=== PATIENT | male | born 1945 | race Caucasian/White ===

== ENCOUNTER → 2017-10-21 08:06 | Outpatient (CLI) | payer MEDICARE, SELFPAY ==
[2017-10-21 08:30] LABS: Abs Immature Grans 0.04 k/cumm (0.0-0.09); Absolute Basophil Count 0.02 k/cumm (0.0-0.2); Absolute Eosinophil Count 0.04 k/cumm (0.0-0.7); Absolute Lymphocyte Count 1.33 k/cumm (1.2-3.4); Absolute Monocyte Count 0.69 k/cumm (0.11-0.7); Basophils % 0.4; Eosinophils % 0.9; HCT 37.4 % (40.0-50.0); HGB 12.6 g/dL (13.5-17.5); Immature Grans % 0.9; Lymphocytes % 28.8; Mean Corp. HGB Concentration 33.7 g/dL (32.0-36.0); Mean Corpuscular Hemoglobin 30.3 pg (27.0-33.0); Mean Corpuscular Volume 89.9 fL (80-95); Mean Platelet Volume 9.3 fL (8.0-11.0); Monocytes % 14.9; Neutrophils % 54.1; Platelet Count 283 x1000/uL (130-400); RBC 4.16 m/cumm (4.50-6.00); RBC Distribution Width 14.9 % (11.8-14.1); White Blood Cell Count 4.62 k/cumm (4.4-10.8)
[2017-10-21 08:44] LABS: ALT 22 U/L (12-78); AST 17 U/L (15-37); Albumin 2.9 g/dL (3.4-5.0); Alkaline Phosphatase 104 U/L (46-116); Anion Gap 5.7 mmol/L (3-11); BUN 14 mg/dL (7-18); Bilirubin, Total 0.3 mg/dL (0.2-1.0); CO2 29.3 mmol/L (21.0-32.0); CREATININE 0.88 mg/dL (0.70-1.30); Calcium 8.9 mg/dL (8.5-10.1); Chloride 105 mmol/L (98-107); Glucose 127 mg/dL (70-100); Potassium 3.9 mmol/L (3.5-5.1); Sodium 140 mmol/L (136-145); Total Protein 6.4 g/dL (6.4-8.2)
== END ==
PROVIDERS: Visit Provider Internal Medicine Medical Oncology
DX: C34.91 Malignant neoplasm of unspecified part of right bronchus or lung (principal)
CPT/HCPCS: 36415; 80053; 85025

== ENCOUNTER → 2017-11-11 03:09 | Outpatient (CLI) | payer MEDICARE, SELFPAY ==
[2017-11-11 09:00] LABS: Abs Immature Grans 0.03 k/cumm (0.0-0.09); Absolute Basophil Count 0.01 k/cumm (0.0-0.2); Absolute Eosinophil Count 0.05 k/cumm (0.0-0.7); Absolute Lymphocyte Count 1.14 k/cumm (1.2-3.4); Absolute Monocyte Count 0.74 k/cumm (0.11-0.7); Absolute Neutrophil Count 2.28 k/cumm (1.2-6.7); Basophils % 0.2; Eosinophils % 1.2; HCT 33.8 % (40.0-50.0); HGB 11.3 g/dL (13.5-17.5); Immature Grans % 0.7; Lymphocytes % 26.8; Mean Corp. HGB Concentration 33.4 g/dL (32.0-36.0); Mean Corpuscular Hemoglobin 30.8 pg (27.0-33.0); Mean Corpuscular Volume 92.1 fL (80-95); Mean Platelet Volume 9.8 fL (8.0-11.0); Monocytes % 17.4; Neutrophils % 53.7; Platelet Count 288 x1000/uL (130-400); RBC 3.67 m/cumm (4.50-6.00); RBC Distribution Width 16.5 % (11.8-14.1); White Blood Cell Count 4.25 k/cumm (4.4-10.8)
[2017-11-11 09:11] LABS: ALT 19 U/L (12-78); AST 23 U/L (15-37); Albumin 2.9 g/dL (3.4-5.0); Alkaline Phosphatase 106 U/L (46-116); Anion Gap 5.7 mmol/L (3-11); BUN 16 mg/dL (7-18); Bilirubin, Total 0.3 mg/dL (0.2-1.0); CO2 28.3 mmol/L (21.0-32.0); CREATININE 0.96 mg/dL (0.70-1.30); Calcium 8.5 mg/dL (8.5-10.1); Chloride 107 mmol/L (98-107); Glucose 110 mg/dL (70-100); Potassium 4.2 mmol/L (3.5-5.1); Sodium 141 mmol/L (136-145); Total Protein 6.3 g/dL (6.4-8.2)
[2017-11-11 16:07] LABS: Magnesium 1.8 mg/dL (1.8-2.4)
== END ==
PROVIDERS: Nurse Practitioner Adult Health; PCP Nurse Practitioner Primary Care; Visit Provider Internal Medicine Medical Oncology
DX: C34.91 Malignant neoplasm of unspecified part of right bronchus or lung (principal); C77.1 Secondary and unspecified malignant neoplasm of intrathoracic lymph nodes
CPT/HCPCS: 36415; 80053; 83735; 85025

== ENCOUNTER 2017-12-02 10:44 | Outpatient (CLI) | payer MEDICARE, SELFPAY ==
[2017-12-02 11:06] LABS: Abs Immature Grans 0.01 k/cumm (0.0-0.09); Absolute Basophil Count 0.02 k/cumm (0.0-0.2); Absolute Eosinophil Count 0.07 k/cumm (0.0-0.7); Absolute Lymphocyte Count 1.38 k/cumm (1.2-3.4); Absolute Monocyte Count 0.86 k/cumm (0.11-0.7); Absolute Neutrophil Count 1.84 k/cumm (1.2-6.7); Basophils % 0.5; Eosinophils % 1.7; HCT 32.4 % (40.0-50.0); HGB 10.9 g/dL (13.5-17.5); Immature Grans % 0.2; Mean Corp. HGB Concentration 33.6 g/dL (32.0-36.0); Mean Corpuscular Hemoglobin 31.8 pg (27.0-33.0); Mean Corpuscular Volume 94.5 fL (80-95); Mean Platelet Volume 9.4 fL (8.0-11.0); Monocytes % 20.6; Platelet Count 229 x1000/uL (130-400); RBC 3.43 m/cumm (4.50-6.00); RBC Distribution Width 17.9 % (11.8-14.1); White Blood Cell Count 4.18 k/cumm (4.4-10.8)
[2017-12-02 11:18] LABS: ALT 21 U/L (12-78); AST 20 U/L (15-37); Albumin 3.1 g/dL (3.4-5.0); Alkaline Phosphatase 107 U/L (46-116); BUN 17 mg/dL (7-18); Bilirubin, Total 0.3 mg/dL (0.2-1.0); CREATININE 0.89 mg/dL (0.70-1.30); Calcium 8.6 mg/dL (8.5-10.1); Chloride 105 mmol/L (98-107); Glucose 98 mg/dL (70-100); Magnesium 1.7 mg/dL (1.8-2.4); Potassium 4.3 mmol/L (3.5-5.1); Sodium 139 mmol/L (136-145); Total Protein 6.5 g/dL (6.4-8.2)
== END 2017-12-02 11:04 ==
PROVIDERS: PCP Nurse Practitioner Primary Care; Visit Provider Internal Medicine Medical Oncology
DX: C77.1 Secondary and unspecified malignant neoplasm of intrathoracic lymph nodes (principal); C34.91 Malignant neoplasm of unspecified part of right bronchus or lung
CPT/HCPCS: 36415; 80053; 83735; 85025

== ENCOUNTER 2018-03-17 01:32 | Outpatient (CLI) | payer MEDICARE, SELFPAY ==
[2018-03-17 12:32] LABS: Abs Immature Grans 0.02 k/cumm (0.0-0.09); Absolute Basophil Count 0.02 k/cumm (0.0-0.2); Absolute Eosinophil Count 0.21 k/cumm (0.0-0.7); Absolute Lymphocyte Count 1.98 k/cumm (1.2-3.4); Absolute Monocyte Count 1.03 k/cumm (0.11-0.7); Absolute Neutrophil Count 4.02 k/cumm (1.2-6.7); Basophils % 0.3; Eosinophils % 2.9; HCT 41.8 % (40.0-50.0); HGB 13.9 g/dL (13.5-17.5); Immature Grans % 0.3; Lymphocytes % 27.2; Mean Corp. HGB Concentration 33.3 g/dL (32.0-36.0); Mean Corpuscular Hemoglobin 30.2 pg (27.0-33.0); Mean Corpuscular Volume 90.9 fL (80-95); Mean Platelet Volume 10.2 fL (8.0-11.0); Monocytes % 14.1; Neutrophils % 55.2; Platelet Count 156 x1000/uL (130-400); RBC Distribution Width 12.5 % (11.8-14.1); White Blood Cell Count 7.28 k/cumm (4.4-10.8)
[2018-03-17 12:46] LABS: ALT 23 U/L (12-78); AST 19 U/L (15-37); Albumin 3.4 g/dL (3.4-5.0); Alkaline Phosphatase 97 U/L (46-116); Anion Gap 5.7 mmol/L (3-11); BUN 20 mg/dL (7-18); Bilirubin, Total 0.3 mg/dL (0.2-1.0); CO2 31.3 mmol/L (21.0-32.0); CREATININE 0.97 mg/dL (0.70-1.30); Chloride 104 mmol/L (98-107); Glucose 98 mg/dL (70-100); Potassium 4.3 mmol/L (3.5-5.1); Sodium 141 mmol/L (136-145); Total Protein 6.9 g/dL (6.4-8.2)
== END 2018-03-17 01:52 ==
PROVIDERS: PCP Nurse Practitioner Primary Care; Visit Provider Nurse Practitioner Family
DX: C77.1 Secondary and unspecified malignant neoplasm of intrathoracic lymph nodes (principal)
CPT/HCPCS: 36415; 80053; 85025

== ENCOUNTER 2019-09-14 01:52 | Outpatient (RCR) | payer OTHER, SELFPAY ==
[2019-08-17] MEDS: Normal Saline Flush 10 ML SYR IVP (08:35)
[2019-08-17 08:49] LABS: Abs Immature Grans 0.02 k/cumm (0.0-0.09); Absolute Basophil Count 0.03 k/cumm (0.0-0.2); Absolute Lymphocyte Count 1.86 k/cumm (1.2-3.4); Absolute Monocyte Count 0.95 k/cumm (0.11-0.7); Basophils % 0.4; Eosinophils % 2.5; HCT 45.3 % (40.0-50.0); HGB 15.5 g/dL (13.5-17.5); Immature Grans % 0.3 %; Lymphocytes % 23.7; Mean Corp. HGB Concentration 34.2 g/dL (32.0-36.0); Mean Corpuscular Hemoglobin 30.6 pg (27.0-33.0); Mean Corpuscular Volume 89.3 fL (80-95); Mean Platelet Volume 10.8 fL (8.0-11.0); Monocytes % 12.1; Platelet Count 209 x1000/uL (130-400); RBC 5.07 m/cumm (4.50-6.00); RBC Distribution Width 13.8 % (11.8-14.1); White Blood Cell Count 7.86 k/cumm (4.4-10.8)
[2019-08-17 09:02] LABS: ALT 22 U/L (16-63); AST 28 U/L (15-37); Albumin 3.7 g/dL (3.4-5.0); Alkaline Phosphatase 108 U/L (46-116); Anion Gap 4.2 mmol/L (3-11); BUN 21 mg/dL (7-18); Bilirubin, Total 0.5 mg/dL (0.2-1.0); CO2 28.8 mmol/L (21.0-32.0); CREATININE 0.98 mg/dL (0.70-1.30); Calcium 9.1 mg/dL (8.5-10.1); Chloride 105 mmol/L (98-107); Glucose 113 mg/dL (74-106); Potassium 4.3 mmol/L (3.5-5.1); Sodium 138 mmol/L (136-145); Total Protein 7.4 g/dL (6.4-8.2)
[2019-08-24] MEDS: Normal Saline Flush 10 ML SYR IVP (08:20)
[2019-08-24 08:48] LABS: Abs Immature Grans 0.05 k/cumm (0.0-0.09); Absolute Basophil Count 0.02 k/cumm (0.0-0.2); Absolute Eosinophil Count 0.18 k/cumm (0.0-0.7); Absolute Lymphocyte Count 1.05 k/cumm (1.2-3.4); Absolute Monocyte Count 0.33 k/cumm (0.11-0.7); Basophils % 0.4; Eosinophils % 3.9; HCT 43.6 % (40.0-50.0); HGB 14.6 g/dL (13.5-17.5); Immature Grans % 1.1 %; Lymphocytes % 22.7; Mean Corp. HGB Concentration 33.5 g/dL (32.0-36.0); Mean Corpuscular Hemoglobin 30.1 pg (27.0-33.0); Mean Corpuscular Volume 89.9 fL (80-95); Mean Platelet Volume 10.9 fL (8.0-11.0); Monocytes % 7.1; Neutrophils % 64.8; Platelet Count 175 x1000/uL (130-400); RBC 4.85 m/cumm (4.50-6.00); RBC Distribution Width 13.4 % (11.8-14.1); White Blood Cell Count 4.63 k/cumm (4.4-10.8)
[2019-08-24 09:04] LABS: ALT 26 U/L (16-63); AST 21 U/L (15-37); Albumin 3.7 g/dL (3.4-5.0); Alkaline Phosphatase 108 U/L (46-116); Anion Gap 7.5 mmol/L (3-11); BUN 22 mg/dL (7-18); Bilirubin, Total 0.6 mg/dL (0.2-1.0); CO2 28.5 mmol/L (21.0-32.0); CREATININE 0.91 mg/dL (0.70-1.30); Calcium 9.1 mg/dL (8.5-10.1); Chloride 106 mmol/L (98-107); Glucose 108 mg/dL (74-106); Potassium 3.9 mmol/L (3.5-5.1); Sodium 142 mmol/L (136-145); Total Protein 7.2 g/dL (6.4-8.2)
[2019-08-31 08:55] LABS: Abs Immature Grans 0.01 k/cumm (0.0-0.09); Absolute Basophil Count 0.02 k/cumm (0.0-0.2); Absolute Eosinophil Count 0.06 k/cumm (0.0-0.7); Absolute Lymphocyte Count 0.66 k/cumm (1.2-3.4); Absolute Monocyte Count 0.23 k/cumm (0.11-0.7); Basophils % 1.2; Eosinophils % 3.6; HCT 42.8 % (40.0-50.0); HGB 14.6 g/dL (13.5-17.5); Immature Grans % 0.6 %; Lymphocytes % 39.3; Mean Corp. HGB Concentration 34.1 g/dL (32.0-36.0); Mean Corpuscular Hemoglobin 30.6 pg (27.0-33.0); Mean Corpuscular Volume 89.7 fL (80-95); Mean Platelet Volume 10.4 fL (8.0-11.0); Monocytes % 13.7; Neutrophils % 41.6; Platelet Count 162 x1000/uL (130-400); RBC 4.77 m/cumm (4.50-6.00); RBC Distribution Width 13.4 % (11.8-14.1)
[2019-08-31 09:15] LABS: Diff Comment Agrees w/ Instrument; RBC Morphology Normal; White Blood Cell Count 1.68 k/cumm (4.4-10.8)
[2019-08-31] MEDS: Normal Saline Flush 10 ML SYR IVP (09:18)
[2019-09-07] MEDS: Normal Saline Flush 10 ML SYR IVP (08:41)
[2019-09-07 08:46] LABS: Abs Immature Grans 0.05 k/cumm (0.0-0.09); Absolute Basophil Count 0.02 k/cumm (0.0-0.2); Absolute Eosinophil Count 0.05 k/cumm (0.0-0.7); Absolute Lymphocyte Count 0.72 k/cumm (1.2-3.4); Absolute Monocyte Count 0.98 k/cumm (0.11-0.7); Basophils % 0.6; Eosinophils % 1.6; HGB 14.1 g/dL (13.5-17.5); Immature Grans % 1.6 %; Lymphocytes % 22.4; Mean Corp. HGB Concentration 33.6 g/dL (32.0-36.0); Mean Corpuscular Volume 89.4 fL (80-95); Mean Platelet Volume 10.3 fL (8.0-11.0); Monocytes % 30.4; Neutrophils % 43.4; Platelet Count 184 x1000/uL (130-400); RBC Distribution Width 14.2 % (11.8-14.1); White Blood Cell Count 3.22 k/cumm (4.4-10.8)
[2019-09-07 09:01] LABS: ALT 25 U/L (16-63); AST 20 U/L (15-37); Albumin 3.7 g/dL (3.4-5.0); Alkaline Phosphatase 111 U/L (46-116); Anion Gap 8.6 mmol/L (3-11); BUN 23 mg/dL (7-18); Bilirubin, Total 0.6 mg/dL (0.2-1.0); CO2 26.4 mmol/L (21.0-32.0); CREATININE 1.11 mg/dL (0.70-1.30); Calcium 9.3 mg/dL (8.5-10.1); Chloride 104 mmol/L (98-107); Glucose 122 mg/dL (74-106); Potassium 3.8 mmol/L (3.5-5.1); Sodium 139 mmol/L (136-145); Total Protein 7.4 g/dL (6.4-8.2)
[2019-09-14] MEDS: Normal Saline Flush 10 ML SYR IVP (08:31)
[2019-09-14 08:42] LABS: Abs Immature Grans 0.03 k/cumm (0.0-0.09); Absolute Basophil Count 0.01 k/cumm (0.0-0.2); Absolute Eosinophil Count 0.06 k/cumm (0.0-0.7); Absolute Lymphocyte Count 0.56 k/cumm (1.2-3.4); Absolute Monocyte Count 0.46 k/cumm (0.11-0.7); Absolute Neutrophil Count 3.77 k/cumm (1.2-6.7); Basophils % 0.2; Eosinophils % 1.2; HCT 39.8 % (40.0-50.0); HGB 13.6 g/dL (13.5-17.5); Immature Grans % 0.6 %; Lymphocytes % 11.5; Mean Corp. HGB Concentration 34.2 g/dL (32.0-36.0); Mean Corpuscular Hemoglobin 30.8 pg (27.0-33.0); Mean Corpuscular Volume 90.2 fL (80-95); Mean Platelet Volume 10.2 fL (8.0-11.0); Monocytes % 9.4; Neutrophils % 77.1; Platelet Count 186 x1000/uL (130-400); RBC 4.41 m/cumm (4.50-6.00); RBC Distribution Width 13.7 % (11.8-14.1); White Blood Cell Count 4.89 k/cumm (4.4-10.8)
[2019-09-14 09:03] LABS: ALT 23 U/L (16-63); AST 19 U/L (15-37); Albumin 3.5 g/dL (3.4-5.0); Alkaline Phosphatase 103 U/L (46-116); Anion Gap 2.3 mmol/L (3-11); BUN 20 mg/dL (7-18); Bilirubin, Total 0.7 mg/dL (0.2-1.0); CO2 30.7 mmol/L (21.0-32.0); Calcium 8.7 mg/dL (8.5-10.1); Chloride 105 mmol/L (98-107); Glucose 124 mg/dL (74-106); Potassium 3.6 mmol/L (3.5-5.1); Sodium 138 mmol/L (136-145)
== END 2019-09-15 23:59 | disposition home or self-care (01) ==
LOC: INF 01:52
PROVIDERS: PCP Nurse Practitioner Primary Care; Visit Provider Internal Medicine Medical Oncology
DX: C77.1 Secondary and unspecified malignant neoplasm of intrathoracic lymph nodes (principal)
CPT/HCPCS: 36415; 80053; 85025

== ENCOUNTER 2019-09-28 01:10 | Outpatient (RCR) | payer OTHER, SELFPAY ==
[2019-09-21 08:48] LABS: Abs Immature Grans 0.01 k/cumm (0.0-0.09); Absolute Basophil Count 0.01 k/cumm (0.0-0.2); Absolute Eosinophil Count 0.04 k/cumm (0.0-0.7); Absolute Lymphocyte Count 0.37 k/cumm (1.2-3.4); Absolute Monocyte Count 0.33 k/cumm (0.11-0.7); Absolute Neutrophil Count 1.39 k/cumm (1.2-6.7); Basophils % 0.5; Eosinophils % 1.9; HCT 41.4 % (40.0-50.0); HGB 14.2 g/dL (13.5-17.5); Immature Grans % 0.5 %; Lymphocytes % 17.2; Mean Corp. HGB Concentration 34.3 g/dL (32.0-36.0); Mean Corpuscular Hemoglobin 30.5 pg (27.0-33.0); Mean Corpuscular Volume 88.8 fL (80-95); Mean Platelet Volume 9.9 fL (8.0-11.0); Monocytes % 15.3; Neutrophils % 64.6; Platelet Count 187 x1000/uL (130-400); RBC 4.66 m/cumm (4.50-6.00); RBC Distribution Width 13.9 % (11.8-14.1); White Blood Cell Count 2.15 k/cumm (4.4-10.8)
[2019-09-21] MEDS: Normal Saline Flush 10 ML SYR IVP (08:48)
[2019-09-21 09:03] LABS: ALT 25 U/L (16-63); AST 18 U/L (15-37); Albumin 3.6 g/dL (3.4-5.0); Alkaline Phosphatase 110 U/L (46-116); Anion Gap 8.8 mmol/L (3-11); BUN 18 mg/dL (7-18); CO2 28.2 mmol/L (21.0-32.0); CREATININE 1.03 mg/dL (0.70-1.30); Calcium 9.3 mg/dL (8.5-10.1); Chloride 101 mmol/L (98-107); Glucose 136 mg/dL (74-106); Potassium 3.4 mmol/L (3.5-5.1); Sodium 138 mmol/L (136-145); Total Protein 7.4 g/dL (6.4-8.2)
[2019-09-28 08:45] LABS: HGB 12.6 g/dL (13.5-17.5); Mean Corp. HGB Concentration 34.1 g/dL (32.0-36.0); Mean Corpuscular Hemoglobin 30.5 pg (27.0-33.0); Mean Corpuscular Volume 89.6 fL (80-95); Mean Platelet Volume 9.7 fL (8.0-11.0); Platelet Count 267 x1000/uL (130-400); RBC 4.13 m/cumm (4.50-6.00); RBC Distribution Width 14.5 % (11.8-14.1); White Blood Cell Count 4.55 k/cumm (4.4-10.8)
[2019-09-28 08:56] LABS: Diff Comment Manual Differential; RBC Morphology Normal
[2019-09-28 08:58] LABS: ALT 19 U/L (16-63); AST 18 U/L (15-37); Albumin 3.1 g/dL (3.4-5.0); Alkaline Phosphatase 97 U/L (46-116); Anion Gap 6.2 mmol/L (3-11); BUN 15 mg/dL (7-18); Bilirubin, Total 0.7 mg/dL (0.2-1.0); CO2 29.8 mmol/L (21.0-32.0); CREATININE 0.96 mg/dL (0.70-1.30); Chloride 103 mmol/L (98-107); Glucose 121 mg/dL (74-106); Potassium 3.5 mmol/L (3.5-5.1); Sodium 139 mmol/L (136-145); Total Protein 6.8 g/dL (6.4-8.2)
[2019-09-28 09:01] LABS: Absolute Lymphocyte Count 0.18 k/cumm (1.2-3.4); Absolute Monocyte Count 0.59 k/cumm (0.11-0.7); Absolute Neutrophil Count 3.64 k/cumm (1.2-6.7)
[2019-09-28 09:02] LABS: Absolute Basophil Count 0.05 k/cumm (0.0-0.2); Absolute Eosinophil Count 0.05 k/cumm (0.0-0.7)
== END 2019-10-16 23:59 | disposition home or self-care (01) ==
LOC: INF 01:10
PROVIDERS: Internal Medicine Hematology & Oncology; PCP Nurse Practitioner Primary Care; Visit Provider Internal Medicine Medical Oncology
DX: C77.1 Secondary and unspecified malignant neoplasm of intrathoracic lymph nodes (principal)
CPT/HCPCS: 36415; 80053; 85025

== ENCOUNTER 2019-10-13 01:25 | Outpatient (CLI) | payer OTHER, SELFPAY ==
[2019-10-13 08:30] LABS: Abs Immature Grans 0.03 k/cumm (0.0-0.09); Absolute Basophil Count 0.02 k/cumm (0.0-0.2); Absolute Lymphocyte Count 0.92 k/cumm (1.2-3.4); Absolute Monocyte Count 0.91 k/cumm (0.11-0.7); Absolute Neutrophil Count 2.74 k/cumm (1.2-6.7); Basophils % 0.4; Eosinophils % 2.1; HCT 36.7 % (40.0-50.0); HGB 12.2 g/dL (13.5-17.5); Immature Grans % 0.6 %; Lymphocytes % 19.5; Mean Corp. HGB Concentration 33.2 g/dL (32.0-36.0); Mean Corpuscular Volume 90.4 fL (80-95); Mean Platelet Volume 9.6 fL (8.0-11.0); Monocytes % 19.3; Neutrophils % 58.1; Platelet Count 198 x1000/uL (130-400); RBC 4.06 m/cumm (4.50-6.00); RBC Distribution Width 15.5 % (11.8-14.1); White Blood Cell Count 4.72 k/cumm (4.4-10.8)
[2019-10-13 08:53] LABS: ALT 23 U/L (16-63); AST 24 U/L (15-37); Albumin 3.2 g/dL (3.4-5.0); Alkaline Phosphatase 84 U/L (46-116); Anion Gap 7.3 mmol/L (3-11); BUN 13 mg/dL (7-18); Bilirubin, Total 0.5 mg/dL (0.2-1.0); CO2 27.7 mmol/L (21.0-32.0); CREATININE 0.98 mg/dL (0.70-1.30); Calcium 8.7 mg/dL (8.5-10.1); Chloride 105 mmol/L (98-107); Glucose 105 mg/dL (74-106); Magnesium 1.8 mg/dL (1.8-2.4); Potassium 3.6 mmol/L (3.5-5.1); Sodium 140 mmol/L (136-145); Total Protein 6.5 g/dL (6.4-8.2)
[2019-10-13] MEDS: Omnipaque 350 MG/ML 100 ML BTL IJ (09:47)
--- NOTE | 2019-10-13 10:04 | DI.CT_ITS ---
EXAM: CT CHEST W CLINICAL HISTORY: [id number],ADENOCARCINOMA OF LUNG, C34.91 TECHNIQUE: Imaging Protocol: Axial computed tomography images with coronal and sagittal reformatted images were created and reviewed CONTRAST MATERIAL: Intravenous: Omnipaque 350 Contrast volume:structured data in ml. COMPARISON: CT CT THORAX W/CONT from 06/02/2019 FINDINGS: Tracheobronchial tree: Patent where visualized. Pulmonary parenchyma: No consolidation or dominant measurable mass. Right upper lobe lobectomy. Stab le changes of centrilobular emphysema, greatest in the left upper lobe. Bulla are seen medially in t he left upper lobe. Stable right middle and lower lobe scarring. Pleura: No effusion or pneumothorax. Heart: The heart is not dilated. Moderate coronary artery calcifications are seen. Aorta: Thoracic aorta non-dilated. Atherosclerotic changes. Lymph nodes: There has been interval decrease in prominence of right paratracheal and right hilar lym ph nodes when compared with the previous exam. No new adenopathy is seen. Bones: Degenerative changes in the spine. Anterior fusion in the lower cervical spine. Upper abdomen: Stable liver cysts and renal cysts. IMPRESSION: Mild interval decrease in size of right paratracheal and right hilar adenopathy. No pulmonary nodule s or recurrence mass. RADIATION DOSE DELIVERED: 436.97mGy.cm Total DLP DATA REPOSITORY: All CT scans at this facility are submitted to the National Radiology Data Registry (NRDR) Dose Index Registry (DIR) with the [employer] (ACR). RADIATION OPTIMIZATION: All CT scans at this facility use at least one of these dose optimization te chniques: automated exposure control; mA and/or kV adjustment per patient size (includes targeted exa ms where dose is matched to clinical indication); or iterative reconstruction.
== END 2019-10-13 01:45 ==
PROVIDERS: PCP Nurse Practitioner Primary Care; Visit Provider Internal Medicine Medical Oncology
DX: C77.1 Secondary and unspecified malignant neoplasm of intrathoracic lymph nodes (principal); C34.91 Malignant neoplasm of unspecified part of right bronchus or lung
CPT/HCPCS: 80053; 71260; 83735; 85025; J3490

== ENCOUNTER 2019-10-30 05:33 | Outpatient (RCR) | payer OTHER, SELFPAY ==
[2019-10-30 09:05] LABS: Abs Immature Grans 0.02 10^3/uL (0.0-0.06); Absolute Basophil Count 0.02 10^3/uL (0.0-0.2); Absolute Eosinophil Count 0.18 10^3/uL (0.0-0.7); Absolute Lymphocyte Count 1.02 10^3/uL (1.2-3.4); Absolute Neutrophil Count 4.17 10^3/uL (1.2-6.7); Basophils % 0.3; Eosinophils % 2.9; HCT 43.4 % (40.0-50.0); Immature Grans % 0.3; Lymphocytes % 16.4; MCH 30.4 pg (27.0-33.0); MCHC 32.3 % (32.0-36.0); MCV 94.3 fL (80-95); MPV 10.3 fL (8.0-11.0); Monocytes % 12.9; Neutrophils % 67.2; Nucleated RBC 0 %; Platelet Count 190 10^3/uL (130-400); RDW 15.4 % (11.8-14.1); RDW-SD 53.5 fL; WBC 6.21 10^3/uL (4.4-10.8)
[2019-10-30] MEDS: Normal Saline Flush 10 ML SYR IVP (09:27)
[2019-10-30 09:37] LABS: ALT 24 U/L (16-63); AST 20 U/L (15-37); Albumin 3.9 g/dL (3.4-5.0); Alkaline Phosphatase 103 U/L (46-116); Anion Gap 7.4 mmol/L (3-11); BUN 11 mg/dL (7-18); Bilirubin, Total 0.8 mg/dL (0.2-1.0); CO2 29.6 mmol/L (21.0-32.0); CREATININE 0.97 mg/dL (0.70-1.30); Calcium 9.9 mg/dL (8.5-10.1); Chloride 104 mmol/L (98-107); FREE T4 1.35 ng/dL (0.76-1.46); Glucose 102 mg/dL (74-106); Potassium 3.5 mmol/L (3.5-5.1); Sodium 141 mmol/L (136-145); TSH 1.92 uIU/mL (0.36-3.74); Total Protein 7.7 g/dL (6.4-8.2)
== END 2019-11-16 23:59 | disposition home or self-care (01) ==
LOC: INF 05:33
PROVIDERS: PCP Nurse Practitioner Primary Care; Visit Provider Internal Medicine Hematology & Oncology
DX: C34.91 Malignant neoplasm of unspecified part of right bronchus or lung (principal); C77.1 Secondary and unspecified malignant neoplasm of intrathoracic lymph nodes
CPT/HCPCS: 36415; 80053; 84439; 84443; 85025

== ENCOUNTER 2019-11-30 01:48 | Outpatient (RCR) | payer OTHER, SELFPAY ==
[2019-11-30] MEDS: Normal Saline Flush 10 ML SYR IVP (10:28)
[2019-11-30 10:47] LABS: Abs Immature Grans 0.02 10^3/uL (0.0-0.06); Absolute Basophil Count 0.04 10^3/uL (0.0-0.2); Absolute Eosinophil Count 0.11 10^3/uL (0.0-0.7); Absolute Lymphocyte Count 0.95 10^3/uL (1.2-3.4); Absolute Monocyte Count 0.94 10^3/uL (0.1-0.8); Absolute Neutrophil Count 3.79 10^3/uL (1.2-6.7); Basophils % 0.7; Eosinophils % 1.9; HCT 40.3 % (40.0-50.0); HGB 13.4 g/dL (13.5-17.5); Immature Grans % 0.3; Lymphocytes % 16.2; MCH 31.2 pg (27.0-33.0); MCHC 33.3 % (32.0-36.0); MCV 93.9 fL (80-95); MPV 10.7 fL (8.0-11.0); Monocytes % 16.1; Neutrophils % 64.8; Nucleated RBC 0 %; Platelet Count 224 10^3/uL (130-400); RBC 4.29 10^6/uL (4.36-5.78); RDW 13.2 % (11.8-14.1); RDW-SD 44.9 fL; WBC 5.85 10^3/uL (4.4-10.8)
[2019-11-30 11:00] LABS: ALT 18 U/L (16-63); AST 19 U/L (15-37); Albumin 3.4 g/dL (3.4-5.0); Alkaline Phosphatase 105 U/L (46-116); Anion Gap 7.8 mmol/L (3-11); BUN 22 mg/dL (7-18); Bilirubin, Total 0.5 mg/dL (0.2-1.0); CO2 27.2 mmol/L (21.0-32.0); Calcium 8.9 mg/dL (8.5-10.1); Chloride 105 mmol/L (98-107); FREE T4 1.36 ng/dL (0.76-1.46); Glucose 95 mg/dL (74-106); Potassium 3.6 mmol/L (3.5-5.1); Sodium 140 mmol/L (136-145); TSH 0.39 uIU/mL (0.36-3.74); Total Protein 6.9 g/dL (6.4-8.2)
== END 2019-12-16 23:59 | disposition home or self-care (01) ==
LOC: INF 01:48
PROVIDERS: Internal Medicine Medical Oncology; PCP Nurse Practitioner Primary Care; Visit Provider Internal Medicine Hematology & Oncology
DX: C77.1 Secondary and unspecified malignant neoplasm of intrathoracic lymph nodes (principal)
CPT/HCPCS: 36415; 80053; 84439; 84443; 85025

== ENCOUNTER 2019-12-28 11:56 | Outpatient (RCR) | payer OTHER, MEDICARE, SELFPAY ==
[2019-12-28] MEDS: Normal Saline Flush 10 ML SYR IVP (12:07)
[2019-12-28 12:20] LABS: Abs Immature Grans 0.02 10^3/uL (0.0-0.06); Absolute Basophil Count 0.04 10^3/uL (0.0-0.2); Absolute Eosinophil Count 0.15 10^3/uL (0.0-0.7); Absolute Lymphocyte Count 1.08 10^3/uL (1.2-3.4); Absolute Monocyte Count 0.86 10^3/uL (0.1-0.8); Absolute Neutrophil Count 4.95 10^3/uL (1.2-6.7); Basophils % 0.6; Eosinophils % 2.1; HCT 46.4 % (40.0-50.0); HGB 15.2 g/dL (13.5-17.5); Immature Grans % 0.3; Lymphocytes % 15.2; MCH 30.8 pg (27.0-33.0); MCHC 32.8 % (32.0-36.0); MCV 93.9 fL (80-95); MPV 10.7 fL (8.0-11.0); Monocytes % 12.1; Neutrophils % 69.7; Nucleated RBC 0 %; Platelet Count 195 10^3/uL (130-400); RBC 4.94 10^6/uL (4.36-5.78); RDW 12.2 % (11.8-14.1); RDW-SD 42.4 fL
[2019-12-28 12:40] LABS: ALT 19 U/L (16-63); AST 27 U/L (15-37); Albumin 3.6 g/dL (3.4-5.0); Alkaline Phosphatase 109 U/L (46-116); Anion Gap 7.1 mmol/L (3-11); BUN 23 mg/dL (7-18); Bilirubin, Total 0.4 mg/dL (0.2-1.0); CO2 28.9 mmol/L (21.0-32.0); CREATININE 0.91 mg/dL (0.70-1.30); Calcium 9.1 mg/dL (8.5-10.1); Chloride 106 mmol/L (98-107); FREE T4 1.36 ng/dL (0.76-1.46); Glucose 99 mg/dL (74-106); Magnesium 2.1 mg/dL (1.8-2.4); Potassium 4.6 mmol/L (3.5-5.1); Sodium 142 mmol/L (136-145); TSH 0.59 uIU/mL (0.36-3.74); Total Protein 7.6 g/dL (6.4-8.2)
== END 2020-01-16 23:59 | disposition home or self-care (01) ==
LOC: INF 11:56
PROVIDERS: PCP Nurse Practitioner Primary Care; Visit Provider Internal Medicine Medical Oncology
DX: C34.91 Malignant neoplasm of unspecified part of right bronchus or lung (principal); C77.1 Secondary and unspecified malignant neoplasm of intrathoracic lymph nodes
CPT/HCPCS: 36415; 80053; 83735; 84439; 84443; 85025

== ENCOUNTER 2020-01-25 01:22 | Outpatient (RCR) | payer OTHER, SELFPAY ==
[2020-01-25] MEDS: Normal Saline Flush 10 ML SYR IVP (11:15)
[2020-01-25 12:18] LABS: Abs Immature Grans 0.03 10^3/uL (0.0-0.06); Absolute Basophil Count 0.04 10^3/uL (0.0-0.2); Absolute Eosinophil Count 0.13 10^3/uL (0.0-0.7); Absolute Monocyte Count 0.98 10^3/uL (0.1-0.8); Absolute Neutrophil Count 4.95 10^3/uL (1.2-6.7); Basophils % 0.5; Eosinophils % 1.8; HCT 42.2 % (40.0-50.0); HGB 14.1 g/dL (13.5-17.5); Immature Grans % 0.4; Lymphocytes % 16.4; MCH 30.4 pg (27.0-33.0); MCHC 33.4 % (32.0-36.0); MCV 90.9 fL (80-95); MPV 10.6 fL (8.0-11.0); Monocytes % 13.4; Neutrophils % 67.5; Nucleated RBC 0 %; Platelet Count 184 10^3/uL (130-400); RBC 4.64 10^6/uL (4.36-5.78); RDW 12.4 % (11.8-14.1); RDW-SD 40.7 fL; WBC 7.33 10^3/uL (4.4-10.8)
[2020-01-25 12:26] LABS: ALT 17 U/L (16-63); AST 19 U/L (15-37); Albumin 3.3 g/dL (3.4-5.0); Alkaline Phosphatase 105 U/L (46-116); Anion Gap 5.6 mmol/L (3-11); BUN 19 mg/dL (7-18); Bilirubin, Total 0.4 mg/dL (0.2-1.0); CO2 29.4 mmol/L (21.0-32.0); CREATININE 0.86 mg/dL (0.70-1.30); Calcium 8.8 mg/dL (8.5-10.1); Chloride 105 mmol/L (98-107); FREE T4 1.41 ng/dL (0.76-1.46); Glucose 93 mg/dL (74-106); Sodium 140 mmol/L (136-145); TSH 0.25 uIU/mL (0.36-3.74); Total Protein 6.6 g/dL (6.4-8.2)
== END 2020-02-15 23:59 | disposition home or self-care (01) ==
LOC: INF 01:22
PROVIDERS: PCP Nurse Practitioner Primary Care; Visit Provider Internal Medicine Medical Oncology
DX: C77.1 Secondary and unspecified malignant neoplasm of intrathoracic lymph nodes (principal); C34.91 Malignant neoplasm of unspecified part of right bronchus or lung
CPT/HCPCS: 36415; 80053; 84439; 84443; 85025

== ENCOUNTER 2020-01-27 13:27 | Outpatient (CLI) | payer OTHER, SELFPAY ==
--- NOTE | 2020-01-27 | DI.CT_ITS ---
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 COMPARISON: CT CT CHEST W from 10/13/[address] CHEST W from 10/13/2019 FINDINGS: Tracheobronchial tree: Status post right upper lobectomy. Mediastinum and Zonia: No dominant adenopathy or fluid collection. Pulmonary parenchyma: Centrilobular and paraseptal emphysematous changes are present. Since the prio r examination, there have developed ground-glass opacities in the right paramediastinal region. Ther e is also an area of nodularity adjacent to the major fissure medially. It lies anterior to the new ground-glass opacities. It measures 0.5 cm. Pleura: No effusion or pneumothorax. Heart: The heart is not dilated. Moderate coronary artery calcification. No significant pericardial effusion. Aorta: Thoracic aorta non-dilated. Atherosclerosis. Upper abdomen: Bilateral renal cysts. Right nephrolithiasis. Lymph nodes: There has been no change in size of the right paratracheal lymph node. Right hilar lymp h nodes are unchanged. No new adenopathy. Bones: Degenerative changes in the spine. Postsurgical changes of anterior cervical disc fusion are seen. Soft tissues: Unremarkable. IMPRESSION: 1. Stable postsurgical changes of a right upper lobectomy. Stable right paratracheal lymph node. No new adenopathy. 2. Interval development of ground-glass opacities in the right paramediastinal region. This may be s econdary to radiation therapy. An interstitial pneumonia or other inflammatory process cannot be exc luded. 3. 0.5 cm opacity adjacent to the right major fissure. This may represent a small focal area of cons olidation related to radiation therapy. Pulmonary nodule or infiltrate cannot be excluded. 4. Stable incidental findings in the chest and upper abdomen as described above. RADIATION DOSE DELIVERED: 355.74mGy.cm Total DLP DATA REPOSITORY: All CT scans at this facility are submitted to the National Radiology Data Registry (NRDR) Dose Index Registry (DIR) with the [employer] (ACR). RADIATION OPTIMIZATION: All CT scans at this facility use at least one of these dose optimization te chniques: automated exposure control; mA and/or kV adjustment per patient size (includes targeted exa ms where dose is matched to clinical indication); or iterative reconstruction.
[2020-01-27] MEDS: Omnipaque 350 MG/ML 100 ML BTL IV (14:04)
== END 2020-01-27 13:47 ==
PROVIDERS: PCP Nurse Practitioner Primary Care; Visit Provider Nurse Practitioner Adult Health
DX: R91.8 Other nonspecific abnormal finding of lung field (principal); Z90.2 Acquired absence of lung [part of]; C34.91 Malignant neoplasm of unspecified part of right bronchus or lung; C79.89 Secondary malignant neoplasm of other specified sites
CPT/HCPCS: 71260; J3490

== ENCOUNTER 2020-02-22 11:50 | Outpatient (RCR) | payer OTHER, SELFPAY ==
[2020-02-22] MEDS: Normal Saline Flush 10 ML SYR IVP (11:57)
[2020-02-22 12:05] LABS: Abs Immature Grans 0.03 10^3/uL (0.0-0.06); Absolute Basophil Count 0.04 10^3/uL (0.0-0.2); Absolute Eosinophil Count 0.15 10^3/uL (0.0-0.7); Absolute Lymphocyte Count 1.17 10^3/uL (1.2-3.4); Absolute Monocyte Count 0.88 10^3/uL (0.1-0.8); Absolute Neutrophil Count 5.29 10^3/uL (1.2-6.7); Basophils % 0.5; HCT 45.9 % (40.0-50.0); HGB 15.3 g/dL (13.5-17.5); Immature Grans % 0.4; Lymphocytes % 15.5; MCH 29.7 pg (27.0-33.0); MCHC 33.3 % (32.0-36.0); MPV 10.5 fL (8.0-11.0); Monocytes % 11.6; Nucleated RBC 0 %; Platelet Count 200 10^3/uL (130-400); RBC 5.16 10^6/uL (4.36-5.78); RDW 12.7 % (11.8-14.1); RDW-SD 41.4 fL; WBC 7.56 10^3/uL (4.4-10.8)
[2020-02-22 12:26] LABS: ALT 19 U/L (16-63); AST 35 U/L (15-37); Albumin 3.5 g/dL (3.4-5.0); Alkaline Phosphatase 118 U/L (46-116); Anion Gap 7.8 mmol/L (3-11); BUN 20 mg/dL (7-18); Bilirubin, Total 0.7 mg/dL (0.2-1.0); CO2 26.2 mmol/L (21.0-32.0); CREATININE 0.87 mg/dL (0.70-1.30); Chloride 105 mmol/L (98-107); FREE T4 1.33 ng/dL (0.76-1.46); Glucose 103 mg/dL (74-106); Potassium 5.2 mmol/L (3.5-5.1); Sodium 139 mmol/L (136-145); TSH 0.45 uIU/mL (0.36-3.74); Total Protein 7.4 g/dL (6.4-8.2)
== END 2020-03-17 23:59 | disposition home or self-care (01) ==
LOC: INF 11:50
PROVIDERS: PCP Nurse Practitioner Primary Care; Visit Provider Internal Medicine Medical Oncology
DX: C34.91 Malignant neoplasm of unspecified part of right bronchus or lung (principal); C77.1 Secondary and unspecified malignant neoplasm of intrathoracic lymph nodes
CPT/HCPCS: 36415; 80053; 84439; 84443; 85025

== ENCOUNTER 2020-03-21 03:07 | Outpatient (RCR) | payer OTHER, SELFPAY ==
[2020-03-21 12:10] LABS: Abs Immature Grans 0.03 10^3/uL (0.0-0.06); Absolute Basophil Count 0.03 10^3/uL (0.0-0.2); Absolute Eosinophil Count 0.11 10^3/uL (0.0-0.7); Absolute Lymphocyte Count 1.06 10^3/uL (1.2-3.4); Absolute Monocyte Count 0.99 10^3/uL (0.1-0.8); Absolute Neutrophil Count 5.38 10^3/uL (1.2-6.7); Basophils % 0.4; Eosinophils % 1.4; HCT 43.9 % (40.0-50.0); HGB 14.4 g/dL (13.5-17.5); Immature Grans % 0.4; Lymphocytes % 13.9; MCH 29.4 pg (27.0-33.0); MCHC 32.8 % (32.0-36.0); MCV 89.6 fL (80-95); Neutrophils % 70.9; Nucleated RBC 0 %; Platelet Count 199 10^3/uL (130-400); RDW 13.6 % (11.8-14.1); RDW-SD 44.7 fL
[2020-03-21] MEDS: Normal Saline Flush 10 ML SYR IVP (12:27)
[2020-03-21 13:14] LABS: ALT 26 U/L (16-63); AST 30 U/L (15-37); Albumin 3.4 g/dL (3.4-5.0); Alkaline Phosphatase 99 U/L (46-116); Anion Gap 7.5 mmol/L (3-11); BUN 22 mg/dL (7-18); Bilirubin, Total 0.5 mg/dL (0.2-1.0); CO2 24.5 mmol/L (21.0-32.0); CREATININE 0.94 mg/dL (0.70-1.30); Calcium 8.7 mg/dL (8.5-10.1); Chloride 106 mmol/L (98-107); Glucose 128 mg/dL (74-106); Potassium 4.1 mmol/L (3.5-5.1); Sodium 138 mmol/L (136-145); Total Protein 6.9 g/dL (6.4-8.2)
== END 2020-04-17 23:59 | disposition home or self-care (01) ==
LOC: INF 03:07
PROVIDERS: Nurse Practitioner Adult Health; PCP Nurse Practitioner Primary Care; Visit Provider Internal Medicine Medical Oncology
DX: C77.1 Secondary and unspecified malignant neoplasm of intrathoracic lymph nodes (principal); C34.91 Malignant neoplasm of unspecified part of right bronchus or lung; E03.9 Hypothyroidism, unspecified
CPT/HCPCS: 36415; 80053; 84439; 84443; 85025

== ENCOUNTER 2020-04-18 03:24 | Outpatient (RCR) | payer OTHER, SELFPAY ==
[2020-04-18] MEDS: Normal Saline Flush 10 ML SYR IVP (12:39)
[2020-04-18 12:45] LABS: Abs Immature Grans 0.04 10^3/uL (0.0-0.06); Absolute Basophil Count 0.03 10^3/uL (0.0-0.2); Absolute Eosinophil Count 0.14 10^3/uL (0.0-0.7); Absolute Lymphocyte Count 0.97 10^3/uL (1.2-3.4); Absolute Monocyte Count 0.94 10^3/uL (0.1-0.8); Absolute Neutrophil Count 5.34 10^3/uL (1.2-6.7); Basophils % 0.4; Eosinophils % 1.9; HGB 14.2 g/dL (13.5-17.5); Immature Grans % 0.5; MCH 29.9 pg (27.0-33.0); MCV 90.5 fL (80-95); MPV 10.3 fL (8.0-11.0); Monocytes % 12.6; Neutrophils % 71.6; Nucleated RBC 0 %; Platelet Count 193 10^3/uL (130-400); RBC 4.75 10^6/uL (4.36-5.78); RDW 13.2 % (11.8-14.1); RDW-SD 44.5 fL; WBC 7.46 10^3/uL (4.4-10.8)
[2020-04-18 12:56] LABS: ALT 18 U/L (16-63); AST 15 U/L (15-37); Albumin 3.3 g/dL (3.4-5.0); Alkaline Phosphatase 103 U/L (46-116); Anion Gap 7.8 mmol/L (3-11); BUN 22 mg/dL (7-18); Bilirubin, Total 0.5 mg/dL (0.2-1.0); CO2 28.2 mmol/L (21.0-32.0); CREATININE 0.9 mg/dL (0.70-1.30); Chloride 105 mmol/L (98-107); FREE T4 1.35 ng/dL (0.76-1.46); Glucose 105 mg/dL (74-106); Potassium 4.2 mmol/L (3.5-5.1); Sodium 141 mmol/L (136-145); TSH 0.68 uIU/mL (0.36-3.74)
== END 2020-05-15 23:59 | disposition home or self-care (01) ==
LOC: INF 03:24
PROVIDERS: PCP Nurse Practitioner Primary Care; Visit Provider Internal Medicine Medical Oncology
DX: C77.1 Secondary and unspecified malignant neoplasm of intrathoracic lymph nodes (principal); C34.91 Malignant neoplasm of unspecified part of right bronchus or lung; E03.9 Hypothyroidism, unspecified
CPT/HCPCS: 36415; 80053; 84439; 84443; 85025

== ENCOUNTER 2020-04-29 09:22 | Day surgery (SDC) | payer OTHER, SELFPAY ==
[2020-04-29 09:54] VITALS: BP 143/79; PULSE 56; RESP 16; TEMP 36.6; O2SAT 99
[2020-04-29] MEDS: Tropicam./Phenyleph. (1/2.5%) 5 ML BTL OD ×3 (10:27→10:37)
[2020-04-29] MEDS: Tetracaine 0.5% 4 ML BTL OD (12:24)
[2020-04-29] MEDS: Lidocaine 1% Pres-Free 5 ML VIAL (12:25)
[2020-04-29] MEDS: Trypan Blue 0.06% 0.5 ML SYR (12:27)
[2020-04-29] MEDS: Balanced Salt Soln.-PLUS 500 ML BAG (12:28)
[2020-04-29] MEDS: Lidocaine 2% Jelly 6 ML SYR (12:30)
[2020-04-29] MEDS: Duovisc Viscoelastic System EACH 1 EACH (12:30)
[2020-04-29] MEDS: Povidone-Iodine Ophth 30 ML BTL (12:31)
--- NOTE | 2020-04-29 12:47 | W.PM.DSUDISC ---
Discharge Plan Disposition Patient Disposition: HOME Condition: Good Discharge Details Attending Provider: Josh Mcgee Primary Care Provider: Tennille Do Home Meds and New Rx's Prescriptions: No Action acetaminophen [Tylenol] 325 MG tablet 650 mg PO Q4H PRN PRN (Reason: Fever) RF: 0 enalapril maleate 5 MG tablet 5 mg PO DAILY Qty: 30 RF: 0 atorvastatin 40 MG tablet 20 mg PO HS Qty: 0 RF: 0 levothyroxine 100 MCG tablet 1 tab PO DAILY RF: 0 omeprazole 20 mg Tablet,Delayed Release (Dr/Ec) 20 mg PO DAILY RF: 0 Discharge Instructions Stand Alone Forms: Post-op Topical Cataract Discharge Orders Discharge Orders: Discharge Order (Routine); Ordered 04/29/20 Ordered By: Josh Mcgee DS: Diagnosis Discharge Diagnosis (1) Combined form of age-related cataract, right eye: Status: Resolved (2) Posterior subcapsular age-related cataract, right eye: Status: Resolved
--- NOTE | 2020-04-29 12:48 | ROE_ITS ---
Date of service: 04/29/20 Time of Service: 12:48 Operative Note Operative Note DATE OF PROCEDURE: 04/29/20 PRE-OP DIAGNOSIS: Nuclear/cortical/posterior subcapsular cataract, right eye Poor red reflex, right eye secondary to cataract POST-OP DIAGNOSIS: same PROCEDURE: Cataract extraction using phacoemulsification with intraocular lens implantation, right eye, using capsular staining with Vision Blue SURGEON: Josh Mcgee ANESTHESIA: MAC (with local sub-tenon's anesthetic injection) PATHOLOGY: none sent COMPLICATIONS: None Patient was transported to: same day Patient's condition: stable Implants: Glenn and Glenn / [employer] Tecnis [id number] Indications: Progressive visual loss due to cataract, right eye Procedure Description: CATARACT SURGERY OPERATIVE REPORT PREOPERATIVE DIAGNOSIS: 1. Nuclear/cortical/posterior subcapsular cataract, right eye 2. Poor red reflex secondary to #1 POSTOPERATIVE DIAGNOSIS: Same OPERATION: 1. Cataract extraction using phacoemulsification with posterior chamber intraocular lens implant, right eye. 2. Capsular staining with Vision Blue IOL: IOL [employer] Supervisor/Model: Glenn & Glenn / PRESTON Tecnis [id number] IOL Power: + 19.50 diopters IOL Serial Number: [id number] Optic Diameter: 6.0mm Haptic/Overall Diameter: 13.0mm PHACO INFO: Armando [employer] Vision System with OZil and Active Fluidics Cumulative Dispersed Energy (CDE): 6.89 seconds SURGEON: Josh Mcgee MD, THIERRY ANESTHESIA: Monitored Anesthesia Care (MAC), with local sub-tenon's anesthetic infiltration COMPLICATIONS: None SPECIMENS: None INDICATIONS FOR PROCEDURE: The patient is a 75-year-old gentleman with history of diminished visual acuity in his right eye secondary to the development of nuclear and cortical cataract. He is significantly symptomatic that he desires cataract surgery and attempt to improve and maximize his vision. PROCEDURE: The correct surgical eye was identified and marked as the right eye and the pupil was dilated in the preoperative area using mydriatics and cycloplegics. The dilated pupil size was 7.5 mm. The patient elected to proceed without sedation. The patient was brought to the operating room where cardiopulmonary monitoring was instituted and surgical time-out was performed, confirming the correct operative eye and IOL power. Topical anesthesia was administered and ophthalmic povidone-iodine 5% was instilled into the conjunctival fornices. Lidocaine gel was applied to the cornea and the yvette-ocular area was prepped with Betadine 10% solution and draped in the usual sterile fashion for intraocular surgery, including an aperture drape. A Tegaderm transparent film dressing was cut in half and used to cover the lashes and lid margins. Care was taken to sequester the lashes and lid margins under the Tegaderm dressing. A lid speculum was placed between the lids of the operative eye and the Bri-Rommel operating microscope was maneuvered into position. Keyshawn scissors were then used to make a conjunctival buttonhole approximately 6mm posterior to the limbus in the inferonasal quadrant. Blunt dissection was carried out to expose bare sclera, and a blunt-tipped sub-tenon?s anesthesia cannula was introduced and passed posteriorly along the globe where non- preserved plain lidocaine was injected into posterior sub-Tenon?s space. A sideport knife was used to make a paracentesis port inferotemporally. Intraocular phenylephrine/lidocaine was injected into the anterior chamber. Air was injected into the anterior chamber, followed by Vision Blue, which was painted over the anterior capsule and then irrigated out with BSS. The anterior chamber was filled with viscoelastic. A 2.4mm keratome knife was used to create a half-thickness groove at the limbus and then to construct a three-plane near- clear corneal tunnel extending 2.0mm into clear cornea superiortemporally. A flap was raised on the anterior capsule and capsulorhexis forceps were used to complete a continuous curvilinear capsulorhexis of 5.0 mm. Balanced salt solution was then used to perform cortical cleaving hydrodissection and nuclear hydrodelineation until the lens could be freely rotated within the capsular bag. The lens nucleus was then disassembled and removed within the capsular bag and iris plane using phacoemulsification. Residual cortical material was removed using the I/A handpiece. The posterior capsule was carefully polished to remove as much residual lens epithelial cells as safely possible. The capsular bag was then inflated and the anterior chamber deepened with viscoelastic. The lens implant described above was inserted into the capsular bag using the PRESTON [place] Injector. A Kuglen hook was used to dial the IOL into position. Residual viscoelastic was then removed first from posterior to the IOL, then from the anterior chamber using the I/A handpiece. The lens implant was noted to center nicely within the capsular bag. The incisions were stromally hydrated, and the anterior chamber was reformed using BSS. Then 0.5cc of moxifloxacin 1.0mg/ml were injected into the capsular bag and anterior chamber. The incisions were checked with a Weck spear and found to be secure. Several drops of ophthalmic povidone-iodine 5% were then applied to the eye followed by two drops of Imprimis combination prednisolone/moxifloxacin/nepafenac solution. The drapes were removed and a clear plastic protective eye shield was placed over the eye. The patient was then returned to Same Day Surgery in stable condition.
== END 2020-04-29 13:21 | disposition home or self-care (01) ==
PROVIDERS: PCP Nurse Practitioner Primary Care; Visit Provider Ophthalmology
PROC: (CPT 66982; principal; 2020-04-29 12:30)
DX: H25.011 Cortical age-related cataract, right eye (principal); H25.041 Posterior subcapsular polar age-related cataract, right eye; H25.11 Age-related nuclear cataract, right eye; H35.89 Other specified retinal disorders; J44.9 Chronic obstructive pulmonary disease, unspecified; K21.9 Gastro-esophageal reflux disease without esophagitis
CPT/HCPCS: 66982; V2632

== ENCOUNTER 2020-05-13 06:16 | Day surgery (SDC) | payer OTHER, SELFPAY ==
[2020-05-13 06:26] VITALS: BP 149/78; PULSE 94; RESP 22; TEMP 37; O2SAT 96
[2020-05-13] MEDS: Tropicam./Phenyleph. (1/2.5%) 5 ML BTL OS ×3 (06:36→06:46)
[2020-05-13] MEDS: Lidocaine 1% Pres-Free 5 ML VIAL (07:23)
[2020-05-13] MEDS: Balanced Salt Soln.-PLUS 500 ML BAG (07:26)
[2020-05-13] MEDS: Lidocaine 2% Jelly 6 ML SYR (07:27)
[2020-05-13] MEDS: Duovisc Viscoelastic System EACH 1 EACH (07:27)
[2020-05-13] MEDS: Povidone-Iodine Ophth 30 ML BTL (07:28)
--- NOTE | 2020-05-13 07:52 | W.PM.DSUDISC ---
Discharge Plan Disposition Patient Disposition: HOME Condition: Good Discharge Details Attending Provider: Josh Mcgee Primary Care Provider: Tennille Do Home Meds and New Rx's Prescriptions: No Action acetaminophen [Tylenol] 325 MG tablet 650 mg PO Q4H PRN PRN (Reason: Fever) RF: 0 enalapril maleate 5 MG tablet 5 mg PO DAILY Qty: 30 RF: 0 atorvastatin 40 MG tablet 20 mg PO HS Qty: 0 RF: 0 levothyroxine 100 MCG tablet 1 tab PO DAILY RF: 0 omeprazole 20 mg Tablet,Delayed Release (Dr/Ec) 20 mg PO DAILY RF: 0 Discharge Instructions Stand Alone Forms: Post-op Topical Cataract, Henrry Lackey (DSU) Discharge Orders Discharge Orders: Discharge Order (Routine); Ordered 05/13/20 Ordered By: Josh Mcgee DS: Diagnosis Discharge Diagnosis (1) Cortical cataract of left eye: Status: Resolved (2) Nuclear sclerotic cataract of left eye: Status: Resolved (3) Posterior subcapsular age-related cataract of left eye: Status: Resolved
[2020-05-13] MEDS: Tetracaine 0.5% 4 ML BTL OS (07:54)
--- NOTE | 2020-05-13 07:54 | W.PM.OP ---
Date of service: 05/13/20 Time of Service: 07:54 Operative Note Operative Note DATE OF PROCEDURE: 05/13/20 PRE-OP DIAGNOSIS: Nuclear/cortical/posterior subcapsular cataract, left eye POST-OP DIAGNOSIS: same PROCEDURE: Cataract extraction using phacoemulsification with intraocular lens implant, left eye SURGEON: Josh Mcgee Refer to Anesthesia Record PATHOLOGY: none sent COMPLICATIONS: None Patient was transported to: same day Patient's condition: stable Implants: Glenn and Glenn Vision / [employer] Tecnis [id number] Indications: Progressive decreased vision due to cataract, left eye Procedure Description: CATARACT SURGERY OPERATIVE REPORT PREOPERATIVE DIAGNOSIS: Nuclear/cortical/posterior subcapsular cataract, left eye POSTOPERATIVE DIAGNOSIS: Same OPERATION: Cataract extraction using phacoemulsification with posterior chamber intraocular lens implant, left eye. IOL: IOL [employer]/Model: [employer] Vision / PRESTON Tecnis [id number] IOL Power: + 19.0 diopters IOL Serial Number: [id number] Optic Diameter: 6.0mm Haptic/Overall Diameter: 13.0mm PHACO INFO: Armando [employer] Instrumenturion Vision System with OZil and Active Fluidics Cumulative Dispersed Energy (CDE): 4.83 seconds SURGEON: Josh Mcgee MD, THIERRY ANESTHESIA: Monitored Anesthesia Care (MAC), with local sub-tenon's anesthetic infiltration COMPLICATIONS: None SPECIMENS: None INDICATIONS FOR PROCEDURE: The patient is a 75-year-old gentleman with history of diminished visual acuity in both eyes secondary to the development of bilateral nuclear/cortical/posterior subcapsular cataract. He has already undergone cataract surgery in the right eye and is doing well postoperatively. He now presents for cataract surgery in the left eye. PROCEDURE: The correct surgical eye was identified and marked as the left eye and the pupil was dilated in the preoperative area using mydriatics and cycloplegics. The dilated pupil size was 8.0 mm. The patient elected to proceed without oral sedation. The patient was brought to the operating room where cardiopulmonary monitoring was instituted and surgical time-out was performed, confirming the correct operative eye and IOL power. Topical anesthesia was administered and ophthalmic povidone-iodine 5% was instilled into the conjunctival fornices. Lidocaine gel was applied to the cornea and the yvette-ocular area was prepped with Betadine 10% solution and draped in the usual sterile fashion for intraocular surgery, including an aperture drape. A Tegaderm transparent film dressing was cut in half and used to cover the lashes and lid margins. Care was taken to sequester the lashes and lid margins under the Tegaderm dressing. A lid speculum was placed between the lids of the operative eye and the Bri-Rommel operating microscope was maneuvered into position. Keyshawn scissors were then used to make a conjunctival buttonhole approximately 6mm posterior to the limbus in the inferonasal quadrant. Blunt dissection was carried out to expose bare sclera, and a blunt-tipped sub-tenon?s anesthesia cannula was introduced and passed posteriorly along the globe where non-preserved plain lidocaine was injected into posterior sub-Tenon?s space. A sideport knife was used to make a paracentesis port superior/superiortemporally. Intraocular phenylephrine/lidocaine was injected into the anterior chamber. The anterior chamber was then filled with viscoelastic. A 2.4mm keratome knife was used to create a half-thickness groove at the limbus and then to construct a three-plane near-clear corneal tunnel extending 2.0mm into clear cornea in the temporal position. . A flap was raised on the anterior capsule and capsulorhexis forceps were used to complete a continuous curvilinear capsulorhexis of 5.5 mm. Balanced salt solution was then used to perform cortical cleaving hydrodissection and nuclear hydrodelineation until the lens could be freely rotated within the capsular bag. The lens nucleus was then disassembled and removed within the capsular bag and iris plane using phacoemulsification. Residual cortical material was removed using the 45-degree angled silicone I/A tip with 0.3mm port. The posterior capsule was carefully polished to remove as much residual lens epithelial cells as safely possible. The capsular bag was then inflated and the anterior chamber deepened with viscoelastic. The lens implant described above was inserted into the capsular bag using the PRESTON [place] Injector. A Kuglen hook was used to dial the IOL into position. Residual viscoelastic was then removed first from posterior to the IOL, then from the anterior chamber using the I/A handpiece. The lens implant was noted to center nicely within the capsular bag. The incisions were stromally hydrated, and the anterior chamber was reformed using BSS. Then 0.5cc of moxifloxacin 1.0mg/ml were injected into the capsular bag and anterior chamber. The incisions were checked with a Weck spear and found to be secure. Several drops of ophthalmic povidone-iodine 5% were then applied to the eye followed by two drops of Imprimis combination prednisolone/moxifloxacin/nepafenac solution. The drapes were removed and a clear plastic protective eye shield was placed over the eye. The patient was then returned to Same Day Surgery in stable condition.
== END 2020-05-13 08:15 | disposition home or self-care (01) ==
PROVIDERS: PCP Nurse Practitioner Primary Care; Visit Provider Ophthalmology
PROC: (CPT 66984; principal; 2020-05-13 07:30)
DX: H25.012 Cortical age-related cataract, left eye (principal); H25.12 Age-related nuclear cataract, left eye; H25.042 Posterior subcapsular polar age-related cataract, left eye; Z98.41 Cataract extraction status, right eye; Z96.1 Presence of intraocular lens
CPT/HCPCS: 66984; V2632

== ENCOUNTER 2020-05-30 12:00 | Outpatient (REF) | payer MEDICARE, SELFPAY | END 2020-05-30 12:01 | disposition home or self-care (01) | LOC: NCHCN 12:00 | PROVIDERS: PCP Nurse Practitioner Primary Care; Visit Provider Acupuncturist | DX: R36.9 Urethral discharge, unspecified (principal) | CPT/HCPCS: 87077; 87086; 87186 ==

== ENCOUNTER 2020-06-07 01:58 | Outpatient (CLI) | payer OTHER, SELFPAY ==
[2020-06-07] MEDS: Breeza Beverage 473 ML BTL PO ×2 (08:35→08:36)
[2020-06-07] MEDS: Omnipaque 350 MG/ML 50 ML BTL PO (08:35)
--- NOTE | 2020-06-07 10:03 | DI.CT_ITS ---
EXAM: CT CHEST/ABD/PEL W CLINICAL HISTORY: [id number],RT LUNG CA,C34.91,ASSESS TREATMENT RESPONSE TECHNIQUE: Imaging Protocol: Axial computed tomography images with coronal and sagittal reformatted images were created and reviewed CONTRAST MATERIAL: Intravenous: Omnipaque 350 Contrast volume:100 mL Oral: Yes COMPARISON: CT CT THORAX W/CONT from 06/02/[address] CHEST W from 01/27/2020 FINDINGS: CHEST: Tracheobronchial tree: Status post right upper lobectomy. Moderate centrilobular emphysematous chilel es are present. There has been marked progression of the consolidation involving the paired right pe rihilar region. Bronchiectatic changes are noted in the right hilum. No pulmonary nodules are ident ified. The lymph nodes seen in the mediastinum is less well visualized but does appear to have decre ased in size measuring 1 cm in diameter. Pulmonary parenchyma: Please see the above section. Visualized thyroid gland: Unremarkable. Mediastinum and Zonia: Please see the above section. Pleura: No effusion or pneumothorax. Heart: The heart is not dilated. Mild coronary artery calcification. No pericardial effusion. Aorta: Thoracic aorta non-dilated. Moderate atherosclerosis. Lymph nodes: Please see the above discussion. Soft tissues: Unremarkable. Bones:No aggressive lytic or sclerotic lesions. ABDOMEN: Liver: Normal density. There is a 1 cm cyst in the left lobe of the liver. No solid enhancing masses . Portal, Superior Mesenteric, and Splenic Veins: Unremarkable. Gallbladder and Biliary Tract: No radiodense calculus or dilation. Pancreas: Normal density, no abnormal calcifications or inflammatory process. Spleen: Normal. Adrenals: No masses seen. Kidneys: Normal size, contour and axis. Nonobstructing 5 mm stone in the right kidney. Stable bilate ral simple renal cysts. No further follow-up is recommended. Abdominal Aorta: Abdominal portion non-dilated. Moderate atherosclerosis. Bowel: No obstruction or bowel wall thickening. No evidence of appendicitis. Peritoneal Cavity: No ascites, collection or mesenteric inflammatory response. No free air. Lymph Nodes: Within normal limits. Bones: No aggressive osseous lesions are identified. Soft Tissues: Unremarkable. PELVIS: Bladder: Bladder wall is diffusely thickened with multiple diverticula present. There is an enlarged prostate gland which impinges upon the base of the urinary bladder. Reproductive Organs: Please see the bladder section. Lymph Nodes: Within normal limits. Bones: No aggressive osseous lesion. IMPRESSION: 1. No evidence of abdominal or pelvic metastatic disease. 2. Hepatic and renal cysts. 3. Enlarged prostate gland with trabeculation and diverticula of the urinary bladder. 4. Slight progression of the consolidation in the right paramediastinal region. No definite discrete mass is appreciated. 5. Interval decrease in size of the right paramediastinal lymph node. RADIATION DOSE DELIVERED: 1,145.63mGy.cm Total DLP DATA REPOSITORY: All CT scans at this facility are submitted to the National Radiology Data Registry (NRDR) Dose Index Registry (DIR) with the [employer] (ACR). RADIATION OPTIMIZATION: All CT scans at this facility use at least one of these dose optimization te chniques: automated exposure control; mA and/or kV adjustment per patient size (includes targeted exa ms where dose is matched to clinical indication); or iterative reconstruction.
[2020-06-07] MEDS: Omnipaque 350 MG/ML 100 ML BTL IJ (10:27)
[2020-06-07] MEDS: Normal Saline Flush 10 ML SYR IVP (10:28)
[2020-06-07] MEDS: Normal Saline - Diluent 50 ML VIAL IV (10:28)
== END 2020-06-07 02:18 ==
PROVIDERS: PCP Nurse Practitioner Primary Care; Visit Provider Nurse Practitioner Adult Health
DX: N28.1 Cyst of kidney, acquired (principal); K76.89 Other specified diseases of liver; N40.0 Benign prostatic hyperplasia without lower urinary tract symptoms; C34.91 Malignant neoplasm of unspecified part of right bronchus or lung
CPT/HCPCS: 74177; 71260; J3490; Q9967

== ENCOUNTER 2020-06-13 02:59 | Outpatient (RCR) | payer OTHER, SELFPAY ==
[2020-05-16] MEDS: Normal Saline Flush 10 ML SYR IVP (12:38)
[2020-05-16 12:44] LABS: Abs Immature Grans 0.03 10^3/uL (0.0-0.06); Absolute Basophil Count 0.04 10^3/uL (0.0-0.2); Absolute Eosinophil Count 0.12 10^3/uL (0.0-0.7); Absolute Lymphocyte Count 1.14 10^3/uL (1.2-3.4); Absolute Monocyte Count 1.06 10^3/uL (0.1-0.8); Absolute Neutrophil Count 4.13 10^3/uL (1.2-6.7); Basophils % 0.6; Eosinophils % 1.8; HCT 43.5 % (40.0-50.0); HGB 14.6 g/dL (13.5-17.5); Immature Grans % 0.5; Lymphocytes % 17.5; MCH 29.8 pg (27.0-33.0); MCHC 33.6 % (32.0-36.0); MCV 88.8 fL (80-95); MPV 10.7 fL (8.0-11.0); Monocytes % 16.3; Neutrophils % 63.3; Nucleated RBC 0 %; Platelet Count 142 10^3/uL (130-400); RDW 13.2 % (11.8-14.1); RDW-SD 42.5 fL; WBC 6.52 10^3/uL (4.4-10.8)
[2020-05-16 13:07] LABS: ALT 30 U/L (16-63); AST 26 U/L (15-37); Albumin 3.3 g/dL (3.4-5.0); Alkaline Phosphatase 100 U/L (46-116); BUN 19 mg/dL (7-18); Bilirubin, Total 0.4 mg/dL (0.2-1.0); Calcium 9.1 mg/dL (8.5-10.1); Chloride 106 mmol/L (98-107); FREE T4 1.33 ng/dL (0.76-1.46); Glucose 109 mg/dL (74-106); Magnesium 1.9 mg/dL (1.8-2.4); Potassium 3.9 mmol/L (3.5-5.1); Sodium 141 mmol/L (136-145); TSH 1.84 uIU/mL (0.36-3.74); Total Protein 7.1 g/dL (6.4-8.2)
[2020-06-13] MEDS: Normal Saline Flush 10 ML SYR IVP (11:55)
[2020-06-13 12:02] LABS: Abs Immature Grans 0.03 10^3/uL (0.0-0.06); Absolute Basophil Count 0.05 10^3/uL (0.0-0.2); Absolute Eosinophil Count 0.14 10^3/uL (0.0-0.7); Absolute Lymphocyte Count 1.24 10^3/uL (1.2-3.4); Absolute Monocyte Count 0.85 10^3/uL (0.1-0.8); Absolute Neutrophil Count 4.64 10^3/uL (1.2-6.7); Basophils % 0.7; HCT 44.3 % (40.0-50.0); HGB 14.9 g/dL (13.5-17.5); Immature Grans % 0.4; Lymphocytes % 17.8; MCHC 33.6 % (32.0-36.0); MCV 89.1 fL (80-95); Monocytes % 12.2; Neutrophils % 66.9; Nucleated RBC 0 %; Platelet Count 188 10^3/uL (130-400); RBC 4.97 10^6/uL (4.36-5.78); RDW 13.2 % (11.8-14.1); RDW-SD 42.9 fL; WBC 6.95 10^3/uL (4.4-10.8)
[2020-06-13 12:21] LABS: ALT 24 U/L (16-63); AST 20 U/L (15-37); Albumin 3.5 g/dL (3.4-5.0); Alkaline Phosphatase 113 U/L (46-116); Anion Gap 7.1 mmol/L (3-11); BUN 19 mg/dL (7-18); Bilirubin, Total 0.5 mg/dL (0.2-1.0); CO2 28.9 mmol/L (21.0-32.0); Calcium 9.2 mg/dL (8.5-10.1); Chloride 104 mmol/L (98-107); FREE T4 1.26 ng/dL (0.76-1.46); Glucose 88 mg/dL (74-106); Magnesium 1.9 mg/dL (1.8-2.4); Potassium 4.2 mmol/L (3.5-5.1); Sodium 140 mmol/L (136-145); TSH 1.04 uIU/mL (0.36-3.74); Total Protein 7.2 g/dL (6.4-8.2)
== END 2020-06-15 23:59 | disposition home or self-care (01) ==
LOC: INF 02:59
PROVIDERS: PCP Nurse Practitioner Primary Care; Visit Provider Internal Medicine Medical Oncology
DX: C34.91 Malignant neoplasm of unspecified part of right bronchus or lung (principal); C77.1 Secondary and unspecified malignant neoplasm of intrathoracic lymph nodes
CPT/HCPCS: 36415; 80053; 83735; 84439; 84443; 85025

== ENCOUNTER 2020-07-11 02:51 | Outpatient (RCR) | payer OTHER, SELFPAY ==
[2020-07-11] MEDS: Normal Saline Flush 10 ML SYR IVP (12:59)
[2020-07-11 13:07] LABS: Abs Immature Grans 0.03 10^3/uL (0.0-0.06); Absolute Basophil Count 0.03 10^3/uL (0.0-0.2); Absolute Eosinophil Count 0.08 10^3/uL (0.0-0.7); Absolute Lymphocyte Count 1.16 10^3/uL (1.2-3.4); Absolute Monocyte Count 0.95 10^3/uL (0.1-0.8); Absolute Neutrophil Count 5.27 10^3/uL (1.2-6.7); Basophils % 0.4; Eosinophils % 1.1; HCT 44.3 % (40.0-50.0); HGB 14.9 g/dL (13.5-17.5); Immature Grans % 0.4; Lymphocytes % 15.4; MCH 30.5 pg (27.0-33.0); MCHC 33.6 % (32.0-36.0); MCV 90.6 fL (80-95); MPV 10.2 fL (8.0-11.0); Monocytes % 12.6; Neutrophils % 70.1; Nucleated RBC 0 %; Platelet Count 169 10^3/uL (130-400); RBC 4.89 10^6/uL (4.36-5.78); RDW-SD 42.6 fL; WBC 7.52 10^3/uL (4.4-10.8)
[2020-07-11 13:20] LABS: ALT 22 U/L (16-63); AST 18 U/L (15-37); Albumin 3.7 g/dL (3.4-5.0); Alkaline Phosphatase 108 U/L (46-116); Anion Gap 6.9 mmol/L (3-11); BUN 23 mg/dL (7-18); Bilirubin, Total 0.5 mg/dL (0.2-1.0); CO2 30.1 mmol/L (21.0-32.0); Calcium 9.2 mg/dL (8.5-10.1); Chloride 105 mmol/L (98-107); Glucose 89 mg/dL (74-106); Magnesium 1.8 mg/dL (1.8-2.4); Potassium 3.8 mmol/L (3.5-5.1); Sodium 142 mmol/L (136-145); Total Protein 7.1 g/dL (6.4-8.2)
[2020-07-11 14:25] LABS: FREE T4 1.32 ng/dL (0.76-1.46); TSH 0.92 uIU/mL (0.36-3.74)
== END 2020-07-15 23:59 | disposition home or self-care (01) ==
LOC: INF 02:51
PROVIDERS: PCP Nurse Practitioner Primary Care; Visit Provider Internal Medicine Medical Oncology
DX: C77.1 Secondary and unspecified malignant neoplasm of intrathoracic lymph nodes (principal); C34.91 Malignant neoplasm of unspecified part of right bronchus or lung
CPT/HCPCS: 36415; 80053; 83735; 84439; 84443; 85025

== ENCOUNTER 2020-08-08 13:36 | Outpatient (RCR) | payer OTHER, SELFPAY ==
--- OUTSIDE RECORDS SUMMARY | 2020-08-08 13:41 | XMS_ITS | Encounter Summary ---
:1945 Author Organization Department [facility] Address [address] [place] [address] Care Team Providers Name Role Phone KERMIT SANTAMARIA Primary Care Provider Unavailable Insurance Providers: All historical and current Section Date Range: From patient's date of to the date document was created.This section includes the names of all active insurance providers for the patient. Insurance Type of Plan Start of End of Group Member Insurance Policy P atient's Provider Coverage Name Policy Policy Number ID Provider's Giang's Relationship Coverage Coverage Telephone Name to Policy Number Giang MEDICARE MEDICARE PART Sep 15, PART B [id number] [phone] YADI AARON PATIENT (WNR) (M) B 2012 [id number] 1 CHARD MEDICARE MEDICARE PART Feb 15, PART A [id number] [phone] YADI AARON PATIENT (WNR) (M) A 2008 [id number] 1 CHARD Selected Encounter This section includes the information on record at [place] for the Encounter. Date/Time Encounter Type Encounter Description Reason Provider Source Aug 31, 2019 02:41 Outpatient Encounter PRIMARY CARE/MEDICINE PM IHE Encounter Template Text not used by [place] Plan of Treatment: Future Appointments (+ 6 months) and Future Tests (+/- 45 days) The Plan of Treatment section includes future care activities for the patient from all [facility] treatment facilities. This section includes future appointments and future orders which are active, pending or scheduled.Future Appointments This section includes appointments that were scheduled to occur 6 months from the date of the Encounter, up to a maximum of 20 appointments. The data comes from all [facility]. Appointment Date/Time Appointment Type Appointment Facili ty Name Oct 29, 2019 11:00 AM AMBULATORY - MEDICINE [facility] Nov 02, 2019 11:00 AM AMBULATORY - NONE [facility] Dec 03, 2019 01:30 PM AMBULATORY - MEDICINE MODE [facility] Jan 22, 2020 09:00 AM AMBULATORY - SURGERY [facility] Advance Directives: All historical and current Section Date Range: From patient's date of to the date document was created. This section includes ALL of a patient's completed or amended [place] Advance and Rescinded Directives. The entries below indicate that a directive exists for the patient, but an actual copy is not included with this document. The data comes from all [place] facilities. Date Advance Directives Provider Source Aug 30, 2015 ADVANCE DIRECTIVE SOHAN WOODARD [facility] Radiology Reports: +/- 30 days of the encounter Radiology Reports For cases when an order for radiology services may have been completed prior tothe date of the Encounter, the report list includes the Radiology Reports that were completed up to 30 days before date of the Encounter. For cases when an order for radiology services may have been completed after the date of the Encounter, the report list also includes the Radiology Reports that were completed up to 30 days after date of the Encounter. The data comes from all [place] treatment facilities. Date/Time Radiology Report Provider Source August 03, 2019 09:48 AM UNLISTED COPIES FOR OUTSIDE REFERRAL: MODE [facility] CHRIS AARON [id number] -1945 M Exm Date: AUGUST 03, 2019@09:48 Req Phys: BALAJI KUO Pat Loc: [facility] RAD MISC XRAY B1RC (Req'g Img Loc : XRAY (OOS) Service : Unknown (Case 36 COMPLETE) UNLISTE D COPIES FOR OUTSIDE REFER(RAD Detailed) CPT:96604 Reason for Study: COPIES MADE FOR OUTSIDE R EFERRAL Clinical History: COPIES MADE [place]IDE [place] [facility] THORAX W/CONT DONE 06/02/19, PET CT STANDARD SCAN SKULL BASE ADDI THIGH DONE 06/30/19. SENT WITH LUTHER ON . SM Report Status: Electronically Filed Da sravan Reported: AUGUST 03, 2019 Report: Copies (CD) made for outside facility. Impression: Copies (CD) made for outside facility Primary Diagnostic Code: VERIFIED BY: / *ELECTRONICALLY FILED* Encounter Notes: All associated encounter notes This section contains the clinical notes associated to the Encounter. Date/Time Encounter Note(s) Provider Source Aug 31, 2019 02:41 PM NONVA NOTE: EDOUARD WILD [facility] LOCAL TITLE: NonVA Note STANDARD TITLE: NONVA NOTE DATE OF NOTE: AUG 31, 2019@14:41 ENTRY DATE: AUG 31, 2019@14:42:09 AUTHOR: EDOUARD WILD EXP COSIGNER: URGENCY: STATUS: COMPLETED Place: [facility] Rad [facility] Date of Service: 08/20/2019 2:45 PM Office visit Treating Provider: Barney Fox MD Event/Procedure: Weekly On Treatment - 08/20/19 Document sent to [facility] to be scanned. To view this document open the CPRS tools menu and then open the image display viewer. /bennie/ EDOUARD WILD Allergy Specialist Signed: 08/31/2019 14:49
--- OUTSIDE RECORDS SUMMARY | 2020-08-08 13:41 | XMS_ITS | Encounter Summary ---
:1945 Author Organization Department [facility] Address [address] [place] [address] Care Team Providers Name Role Phone KERMIT [...] MEDICARE MEDICARE PART Sep 15, PART B [id number] [phone] YADI AARON PATIENT (WNR) (M) B 2012 [id number] 1 CHARD MEDICARE MEDICARE PART Feb 15, PART A [id number] [phone] YADI AARON PATIENT (WNR) (M) A 2008 [id number] 1 CHARD Selected Encounter This section includes the information on record at [place] for the Encounter. Date/Time Encounter Type Encounter Description Reason Provider Source Aug 19, 2019 03:30 Outpatient Encounter PRIMARY CARE/MEDICINE PM IHE Encounter Template Text not used by [place] Plan of Treatment: Future Appointments (+ 6 [...] comes from all [facility]. Appointment Date/Time Appointment Type Appointment Facili ty Name Oct 29, 2019 11:00 AM AMBULATORY - MEDICINE [facility] Nov 02, 2019 11:00 AM AMBULATORY - NONE [facility] Dec 03, 2019 01:30 PM AMBULATORY - MEDICINE [facility] Jan 22, 2020 09:00 AM AMBULATORY - SURGERY [facility] Active, Pending, and Scheduled Orders This section includes a listing of several types of active, pending, and scheduled orders, including clinic medications orders, diagnostic test orders, procedure orders and consult orders; where the start date of the order is 45 days before the date of the Encounter or 45 days after the date of the Encounter. The data comes from all [facility]. Test Date/Time Test Type Test Details Facility Name Jul 08, 2019 12:23 Laboratory - IMMUNOHISTOCHEMISTRY STAIN X4 [facility] Surgical Pathology U-SLIDE LYMPH NODE SP [facility] Jul 08, 2019 12:23 Laboratory - IMMUNOHISTOCHEMISTRY STAIN X2 [facility] Surgical Pathology U-SLIDE LYMPH NODE SP [facility] Jul 08, 2019 12:23 Laboratory - IMMUNOHISTOCHEMISTRY STAIN X1 [facility] PM Surgical Pathology U-SLIDE LYMPH NODE SP [facility] Advance Directives: All historical and current Section Date Range: From patient's date of to the date document was created. This section includes ALL of a patient's completed or amended [place] Advance and Rescinded Directives. The entries below indicate that a directive exists for the patient, but an actual copy is not included with this document. The data comes from all [facility]. Date Advance Directives Provider Source Aug 30, 2015 ADVANCE DIRECTIVE SOHAN WOODARD [facility] Radiology Reports: +/- 30 days of the [...] the Encounter. The data comes from all [facility]. Date/Time Radiology Report Provider Source August 03, 2019 09:48 AM UNLISTED COPIES FOR OUTSIDE REFERRAL: [facility] CHRIS AARON [id number] -1945 M Exm Date: AUGUST 03, 2019@09:48 Req Phys: BALAJI KUO Pat Loc: [facility] RAD MISC XRAY B1RC (Req'g Img Loc : XRAY (OOS) Service : Unknown (Case 36 COMPLETE) UNLISTE D COPIES FOR OUTSIDE REFER(RAD Detailed) CPT:91269 Reason for Study: COPIES MADE FOR OUTSIDE R EFERRAL Clinical History: COPIES MADE FOR OUTSIDE REFERRAL FOR [facility] FILM LIBRARY CT THORAX W/CONT DONE 06/02/19, PET CT STANDARD SCAN SKULL BASE ADDI THIGH DONE 06/30/19. SENT WITH LUTHER ON . SM Report Status: Electronically Filed Da te Reported: AUGUST 03, 2019 Report: Copies (CD) made for outside facility. Impression: Copies (CD) made for outside facility Primary Diagnostic Code: VERIFIED BY: / *ELECTRONICALLY FILED* Pathology Reports: +/- 30 days of the encounter Pathology Reports For cases when an order for pathology services may have been completed prior to the date of the Encounter, the report list includes the Pathology Reports that were completed up to 30 days before date of the Encounter. For cases when an order for pathology services may have been completed after the date of the Encounter, the report list also includes the Pathology Reports that were completed up to 30 days after date of the Encounter. The data comes from all [place] treatment facilities. Date/Time Pathology Report Provider Source July 21, 2019 03:27 PM LR CYTOPATHOLOGY REPORT: KIM SAWYER [facility] LOCAL TITLE: LR CYTOPATHOLOGY REPORT [facility] STANDARD TITLE: PATHOLOGY REPORT DATE OF NOTE: JULY 21, 2019@15:27:59 ENTRY DATE: JULY 21, 2019@15:27:59 AUTHOR: KIM SAWYER COSIGNER: URGENCY: STATUS: COMPLETED $APHDR Reporting Lab: [facility] [CLIA# [id number]] [address], [place] [phone] - - - - - - - - - - - - - - - - - - - - - - - - - - - - - - - - - - - - - - - - MEDICAL RECORD CYTOPATH OLOGY - - - - - - - - - - - - - - - - - - - - - - - - - - - - - - - - - - - - - - - - PATHOLOGY REPORT Accession No. CY [id number] - - - - - - - - - - - - - - - - - - - - - - - - - - - - - - - - - - - - - - - - $TEXT Submitted by: SOHAN CAMACHO Date obtained: Jul 08, 2019 12:23 - - - - - - - - - - - - - - - - - - - - - - - - - - - - - - - - - - - - - - - - Specimen (Received Jul 08, 2019 12:26): A. EBUS FNA; RIGHT LEVEL 4 B. EBUS FNA; SUBCARINAL LEVEL 7 C. EBUS FNA; LEFT LEVEL 4 *+*+*+*+*+*+*+*+*+*+*+*+*+*+*+ MODIFIED REPORT * +*+*+*+*+*+*+*+*+*+*+*+*+*+*+ *+* SUPPLEMENTARY REPORT HAS B EEN ADDED *+* *+* REFER TO BOTTOM OF RE PORT *+* - - - - - - - - - - - - - - - - - - - - - - - - - - - - - - - - - - - - - - - - BRIEF CLINICAL HISTORY: Smoker with history of cancer; s/p right up per lobectomy with new nodes, FDG avid - - - - - - - - - - - - - - - - - - - - - - - - - - - - - - - - - - - - - - - - PREOPERATIVE DIAGNOSIS: None given - - - - - - - - - - - - - - - - - - - - - - - - - - - - - - - - - - - - - - - - OPERATIVE FINDINGS: None given - - - - - - - - - - - - - - - - - - - - - - - - - - - - - - - - - - - - - - - - POSTOPERATIVE DIAGNOSIS: None given Surgeon/physician: LEANNE RIVERA MD =-=-=-=-=-=-=-=-=-=-=-=-=-=- =-=-=-=-=-=-=-=-=-=-=-=-=-=-=-=-=-=-=-=-=-=-=-=-=-= - - - - - - - - - - - - - - - - - - - - - - - - - - - - - - - - - - - - - - - - PATHOLOGY REPORT Accession No. CY [id number] - - - - - - - - - - - - - - - - - - - - - - - - - - - - - - - - - - - - - - - - Screened by: DORI SAWYER MD Description: RECEIVED 8 STAINED SLIDES AND TISSUE IN FOR JENNIFER FOR 3 CELL BLOCKS. A. Cell block A tissue labeled R4 consist s of multiple red tissue core fragments, in aggregate 1.3 x 0.5 b y up to 0.2 cm. Submitted entirely in a single cassette labeled A. C20-176;A;YADI AARON;.;107;[id number] B. Cell block B tissue labeled level 7 sub carinal consists of multiple red tissue core fragments, in aggregate 0. 9 x 0.2 x 0.1 cm. Submitted entirely in a single cassette labeled B. C20-176;B;YADI AARON;.;[id number] C. Cell block C tissue labeled level 4 ap pears to have no specimen. Formalin is filtered through lens paper and submitted in a single cassette labeled C. C20-176;C;AGNIESZKA,[place];.;[id number];[phone] 07/08/2019 Diagnosis: *+* MODIFIED REPORT *+* (Last modified: JULY 17, 2019@13:31:40 typed by KIM GALINDO) Diff-Quik intraprocedural adequacy: A1-Compatible with non-small cell carcinoma B1-Lymphocytes and atypical cells B2-Compatible wtih non-small cell carcinoma C1-Atypical cells suspicious for non-small cell carcinoma DIAGNOSIS: A. R4 lymph node, EBUS FNA: Adenocarcinoma (see note) B. Level 7 lymph node, EBUS FNA: Adenocarcinoma (see note) C. L4 lymph node, EBUS FNA: Adenocarcinoma (see note) Note: This patient has a history of lung ca ncer. In A., tumor shows expression of TTF!, naps in A and CK7, whereas CK20 and synaptophysin are negative , and p63 is negative in the tumor but focally positive in an area sugge stive of atypical squamous metaplasia (all immunostains were p repared at [facility]). The tumor shows a papillary growth pattern. In B., the tumor resembles that seen in A. and focally involves anthracotic lymphoid tissue. In C., no cell block material is identified . The Diff-Quick smears show tumor similar to that seen in A. and B. PDL1 was ordered and a modified report will follow. Dr. Benites concurs with rusty taylor. Reported to Dr. Camacho on 07/14/19. PDL1: % expression: <1% (negative) See report from [facility] [place]. The attending pathologist who signatur e appears on this report has reviewed all diagnostic slides and has edit ed the gross and/or microscopic portion of this report in rende ring the final pathologic diagnosis. [address] [address] CPT: [id number] SUPPLEMENTARY REPORT(S): Supplementary Report Date: JUL 14, 2019 *+* SUPPLEMENTARY REPORT HAS BEEN ADDED/MODIFIED *+* (Added/Last released: July 21, 2019 13:27 Signed by KIM SAWYER) PDL1: %expression <1% Negative See report from [facility] in [place]. /bennie/ KIM Odell MD Signed July 21, 2019@15:27 Performing Laboratory: Cytology Report Performed By: MODE FARAH Savana [facility] [CLIA# [id number]] [address] [place] [phone] $FTR - - - - - - - - - - - - - - - - - - - - - - - - - - - - - - - - - - - - - - - - (End of report) KIM SAWYER MD Date Jul 14, 2019 - - - - - - - - - - - - - - - - - - - - - - - - - - - - - - - - - - - - - - - - CHRIS AARON STANDARD FORM 515 ID:[id number] SEX:M :1945 AGE: 74 LO C:SDP PC P: Kermit Santamaria DNP /bennie/ KIM Odell MD Signed: 07/21/2019 15:27 Encounter Notes: All associated encounter notes This section contains the clinical notes associated to the Encounter. Date/Time Encounter Note(s) Provider Source Aug 19, 2019 03:30 PM HEMATOLOGY AND ONCOLOGY NONVA NOTE: JONN MCPHERSON [facility] LOCAL TITLE: NonVA Oncology STANDARD TITLE: HEMATOLOGY AND ONCOLOGY NONVA NO TE DATE OF NOTE: AUG 19, 2019@15:30 ENTRY DATE: AUG 19, 2019@15:30:24 AUTHOR: JONN MCPHERSON EXP COSIGNER: URGENCY: STATUS: COMPLETED Event/Procedure:Oncology TH Visit for non-small cell lung cancer, right from [facility]. Date of Service:08/03/2019 Treating Provider:Barney Fox MD Documents sent to [facility] to be scanned. To view this document, open the cprs tools menu and then open the image display viewer. /yohana MCPHERSON [facility] Signed: 08/19/2019 15:31
--- OUTSIDE RECORDS SUMMARY | 2020-08-08 13:42 | XMS_ITS | Encounter Summary ---
:1945 Author Organization Department [facility] Address [address] [place] [address] Care Team Providers Name Role Phone KERMIT [...] MEDICARE MEDICARE PART Sep 15, PART B [id number] [phone] YADI AARON PATIENT (WNR) (M) B 2012 [id number] 1 CHARD MEDICARE MEDICARE PART Feb 15, PART A [id number] [phone] YADI AARON PATIENT (WNR) (M) A 2008 [id number] 1 CHARD Selected Encounter This section includes the information on record at [place] for the Encounter. Date/Time Encounter Type Encounter Description Reason Provider Source Aug 31, 2019 02:57 Outpatient Encounter PRIMARY CARE/MEDICINE PM IHE Encounter Template Text not used by [place] Plan of Treatment: Future Appointments (+ 6 [...] 20 appointments. The data comes from all [facility]. Appointment Date/Time Appointment Type Appointment Facili ty Name Oct 29, 2019 11:00 AM AMBULATORY - MEDICINE [facility] Nov 02, 2019 11:00 AM AMBULATORY - NONE [facility] Dec 03, 2019 01:30 PM AMBULATORY - MEDICINE MODE [facility] Jan 22, 2020 09:00 AM AMBULATORY - SURGERY [facility] Advance Directives: All historical and current Section Date Range: From patient's date of to the date document was created. This section includes ALL of a patient's completed or amended [place] Advance and Rescinded Directives. The entries below indicate that a directive exists for the patient, but an actual copy is not included with this document. The data comes from all [place] facilities. Date Advance Directives Provider Source Aug 30, 2015 ADVANCE DIRECTIVE SOHAN WOODARD [facility] Radiology Reports: +/- 30 days [...] the Encounter. The data comes from all [place] treatment facilities. Date/Time Radiology Report Provider Source August 03, 2019 09:48 AM UNLISTED COPIES FOR OUTSIDE REFERRAL: MODE [facility] CHRIS AARON [id number] -1945 M Exm Date: AUGUST 03, 2019@09:48 Req Phys: BALAJI KUO Pat Loc: [facility] RAD MISC XRAY B1RC (Req'g Img Loc : XRAY (OOS) Service : Unknown (Case 36 COMPLETE) UNLISTE D COPIES FOR OUTSIDE REFER(RAD Detailed) CPT:26819 Reason for Study: COPIES MADE FOR OUTSIDE R EFERRAL Clinical History: COPIES MADE FOR OUTSIDE [place]ERR[place] [facility] [place] THORAX W/CONT DONE 06/02/19, [...] Encounter Note(s) Provider Source Aug 31, 2019 02:57 PM NONVA NOTE: EDOUARD WILD [facility] LOCAL TITLE: NonVA Note STANDARD TITLE: NONVA NOTE DATE OF NOTE: AUG 31, 2019@14:57 ENTRY DATE: AUG 31, 2019@14:57:58 AUTHOR: EDOUARD WILD EXP COSIGNER: URGENCY: STATUS: COMPLETED Place: [facility] Rad Onc Date of Service: 08/27/2019 2:00 PM Treating Provider: Barney Fox MD Event/Procedure: Weekly on [facility] - 08/27/19 20 [facility]. To view this document open the CPRS tools menu and then open the image display viewer. /bennie/ EDOUARD WILD Front Maker Lockstitch Signed: 08/31/2019 15:01
--- OUTSIDE RECORDS SUMMARY | 2020-08-08 13:43 | XMS_ITS | Encounter Summary ---
:1945 Author Organization Department [facility] Address [address] [place] [address] Care Team Providers Name Role Phone KERMIT [...] MEDICARE MEDICARE PART Sep 15, PART B [id number] [phone] YADI AARON PATIENT (WNR) (M) B 2012 [id number] 1 CHARD MEDICARE MEDICARE PART Feb 15, PART A [id number] [phone] YADI AARON PATIENT (WNR) (M) A 2008 [id number] 1 CHARD Selected Encounter This section includes the information on record at [place] for the Encounter. Date/Time Encounter Type Encounter Description Reason Provider Source Sep 11, 2019 09:52 Outpatient Encounter PRIMARY CARE/MEDICINE AM IHE Encounter Template Text not used by [place] Plan of Treatment: Future Appointments (+ 6 [...] 20 appointments. The data comes from all [place] [facility] Appointment Date/Time Appointment Type Appointment Facili ty Name Oct 29, 2019 11:00 AM [facility] Nov 02, 2019 11:00 AM AMBULATORY - NONE [facility] Dec 03, 2019 01:30 PM AM[facility]UL[facility] Jan 22, 2020 09:00 AM [facility] Advance Directives: All historical and current Section Date Range: From patient's date of to the date document was created. This section includes ALL of a patient's completed or amended [place] Advance and Rescinded Directives. The entries below indicate that a directive exists for the patient, but an actual copy is not included with this document. The data comes from all [place] facilities. Date Advance Directives Provider Source Aug 30, 2015 ADVANCE DIRECTIVE SOHAN WOODARD [facility] Encounter Notes: All associated encounter notes This section contains the clinical notes associated to the Encounter. Date/Time Encounter Note(s) Provider Source Sep 11, 2019 09:52 AM HEMATOLOGY AND ONCOLOGY NONVA NOTE: JONN MCPHERSON [facility] LOCAL TITLE: NonVA Oncology STANDARD TITLE: HEMATOLOGY AND ONCOLOGY NONVA NO TE DATE OF NOTE: SEP 11, 2019@09:52 ENTRY DATE: SEP 11, 2019@09:52:32 AUTHOR: JONN MCPHERSON EXP COSIGNER: URGENCY: STATUS: COMPLETED Event/Procedure:Oncology Office Visit [place] [facility] Date of Service:08/24/2019 Treating Provider:Ailin Mayers APRN Documents sent to [facility] to be scanned. To view this document, open the cprs tools menu and then open the image display viewer. /bennie/ JONN MCPHERSON Health Die Repair Machinist Signed: 09/11/2019 09:53
--- OUTSIDE RECORDS SUMMARY | 2020-08-08 13:43 | XMS_ITS | Encounter Summary ---
:1945 Author Organization Department [facility] Address [address] [place] [address] Care Team Providers Name Role Phone KERMIT [...] MEDICARE MEDICARE PART Sep 15, PART B [id number] YADI AARON PATIENT (WNR) (M) B 2012 [id number] 1 CHARD MEDICARE MEDICARE PART Feb 15, PART A [id number] [phone] YADI AARON PATIENT (WNR) (M) A 2008 [id number] 1 CHARD Selected Encounter This section includes the information on record at [place] for the Encounter. Date/Time Encounter Type Encounter Description Reason Provider Source Sep 03, 2019 09:43 Outpatient Encounter PRIMARY CARE/MEDICINE AM IHE Encounter Template Text not used by [place] Plan of Treatment: Future Appointments (+ 6 [...] 20 appointments. The data comes from all [facility] Appointment Date/Time Appointment Type Appointment Facili ty Name Oct 29, 2019 11:00 AM AMBULATORY - MEDICINE [facility] Nov 02, 2019 11:00 AM AMBULATORY - NONE [facility] Dec 03, 2019 01:30 PM [facility] Jan 22, 2020 09:00 AM [facility] Advance Directives: All historical and current Section Date Range: From patient's date of to the date document was created. This section includes ALL of a patient's completed or amended [place] Advance and Rescinded Directives. The entries below indicate that a directive exists for the patient, but an actual copy is not included with this document. The data comes from all [place] facilities. Date Advance Directives Provider Source Aug 30, 2015 ADVANCE DIRECTIVE SOHAN WOODARD [facility] Encounter Notes: All associated encounter notes This section contains the clinical notes associated to the Encounter. Date/Time Encounter Note(s) Provider Source Sep 03, 2019 09:44 AM HEMATOLOGY AND ONCOLOGY NONVA NOTE: JONN MCPHERSON [facility] LOCAL TITLE: NonVA Oncology STANDARD TITLE: HEMATOLOGY AND ONCOLOGY NONVA NO TE DATE OF NOTE: SEP 03, 2019@09:44 ENTRY DATE: SEP 03, 2019@09:44:14 AUTHOR: JONN MCPHERSON EXP COSIGNER: URGENCY: STATUS: COMPLETED [facility] Rad Onc Office Visit Note Date:08/05/2019 Provider:Barney Fox MD Radiation Oncology Establish ed Patient Followup Note-[facility] INTERVAL HISTORY I am seeing him today to rev iew his interval medical history, the treatment plan, logistics of therapy, possible acute toxicities and/or late complications. Since last seen, Mr. Aaron reports no change in his overall medical condition. Constitutional:He appears well-developed and wel l-nourished. No distress. ASSESSMENT/PLAN Informed consent for radioth erapy to the chest was obtained today. Common short and assisted side effects were reviewed as part of this, including fatigue, esophagitis and pneumonitis in the short term. L onger term toxicities such as esophageal stricture/perofra tion/ ulceration were discussed, as was the risk of radiation lung fibrosis. We will proceed with simulation per instructions in Shira. /bennie/ JONN [facility] Victim Witness Administrator Signed: 09/03/2019 09:55
--- OUTSIDE RECORDS SUMMARY | 2020-08-08 13:43 | XMS_ITS | Encounter Summary ---
:1945 Author Organization [facility] Address [address] [place] [address] Care Team Providers Name Role Phone KERMIT [...] MEDICARE MEDICARE PART Sep 15, PART B [id number] YADI AARON PATIENT (WNR) (M) B 2012 [id number] 1 CHARD MEDICARE MEDICARE PART Feb 15, PART A [id number] [id number] YADI AARON PATIENT (WNR) (M) A 2008 AY68 1 CHARD Selected Encounter This section includes the information on record at [place] for the Encounter. Date/Time Encounter Type Encounter Description Reason Provider Source Sep 02, 2019 01:41 Outpatient Encounter TELEPHONE TRIAGE PM IHE Encounter Template Text not used by [place] Plan of Treatment: Future Appointments (+ 6 [...] 20 appointments. The data comes from all [place] treatmentfacilities. Appointment Date/Time Appointment Type Appointment Facili ty Name Oct 29, 2019 11:00 AM AMBULATORY - MEDICINE [facility] Nov 02, 2019 11:00 AM AMBULATORY - NONE [facility] Dec 03, 2019 01:30 PM AMBULATORY - MEDICINE [facility] Jan 22, 2020 09:00 AM AMBULATORY - SURGERY [facility] Advance Directives: All historical and current Section Date Range: From patient's date of to the date document was created. This section includes ALL of a patient's completed or amended [place] Advance and Rescinded Directives. The entries below indicate that a directive exists for the patient, but an actual copy is not included with this document. The data comes from all [place] facilities. Date Advance Directives Provider Source Aug 30, 2015 ADVANCE DIRECTIVE SOHAN WOODARD [facility] Radiology Reports: +/- 30 days [...] the Encounter. The data comes from all [place] treatment facilities. Date/Time Radiology Report Provider Source August 03, 2019 09:48 AM UNLISTED COPIES FOR OUTSIDE REFERRAL: [facility] CHRIS AARON [id number] -1945 M Exm Date: AUGUST 03, 2019@09:48 Req Phys: BALAJI KUO Pat Loc: [facility] RAD MISC XRAY B1RC (Req'g Img Loc : XRAY (OOS) Service : Unknown (Case [id number] COMPLETE) UNLISTE D COPIES FOR OUTSIDE REFER(RAD Detailed) CPT:22343 Reason for Study: COPIES MADE FOR OUTSIDE R EFERRAL Clinical History: COPIES MADE FOR OUTSIDE REFERRAL FOR [facility] FILM LIBRARY CT THORAX W/CONT DONE 06/02/19, [...] Encounter. Date/Time Encounter Note(s) Provider Source Sep 02, 2019 01:41 PM ADMINISTRATIVE NOTE: LINDA MONCADA [facility] LOCAL TITLE: Has Admin Note STANDARD TITLE: ADMINISTRATIVE NOTE DATE OF NOTE: SEP 02, 2019@13:41 ENTRY DATE: SEP 02, 2019@13:41:58 AUTHOR: LINDA MONCADA EXP COSIGNER: URGENCY: STATUS: COMPLETED Reason for call Clinic Name: [facility] PA[facility] C RTC 1st call LMOM for to contact office and schedule October appointment. /bennie/ LINDA MONCADA AMSA Signed: 09/02/2019 13:42
--- OUTSIDE RECORDS SUMMARY | 2020-08-08 13:44 | XMS_ITS | Encounter Summary ---
:1945 Author Organization Department [facility] Address [address] [place] [id number] Care Team Providers Name Role Phone KERMIT [...] MEDICARE MEDICARE PART Sep 15, PART B [id number] [id number] YADI AARON PATIENT (WNR) (M) B 2012 [id number] 1 CHARD MEDICARE MEDICARE PART Feb 15, PART A [id number] [id number] YADI AARON PATIENT (WNR) (M) A 2008 [id number] 1 CHARD Selected Encounter This section includes the information on record at [place] for the Encounter. Date/Time Encounter Type Encounter Description Reason Provider Source Oct 06, 2019 12:51 Outpatient Encounter ADMIN PAT ACTIVTIES PM (MASNONCT) IHE Encounter Template Text not used by [...] 20 appointments. The data comes from all [place] [facility] Appointment Date/Time Appointment Type Appointment Facili ty Name Oct 29, 2019 11:00 AM AMBULATORY - MEDICINE [facility] Nov 02, 2019 11:00 AM AMBULATORY - NONE [facility] Dec 03, 2019 01:30 PM AMBULATORY - MEDICINE [facility] Jan 22, 2020 09:00 AM AMBULATORY - SURGERY [place] [facility] Lab Results: +/- 30 days of the encounter This section includes the Chemistry and Hematology Lab Results on record with [place] for the patient. Radiology Reports and Pathology Reports are provided separately, in subsequent sections.Lab Results This section contains the Chemistry/Hematology Results that were resulted 30 days before or 30 days after the date of the Encounter. Date/Time Source Result Type Result - Unit Interpretation Reference Range Comment Nov 02, 2019 10:39 [place] LIPOPROTEIN CHOLESTEROL Specimen Type: PLASMA [facility] FRACT. PANEL No comment enter ed. Ordering Provider: KERMIT SANTAMARIA Report Released Date/Time: Oct 29, 2019 12:38 PM Reporting Lab: [place] [facility] [address] [facility] [place] [address] Performing Lab: [place] [facility] [address] [facility] [place] [address] CHOLESTEROL 139 mg/dL 0-199 TRIGLYCERIDE 78 mg/dL 0-149 HDL CHOLESTEROL 44 mg/dL >40 LDL CHOLESTEROL (CALC) 79 mg/dl 0-129 Nov 02, 2019 10:39 [place] PSA (MEDICINE TECH) Specimen Type: SERUM [facility] Comment: TSH within normal limits. Reflex testing not required. Ordering Provider: KERMIT SANTAMARIA Report Released Date/Time: Oct 29, 2019 12:38 PM Reporting Lab: [place] [facility] [address] [facility] [place] [address] Performing Lab: [place] [facility] [address] [facility] [place] [address] PSA (MEDICINE TECH) 3.41 ng/mL 0-4.0 Nov 02, 2019 10:39 [place] THYROID TESTING Specimen Type: SERUM [facility] CASCADE Comment: TSH within normal limits. Reflex testing not required. Ordering Provider: KERMIT SANTAMARIA Report Released Date/Time: Oct 29, 2019 12:38 PM Reporting Lab: [facility] [facility] [address] [facility] [address] Performing Lab: [facility] [address] [facility] [address] TSH 1.17 uIU/mL 0.35-5.00 REFLEX TESTING comment Nov 01 GLYCOHEMOGLOBIN Specimen Type: BLOOD [address] [place] [address] (A1C ONLY) Comment: Reference Ranges: 4.0 - 5.6 normal 5.7 - 6.4 pre-diabetes >=6.5% diabetic range. If patient has Not Been diagnosed see [facility] Diabetes Guidelines for more guidance. http: 10:39 [place] //www.healthqual ity.sc.gov/guidelines/CD/diabetes/ Target A1C values should be individualized. Better understanding of A1C test result accuracy is essential if clinicians are to interpret results for [facility], and disc uss treatment options through the process of Shared Decision Making. Testing performed by NGSP certified [employer]. The [employer] HgA1c assay should not be used to diagnose or monito r diabetes in pa tients with altered red cell lifespan such as homozygous hemoglobin variant Hb SC, HbF >5% and hemolytic anemia Heterozygous hemoglobin variants do not affect this assay, HbAS, HbAC, HbAD, HbAE, HbA2. Ordering Provider: KERMIT SANTAMARIA Report Released Date/Time: Oct 29, 2019 12:38 PM Reporting Lab: [facility] [address] [facility] [address] Performing Lab: [address] [address] HEMOGLOBIN A1C 5.6 % 4.0-5.6 Nov 02, 2019 10:39 AM [facility] CBC PROFILE Specimen Type: BLOOD No comment enter ed. Ordering Provider: KERMIT SANTAMARIA Report Released Date/Time: Oct 29, 2019 12:38 PM Reporting Lab: [facility] [address] [facility] [address] Performing Lab: [facility] [address] [facility] [address] WBC 5.7 10*3/uL 4.5-11.0 RBC 4.34 10*6/uL 4.23-5.66 HGB 13.2 g/dl 12.8-17 HEMATOCRIT 42.3 % 39.2-50.4 MCV 97.5 fl 82-99 MCH 30.4 pg 26.2-32.6 MCHC 31.2 g/dl 30.8-35.1 PLT 187 10*3/uL 140-360 MPV 10.6 fl 9.2-12.4 RDW 15.3 % 12.0-16.0 LYMPH % 15.5 % 14.0-42.3 MONO % 17.1 % H 5.1-13.7 NEUT % 64.5 % 43.7-75.8 EOS % 1.9 % 0.4-6.8 BASO % 0.7 % 0.1-2.0 IG % 0.3 % 0.0-0.7 NUCLEATED RED CELLS 0.0 /100 WBC 0.0-0.0 ABSOLUTE IG 0.0 10*3/uL 0-0.06 ABSOLUTE BASOPHILS 0.0 10*3/uL L 0.01-0.13 ABSOLUTE EOS. 0.1 10*3/uL 0.03-0.44 ABSOLUTE LYMPHOCYTES 0.9 10*3/uL L 1.0-3.2 ABSOLUTE MONOCYTES 1.0 10*3/uL 0.3-1.1 ABSOLUTE GRANULOCYTES 3.7 10*3/uL 2.2-7. 6 ABSOLUTE NRBC 0.00 10*3/uL 0-0 Nov 02, 2019 [facility] P4 GLU,BUN,CREAT,LYTES,CA Specimen Type: PLASMA 10:39 AM [facility] No comment enter ed. Ordering Provider: KERMIT SANTAMARIA Report Released Date/Time: Oct 29, 2019 12:38 PM Reporting Lab: [facility] [address] [facility] [address] Performing Lab: [facility] [address] [facility] [address] UREA NITROGEN 18 mg/dL 7-25 SODIUM 139 mmol/L 135-145 POTASSIUM 4.2 mmol/L 3.5-5.0 CHLORIDE 106 mmol/L 100-110 CARBON DIOXIDE 28 mmol/L 20-30 ANION GAP 5 mmol/L 4-16 GLUCOSE 95 mg/dL 65-100 CREATININE 0.90 mg/dl 0.5-1.5 CALCIUM 9.1 mg/dL 8.5-10.5 eGFR 82 mL/min >60 Nov 02, 2019 10:39 AM [facility] LIVER PROFILE Specimen Type: PLASMA No comment enter ed. Ordering Provider: KERMIT SANTAMARIA Report Released Date/Time: Oct 29, 2019 12:38 PM Reporting Lab: [facility] [address] [facility] [address] Performing Lab: [facility] [address] [facility] [address] PROTEIN, TOTAL 6.7 g/dL 6.0-8.5 ALBUMIN 3.6 g/dL 3.2-5.0 BILIRUBIN, TOTAL 0.5 mg/dL 0.2-1.2 ALKALINE PHOSPHATASE 88 U/L 40-150 ALT(SGPT) 15 U/L 7-52 AST(SGOT) 17 U/L 5-34 FIB-4 SCORE 1.76 INDEX <2.67 Advance Directives: All historical and current Section Date Range: From patient's date of to the date document was created. This section includes ALL of a patient's completed or amended [place] Advance and Rescinded Directives. The entries below indicate that a directive exists for the patient, but an actual copy is not included with this document. The data comes from all [place] facilities. Date Advance Directives Provider Source Aug 30, 2015 ADVANCE DIRECTIVE SOHAN WOODARD [facility] Radiology Reports: +/- 30 days of [...] the Encounter. The data comes from all [place] treatment facilities. Date/Time Radiology Report Provider Source Oct 13, 2019 09:[address] THORAX W/CONT: [facility]DE [facility] CHRIS AARON [id number] -1945 M Exm Date: OCT 13, 2019@09:30 Req Phys: BALAJI KUO Loc: OUTSIDE [facility] CT SCAN (Req'g Loc Img Loc : OUTSIDE [facility] CT SCAN Service : Unknown (Case [id number] COMPLETE) CT THOR AX W/CONT (CT Detailed) CPT:68362 Reason for Study: Exam imported from outstn e Clinical History: Original Data for Imported Study Patient Name: CHRIS AARON Date: 1945 Sex: M Study Date: 10/13/19 [facility] Time: 09:30:18 Study Description: CT CHEST W Referring Physician: SO MCGEE Series 1: 1 CT file, description: Topogr am Series 2: 76 CT files, description: CHES T 5X5 W/ Series 3: 760 CT files, description: THI NS W/ Series 4: 574 CT files, description: ADINA G W/ Series 5: 42 CT files, description: EMMANUELLE NAL W/ Series 6: 65 CT files, description: SAGI TTAL W/ Series 7: 1 CT file, description: Patiraheel t Protocol Acquisition site: [facility] Address: [facility] Report Status: Electronically Filed Olivier hinson Reported: DEC 09, 2019 Report: RADIOLOGY PROCEDURE: N O T I C E: SCANNED IN R EPORT THIS EXAMINATION WAS PERFORMED AND INTERP RETED AT A NON-VA FACILITY. To view the report, select the I AM ATS Tools Menu and choose the Image Display (Viewer) option. Impression: RADIOLOGY PROCEDURE: N O T I C E: SCANNED IN R EPORT THIS EXAMINATION WAS PERFORMED AND INTERP RETED AT A NON-VA FACILITY. To view the report or images, select the I AM ATS Tools Menu and choose the Image Display (Viewer) optio n. VERIFIED BY: / *ELECTRONICALLY FILED*
--- OUTSIDE RECORDS SUMMARY | 2020-08-08 13:44 | XMS_ITS | Encounter Summary ---
:1945 Author Organization Department [facility] Address [address] [place] [address] Care Team Providers Name Role Phone KERMIT [...] MEDICARE MEDICARE PART Sep 15, PART B [id number] [id number] YADI AARON PATIENT (WNR) (M) B 2012 AY68 1 CHARD MEDICARE MEDICARE PART Feb 15, PART A [id number] [id number] YADI AARON PATIENT (WNR) (M) A 2008 AY68 1 CHARD Selected Encounter This section includes the information on record at [place] for the Encounter. Date/Time Encounter Type Encounter Description Reason Provider Source Sep 15, 2019 09:00 Outpatient Encounter ADMIN BASSEM ANGULO AM (MASNONCT) IHE Encounter Template Text not used [...] 20 appointments. The data comes from all [facility]. Appointment Date/Time Appointment Type Appointment Facili ty Name Oct 29, 2019 11:00 AM AMBULATORY - MEDICINE [facility] Nov 02, 2019 11:00 AM AMBULATORY - NONE [facility] Dec 03, 2019 01:30 PM AMBULATORY - MEDICINE [facility] Jan 22, 2020 09:00 AM AMBULATORY - SURGERY [facility] Advance Directives: All historical and current Section Date Range: From patient's date of to the date document was created. This section includes ALL of a patient's completed or amended [place] Advance and Rescinded Directives. The entries below indicate that a directive exists for the patient, but an actual copy is not included with this document. The data comes from all [place] facilities. Date Advance Directives Provider Source Aug 30, 2015 ADVANCE DIRECTIVE SOHAN WOODARD [facility] T [facility] Radiology Reports: +/- 30 days of the [...] the Encounter. The data comes from all [place] treatment facilities. Date/Time Radiology Report Provider Source Oct 13, 2019 09:[address] THORAX W/CONT: [facility] CHRIS AARON [id number] -1945 M Exm Date: OCT 13, 2019@09:30 Req Phys: BALAJI KUO Pat Loc: OUTSIDE [facility] CT SCAN (Req'g Loc Img Loc : OUTSIDE [facility] CT SCAN Service : Unknown (Case [id number] COMPLETE) CT THOR AX W/CONT (CT Detailed) CPT:69683 Reason for Study: Exam imported from outsid e Clinical History: Original Data for Imported Study Patient Name: CHRIS AARON Date: 1945 Sex: M Study Date: 10/13/19 [facility] Time: 09:30:18 Study Description: CT CHEST W [...] W/ Series 7: 1 CT file, description: Patien t Protocol Acquisition site: [facility] Address: [facility] Report Status: Electronically Filed Da te Reported: DEC 09, 2019 Report: RADIOLOGY PROCEDURE: N O T I C E: SCANNED IN R EPORT THIS EXAMINATION WAS PERFORMED AND INTERP RETED AT A NON-VA FACILITY. To view the report, select the CPRS Tools Menu and choose the Image Display (Viewer) option. Impression: RADIOLOGY PROCEDURE: N O T I C E: SCANNED IN R EPORT THIS EXAMINATION WAS PERFORMED AND INTERP RETED AT A NON-VA FACILITY. To view the report or images, select the CPRS Tools Menu and choose the Image Display (Viewer) optio n. VERIFIED BY: / *ELECTRONICALLY FILED* Encounter Notes: All associated encounter notes This section contains the clinical notes associated to the Encounter. Date/Time Encounter Note(s) Provider Source Sep 15, 2019 09:00 AM NONVA NOTE: LISBET LEWIS LOCAL TITLE: NonVA Medical Records IVONNE SALAZAR [facility] STANDARD TITLE: NONVA NOTE DATE OF NOTE: SEP 15, 2019@09:00 ENTRY DATE: SEP 15, 2019@09:00:59 AUTHOR: LISBET LEWIS COSIGNER: URGENCY: STATUS: COMPLETED NONVA 09/07/2019 PROGRESS NOTES/HEMATOLOGY ONCOLOGY [facility] /bennie/ Lisbet Lewis MRT Signed: 09/15/2019 09:02 Receipt Acknowledged By: 09/15/2019 09:21 /bennie/ RONAK CELESTE P, [employer] SALES EXECUTIVE-BC NURSE PRACTITIONER
--- OUTSIDE RECORDS SUMMARY | 2020-08-08 13:44 | XMS_ITS | Encounter Summary ---
:1945 Author Organization Department [facility] Address [address] [place] [address] Care Team Providers Name Role Phone KERMIT [...] MEDICARE MEDICARE PART Sep 15, PART B [id number] [id number] YADI AARON PATIENT (WNR) (M) B 2012 AY68 1 CHARD MEDICARE MEDICARE PART Feb 15, PART A [id number] [id number] YADI AARON PATIENT (WNR) (M) A 2008 AY68 1 CHARD Selected Encounter This section includes the information on record at MD for the Encounter. Date/Time Encounter Type Encounter Description Reason Provider Source Sep 11, 2019 11:07 Outpatient Encounter PRIMARY CARE/MEDICINE AM IHE Encounter Template Text not used by MD Plan of Treatment: Future Appointments (+ 6 [...] 20 appointments. The data comes from all [facility] Appointment Date/Time Appointment Type Appointment Facili ty Name Oct 29, 2019 11:00 AM [facility] Nov 02, 2019 11:00 AM AMBULATORY - NONE [facility] Dec 03, 2019 01:30 PM [facility] Jan 22, 2020 09:00 AM [facility] Advance Directives: All historical and current Section Date Range: From patient's date of to the date document was created. This section includes ALL of a patient's completed or amended MD Advance and Rescinded Directives. The entries below indicate that a directive exists for the patient, but an actual copy is not included with this document. The data comes from all MD facilities. Date Advance Directives Provider Source Aug 30, 2015 ADVANCE DIRECTIVE SOHAN WOODARD [facility] T [facility] Encounter Notes: All associated encounter notes This section contains the clinical notes associated to the Encounter. 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 . Date of Service:08/05/2019 Treating Provider:Barney Fox MD Documents sent to [facility] to be scanned. To view this document, open the cprs tools menu and then open the image display viewer. /bennie/ JONN MCPHERSON [employer] Scooter Mechanic Signed: 09/11/2019 11:09
--- OUTSIDE RECORDS SUMMARY | 2020-08-08 13:45 | XMS_ITS | Encounter Summary ---
:1945 Author Organization [facility] Address [address] [place] [id number] Care Team Providers Name Role Phone KERMIT [...] MEDICARE MEDICARE PART Sep 15, PART B [id number] [phone] YADI AARON PATIENT (WNR) (M) B 2012 AY68 1 [facility] PART Feb 15, PART A [id number] [phone] YADI AARON PATIENT (WNR) (M) A 2008 AY68 1 [facility] Selected Encounter This section includes the information on record at [facility] for the [facility]counter. 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 Date/Time Primary/Secondary Diagnosis Name Provider Source Diagnosis Oct 29, 2019 PRIMARY Carcinoma in situ RANDELL GALAVIZ 11:00 AM of left bronchus [facility] and lung Oct 29, 2019 SECONDARY Chronic RANDELL GALAVIZ [facility] 11:00 AM obstructive [facility] pulmonary disease, unspecified Oct 29, 2019 SECONDARY Hypothyroidism, RANDELL GALAVIZ U[facility] 11:00 AM unspecified [facility] Plan of Treatment: Future Appointments (+ 6 months) and Future Tests (+/- 45 days) The Plan of Treatment section includes future care activities for the patient from all [place] treatment facilities. This section includes future appointments and future orders which are active, pending or scheduled.Future Appointments This section includes appointments that were scheduled to occur 6 months from the date of the Encounter, up to a maximum of 20 appointments. The [facility] [place] [facility] Appointment Date/Time Appointment Type Appointment Facili ty Name Nov 02, 2019 11:00 AM AMBULATORY - NONE [facility] Dec 03, 2019 01:30 PM AMBULATORY - MEDICINE [facility] Jan 22, 2020 09:00 AM AMBULATORY - SURGERY [facility] Apr 14, 2020 08:00 AM [facility] Apr 21, 2020 01:45 PM AMBULATORY - MEDICINE [facility] Lab Results: +/- 30 days of the [...] Reference Range Comment Nov 02, 2019 10:39 [facility] LIPOPROTEIN CHOLESTEROL Specimen Type: PLASMA AM [facility] FRACT. PANEL No comment enter ed. Ordering Provider: KERMIT SANTAMARIA Report Released Date/Time: Oct 29, 2019 12:38 PM Reporting Lab: [facility] [address] [facility] [address] Performing Lab: [facility] [address] [facility] [address] CHOLESTEROL 139 mg/dL 0-199 TRIGLYCERIDE 78 mg/dL 0-149 HDL CHOLESTEROL 44 mg/dL >40 LDL CHOLESTEROL (CALC) 79 mg/dl 0-129 Nov 02, 2019 10:39 [facility] PSA (SPORTS MEDICINE COORDINATOR) Specimen Type: SERUM AM [facility] Comment: TSH within normal limits. Reflex testing not required. Ordering Provider: KERMIT SANTAMARIA Report Released Date/Time: Oct 29, 2019 12:38 PM Reporting Lab: [facility] [address] [facility] [address] Performing Lab: [facility] [address] [facility] [address] PSA (SPORTS MEDICINE COORDINATOR) 3.41 ng/mL 0-4.0 Nov 02, 2019 10:39 [facility] Specimen Type: SERUM AM [facility] [place] Comment: TSH within normal limits. Reflex testing not required. Ordering Provider: KERMIT SANTAMARIA Report Released Date/Time: Oct 29, 2019 12:38 PM Reporting Lab: [facility] [address] [facility] [address] Performing Lab: [address] [address] TSH 1.17 uIU/mL 0.35-5.00 REFLEX TESTING comment Nov 01 GLYCOHEMOGLOBIN Specimen Type: BLOOD [address] [place] [address] (A1C ONLY) Comment: Reference Ranges: 4.0 - 5.6 normal 5.7 - 6.4 pre-diabetes >=6.5% diabetic range. If patient has Not Been diagnosed see [facility] Diabetes Guidelines for more guidance. http: 10:39 AM J[place] //www.healthqual ity.in.gov/guidelines/CD/diabetes/ Target A1C values should be individualized. Better understanding of A1C test result accuracy is essential if clinicians are to interpret results for [facility], and disc uss treatment options through the [...] Oct 29, 2019 12:38 PM Reporting Lab: [facility] [address] [facility] [address] Performing Lab: [facility] [address] [facility] [address] HEMOGLOBIN A1C 5.6 % 4.0-5.6 Nov 02, 2019 10:39 AM [facility] CBC PROFILE Specimen Type: BLOOD No comment enter ed. Ordering Provider: KERMIT SANTAMARIA Report Released Date/Time: Oct 29, 2019 12:38 PM Reporting Lab: [facility] [address] [facility] [address] Performing Lab: [facility] [address] [facility] [address] WBC 5.7 10*3/uL 4.5-11.0 RBC 4.34 10*6/uL [...] NRBC 0.00 10*3/uL 0-0 Nov 02, 2019 [facility] P4 GLU,BUN,CREAT,LYTES,CA Specimen Type: PLASMA 10:39 AM [facility] No comment enter ed. Ordering Provider: KERMIT SANTAMARIA Report Released Date/Time: Oct 29, 2019 12:38 PM Reporting Lab: [facility] [address] [facility] [address] Performing Lab: [facility] [address] [facility] [address] UREA NITROGEN 18 mg/dL 7-25 SODIUM 139 mmol/L 135-145 POTASSIUM 4.2 mmol/L 3.5-5.0 CHLORIDE 106 mmol/L 100-110 CARBON DIOXIDE 28 mmol/L 20-30 ANION GAP 5 mmol/L 4-16 GLUCOSE 95 mg/dL 65-100 CREATININE 0.90 mg/dl 0.5-1.5 CALCIUM 9.1 mg/dL 8.5-10.5 eGFR 82 mL/min >60 Nov 02, 2019 10:39 AM [facility] LIVER PROFILE Specimen Type: PLASMA No comment enter ed. Ordering Provider: KERMIT SANTAMARIA Report Released Date/Time: Oct 29, 2019 12:38 PM Reporting Lab: [facility] [address] [facility] [address] Performing Lab: [facility] [address] [facility] [address] PROTEIN, TOTAL 6.7 g/dL 6.0-8.5 ALBUMIN 3.6 g/dL 3.2-5.0 BILIRUBIN, TOTAL 0.5 mg/dL 0.2-1.2 ALKALINE PHOSPHATASE 88 U/L 40-150 ALT(SGPT) 15 U/L 7-52 AST(SGOT) 17 U/L 5-34 FIB-4 SCORE 1.76 INDEX <2.67 Social History: Smoking Status (Most current) and Tobacco Use (All prior to encounter date) This section includes the most current, and the historical, smoking and tobacco-related health factors from the [place] facility where the Encounter took place.Current Smoking Status This section includes the most current smoking, or tobacco-related health factor, from the [place] facility where the Encounter took place. Date/Time Current Smoking Status Comment Facility Oct 22, 2019 10:55 AM VA-TOBACCO FORMER USER [facility] Tobacco Use History This section includes a history of the smoking, or tobacco-related health factors, that were collected on or before the date of the Encounter. The data comes from the [place] facility where the Encounter took place. Date/Time Smoking Status/Tobacco Use Comment Facil ity Oct 22, 2019 10:55 AM VA-TOBACCO QUIT [address] [facility] MORE May 07, 2018 01:52 PM [facility]BACCO [facility] May 07, 2018 01:52 PM VA-TOBACCO QUIT [address] [facility] MORE Oct 23, 2017 02:02 PM QUIT TOBACCO USE > [address] [facility] quit about 25 years ago August 10, 2015 11:31 AM QUIT TOBACCO USE > [address] [facility] quit 20 years ago Mar 27, 2005 10:52 AM [address]MOKING [facility] quit 8 years ago Apr 18, 2004 09:56 AM [address] [facility] quit 6 years ago Mar 24, 2003 11:33 [address] [facility] 5 yrs ago Mar 24, 2003 11:33 AM QUIT TOBACCO USE > [address] [facility] Advance Directives: All historical and current Section Date Range: From patient's date of to the date document was created. This section includes ALL of a patient's completed or amended [facility] Advance and Rescinded Directives. The entries below indicate that a directive exists for the patient, but an actual copy is not included with this document. The data comes from all [place] facilities. Date Advance Directives Provider Source Aug 30, 2015 ADVANCE DIRECTIVE SOHAN WOOD[facility] Radiology Reports: +/- 30 days of the [...] 2019 09:[address] THORAX W/CONT: MODE LOOMIST [facility] CHRIS AARON [id number] -1945 M Exm Date: OCT 13, 2019@09:30 Req Phys: BALAJI KUO Pat Loc: OUTSIDE [facility] SCAN (Req'g Loc Img Loc : OUTSIDE [facility] CT SCAN Service : Unknown (Case [id number] COMPLETE) CT THOR AX W/CONT (CT Detailed) CPT:83106 Reason for Study: Exam imported from outsid e Clinical History: Original Data for Imported Study Patient Name: CHRIS AARON Date: 1945 Sex: M Study Date: 10/13/19 [facility] Time: 09:30:18 Study Description: CT CHEST W [...] file, description: Patien t Protocol Acquisition site: [facility] Address: [facility] Report Status: Electronically Filed Olivier hinson Reported: DEC 09, 2019 Report: RADIOLOGY PROCEDURE: N O T I C E: SCANNED IN R EPORT THIS EXAMINATION WAS PERFORMED AND INTERP RETED AT A NON-VA FACILITY. To view the report, select the Droid system masterS Tools Menu and choose the Image Display [...] the Encounter. Date/Time Encounter Note(s) Provider Source Nov 03, 2019 04:10 PM LETTERS: KERMIT SANTAMARIA [facility] LOCAL TITLE: Letter to Patient - [facility] TITLE: LETTERS DATE OF NOTE: NOV 03, 2019@16:10 ENTRY DATE: NOV 03, 2019@16:10:21 AUTHOR: KERMIT SANTAMARIA EXP COSIGNER: URGENCY: STATUS: COMPLETED [facility] [address] [place] [address] NOV 03, 2019 MR. CHRIS AARON [address] [address] Dear Mr. Aaron, Your lab results are copied below for your revie w and records. Your PSA has dropped back down into normal range. Please don't hesitate to call if you have any qu estions or concerns, . Sincerely, KERMIT SANTAMARIA, DNP, SOCIAL WORKER-BC NURSE PRACTITIONER [facility] Reporting Lab: [facility] [CLIA# [id number]] [address] [place] [address] Report Released Date/Time: Nov 02, 2019@17:35 Provider: KERMIT SANTAMARIA Specimen: [place]. [place] [id number] Specimen Collection Date: Nov 02, 2019@10:39 Test name Result units Ref. range Site Code PSA (SPORTS MEDICINE COORDINATOR) 3.41 ng/mL 0 - 4.0 [405] TSH 1.17 uIU/mL 0.35 - 5.00 [405] Reporting Lab: [facility] [CLIA# [id number]] [address] [place] [address] Report Released Date/Time: Nov 02, 2019@17:46 Provider: KERMIT SANTAMARIA Specimen: [place]. [place] [id number] Specimen Collection Date: Nov 02, 2019@10:39 Test name Result units Ref. range Site Code GLUCOSE 95 mg/dL 65 - 100 [405] UREA NITROGEN 18 mg/dL 7 - 25 [405] CREATININE 0.90 mg/dl 0.5 - 1.5 [405] eGFR >60 mL/min Ref: >=60 [405] SODIUM 139 mmol/L 135 - 145 [405] POTASSIUM 4.2 mmol/L 3.5 - 5.0 [405] CHLORIDE 106 mmol/L 100 - 110 [405] CARBON DIOXIDE 28 mmol/L 20 - 30 [405] ANION GAP 5 mmol/L 4 - 16 [405] CALCIUM 9.1 mg/dL 8.5 - 10.5 [405] PROTEIN, TOTAL 6.7 g/dL 6.0 - 8.5 [405] ALBUMIN 3.6 g/dL 3.2 - 5.0 [405] ALKALINE PHOSPHATASE 88 U/L 40 - 150 [405] ALT(SGPT) 15 U/L 7 - 52 [405] AST(SGOT) 17 U/L 5 - 34 [405] FIB-4 SCORE 1.76 INDEX Ref: <=2.67 [405] BILIRUBIN, TOTAL 0.5 mg/dL 0.2 - 1.2 [405] CHOLESTEROL 139 mg/dL 0 - 199 [405] TRIGLYCERIDE 78 mg/dL 0 - 149 [405] HDL CHOLESTEROL 44 mg/dL Ref: >=40 [405] LDL CHOLESTEROL (CALC) 79 mg/dl 0 - 129 [405] Reporting Lab: [facility] [CLIA# [id number]] [address] [place] [address] Report Released Date/Time: Nov 02, 2019@17:22 Provider: KERMIT SANTAMARIA Specimen: BLOOD. [place] [id number] Specimen Collection Date: Nov 02, 2019@10:39 Test name Result units Ref. range Site Code HEMOGLOBIN A1C 5.6 % 4.0 - 5.6 [405] Comment: Reference Ranges: 4.0 - 5.6 normal Reporting Lab: [facility] [CLIA# [id number]] [address] [place] [address] Report Released Date/Time: Nov 02, 2019@16:45 Provider: KERMIT SANTAMARIA Specimen: BLOOD. [id number] Specimen Collection Date: Nov 02, 2019@10:39 Test name Result units Ref. range Site Code WBC 5.7 10*3/uL 4.5 - 11.0 [405] RBC 4.34 10*6/uL 4.23 - 5.66 [405] HGB 13.2 g/dl 12.8 - 17 [405] HEMATOCRIT 42.3 % 39.2 - 50.4 [405] MCV 97.5 fl 82 - 99 [405] MCH 30.4 pg 26.2 - 32.6 [405] MCHC 31.2 g/dl 30.8 - 35.1 [405] RDW 15.3 % 12.0 - 16.0 [405] PLT 187 10*3/uL 140 - 360 [405] MPV 10.6 fl 9.2 - 12.4 [405] NEUT % 64.5 % 43.7 - 75.8 [405] LYMPH % 15.5 % 14.0 - 42.3 [405] MONO % 17.1 H % 5.1 - 13.7 [405] EOS % 1.9 % 0.4 - 6.8 [405] BASO % 0.7 % 0.1 - 2.0 [405] IG % 0.3 % 0.0 - 0.7 [405] NUCLEATED RED CELLS 0.0 /100 WBC 0.0 - 0.0 [405] ABSOLUTE GRANULOCYTES 3.7 10*3/uL 2.2 - 7.6 [405] ABSOLUTE LYMPHOCYTES 0.9 L 10*3/uL 1.0 - 3.2 [405] ABSOLUTE MONOCYTES 1.0 10*3/uL 0.3 - 1.1 [405] ABSOLUTE EOS. 0.1 10*3/uL 0.03 - 0.44 [405] ABSOLUTE BASOPHILS 0.0 L 10*3/uL 0.01 - 0.13 [405] ABSOLUTE IG 0.0 10*3/uL 0 - 0.06 [405] ABSOLUTE NRBC 0.00 10*3/uL 0 - 0 [405] Oct 29, 2019 11:40 AM PRIMARY CARE NOTE: KERMIT SANTAMARIA [facility] LOCAL TITLE: Primary Care Clinic Note STANDARD TITLE: PRIMARY CARE NOTE DATE OF NOTE: OCT 29, 2019@11:40 ENTRY DATE: OCT 29, 2019@11:40:11 AUTHOR: KERMIT SANTAMARIA EXP COSIGNER: URGENCY: STATUS: COMPLETED CHRIS AARON TELEX ID verification-last 4/ COVID Screen: *Signs and Symptoms: a. Fever: () Yes (x) No Comment: b. New or worsening cough or shortness of br eath: () Yes (x) No Comment: c. Any cold or flu-like symptoms: () Yes (x) No Comment: d. New onset diarrhea: () Yes (x) No Comment: Screen Result: (x) Negative Screen: Negative for symptom(x) ASSESSMENT/PLAN: 1. Lung CA-has cont treatment at [facility] completed radiation/chemo; is starting a new the rapy tomorrow with injections 1x/month has been able to work out in the yard appetite is comin gback-is re-gaining weight-[place] pped about 10# B. COPD:no meds/no wheezing/ says has had some sob when doing strenuous activity- states he is not having any breathing issues most likely will cancel pulm appt at [facility] in Nov 2. BPH/LUTS-CIC-pt is cathing up to 8x daily, is not able to void on his own. PSA elevated in march re-check PSA tomorrow 3. hypothyroidism-will recheck labs tomorrow has lost about 10# with chemo/rad 4. OA-neck (hx CS fusion)/shoulder-right shoulde r hurts to lift arm too high; staea no increased diffuclties, ok for now 5. HTN-elevated in clinic-pt reports home BP 110 's-120's sys 6. left elbow-had a fall about a year la nded on left elbow and shoulder-states it is pretty well healed,has a littlet chip on h is elbow- RTC 6m for F2F CC- -presents with Paula for TELEX visit I have 30 something statemen ts-not a bill-not sure what to do with it; one looks like a bill (pt to bring in with his lab appt., will make a copy and give to SW) NON-VA PCP - no NON-VA Specialists - Immunizations:Up to date []does not get flu vacc ine Smoking [] yes [x] NO quit about 20y ago 1 PPD x 30Y Alcohol [x] yes [] no [1-2] drinks/week Depression screen: [x]neg []pos Dental Exam-last visit 11/2018 Eye Exam-last year-[facility] EGD surveillance: Barry lerma recurrent Lung cancer, will no longer consider BE surveillance. It appears also that the exgtent of intestinal m etaplasia in the esophagus was <1cm, which would not define BE. HPI-74 y/o presents w Jordan logan, w recurrence of Ca lung, Hypothyroidism s/p Graves disease, Galaviz's esophagus, HLD, COPD, CVA, PBH w LUTS Active problems - Computerized Problem List is t he source for the followin. Carcinoma in situ of lung 2. Impingement syndrome of right shoulder regio n 3. Frozen shoulder 4. CTS - Carpal tunnel syndrome 5. Cervical radiculopathy 6. Hypothyroidism 7. Chronic retention of urine (SNOMED CT 268259 000) 8. Full thickness rotator cuff tear 9. Cerebral infarction (SNOMED CT 825726097) 10. Hemorrhagic cerebral infarction (SNOMED CT 2 44421582) 11. Impaired fasting glycaemia (SNOMED CT 172093 007) 12. Hypothyroidism (SNOMED CT 04376086) 13. Galaviz's esophagus (SNOMED CT 622843521) 14. Numbness * 15. Diplopia * 16. Left Inguinal Hernia 17. Allergic urticaria 18. HLD - Hyperlipidemia (SNOMED CT 37597611) 19. SENSORINEURAL HEARING LOSS, BILATERAL 20. Graves' Disease * 21. Discitis 22. Nephrolithiasis 23. Bruit * 24. Asthma 25. COPD * 26. Asthma, miners' OTHER PMH/PSH: SURG: T&A Bilat hernias one in 20s and one in 30s Lac to right thumb - surg for ligament r eplacement 05/14/01 Neck surg 3 vert fused HABITS: TOBACCO: quit 1998, 16y/o to 1998 1ppd SOCIAL HX:, Paula; likes to work i n the yard; retired machinist/machine builder; snowblows/shovels in the winter UAWMXGRL-WJOH-inuqjjyzfwg operator, communicatio ns FAM HX: 1981 CHILDREN: 0 EMPLOYED [employer]ER, [employer] [place], [employer]ICE: [employer] FATHER: D50s ca head MOTHER: D63 Ca breast SIBS: 5 bro, x1 D ? Ca, X 1bro throat ca, x 2b colon ca 1 sis (+)DM, bro (+HEART DISEASE bro with 3 bypass (+) CANCER: MEDS: Active and Recently Outpatient Medicatio ns (including Supplies): Active Outpatient Medications Status 1) ATORVASTATIN CALCIUM 40MG TAB TAKE ONE-HALF TABLET BY ACTIVE MOUTH EVERY DAY TO LOWER CHOLESTEROL; MAY CAUSE MYALGIA REPORT SIDE EFFECTS TO YOUR PROVI ADRI 2) CATHETER,SELF-CATH 14FR COLOPLAST #[id number] US E CATHETER ACTIVE DIRECTED 8 TIMES DAILY 3) LEVOTHYROXINE NA (SYNTHROID) 100MCG TAB MORRO E ONE ACTIVE TABLET BY MOUTH EVERY DAY FOR THYROID (NO TE DOSE) 4) LUBRICATING TOP JELLY BACTERIOSTATIC APPLY SMALL ACTIVE AMOUNT TOPICALLY NEEDED 5) OMEPRAZOLE 20MG EC CAP TAKE ONE CAPSULE BY MOUTH ACTIVE EVERY MORNING BEFORE BREAKFAST FOR STOMAC H ACID (TAKE HALF-HOUR BEFORE A MEAL(S) 6) PROCHLORPERAZINE MALEATE 10MG TAB TAKE ONE TABLET BY ACTIVE MOUTH EVERY SIX HOURS NEEDED FOR NAUSE A/VOMITING 7) SUCRALFATE 500MG/5ML SUSP TAKE 2 TEASPOONS (10ML) BY ACTIVE MOUTH FOUR TIMES A DAY Inactive Outpatient Medications Status 1) BENZONATATE 100MG CAP TAKE TWO CAPSULES BY MOUTH THREE TIMES DAILY NEEDED FOR COUGH. SW ALLOW CAPSULE WHOLE. DO NOT BREAK, CHEW, DISSOL VE, CUT, OR CRUSH. MAX 6 CAPSULES PER DAY. 8 Total Medications ALLERGIES: BEE STINGS, BACTRIM ROS: Constitutional: No fever, fatigue, unexpected we ight change-states has been gaining Resp: No cough, wheezing Cardiac: No chest pain, edema, dyspnea on exerti on-will have sob GI: No heartburn, denies nausea, nochange in bow els, denies abdominal pain : self cath about 6x/day, unable to void Musculoskeletal: No new joint pain or weakness. Neurologic: No headache, dizziness sleep-staetsa sleeping ok OBJ: home weight 128-last clinic visit 136 GENERAL: normal conversational pattern; approp riate ans to questions Neurological: Alert. Memory appears intact. CN 2-12 grossly intact. ASSESSMENT/PLAN -see top of note RTC - months or PRN Counseling/coordination of care dominates over 5 0% of 30__ min encounter Advance Directive Screen: Patient has an Advance Directive on file a t [facility]. The patient received education about advance directive s as well as written notification of his/her rights. Patient has an up to date Advance Directiv e document on file at [facility]. No updates are needed at this time. The patient received education about advan ce directives as well as written notification of his/her rights. Tobacco Use Screening: The patient is a former tobacco user. The patient quit fifteen or more years ago . Alcohol Use Screen (AUDIT-C) & F/U: Alcohol Screen: SCREEN FOR ALCOHOL (AUDIT-C) An alcohol screening test (AUDIT-C ) was negative (score=1). 1. How often did you have a drink containing alcohol in the past year? Monthly or less 2. How many drinks containing alco hol did you have on a typical day when you were drinking in the past year? 1 or 2 3. How often did you have six or m ore drinks on one occasion in the past year? Never Date Instrument Raw Trans Scale 11/05/2018 15:00 AUDC 1 Total EGD F/U: EGD F/U surveillance is no longer applicable for this patient. Reason: currently being treated for cancer Influenza Immunization: Other precaution: Comment: not available Outpt. Medication Reconciliation: No Discrepancies Found - Med Rec Completed. NO DISCREPANCIES FOUND - The patient's medication list/medication history to include Local Activ e VA Prescriptions, Remote Active VA Prescriptions, Non-VA medications, Recently VA Pr escriptions (90-180 days), Recently Discontinued VA Prescriptions (90 -180 days), and Pending Medication Orders where relevant (e.g., jairon reid is seen by multiple providers in the same day) was compared [facility] CPRS and reviewed with the patient/caregiver and reconciled. A copy o f the updated medication list was provided to the patient/caregiver. The patient/caregiver was instructed to update this list, di scard old lists, and take this list to their next appointment , whether with a VA or non-VA provider. Any changes in medications and any medications discont inued are documented in this note. Depression Screening: PHQ-2+I9 Depression Screening Score: 0 The score on this administration i s 0, which indicates a negative screen on the Dep ression Scale over the past two weeks. Suicide Screening Score: 0 The results of this administration indicates a NEGATIVE primary screen for Risk of Suicide over the last 2 weeks. Over the past two weeks, how often h ave you been bothered by the following problems? 1. Little interest or pleasure in do ing things Not at all 2. Feeling down, depressed, or hopel ess Not at all 3. Thoughts that you would be better off or of hurting yourself in some way Not at all /bennie/ KERMIT SANTAAMRIA DNP, SOCIAL WORKER-BC NURSE PRACTITIONER Signed: 10/29/2019 13:06
--- OUTSIDE RECORDS SUMMARY | 2020-08-08 13:45 | XMS_ITS | Encounter Summary ---
:1945 Author Organization Department [facility] Address [address] [place] [address] Care Team Providers Name Role Phone KERMIT [...] MEDICARE MEDICARE PART Sep 15, PART B [id number] YADI AARON PATIENT (WNR) (M) B 2012 AY68 1 CHARD MEDICARE MEDICARE PART Feb 15, PART A [id number] [id number] YADI AARON PATIENT (WNR) (M) A 2008 AY68 1 CHARD Selected Encounter This section includes the information on record at [place] for the Encounter. Date/Time Encounter Type Encounter Description Reason Provider Source Sep 28, 2019 03:36 Outpatient Encounter PRIMARY CARE/MEDICINE PM IHE Encounter Template Text not used by [place] Plan of Treatment: Future Appointments (+ 6 [...] 20 appointments. The data comes from all [facility]. Appointment Date/Time Appointment Type Appointment Facili ty Name Oct 29, 2019 11:00 AM AMBULATORY - MEDICINE MODE [facility] Nov 02, 2019 11:00 AM AMBULATORY - NONE [facility] Dec 03, 2019 01:30 PM AMBULATORY - MEDICINE MODE [facility] Jan 22, 2020 09:00 AM AMBULATORY - SURGERY MODE [facility] Advance Directives: All historical and current Section Date Range: From patient's date of to the date document was created. This section includes ALL of a patient's completed or amended [place] Advance and Rescinded Directives. The entries below indicate that a directive exists for the patient, but an actual copy is not included with this document. The data comes from all [place] facilities. Date Advance Directives Provider Source Aug 30, 2015 ADVANCE DIRECTIVE SOHAN WOODARD MODE [facility] Radiology Reports: +/- 30 days of [...] the Encounter. The data comes from all [place] treatment facilities. Date/Time Radiology Report Provider Source Oct 13, 2019 09:[address] THORAX W/CONT: MODE [facility] CHRIS AARON [id number] -1945 M Exm Date: OCT 13, 2019@09:30 Req Phys: BALAJI KUO Pat Loc: OUTSIDE [facility] CT SCAN (Req'g Loc Img Loc : OUTSIDE [facility] CT SCAN Service : Unknown (Case [id number] COMPLETE) CT THOR AX W/CONT (CT Detailed) CPT:59412 Reason for Study: Exam imported from outsid e Clinical History: Original Data for Imported Study Patient Name: CHRIS AARON Date: 1945 Sex: M Study Date: 10/13/19 [facility] Time: 09:30:18 Study Description: CT CHEST W Referring Physician: SO MCGEE Series 1: 1 CT file, description: Topogr am Series 2: 76 CT files, description: CHES T 5X5 W/ Series 3: 760 CT files, description: THI NS W/ Series 4: 574 CT files, description: ADINA G W/ Series 5: 42 CT files, description: EMMANUELLE NAL W/ Series 6: 65 CT files, description: SILVIO TTAL W/ Series 7: 1 CT file, description: Patien t Protocol Acquisition site: [facility] Address: [facility] Report Status: Electronically Filed Da te Reported: DEC 09, 2019 Report: RADIOLOGY PROCEDURE: N O T I C E: SCANNED IN R EPORT THIS EXAMINATION WAS PERFORMED AND INTERP RETED AT A NON-VA FACILITY. To view the report, select the ivWatchS Tools Menu and choose the Image Display (Viewer) option. Impression: RADIOLOGY PROCEDURE: N O T I C E: SCANNED IN R EPORT THIS EXAMINATION WAS PERFORMED AND INTERP RETED AT A NON-VA FACILITY. To view the report or images, select the ivWatchS Tools Menu and choose the Image Display (Viewer) optio n. VERIFIED BY: / *ELECTRONICALLY FILED* Encounter Notes: All associated encounter notes This section contains the clinical notes associated to the Encounter. Date/Time Encounter Note(s) Provider Source Sep 28, 2019 03:36 PM NONVA NOTE: EDOUARD WILD [facility] LOCAL TITLE: NonVA Note STANDARD TITLE: NONVA NOTE DATE OF NOTE: SEP 28, 2019@15:36 ENTRY DATE: SEP 28, 2019@15:36:13 AUTHOR: EDOUARD WILD EXP COSIGNER: URGENCY: STATUS: COMPLETED Place: [facility] Date of Service: 09/10/2019 2:00 PM Office Visit Treating Provider: Barney Fox MD Event/Procedure: Weekly On Treatment Visit Note Document sent to [facility] to be scanned. To view this document open the CPRS tools menu and then open the image display viewer. /bennie/ EDOUARD WILD Senior Asic Engineer Signed: 09/28/2019 15:45
--- OUTSIDE RECORDS SUMMARY | 2020-08-08 13:46 | XMS_ITS | Encounter Summary ---
:[address] [facility] Address [address] [place] [id number] Care Team Providers Name Role Phone KERMIT [...] MEDICARE MEDICARE PART Sep 15, PART B [id number] [id number] YADI AARON PATIENT (WNR) (M) B 2012 AY68 1 CHARD MEDICARE MEDICARE PART Feb 15, PART A [id number] YADI AARON PATIENT (WNR) (M) A 2008 AY68 1 CHARD Selected Encounter This section includes the information on record at [place] for the Encounter. Date/Time Encounter Type Encounter Description Reason Provider Source Nov 12, 2019 08:57 Outpatient Encounter ADMIN BASSEM ANGULO AM (MASNONCT) [...] 20 appointments. The [facility] [place] [facility] Appointment Date/Time Appointment Type Appointment Facili ty Name Dec 03, 2019 01:30 PM AMBULATORY - MEDICINE [facility] Jan 22, 2020 09:00 AM [facility] - SURGERY [facility] [facility] Apr 14, 2020 08:00 AM [facility] [place] [facility] Apr 21, 2020 01:45 PM AMBUL[facility] - MEDICINE [facility] May 04, 2020 10:45 AM AMBULATORY - NONE [facility] Lab Results: +/- 30 days of the encounter This section includes the Chemistry and Hematology Lab Results [facility] record with [facility] for [facility]. Radiology Reports and Pathology [...] Reporting Lab: [facility] [address] [facility] [address] Performing Lab: [facility] [facility] [address] [facility] [address] CHOLESTEROL 139 mg/dL 0-199 TRIGLYCERIDE 78 mg/dL 0-149 HDL CHOLESTEROL 44 mg/dL >40 LDL CHOLESTEROL (CALC) 79 mg/dl 0-129 Nov 02, 2019 10:39 [place] PSA (ECD) Specimen Type: [facility] Comment: TSH within normal limits. Reflex testing not required. Ordering Provider: KERMIT SANTAMARIA Report Released Date/Time: Oct 29, 2019 12:38 PM Reporting Lab: [facility] [address] [facility] [place] [address] Performing Lab: [facility] [address] [facility] [address] PSA (ECD) 3.41 ng/mL 0-4.0 Nov 02, 2019 10:39 [place] THYROID TESTING Specimen Type: SERUM [facility] Comment: TSH within normal limits. Reflex testing not required. Ordering Provider: KERMIT SANTAMARIA Report Released Date/Time: Oct 29, 2019 12:38 PM Reporting Lab: [facility] [address] [facility] [address] Performing Lab: [facility] [address] [facility] [address] TSH 1.17 uIU/mL 0.35-5.00 REFLEX TESTING comment Nov 01 GLYCOHEMOGLOBIN Specimen Type: BLOOD [address] [place] [address] (A1C ONLY) Comment: Reference Ranges: 4.0 - 5.6 normal 5.7 - 6.4 pre-diabetes >=6.5% diabetic range. If patient has Not Been diagnosed see [place] Diabetes Guidelines for more guidance. http: 10:39 AM [place] //www.healthqual ity.ct.gov/guidelines/CD/diabetes/ Target A1C values should be individualized. Better understanding of A1C test result accuracy is essential if clinicians are to interpret results for Ve [facility] terans, and disc uss treatment options through the [...] Oct 29, 2019 12:38 PM Reporting Lab: [facility] [address] [facility] [address] Performing Lab: [facility] [address] [facility] [address] HEMOGLOBIN A1C 5.6 % 4.0-5.6 Nov 02, 2019 10:39 AM [facility] CBC PROFILE Specimen Type: BLOOD No comment enter ed. Ordering Provider: KERMIT SANTAMARIA Report Released Date/Time: Oct 29, 2019 12:38 PM Reporting Lab: [facility] [address] [facility] [address] Performing Lab: [facility] [address] [facility] [address] WBC 5.7 10*3/uL 4.5-11.0 RBC 4.34 10*6/uL [...] NRBC 0.00 10*3/uL 0-0 Nov 02, 2019 [facility] P4 GLU,BUN,CREAT,LYTES,CA Specimen Type: PLASMA 10:[address] [facility] No comment enter ed. Ordering Provider: KERMIT SANTAMARIA Report Released Date/Time: Oct 29, 2019 12:38 PM Reporting Lab: [facility] [address] [facility] [address] Performing Lab: [facility] [address] [facility] [address] UREA NITROGEN 18 mg/dL 7-25 SODIUM 139 mmol/L 135-145 POTASSIUM 4.2 mmol/L 3.5-5.0 CHLORIDE 106 mmol/L 100-110 CARBON DIOXIDE 28 mmol/L 20-30 ANION GAP 5 mmol/L 4-16 GLUCOSE 95 mg/dL 65-100 CREATININE 0.90 mg/dl 0.5-1.5 CALCIUM 9.1 mg/dL 8.5-10.5 eGFR 82 mL/min >60 Nov 02, 2019 10:39 AM [facility] LIVER PROFILE Specimen Type: PLASMA No comment enter ed. Ordering Provider: KERMIT SANTAMARIA Report Released Date/Time: Oct 29, 2019 12:38 PM Reporting Lab: [facility] [address] [facility] [address] Performing Lab: [facility] [address] [facility] [address] PROTEIN, TOTAL 6.7 g/dL 6.0-8.5 ALBUMIN 3.6 g/dL 3.2-5.0 BILIRUBIN, TOTAL 0.5 mg/dL 0.2-1.2 ALKALINE PHOSPHATASE 88 U/L 40-150 ALT(SGPT) 15 U/L 7-52 AST(SGOT) 17 U/L 5-34 FIB-4 SCORE 1.76 INDEX <2.67 Advance Directives: All historical and current Section Date Range: From patient's date of to the date document was created. This section includes ALL of a patient's completed or amended [place] Advance and Rescinded Directives. The entries below indicate that a directive exists for the patient, but an actual copy is not included with this document. The data comes from all [place] facilities. Date Advance Directives Provider Source Aug 30, 2015 ADVANCE DIRECTIVE SOHAN WOODARD [facility] Radiology Reports: +/- 30 days [...] the Encounter. The data comes from all [place] treatment facilities. Date/Time Radiology Report Provider Source Oct 13, 2019 09:[address] THORAX W/CONT: MODE [facility] CHRIS AARON [id number] -1945 M Exm Date: OCT 13, 2019@09:30 Req Phys: BALAJI KUO Loc: OUTSIDE [facility] CT SCAN (Req'g Loc Img Loc : OUTSIDE [facility] CT SCAN Service : Unknown (Case [id number] COMPLETE) CT THOR AX W/CONT (CT Detailed) CPT:73625 Reason for Study: Exam imported from outswv e Clinical History: Original Data for Imported Study Patient Name: CHRIS AARON Date: 1945 Sex: M Study Date: 10/13/19 [facility] Time: 09:30:18 Study Description: CT CHEST W [...] file, description: Patiraheel t Protocol Acquisition site: [facility] Address: [facility] Report Status: Electronically Filed Olivier hinson Reported: DEC 09, 2019 Report: RADIOLOGY PROCEDURE: N O T I C E: SCANNED IN R EPORT THIS EXAMINATION WAS PERFORMED AND INTERP RETED AT A NON-VA FACILITY. To view the report, select the Appear HereS Tools Menu and choose the Image Display [...] Encounter. Date/Time Encounter Note(s) Provider Source Nov 12, 2019 08:57 AM NONVA NOTE: [facility]ASH [place]VA [place] LOCAL TITLE: NonVA Medical Records [facility] STANDARD TITLE: NONVA NOTE DATE OF NOTE: NOV 12, 2019@08:57 ENTRY DATE: NOV 12, 2019@08:57:24 AUTHOR: PRAKASH LEYVA EXP COSIGNER: URGENCY: STATUS: COMPLETED NONVA 09/21/2019 - PROGRESS NOTE - HEMATOLOGY ONCOLOGY 09/24/2019 - OFFICE VISIT - RADIATION ONCOLOGY [facility] /bennie/ prakash leyva Signed: 11/12/2019 08:57 Receipt Acknowledged By: 11/12/2019 16:09 /bennie/ Faye Womack, SCOTTIE, SALES AGENT INSURANCE Nurse Practitioner Faculty for KERMIT SANTAMARIA
--- OUTSIDE RECORDS SUMMARY | 2020-08-08 13:46 | XMS_ITS | Encounter Summary ---
:1945 Author Organization Department [facility] Address [address] [place] [address] Care Team Providers Name Role Phone KERMIT [...] MEDICARE MEDICARE PART Sep 15, PART B [id number] YADI AARON PATIENT (WNR) (M) B 2012 AY68 1 CHARD MEDICARE MEDICARE PART Feb 15, PART A [id number] [id number] YADI AARON PATIENT (WNR) (M) A 2008 AY68 1 CHARD Selected Encounter This section includes the information on record at [place] for the Encounter. Date/Time Encounter Type Encounter Description Reason Provider Source Nov 09, 2019 09:15 Outpatient Encounter PRIMARY CARE/MEDICINE AM IHE Encounter Template Text not used by [place] Plan of Treatment: Future Appointments (+ 6 [...] 20 appointments. The data comes from all [facility]. Appointment Date/Time Appointment Type Appointment Facili ty Name Dec 03, 2019 01:30 PM AMBULATORY - MEDICINE [facility] Jan 22, 2020 09:00 AM AMBULATORY - SURGERY [place] [facility] Apr 14, 2020 08:00 AM AM[facility]ORY - NONE [place] [facility] Apr 21, 2020 01:45 PM AMBULATORY - MEDICINE [facility] [place] [facility] May 04, 2020 10:45 AM AMBULATORY - NONE [facility] Lab Results: +/- 30 days of the encounter This section includes the Chemistry and Hematology Lab Results on record with [place] for the patient. Radiology Reports and Pathology [...] Reporting Lab: [facility] [address] [facility] [place] [address] Performing Lab: [facility] [address] [facility] [place] [address] CHOLESTEROL 139 mg/dL 0-199 TRIGLYCERIDE 78 mg/dL 0-149 HDL CHOLESTEROL 44 mg/dL >40 LDL CHOLESTEROL (CALC) 79 mg/dl 0-129 Nov 02, 2019 10:39 [place] PSA (ACCREDITATION MANAGER) Specimen Type: [facility] Comment: TSH within normal limits. Reflex testing not required. Ordering Provider: KERMIT SANTAMARIA Report Released Date/Time: Oct 29, 2019 12:38 PM Reporting Lab: [facility] [place] [address] [facility] [place] [address] Performing Lab: [facility] [address] [facility] [place] [address] PSA (ACCREDITATION MANAGER) 3.41 ng/mL 0-4.0 Nov 02, 2019 10:39 [place] [facility]ID [facility] Specimen Type: [facility] Comment: TSH within normal limits. Reflex testing not required. Ordering Provider: KERMIT SANTAMARIA Report Released Date/Time: Oct 29, 2019 12:38 PM Reporting Lab: [facility] [address] [facility] [address] Performing Lab: [facility] [address] [facility] [address] TSH 1.17 uIU/mL 0.35-5.00 REFLEX TESTING comment Nov 01 GLYCOHEMOGLOBIN Specimen Type: BLOOD [address] [place] [address] (A1C ONLY) Comment: Reference Ranges: 4.0 - 5.6 normal 5.7 - 6.4 pre-diabetes >=6.5% diabetic range. If patient has Not Been diagnosed see [place] Diabetes Guidelines for more guidance. http: 10:39 AM [place] //www.healthqual ity.dc.gov/guidelines/CD/diabetes/ Target A1C values should be individualized. Better understanding of A1C test result accuracy is essential if clinicians are to interpret results for Ve [facility], and disc uss treatment options through the process of Shared Decision Making. Testing performed by [facility] certified [employer]. The [employer] HgA1c assay [...] Oct 29, 2019 12:38 PM Reporting Lab: [facility] [address] [facility] [address] Performing Lab: [facility] [address] [facility] [address] HEMOGLOBIN A1C 5.6 % 4.0-5.6 Nov 02, 2019 10:39 AM [facility] CBC PROFILE Specimen Type: BLOOD No comment enter ed. Ordering Provider: KERMIT SANTAMARIA Report Released Date/Time: Oct 29, 2019 12:38 PM Reporting Lab: [facility] [address] [facility] [address] Performing Lab: [facility] [address] [facility] [address] WBC 5.7 10*3/uL 4.5-11.0 RBC 4.34 10*6/uL [...] NRBC 0.00 10*3/uL 0-0 Nov 02, 2019 [facility] P4 GLU,BUN,CREAT,LYTES,CA Specimen Type: PLASMA 10:39 AM [facility] No comment enter ed. Ordering Provider: KERMIT SANTAMARIA Report Released Date/Time: Oct 29, 2019 12:38 PM Reporting Lab: [facility] [address] [facility] [address] Performing Lab: [facility] [address] [facility] [address] UREA NITROGEN 18 mg/dL 7-25 SODIUM 139 mmol/L 135-145 POTASSIUM 4.2 mmol/L 3.5-5.0 CHLORIDE 106 mmol/L 100-110 CARBON DIOXIDE 28 mmol/L 20-30 ANION GAP 5 mmol/L 4-16 GLUCOSE 95 mg/dL 65-100 CREATININE 0.90 mg/dl 0.5-1.5 CALCIUM 9.1 mg/dL 8.5-10.5 eGFR 82 mL/min >60 Nov 02, 2019 10:39 AM MODE [facility] LIVER PROFILE Specimen Type: PLASMA No comment enter ed. Ordering Provider: KERMIT SANTAMARIA Report Released Date/Time: Oct 29, 2019 12:38 PM Reporting Lab: [facility] [address] [facility] [address] Performing Lab: [facility] [address] [facility] [address] PROTEIN, TOTAL 6.7 g/dL 6.0-8.5 ALBUMIN 3.6 g/dL 3.2-5.0 BILIRUBIN, TOTAL 0.5 mg/dL 0.2-1.2 ALKALINE PHOSPHATASE 88 U/L 40-150 ALT(SGPT) 15 U/L 7-52 AST(SGOT) 17 U/L 5-34 FIB-4 SCORE 1.76 INDEX <2.67 Advance Directives: All historical and current Section Date Range: From patient's date of to the date document was created. This section includes ALL of a patient's completed or amended [place] Advance and Rescinded Directives. The entries below indicate that a directive exists for the patient, but an actual copy is not included with this document. The data comes from all [place] facilities. Date Advance Directives Provider Source Aug 30, 2015 ADVANCE DIRECT[address] SOHAN WOODARD [facility] Radiology Reports: +/- 30 days of [...] the Encounter. The data comes from all [place] treatment facilities. Date/Time Radiology Report Provider Source Oct 13, 2019 09:[address] THORAX W/CONT: MODE YADI [facility] CHRIS AARON [id number] -1945 M Exm Date: OCT 13, 2019@09:30 Req Phys: BALAJI KUO Pat Loc: OUTSIDE [facility] CT SCAN (Req'g Loc Img Loc : OUTSIDE [facility] CT SCAN Service : Unknown (Case [id number] COMPLETE) CT THOR AX W/CONT (CT Detailed) CPT:69867 Reason for Study: Exam imported from outsid e Clinical History: Original Data for Imported Study Patient Name: CHRIS AARON Date: 1945 Sex: M Study Date: 10/13/19 [facility] Time: 09:30:18 Study Description: CT CHEST W Referring Physician: AILIN MAYERS Series 1: 1 CT file, description: Topogr [...] file, description: Patiraheel t Protocol Acquisition site: [facility] Address: [facility] Report Status: Electronically Filed Olivier hinson Reported: DEC 09, 2019 Report: RADIOLOGY PROCEDURE: N O T I C E: SCANNED IN R EPORT THIS EXAMINATION WAS PERFORMED AND INTERP RETED AT A NON-[place] FACILITY. To view the report, select the [employer] Tools Menu and choose the Image Display (Viewer) option. Impression: RADIOLOGY PROCEDURE: N O T I C E: SCANNED IN R EPORT THIS EXAMINATION WAS PERFORMED AND INTERP RETED AT A NON-VA FACILITY. To view the report or images, select the [employer] Tools Menu and choose the Image Display (Viewer) optio n. VERIFIED BY: / *ELECTRONICALLY FILED* Encounter Notes: All associated encounter notes This section contains the clinical notes associated to the Encounter. Date/Time Encounter Note(s) Provider Source Nov 09, 2019 09:15 AM HEMATOLOGY AND ONCOLOGY NONVA NOTE: JONN MCPHERSON [facility] LOCAL TITLE: NonVA Oncology STANDARD TITLE: HEMATOLOGY AND ONCOLOGY NONVA NO TE DATE OF NOTE: NOV 09, 2019@09:15 ENTRY DATE: NOV 09, 2019@09:16:05 AUTHOR: JONN MCPHERSON EXP COSIGNER: URGENCY: STATUS: COMPLETED Event/Procedure:Oncology Office Visit [place] [facility] Date of Service:09/17/2019 and 10/26/2019 Treating Provider:Ailin Mayers APRN and Barney Schroeder MD Documents sent to [facility] to be scanned. To view this document, open the cprs tools menu and then open the image display viewer. /bennie/ JONN MCPHERSON Health Hardware Designer Signed: 11/09/2019 09:18
--- OUTSIDE RECORDS SUMMARY | 2020-08-08 13:46 | XMS_ITS | Encounter Summary ---
:1945 Author Organization Department [facility] Address [address] [place] [address] Care Team Providers Name Role Phone KERMIT [...] MEDICARE MEDICARE PART Sep 15, PART B [id number] YADI AARON PATIENT (WNR) (M) B 2012 [id number] 1 CHARD MEDICARE MEDICARE PART Feb 15, PART A [id number] [id number] YADI AARON PATIENT (WNR) (M) A 2008 [id number] 1 CHARD Selected Encounter This section includes the [facility]. Date/Time Encounter Type Encounter Description Reason Provider Source Oct 26, 2019 09:06 Outpatient Encounter COMMUNITY CARE AM CONSULT IHE Encounter Template Text not used by [...] 20 appointments. The data comes from all [place] treatmentfacilities. Appointment Date/Time Appointment Type Appointment Facili ty Name Oct 29, 2019 11:00 AM AMBULATORY - MEDICINE [place] [facility] Nov 02, 2019 11:00 AM AMBUL[facility]ORY - NONE [facility] Dec 03, 2019 01:30 PM AMBULATORY - MEDICINE [place] [facility] Jan 22, 2020 09:00 AM AMB[facility] - SURGERY [place] [facility] Apr 14, 2020 08:00 AM [facility] - NONE [place] [facility] Apr 21, 2020 01:45 PM AMBULATORY - MEDICINE [place] [facility] Lab Results: +/- 30 days of the [...] Reference Range Comment Nov 02, 2019 10:39 [facility]IP[facility] CHOLESTEROL Specimen Type: PLASMA [facility] FRACT. PANEL No comment enter ed. Ordering Provider: KERMIT SANTAMARIA Report Released Date/Time: Oct 29, 2019 12:38 PM Reporting Lab: [facility] [address] [facility] [place] [address] Performing Lab: [place] [facility] [address] [facility] [place] [address] CHOLESTEROL 139 mg/dL 0-199 TRIGLYCERIDE 78 mg/dL 0-149 HDL CHOLESTEROL 44 mg/dL >40 LDL CHOLESTEROL (CALC) 79 mg/dl 0-129 Nov 02, 2019 10:39 [facility] PSA (ASSEMBLY INSPECTOR HELPER) Specimen Type: SERUM [facility] Comment: TSH within normal limits. Reflex testing not required. Ordering Provider: KERMIT SANTAMARIA Report Released Date/Time: Oct 29, 2019 12:38 PM Reporting Lab: [place] [facility] [address] [facility] [place] [address] Performing Lab: [place] [facility] [address] [facility] [place] [address] PSA (ASSEMBLY INSPECTOR HELPER) 3.41 ng/mL 0-4.0 Nov 02, 2019 10:39 [place] [facility] TESTING Specimen Type: SERUM [facility] [place] Comment: TSH within normal limits. Reflex testing not required. Ordering Provider: KERMIT SANTAMARIA Report Released Date/Time: Oct 29, 2019 12:38 PM Reporting Lab: [facility] [address] [facility] [address] Performing Lab: [facility] [address] [facility] [address] TSH 1.17 uIU/mL 0.35-5.00 REFLEX TESTING comment Nov 01 GLYCOHEMOGLOBIN Specimen Type: BLOOD [address] [place] [address] (A1C ONLY) Comment: Reference Ranges: 4.0 - 5.6 normal 5.7 - 6.4 pre-diabetes >=6.5% diabetic range. If patient has Not Been diagnosed see [facility] Diabetes Guidelines for more guidance. http: 10:39 AM [place] //www.healthqual ity.md.gov/guidelines/CD/diabetes/ Target A1C values should be individualized. Better understanding of A1C test result accuracy is essential if clinicians are to interpret results for Ve [facility] terans, and disc uss treatment options through [...] Oct 29, 2019 12:38 PM Reporting Lab: [facility] [address] [facility] [address] Performing Lab: [facility] [address] [facility] [address] HEMOGLOBIN A1C 5.6 % 4.0-5.6 Nov 02, 2019 10:39 AM [facility] CBC PROFILE Specimen Type: BLOOD No comment enter ed. Ordering Provider: KERMIT SANTAMARIA Report Released Date/Time: Oct 29, 2019 12:38 PM Reporting Lab: [facility] [address] [facility] [address] Performing Lab: [facility] [address] [facility] [address] WBC 5.7 10*3/uL 4.5-11.0 RBC 4.34 10*6/uL [...] NRBC 0.00 10*3/uL 0-0 Nov 02, 2019 [facility] P4 GLU,BUN,CREAT,LYTES,CA Specimen Type: PLASMA 10:39 [facility] No comment enter ed. Ordering Provider: KERMIT SANTAMARIA Report Released Date/Time: Oct 29, 2019 12:38 PM Reporting Lab: [facility] [address] [facility] [address] Performing Lab: [facility] [address] [facility] [address] UREA NITROGEN 18 mg/dL 7-25 SODIUM 139 mmol/L 135-145 POTASSIUM 4.2 mmol/L 3.5-5.0 CHLORIDE 106 mmol/L 100-110 CARBON DIOXIDE 28 mmol/L 20-30 ANION GAP 5 mmol/L 4-16 GLUCOSE 95 mg/dL 65-100 CREATININE 0.90 mg/dl 0.5-1.5 CALCIUM 9.1 mg/dL 8.5-10.5 eGFR 82 mL/min >60 Nov 02, 2019 10:39 AM [facility] LIVER PROFILE Specimen Type: PLASMA No comment enter ed. Ordering Provider: KERMIT SANTAMARIA Report Released Date/Time: Oct 29, 2019 12:38 PM Reporting Lab: [facility] [address] [facility] [address] Performing Lab: [facility] [address] [facility] [address] PROTEIN, TOTAL 6.7 g/dL 6.0-8.5 ALBUMIN 3.6 g/dL 3.2-5.0 BILIRUBIN, TOTAL 0.5 mg/dL 0.2-1.2 ALKALINE PHOSPHATASE 88 U/L 40-150 ALT(SGPT) 15 U/L 7-52 AST(SGOT) 17 U/L 5-34 FIB-4 SCORE 1.76 INDEX <2.67 Advance Directives: All historical and current Section Date Range: From patient's date of to the date document was created. This section includes ALL of a patient's completed or amended [place] Advance and Rescinded Directives. The entries below indicate that a directive exists for the patient, but an actual copy is not included with this document. The data comes from all [place] facilities. Date Advance Directives Provider Source Aug [...] the Encounter. The data comes from all [place] treatment facilities. Date/Time Radiology Report Provider Source Oct 13, 2019 09:[address] THORAX W/CONT: MODE [facility] CHRIS AARON [id number] -1945 M Exm Date: OCT 13, 2019@09:30 Req Phys: BALAJI KUO Pat Loc: OUTSIDE [facility] CT SCAN (Req'g Loc Img Loc : OUTSIDE [facility] CT SCAN Service : Unknown (Case [id number] COMPLETE) CT THOR AX W/CONT (CT Detailed) CPT:72079 Reason for Study: Exam imported from outsid e Clinical History: Original Data for Imported Study Patient Name: CHRIS AARON Date: 1945 Sex: M Study Date: 10/13/19 [facility] Time: 09:30:18 Study Description: CT CHEST [...] file, description: Patien t Protocol Acquisition site: [facility] Address: [facility] Report Status: Electronically Filed Olivier hinson Reported: DEC 09, 2019 Report: RADIOLOGY PROCEDURE: N O T I C E: SCANNED IN R EPORT THIS EXAMINATION WAS PERFORMED AND INTERP RETED AT A NON-VA FACILITY. To view the report, select the [employer] Tools Menu and choose the Image Display (Viewer) option. Impression: RADIOLOGY PROCEDURE: N O T I C E: SCANNED IN R EPORT THIS EXAMINATION WAS PERFORMED AND INTERP RETED AT A NON-VA FACILITY. To view the report or images, select the [employer] Tools Menu and choose the Image Display (Viewer) optio n. VERIFIED BY: / *ELECTRONICALLY FILED* Encounter Notes: All associated encounter notes This section contains the clinical notes associated to the Encounter. Date/Time Encounter Note(s) Provider Source Oct 26, 2019 09:06 AM NONVA CONSULT: [place]NIE LEYVA [facility] [facility] LOCAL TITLE: COMMUNITY CARE CONSULT RESULT NOTE STANDARD TITLE: NONVA CONSULT DATE OF NOTE: OCT 26, 2019@09:06 ENTRY DATE: NOV 12, 2019@09:07:19 AUTHOR: CONNIE LEYVA EXP COSIGNER: URGENCY: STATUS: COMPLETED VistA Imaging - Scanned Document COMMUNITY CARE-HEMATOLOGY/ONCOLOGY DATE OF SERVICE: 10/26/2019 OFFICE VISIT/PROGRESS NOTE [facility] // connie leyva Signed: 11/12/2019 09:08
--- OUTSIDE RECORDS SUMMARY | 2020-08-08 13:47 | XMS_ITS | Encounter Summary ---
:1945 [address] [facility] Address [address] [place] [id number] Care Team Providers Name Role Phone KERMIT [...] MEDICARE MEDICARE PART Sep 15, PART B [id number] YADI AARON PATIENT (WNR) (M) B 2012 [id number] 1 CHARD MEDICARE MEDICARE PART Feb 15, PART A [id number] AYDI AARON PATIENT (WNR) (M) A 2008 [id number] 1 CHARD Selected Encounter This section includes the information on record at [facility] for the Encounter. Date/Time Encounter Type Encounter Description Reason Provider Source Sep 14, 2019 09:13 Outpatient Encounter COMMUNITY CARE AM CONSULT IHE [...] 20 appointments. The data comes from all [place] treatmentfacilities. Appointment Date/Time Appointment Type Appointment Facili ty Name Oct 29, 2019 11:00 AM AMBULATORY - MEDICINE [facility] Nov 02, 2019 11:00 AM AMBULATORY - NONE [facility] Dec 03, 2019 01:30 PM AMBULATORY - MEDICINE [facility] Jan 22, 2020 09:00 AM AMBULATORY - SURGERY [facility] Advance Directives: All historical and current Section Date Range: From patient's date of to the date document was created. This section includes ALL of a patient's completed or amended [place] Advance and Rescinded Directives. The entries below indicate that a directive exists for the patient, but an actual copy is not included with this document. The data comes from all [place] facilities. Date Advance Directives Provider Source Aug 30, 2015 ADVANCE DIRECTIVE SOHAN WOODARD MODE [facility] Radiology Reports: +/- 30 days of [...] the Encounter. The data comes from all [place] treatment facilities. Date/Time Radiology Report Provider Source Oct 13, 2019 09:[address] THORAX W/CONT: MODE [facility] CHRIS AARON [id number] -1945 M Exm Date: OCT 13, 2019@09:30 Req Phys: BALAJI KUO Pat Loc: OUTSIDE [facility] CT SCAN (Req'g Loc Img Loc : OUTSIDE [facility] CT SCAN Service : Unknown (Case [id number] COMPLETE) CT THOR AX W/CONT (CT Detailed) CPT:14709 Reason for Study: Exam imported from outsid e Clinical History: Original Data for Imported Study Patient Name: CHRIS AARON Date: 1945 Sex: M Study Date: 10/13/19 [facility] Time: 09:30:18 Study Description: CT [...] file, description: Patien t Protocol Acquisition site: [facility] Address: [facility] [place] Report Status: Electronically Filed Olivier hinson Reported: [...] view the report or images, select the [employer] Tools Menu and choose the Image Display (Viewer) optio n. VERIFIED BY: / *ELECTRONICALLY FILED* Encounter Notes: All associated encounter notes This section contains the clinical notes associated to the Encounter. Date/Time Encounter Note(s) Provider Source Sep 14, 2019 09:13 AM NONVA CONSULT: PRAKASH LEYVA T [facility] LOCAL TITLE: COMMUNITY CARE CONSULT RESULT NOTE STANDARD TITLE: NONVA CONSULT DATE OF NOTE: SEP 14, 2019@09:13 ENTRY DATE: NOV 12, 2019@09:13:43 AUTHOR: PRAKASH LEYVA EXP COSIGNER: URGENCY: STATUS: COMPLETED VistA Imaging - Scanned Document COMMUNITY CARE-RADIATION THERAPY DATE OF SERVICE: 09/14/2019 OFFICE VISIT/PROGRESS NOTE [facility] /bennie/ prakash leyva Signed: 11/12/2019 09:14
--- OUTSIDE RECORDS SUMMARY | 2020-08-08 13:48 | XMS_ITS | Encounter Summary ---
:1945 [address] [facility] Address [address] [place] [address] Care Team Providers Name Role Phone KERMIT [...] MEDICARE MEDICARE PART Sep 15, PART B [id number] YADI AARON PATIENT (WNR) (M) B 2012 [id number] 1 CHARD MEDICARE MEDICARE PART Feb 15, PART A [id number] [id number] YADI AARON PATIENT (WNR) (M) A 2008 [id number] 1 CHARD Selected Encounter This section includes the information on record at [place] for the Encounter. Date/Time Encounter Type Encounter Description Reason Provider Source Dec 10, 2019 10:30 Outpatient Encounter PRIMARY CARE/MEDICINE AM IHE Encounter Template Text not used by [place] Plan of Treatment: Future Appointments (+ 6 [...] 20 appointments. The data comes from all [place] [facility] Appointment Date/Time Appointment Type Appointment Facili ty Name Jan 22, 2020 09:00 AM AMBUL[place]ORY - [place] [facility] Apr 14, 2020 08:00 [facility] Apr 21, 2020 01:45 PM [place] [place]IC[place] [facility] May 04, 2020 10:45 AM AMBULATORY - NONE [facility] Advance Directives: All historical and current Section Date Range: From patient's date of to the date document was created. This section includes ALL of a patient's completed or amended [place] Advance and Rescinded Directives. The entries below indicate that a directive exists for the patient, but an actual copy is not included with this document. The data comes from all [place] facilities. Date Advance Directives Provider Source Aug 30, 2015 ADVANCE DIRECTIVE SOHAN WOODARD MODE [facility] VL[facility]LAV T [facility] Encounter Notes: All associated encounter notes This section contains the clinical notes associated to the Encounter. Date/Time Encounter Note(s) Provider Source Dec 10, 2019 10:30 AM PRIMARY CARE ANNUAL EVALUATION NOTE: EDOUARD [facility] LOCAL TITLE: Preventive Health Annual Review STANDARD TITLE: PRIMARY CARE ANNUAL EVALUATION N OTE DATE OF NOTE: DEC 10, 2019@10:30 ENTRY DATE: DEC 10, 2019@10:30:52 AUTHOR: EDOUARD WILD EXP COSIGNER: URGENCY: STATUS: COMPLETED Date of Service: 11/30/2019 11:[address]: [facility] Oncology Treating Provider: Darius Marcos MD Event/Procedure: Office visit for Management of lung cancer. Document sent to [facility] to be scanned. To view this document open the [employer] tools menu and then open the image display viewer. /bennie/ EDOUARD WILD Sales And Marketing Agent Signed: 12/10/2019 10:35
--- OUTSIDE RECORDS SUMMARY | 2020-08-08 13:49 | XMS_ITS | Encounter Summary ---
:1945 Author Organization [facility] Address [address] [place] [address] Care Team Providers Name Role Phone KERMIT [...] MEDICARE MEDICARE PART Sep 15, PART B [id number] YADI AARON PATIENT (WNR) (M) B 2012 [id number] 1 CHARD MEDICARE MEDICARE PART Feb 15, PART A [id number] [phone] YADI AARON PATIENT (WNR) (M) A 2008 AY68 1 CHARD Selected Encounter This section includes the information on record at [facility] for the Encounter. Date/Time Encounter Type Encounter Reason Provider Source Description Dec 03, 2019 Outpatient TELEPHONE/MEDICIN ICD-10-CM J44.9 BROOKS GONGORA 01:30 PM Encounter E Chronic NE obstructive pulmonary disease, unspecified with Provider Comments: Chronic Obstructive Pulmonary Disease, unspecified IHE Encounter Template Text not used by [facility] Assessments - Encounter Diagnoses This section includes the primary and secondary diagnoses documented forthe Encounter. 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 This section includes future appointments and future orders which are active, pending or scheduled.Future Appointments This section includes appointments that were scheduled to occur 6 months from the date of the Encounter, up to a maximum of 20 appointments. The data [facility] [place] [facility] Appointment Date/Time Appointment Type Appointment Facili ty Name Jan 22, 2020 09:00 AM AMBULATORY - SURGERY [facility] Apr 14, 2020 08:00 AM AMBULATORY - NONE [facility] Apr 21, 2020 01:45 PM AMBULATORY - MEDICINE [facility] May 04, 2020 10:45 AM AMBULATORY - NONE [facility] Advance Directives: All historical and current Section [...] Aug 30, 2015 ADVANCE DIRECTIVE SOHAN WOODARD [facility] T [facility] Encounter Notes: All associated encounter notes This section contains the clinical notes associated to the Encounter. Date/Time Encounter Note(s) Provider Source Dec 03, 2019 04:01 PM PULMONARY TELEPHONE ENCOUNTER NOTE: AURORA GONGORA [place] LOCAL TITLE: Telephone Note/Pulmonary [facility] STANDARD TITLE: PULMONARY TELEPHONE ENCOUNTER NO TE DATE OF NOTE: DEC 03, 2019@16:01 ENTRY DATE: DEC 03, 2019@16:01:09 AUTHOR: AURORA GONGORA EXP COSIGNER: URGENCY: STATUS: COMPLETED Due to recent developments and directive s with the COVID-19 Virus the [facility] is taking measures to provide for the safety and security of patients. We have been sheng ed approval to offer patients who are stable and do not require an acute visit the options of VCC or Telephone Visits to avoid exposure, possible contamination, and vi ral spread. The was contacted, is medically stable and has opted to complete to day's scheduled pulmonary clinic appointment over the phone. HPI: I spoke with CHRIS AARON regarding COPD and S/P lung cancer S/P RUlobectomy and Chemo/XRT for re currence on June,. 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 He underwent treatm ent in [facility]. Last follow up with me occurred on 06/02/2019. A t that visit,the pt reported that he was doing well. Breathing was at baseli ne without increasing shortness of steve th, change in sputum, hemoptysis, decreased activity level, fever, chills, night sweats, rece nt exacerbation or hospitalization. He continues to be very active outside, shoveling, snow blowing, and working in his workshop. Current medications include omeprazole. Using as directed. Today, the patient denies worsening cough, chilel e in sputum, hemoptysis, worsening SOB, decreased activity level,chest pain, heartburn, post-nasal gtt, fatigue, night sweats, unintentional weight loss, anorexia,myalgias, re cent exacerbation, or hospitalization. He completed cho/XRT at the end of October and recently started durvalumab. He is tolerating the durvalumab well without C/O. He reports that he is back to his pre-treatment level of activity and works outside daily without difficulty. Pt reports a recent chest CT at [facility]. Will obta in read and images. BEE STINGS, BACTRIM Active Outpatient Medications (excluding Supplie s): Active Outpatient Medications Status 1) ATORVASTATIN CALCIUM 40MG TAB TAKE ONE-HALF TABLET BY ACTIVE MOUTH EVERY DAY TO LOWER CHOLESTEROL; MAY CAUSE MYALGIA REPORT SIDE EFFECTS TO YOUR PROVI ADRI 2) LEVOTHYROXINE NA (SYNTHROID) 100MCG TAB MORRO E ONE ACTIVE TABLET BY MOUTH EVERY DAY FOR THYROID (NO TE DOSE) 3) OMEPRAZOLE 20MG EC CAP TAKE ONE CAPSULE BY MOUTH ACTIVE EVERY MORNING BEFORE BREAKFAST FOR STOMAC H ACID (TAKE HALF-HOUR BEFORE A MEAL(S) Active problems - Computerized Problem List is t he source for the followin. Carcinoma in situ of lung 2. Impingement syndrome of right shoulder regio n 3. Frozen shoulder 4. CTS - Carpal tunnel syndrome 5. Hypothyroidism 6. Chronic retention of urine (SNOMED CT 873453 000) 7. Full thickness rotator cuff tear 8. Cerebral infarction (SNOMED CT 171508036) 9. Hemorrhagic cerebral infarction (SNOMED CT 2 70637571) 10. Impaired fasting glycaemia (SNOMED CT 414987 007) 11. Galaviz's esophagus (SNOMED CT 778552646) 12. Left Inguinal Hernia 13. HLD - Hyperlipidemia (SNOMED CT 96226085) 14. SENSORINEURAL HEARING LOSS, BILATERAL 15. Graves' Disease * 16. Discitis 17. Nephrolithiasis 18. Bruit * 19. Mild chronic obstructive pulmonary disease ( SNOMED CT 064190124) 20. Asthma, miners' ROS: Neurologic-No concerns HEENT-as above Chest-as above GI-No concerns -No concerns Skin-Intact.. Musculoskeletal-No new concerns Speaks easily without audible wheeze or SOB. A/P: CHRIS AARON is a 74 YO MALEcontacted to day to discuss COPD and S/P lung cancer S/P RUlobectomy and Chemo/XRT for re currence on June,. ROS as above. Continue current medication regimen. Stable from a pulmonary neha dpoint. Doing well s/p chemo/xrt, now on Durvalumab. Will obtain CT images and read from OSH and revi ew. RTC 6 mos-tele. Pt would like to get a CT next time at [facility]. Pt has my contact information and is encouraged to call with any questions or concerns. I spent 45 minutes of this 30 minute visit in f elis-to-face counseling, and/or coordination of care for Discussion pertained to the following: (x) Pt interview and assessment [x] Diagnostic test results, impressions and/or recommended management [x] Risk and benefits of treatment options [x] Instructions for treatment and/or f/u [x] Disease risk factor reduction [x] Pt and family education /es/ AURORA GONGORA Nurse Practitioner Signed: 12/03/2019 16:22
--- OUTSIDE RECORDS SUMMARY | 2020-08-08 13:49 | XMS_ITS | Encounter Summary ---
:1945 Author Organization [facility] Address [address] [place] [address] Care Team Providers Name Role Phone KERMIT [...] MEDICARE MEDICARE PART Sep 15, PART B [id number] YADI AARON PATIENT (WNR) (M) B 2012 [id number] 1 CHARD MEDICARE MEDICARE PART Feb 15, PART A [id number] YADI AARON PATIENT (WNR) (M) A 2008 AY68 1 CHARD Selected Encounter This section includes the information on record at [place] for the Encounter. Date/Time Encounter Type Encounter Description Reason Provider Source Jan 18, 2020 09:11 Outpatient Encounter TELEPHONE TRIAGE AM IHE Encounter Template Text not used [...] 20 appointments. The data comes from all [place] treatmentfacilities. Appointment Date/Time Appointment Type Appointment Facili ty Name Jan 22, 2020 09:00 AM [facility] Apr 14, 2020 08:00 AM [facility] NONE [facility] Apr 21, 2020 01:45 PM AMBULATORY - MEDICINE [facility] May 04, 2020 10:45 AM AMBULATORY - NONE [facility] Jun 30, 2020 03:00 PM AMBULATORY - MEDICINE [facility] Jul 11, 2020 08:00 AM AMBULATORY - NONE [facility] Advance Directives: All historical and current Section Date Range: From patient's date of to the date document was created. This section includes ALL of a patient's completed or amended VA Advance and Rescinded Directives. The entries below indicate that a directive exists for the patient, but an actual copy is not included with this document. The data comes from all [place] facilities. Date Advance Directives Provider Source Aug 30, 2015 ADVANCE DIRECTIVE SOHAN WOODARD [facility] Encounter Notes: All associated encounter notes This section contains the clinical notes associated to the Encounter. Date/Time Encounter Note(s) Provider Source Jan 18, 2020 09:11 AM TRIAGE NOTE: HIEN BOURGEOIS [facility] LOCAL TITLE: Telephone Triage Note STANDARD TITLE: TRIAGE NOTE DATE OF NOTE: JAN 18, 2020@09:11 ENTRY DATE: JAN 18, 2020@09:12:01 AUTHOR: HIEN BOURGEOIS EXP COSIGNER: URGENCY: STATUS: COMPLETED Telephone Triage Note Has ADDENDA Call taken by: HIEN BOURGEOIS PCP: KERMIT SANTAMARIA PACT C *WH* Patient Phone #: [phone] Address: [address] [place] [address] Caller name if different: Phone #: Caller is: [x]Wallace [ ]Spouse [ ]VNA [ ]Other: Pt. is 74 year old MALE who calls today w/ CHIEF COMPLAINT OF: Said he can barely see out of his R eye. not sw ollen and no injury to it. Beleives it may be his cateracts but not sure. Allergies: BEE STINGS, BACTRIM ASSESSMENT: Protocol Used? [ ]Yes (per Wallace's [facility]) [ ]No [ ]N/A Disposition: [ ] Primary Care Provider Information only. [ ] Request advice. [ ] Primary Care Provider action requested. [ ] Other Provider: [ ] Patient problem resolved during phone call. [ ] Appointment made: Patient agrees with plan? [ ]Yes [ ]No [ ]N/A /bennie/ HIEN REDDY Signed: 01/18/2020 09:14 Receipt Acknowledged By: 01/18/2020 14:41 /bennie/ SARAH BOLAÑOS 01/18/2020 14:47 /bennie/ KAREN PUTNAM RN 01/19/2020 12:51 /bennie/ PATRIZIA WEST Registered Nurse 01/18/2020 20:35 /bennie/ RONAK CELESTE, KEVINCA NURSE PRACTITIONER 01/18/2020 ADDENDUM STATUS: COMPLETED Pt. is contacted. States that he has a cloudines s in R/eye andcurtain over eye. He has had for apx. one month,thinking jorge t it would go away. Reviewed with pt. what condition may be and that it needs to be addressed today. Number for Emergency notification to pt. He will seek t reatment at [facility]. /yohana WEST Registered Nurse Signed: 01/18/2020 14:07 Receipt Acknowledged By: 01/18/2020 18:56 /bennie/ RONAK CELESTE, KEVINST. [facility] NURSE PRACTITIONER 01/19/2020 ADDENDUM STATUS: COMPLETED Patient states he is being referred for further eye care. Notes are being requested from [facility]. /bennie/ LOGAN WALL MSA Signed: 01/19/2020 10:52 01/19/2020 ADDENDUM STATUS: COMPLETED Notes arrived from [facility]. /yohana WALL MSA Signed: 01/19/2020 11:09 Receipt Acknowledged By: 01/19/2020 11:11 /bennie/ SARAH BOLAÑOS 01/19/2020 15:41 /bennie/ KAREN PUTNAM RN 01/19/2020 11:18 /yohana WEST Registered Nurse 01/21/2020 ADDENDUM STATUS: COMPLETED Pt. needs FU on decreased vi joseph. He is agreeable to J. Please place consult. Notes in clinic. /yohana WEST Registered Nurse Signed: 01/21/2020 12:52 Receipt Acknowledged By: 01/21/2020 18:15 /bennie/ RONAK CELESTE, SHUBHAM NURSE PRACTITIONER 01/21/2020 ADDENDUM STATUS: COMPLETED 4:20PM [facility] eye clinic paged-discussed ER visit with covering provider. He will discuss with team tomorrow re follow up. consult placed. /bennie/ KERMIT SANTAMARIA DNP, KEVIN-CA NURSE PRACTITIONER Signed: 01/21/2020 18:16
--- OUTSIDE RECORDS SUMMARY | 2020-08-08 13:50 | XMS_ITS | Encounter Summary ---
:1945 Author Organization Department [facility] Address [address] [place] [address] Care Team Providers Name Role Phone KERMIT [...] MEDICARE MEDICARE PART Sep 15, PART B [id number] YADI AARON PATIENT (WNR) (M) B 2012 AY68 1 CHARD MEDICARE MEDICARE PART Feb 15, PART A [id number] [id number] YADI AARON PATIENT (WNR) (M) A 2008 [id number] 1 CHARD Selected Encounter This section includes the information on record at [place] for the Encounter. Date/Time Encounter Type Encounter Description Reason Provider Source Jan 13, 2020 12:54 Outpatient Encounter PRIMARY CARE/MEDICINE PM IHE Encounter [...] 20 appointments. The data [facility] [place] [facility] Appointment Date/Time Appointment Type Appointment Facili ty Name Jan 22, 2020 09:00 AM AMBULATORY - SURGERY [place] [facility] Apr 14, 2020 08:00 AM [facility] Apr 21, 2020 01:45 PM AMBUL[facility] - [place]ICINE [facility] [place] [facility] May 04, 2020 10:45 AM AMBULATORY - NONE [facility] Jun 30, 2020 03:00 PM [facility] Jul 11, 2020 08:00 AM [facility] Advance Directives: All historical and current Section Date Range: From patient's date of to the date document was created. This section includes ALL of a patient's completed or amended VA Advance and Rescinded Directives. The entries below indicate that a directive exists for the patient, but an actual copy is not included with this document. The data comes from all [place] facilities. Date Advance Directives Provider Source Aug 30, 2015 ADVANCE DIRECTIVE SOHAN WOODARD [facility] Encounter Notes: All associated encounter notes This section contains the clinical notes associated to the Encounter. Date/Time Encounter Note(s) Provider Source Jan 13, 2020 12:54 PM NONVA NOTE: EDOUARD WILD [facility] LOCAL TITLE: NonVA Note STANDARD TITLE: NONVA NOTE DATE OF NOTE: JAN 13, 2020@12:54 ENTRY DATE: JAN 13, 2020@12:55:33 AUTHOR: EDOUARD WILD EXP COSIGNER: URGENCY: STATUS: COMPLETED Date of Service: 12/28/2019 1:[address]: [facility] Oncology office Treating Provider: Ailin Mayers APRN Event/Procedure: Returns to clinic for follow up of NSCLC. Document sent to [facility] to be scanned. To view this document open the CPRS tools menu and then open the image display viewer. /bennie/ EDOUARD WILD Acid Leveler Signed: 01/13/2020 14:39
--- OUTSIDE RECORDS SUMMARY | 2020-08-08 13:50 | XMS_ITS | Encounter Summary ---
:1945 Author Organization Department [facility] Address [address] [place] [id number] Care Team Providers Name Role Phone KERMIT [...] MEDICARE MEDICARE PART Sep 15, PART B [id number] [id number] YADI AARON PATIENT (WNR) (M) B 2012 AY68 1 CHARD MEDICARE MEDICARE PART Feb 15, PART A [id number] [id number] YADI AARON PATIENT (WNR) (M) A 2008 AY68 1 CHARD Selected Encounter This section includes the information on record at [facility] for the Encounter. Date/Time Encounter Type Encounter Description Reason Provider Source Dec 28, 2019 01:21 Outpatient Encounter COMMUNITY CARE PM CONSULT IHE Encounter Template Text not used [...] appointments. The data comes from [facility] [place] [facility] Appointment Date/Time Appointment Type Appointment Facili ty Name Jan 22, 2020 09:00 AM AMBULATORY - SURGERY [facility] Apr 14, 2020 08:00 AM [facility] Apr 21, 2020 01:45 PM AMBULATORY - MEDICINE [facility] May 04, 2020 10:45 AM AMBULATORY - NONE [facility] Advance Directives: All historical and [...] 30, 2015 ADVANCE DIRECTIVE SOHAN WOODARD [facility] Encounter Notes: All associated encounter notes This section contains the clinical notes associated to the Encounter. Date/Time Encounter Note(s) Provider Source Dec 28, 2019 01:21 PM NONVA CONSULT: [facility] LOCAL TITLE: COMMUNITY CARE CONSULT RESULT NOTE IVONNE SALAZAR [facility] STANDARD TITLE: NONVA CONSULT DATE OF NOTE: DEC 28, 2019@13:21 ENTRY DATE: JAN 20, 2020@13:22:26 AUTHOR: LISBET PENN COSIGNER: URGENCY: STATUS: COMPLETED Vist[facility] Imaging - Scanned Document OCC 12/28/2019 OFFICE VISIT/HEM [place] [facility] [place] [place] /bennie/ Lisbet BOWSER Signed: 01/20/2020 13:24
--- OUTSIDE RECORDS SUMMARY | 2020-08-08 13:51 | XMS_ITS | Encounter Summary ---
:1945 Author Organization [facility] Address [address] [place] [address] Care Team Providers Name Role Phone KERMIT [...] MEDICARE MEDICARE PART Sep 15, PART B [id number] YADI AARON PATIENT (WNR) (M) B 2012 AY68 1 CHARD MEDICARE MEDICARE PART Feb 15, PART A [id number] [id number] YADI AARON PATIENT (WNR) (M) A 2008 AY68 1 CHARD Selected Encounter This section includes the information on record at [facility] for the Encounter. Date/Time Encounter Type Encounter Reason Provider Source Description Jan 21, 2020 Outpatient TELEPHONE/OPTOMET ICD-10-CM Z71.89 TOYA PINA 04:27 PM Encounter RY Other specified E counseling with Provider Comments: Counseling,Oth Specified IHE Encounter Template Text not used by [facility] Assessments - Encounter Diagnoses This section includes the primary and secondary diagnoses documented forthe Encounter. Date/Time Primary/Secondary Diagnosis Name Provider Source Diagnosis Jan 21, 2020 PRIMARY Other specified LUX THAO MODE FARAH 04:27 PM counseling [facility] Plan of Treatment: Future Appointments (+ 6 months) and Future Tests (+/- 45 days) The Plan of Treatment section includes future care activities for the patient from all [place] treatment facilities. This section includes future appointments and future orders which are active, pending or scheduled.Future Appointments This section includes appointments that were scheduled to occur 6 months from the date of the Encounter, up to a maximum of 20 appointments. The data comes from all [place] [facility] Appointment Date/Time Appointment Type Appointment Facili ty Name Jan 22, 2020 09:00 AM [facility] Apr 14, 2020 08:00 AM [facility] Apr 21, 2020 01:45 PM [facility] May 04, 2020 10:45 AM AMBULATORY - NONE [facility] Jun 30, 2020 03:00 PM AMBULATORY - MEDICINE [facility] Jul 11, 2020 08:00 AM AMBULATORY - NONE [facility] Advance Directives: All historical and current [...] ADVANCE DIRECTIVE SOHAN WOODARD [facility] Encounter Notes: All associated encounter notes This section contains the clinical notes associated to the Encounter. Date/Time Encounter Note(s) Provider Source Jan 21, 2020 04:27 PM EYE TELEPHONE ENCOUNTER NOTE: MAYRA PINA [facility] LOCAL TITLE: Eye Clinic Telephone Note [facility] STANDARD TITLE: EYE TELEPHONE ENCOUNTER NOTE DATE OF NOTE: JAN 21, 2020@16:27 ENTRY DATE: JAN 21, 2020@16:27:26 AUTHOR: LUX THAO EXP COSIGNER: CHRIS PINA URGENCY: STATUS: COMPLETED EYE TELEPHONE NOTE PURPOSE FOR THE CALL OTHERResponding to Triage Page - Kermit Santamaria DNP at [place] CONTACT [facility]FF[facility] 01/21/2020 @ 8783: Spoke to Kermit Santamaria DNP -Rec'd note that patient had presented to ER at [facility] with decreased vision OD ongoing x 1 month, and is concerned that it is u rgent. Pt described curtain over vision, thinking it may be his cataract. -Per notes with Dr. Santamaria, pt had incoming [facility] 2 0/200 OD, 20/40 OS at ER See note from 01/18/2020 @ Telephone Triage. 01/21/2020 @ 1628: Spoke directly to [place]. -Pt reports sudden decrease in vision x 1 month, blur at distance and near, constant. Denies pain, flashes, floaters OD. Rep orts stable floaters OS. -[place] reports that earliest he can come in is 9AM tomorrow. REVIEW OF RECORD Record reviewed , Patient Appointment: EYE APPT FUTURE TODAY'S & FUTURE EYE CLINIC APPOINTMENTS DATE/TIME CLINIC ( LOCATION ) NO DATA OCULAR HISTORY: 1. 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 Cataracts OU 3. Posterior vitreous detachment OD 4. Asteroid Hyalosis OS 5. 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 No other ocular sequelae of Gra ve's. Exophthalmometry normal OD, OS at past visits. 6. H/O left sided Stroke in 09/2013 7. 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 Refractive Error with Presbyopia APPOINTMENT CHANGE WE WILL SCHEDULE WITH DR. ROMA MCCLAIN FOR 01/22/2020 @ 0900 -Discussed with pt, he agrees to above time and date. DDx: -Vitreous Hemorrhage OD -PSC OD -CRVO/NAION/CRAO -Retinal Detachment OD COMMENTS: Total time spent on telephone call was 10 minute s. /bennie/ CHRIS PINA Staff Die Repair Machinist Signed: 01/22/2020 10:20 for LUX THAO Optometry Resident /bennie/ CHRIS PINA Staff Die Repair Machinist Cosigned: 01/22/2020 10:20
--- OUTSIDE RECORDS SUMMARY | 2020-08-08 13:51 | XMS_ITS | Encounter Summary ---
:1945 [address] [facility] Address [address] [place] [address] Care Team Providers Name Role Phone KERMIT [...] MEDICARE MEDICARE PART Sep 15, PART B [id number] [id number] YADI AARON PATIENT (WNR) (M) B 2012 AY68 1 CHARD MEDICARE MEDICARE PART Feb 15, PART A [id number] [id number] YADI AARON PATIENT (WNR) (M) A 2008 AY68 1 CHARD Selected Encounter This section includes the information on record at [place] for the Encounter. Date/Time Encounter Type Encounter Description Reason Provider Source Jan 22, 2020 08:35 Outpatient Encounter PRIMARY CARE/MEDICINE AM IHE Encounter Template Text not used by [place] Plan of Treatment: Future Appointments (+ 6 [...] 20 appointments. The data comes from all [place] treatmentfacilities. Appointment Date/Time Appointment Type Appointment Facili ty Name Apr 14, 2020 08:00 AM [facility] Apr 21, 2020 01:45 PM AMBULATORY - MEDICINE [facility] May 04, 2020 10:45 AM AMBULATORY - NONE [facility] Jun 30, 2020 03:00 PM [facility] Jul 11, 2020 08:00 [facility] Advance Directives: All historical and current Section Date Range: From patient's date of to the date document was created. This section includes ALL of a patient's completed or amended [place] Advance and Rescinded Directives. The entries below indicate that a directive exists for the patient, but an actual copy is not included with this document. The data comes from all [place] facilities. Date Advance Directives Provider Source Aug 30, 2015 ADVANCE DIRECTIVE SOHAN WOODARD [facility] Encounter Notes: All associated encounter notes This section contains the clinical notes associated to the Encounter. Date/Time Encounter Note(s) Provider Source Jan 22, 2020 08:35 AM NONVA NOTE: JONN MCPHERSON [facility] LOCAL TITLE: NonVA Note STANDARD TITLE: NONVA NOTE DATE OF NOTE: JAN 22, 2020@08:35 ENTRY DATE: JAN 22, 2020@08:35:16 AUTHOR: JONN MCPHERSON EXP COSIGNER: URGENCY: STATUS: COMPLETED Event/Procedure:ED Report for subacute right eye blurred vision from [facility]. Date of Service:01/18/2020 Treating Provider:German Olivarez Documents sent to [facility] to be scanned. To view this document, open the cprs tools menu and then open the image display viewer. /bennie/ JONN MCPHERSON Health Geography Professor Signed: 01/22/2020 08:36
--- OUTSIDE RECORDS SUMMARY | 2020-08-08 13:52 | XMS_ITS | Encounter Summary ---
:1945 Author Organization Department [facility] Address [address] [place] [address] Care Team Providers Name Role Phone KERMIT [...] MEDICARE MEDICARE PART Sep 15, PART B [id number] YADI AARON PATIENT (WNR) (M) B 2012 AY68 1 CHARD MEDICARE MEDICARE PART Feb 15, PART A [id number] [id number] YADI AARON PATIENT (WNR) (M) A 2008 AY68 1 CHARD Selected Encounter This section includes the information on record at [place] for the Encounter. Date/Time Encounter Type Encounter Description Reason Provider Source Jan 26, 2020 11:22 Outpatient Encounter PRIMARY CARE/MEDICINE AM IHE Encounter [...] appointments. The data comes from all [place] [facility] Appointment Date/Time Appointment Type Appointment Facili ty Name Apr 14, 2020 08:00 [facility] Apr [facility], 2020 01:45 PM [facility] - MEDICINE [facility] May 04, 2020 10:45 AM AMBULATORY - NONE [facility] Jun 30, 2020 03:00 PM [facility] Jul 11, 2020 08:00 AM AMBULATORY - NONE [facility] Advance Directives: All historical and current [...] Encounter. Date/Time Encounter Note(s) Provider Source Jan 26, 2020 11:22 AM NONVA NOTE: EDOUARD WILD [facility] LOCAL TITLE: NonVA Note STANDARD TITLE: NONVA NOTE DATE OF NOTE: JAN 26, 2020@11:22 ENTRY DATE: JAN 26, 2020@11:22:28 AUTHOR: EDOUARD WILD EXP COSIGNER: URGENCY: STATUS: COMPLETED Date of Service: 01/25/2020 [facility] Treating Provider: Darius Rosales MD Event/Procedure: Lab Report Document sent to [facility] to be scanned. To view this document open the CPRS tools menu and then open the image display viewer. /bennie/ EDOUARD WILD Human Resources Office Assistant Signed: 01/26/2020 11:27
--- OUTSIDE RECORDS SUMMARY | 2020-08-08 13:52 | XMS_ITS | Encounter Summary ---
:1945 Author Organization Department [facility] Address [address] [place] [address] Care Team Providers Name Role Phone KERMIT [...] MEDICARE MEDICARE PART Sep 15, PART B [id number] [id number] YADI AARON PATIENT (WNR) (M) B 2012 [id number] 1 CHARD MEDICARE MEDICARE PART Feb 15, PART A [id number] [phone] YADI AARON PATIENT (WNR) (M) A 2008 [id number] 1 CHARD Selected Encounter This section includes the information on record at [facility] for the Encounter. Date/Time Encounter Type Encounter Reason Provider Source Description Jan 22, 2020 OFFICE/OUTPATIE OPTOMETRY ICD-10-CM H25.[address] 09:00 AM NT VISIT EST Posterior E subcapsular polar age-related cataract, bilateral with Provider Comments: Posterior Subcapular Polar Age-Related Cataract,Bilatera l IHE Encounter Template Text not used by [facility] Assessments - Encounter Diagnoses This section includes the primary and secondary diagnoses documented forthe Encounter. Date/Time Primary/Secondary Diagnosis Name Provider Source Diagnosis Jan 25, 2020 PRIMARY Posterior TENJACOB 03:55 PM subcapsular polar [facility] age-related cataract, bilateral Jan 25, 2020 SECONDARY Combined forms of JACOB MORA ER 03:55 PM age-related [facility] cataract, bilateral Jan 25, 2020 SECONDARY Other chorioretinal TENJACOB BABCOCK IVER 03:55 PM scars, left eye JCT [facility] Plan of Treatment: Future Appointments (+ 6 months) and Future Tests (+/- 45 days) The Plan of Treatment section includes future care activities for the patient from all [place] treatment facilities. This section includes future appointments and future orders which are active, pending or scheduled.Future Appointments This section includes appointments that were scheduled to occur 6 months from the date of the Encounter, up to a maximum of 20 appointments. The data comes from all [facility]. Appointment Date/Time Appointment Type Appointment Facili ty Name Apr 14, 2020 08:00 AM AMBULATORY - NONE [facility] Apr 21, 2020 01:45 PM AMBULATORY - MEDICINE [facility] May 04, 2020 10:45 AM AMBULATORY - NONE [facility] Jun 30, 2020 03:00 PM AMBULATORY - MEDICINE [facility] Jul 11, 2020 08:00 AM AMBULATORY - NONE [facility] Advance Directives: All historical and current Section Date Range: From patient's date of to the date document was created. This section includes ALL of a patient's completed or amended [place] Advance and Rescinded Directives. The entries below indicate that a directive exists for the patient, but an actual copy is not included with this document. The data comes from all [place] facilities. Date Advance Directives Provider Source Aug 30, 2015 ADVANCE DIRECTIVE SOHAN WOODARD [facility] Encounter Notes: All associated encounter notes This section contains the clinical notes associated to the Encounter. Date/Time Encounter Note(s) Provider Source Jan 22, 2020 12:21 PM EYE CONSULT: ESTRELLA CRAFT [place] LOCAL TITLE: Eye Clinic Imaging Note [facility] STANDARD TITLE: EYE CONSULT DATE OF NOTE: JAN 22, 2020@12:21 ENTRY DATE: JAN 22, 2020@12:21:31 AUTHOR: ESTRELLA CRAFT EXP COSIGNER: URGENCY: STATUS: COMPLETED This consult note title is used for capturing an ophthalmic diagnostic medical image. Please see other Eye notes in CP RS for additional clinical information and interpretation. /bennie/ ESTRELLA Sánchez [employer] Signed: 01/22/2020 12:21 Jan 22, 2020 08:28 AM EYE E & M NOTE: ROC ASHLEY J[place] LOCAL TITLE: Eye Exam Template [facility] STANDARD TITLE: EYE E & M NOTE DATE OF NOTE: JAN 22, 2020@08:28 ENTRY DATE: JAN 22, 2020@08:29:10 AUTHOR: ROC ASHLEY EXP COSIGNER: URGENCY: STATUS: COMPLETED NEW OR ESTABLISHED PATIENT OPHTHALMIC EX AMINATION CONSULTATION, SPECIALTY CODE OR E/M SERVICE Active Outpatient Medications (excluding Supplie s): Active [...] H ACID (TAKE HALF-HOUR BEFORE A MEAL(S) Allergies/Adverse Reactions: BEE STINGS, BACTRIM HGB A1C: 5.6 (08/17/20 10:39) GLU: 95 (11/02/19 10:39) BUN: 18 (11/02/19 10:39) B/P: 126/64 (06/02/2019 11:11) BODY MASS INDEX - JUN 02, 2019@11:11:09 21.3 Active problems - Computerized Problem List is t he source for the followin. Carcinoma in situ of lung 2. Impingement syndrome of right shoulder regio n 3. Frozen shoulder 4. CTS - Carpal tunnel syndrome 5. Hypothyroidism 6. Chronic retention of urine (SNOMED CT 839028 000) 7. Full thickness rotator cuff tear 8. Cerebral infarction (SNOMED CT 622699579) 9. Hemorrhagic cerebral infarction (SNOMED CT 2 38784452) 10. Impaired fasting glycaemia (SNOMED CT 114591 007) 11. Galaviz's esophagus (SNOMED CT 984880970) 12. Left Inguinal Hernia 13. HLD - Hyperlipidemia (SNOMED CT 17331716) 14. SENSORINEURAL HEARING LOSS, BILATERAL 15. Graves' Disease * 16. Discitis 17. Nephrolithiasis 18. Bruit * 19. Mild chronic obstructive pulmonary disease ( SNOMED CT 258494580) 20. Asthma, miners' 74 year old WHITE MALE, established patient CHIEF COMPLAINT AND HISTORY OF PRESENT ILLNESS ( HPI): Reports 'sudden' vision loss OD started in the afternoon and has stayed stable since onset x 1 month, was seen in ER in [facility] on yesterday. Like a curtain/veil but not sure if it came from the harjit ttom or the top. No other symptoms at time of onset including weak ness/numbness on one side of the body, speech slur, tingling in arms/legs, headache, sc alp pain, or pain on chewing. Denies flashes, new floaters, eye pain (with and without movement) or double vision. Neurological and Psychiatric Status: Orientation : Oriented to person, time, place Mood and Affect: normal, no agitation, no anxiety, no depressive behaviors in clinic OCULAR HISTORY: 1. 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 Cataracts OU 3. Posterior vitreous detachment OD 4. Asteroid Hyalosis OS 5. 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 No other ocular sequelae of Gra ve's. Exophthalmometry normal OD, OS at past visits. 6. H/O left sided Stroke in 09/2013, no neurolog ical defects OU on HVF 120 screening 11/2014 7. 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 Refractive Error with Presbyopia 10. Physiological anisocoria 01/22/2020 exam VISUAL ACUITY (with correction) OD: 20/60 PH:NI OS: 20/30 PH: 20/30+2 Current Rx OD: +1.25 -1.00 x 120 OS: +1.00 -1.00 x 180 Add: +2.50 bifocal Autorefraction: OD: -6.75 -2.75 062 (fluctuating) OS: +0.75 -1.75 008 Refraction: no improvement in [facility] with refraction OCULAR MOTILITY (EOM): Full without diplopia or pain OU, pursuits and saccades intact OU CONFRONTATION VIS SOMMERS: full to finger counti ng OD & OS PUPILS: PERRLA, NO APD PRESENT OU Dim Bright OD: 2.5mm 1.5mm OS: 3 mm 2 mm ORBITS/ADNEXA: Normal OU H/o congenital ptosis OS, appears grossly symme trical today ANTERIOR SEGMENT AND SLIT LAMP EXAM: Lids/Lashes: OD: 2+ collarettes mid and base of lash OS: 2+ collarettes mid and base of lash Scleral and Conjunctiva: OD: white and quiet OS: white and quiet Cornea: OD: arcus, crocadile shagreen, 1.4mm rou nd stromal scar inf to visual axis OS: arcus, crocadile shagreen Anterior Chamber: clear and free of cells or fl are OU Von Adelaida Angle estimation: OD: >1:1 t&n OS: >1:1 t&n Iris: normal/intact OU/ no neovascularization present ou Tonometry: iCare OD 12 OS 14 Time: 9:08am DILATION OU: PATIENT EDUCATED ON SIDE EFFECTS O F DILATION PRIOR TO DROP INSTILLATION. SIDE EFFECT DISCUSSED INCLUDE LIGH T SENSITIVITY AND BLURRED VISION AT NEAR. 1 gtt 1% Tropicamide 1 gtt 2.5% Phenylephrine Time: 9:08am INTERNAL EYE EXAMINATION BY SLIT LAMP, FUNDUSCOP Y AND BINOCULAR INDIRECT OPHTHALMOSCOPE: Lens: OD: 1+NS, 3+PSC N>T in visual axis; 1+ A CC w/ large spoke 4oc OS: 1+NS, 2+PSC inf not in visual axis; 1+ ACC inferiorly, large thin spoke into visual axis Vitreous: OD: syneresis present OS: syneresis present, asteroid hyalosis Nerve: RIM INTACT AND WITHOUT FOCAL DEFECTS OR PALLOR OU OD C/D: 0.30r OS C/D: 0.25H/0.30V Macula: Even pigment, NO macular edema OU Vessels: Normal course and caliber OU Mid-peripheral and Peripheral Retina: Flat and intact 360 degrees OU OS: small pigmented chorioretinal scar t emporal SPECIAL TESTS: Ocular Coherence Tomography/Posterior Segment (O CT) Interpretation and Report Reason for Test: Decreased vision OD>OS Technical Acquisition Quality: OD: Central: 263, WNL OS: Central: 264, WNL Progression or Change from Baseline: Baseline ASSESSMENT/PLAN 1. Cataracts OS>OD -symptomatic for blur OS>>OD, glare -mac OCT clean OU; taken to r/o macular cause of decreased vision -OD 20/60, OS 20/30+2 //Referral for CE (community care). 2. Grave's disease without ophthalmic manifestat ion // Continue f/u with PCP as recommended. RTC if any diplopia/ocular discomfort. 3. Dry eye syndrome OU 2' anterior blepharitis -asymptomatic // Monitor. 4. Chorioretinal Scar OS, pigmented - Stable, long standing. // Educated patient condition and RTC sooner if experience change in vision, flashes, or floaters. RTC ORDER: -Community care consult for Cataract extraction -rtc at [facility] 1-2 years CEE or sooner prn PATIENT EDUCATION: STUDENT SUPERVISION: Optometry student Jacob Mora participated in the care of this patient. The student performed an initial history, review of systems, medication review, and ophthalmic examination. The above note represent s care provided by me and is NOT a student note. Supervising Internet Assessor: Roc Ashley O.D. Note complete () /bennie/ ROC ASHLEY Staff Internet Assessor Signed: 01/25/2020 15:55
--- OUTSIDE RECORDS SUMMARY | 2020-08-08 13:52 | XMS_ITS | Encounter Summary ---
:[address] [facility] Address [address] [place] [address] Care Team Providers Name Role Phone KERMIT [...] MEDICARE MEDICARE PART Sep 15, PART B [id number] [id number] YADI AARON PATIENT (WNR) (M) B 2012 [id number] 1 CHARD MEDICARE MEDICARE PART Feb 15, PART A [id number] [id number] YADI AARON PATIENT (WNR) (M) A 2008 AY68 1 CHARD Selected Encounter This section includes the information on record at [place] for the Encounter. Date/Time Encounter Type Encounter Description Reason Provider Source Jan 26, 2020 03:01 Outpatient Encounter PRIMARY CARE/MEDICINE PM IHE Encounter Template Text not used by [place] Plan of Treatment: Future Appointments (+ 6 [...] 20 appointments. The data comes [facility] [place] [facility] Appointment Date/Time Appointment Type Appointment Facili ty Name Apr 14, 2020 08:00 AM [facility] Apr 21, 2020 01:45 PM AMBULATORY - MEDICINE [facility] May 04, 2020 10:45 AM AMBULATORY - NONE [facility] Jun 30, 2020 03:00 PM AMBULATORY - MEDICINE [facility] Jul 11, 2020 08:00 AM AMBULATORY - NONE [facility] Advance Directives: All historical and current Section Date Range: From patient's date of to the date document was created. This section includes ALL of a patient's completed or amended [place] Advance and Rescinded Directives. The entries below indicate that a directive exists for the patient, but an actual copy is not included with this document. The data comes from all [place] facilities. Date Advance Directives Provider Source Aug 30, 2015 ADVANCE DIRECTIVE SOHAN WOODARD [facility] Encounter Notes: All associated encounter notes This section contains the clinical notes associated to the Encounter. Date/Time Encounter Note(s) Provider Source Jan 26, 2020 03:02 PM NONVA NOTE: EDOUARD WILD [facility] LOCAL TITLE: NonVA Note STANDARD TITLE: NONVA NOTE DATE OF NOTE: JAN 26, 2020@15:02 ENTRY DATE: JAN 26, 2020@15:02:51 AUTHOR: EDOUARD WILD EXP COSIGNER: URGENCY: STATUS: COMPLETED Date of Service: 01/25/2020 1:[address]: [facility] Hematol ogy + Oncology Treating Provider: Darius Rosales MD Event/Procedure: Thoracic Oncology for Non-small cell lung cancer, right Document sent to [facility] to be scanned. To view this document open the CPRS tools menu and then open the image display viewer. /bennie/ EDOUARD WILD [employer] Signed: 01/26/2020 15:11
--- OUTSIDE RECORDS SUMMARY | 2020-08-08 13:53 | XMS_ITS | Encounter Summary ---
:[address] [facility] Address [address] [place] [address] Care Team Providers Name Role Phone KERMIT [...] MEDICARE MEDICARE PART Sep 15, PART B [id number] [id number] YADI AARON PATIENT (WNR) (M) B 2012 [id number] 1 CHARD MEDICARE MEDICARE PART Feb 15, PART A [id number] [id number] YADI AARON PATIENT (WNR) (M) A 2008 AY68 1 CHARD Selected Encounter This section includes the information on record at [facility] for the Encounter. Date/Time Encounter Type Encounter Description Reason Provider Source Jan 25, 2020 09:42 Outpatient Encounter COMMUNITY CARE AM CONSULT IHE [...] 20 appointments. The data comes from all [place] [facility] Appointment Date/Time Appointment Type Appointment Facili ty Name Apr 14, 2020 08:00 AM [facility] Apr 21, 2020 01:45 PM [facility] May 04, 2020 10:45 AM AMBULATORY - NONE [facility] Jun 30, 2020 03:00 PM [facility] Jul 11, 2020 08:00 AM [facility] Advance Directives: All historical and current Section Date Range: From patient's date of to the date document was created. This section includes ALL of a patient's completed or amended [place] Advance and Rescinded Directives. The entries below indicate that a directive exists for the patient, but an actual copy is not included with this document. The data comes from all [place] facilities. Date Advance Directives Provider Source Aug 30, 2015 ADVANCE DIRECTIVE SOHAN WOODARD [facility] Encounter Notes: All associated encounter notes This section contains the clinical notes associated to the Encounter. Date/Time Encounter Note(s) Provider Source Jan 25, 2020 09:42 AM NONVA CONSULT: LISBET PENN LOCAL TITLE: COMMUNITY CARE CONSULT RESULT NOTE IVONNE SALAZAR [facility] STANDARD TITLE: NONVA CONSULT DATE OF NOTE: JAN 25, 2020@09:42 ENTRY DATE: FEB 08, 2020@09:43:59 AUTHOR: LISBET PENN COSIGNER: URGENCY: STATUS: COMPLETED VistA Imaging - Scanned Document OCC 01/25/2020 OFFICE VISIT/HEM ONC [facility]/ Marjorie /bennie/ Lisbet BRICEÑOT Signed: 02/08/2020 09:45
--- OUTSIDE RECORDS SUMMARY | 2020-08-08 13:53 | XMS_ITS | Encounter Summary ---
:1945 Author Organization Department [facility] Address [address] [place] [address] Care Team Providers Name Role Phone KERMIT [...] MEDICARE MEDICARE PART Sep 15, PART B [id number] [id number] YADI AARON PATIENT (WNR) (M) B 2012 [id number] 1 CHARD MEDICARE MEDICARE PART Feb 15, PART A [id number] [id number] YADI AARON PATIENT (WNR) (M) A 2008 AY68 1 CHARD Selected Encounter This section includes the information on record at [place] for the Encounter. Date/Time Encounter Type Encounter Description Reason Provider Source Mar 02, 2020 11:23 Outpatient Encounter PRIMARY CARE/MEDICINE AM IHE Encounter [...] 20 appointments. The data comes from all [place] [facility] Appointment Date/Time Appointment Type Appointment Facili ty Name Apr 14, 2020 08:00 AM AMBULATORY - NONE [facility] Apr 21, 2020 01:45 PM AMBULATORY - MEDICINE [facility] May 04, 2020 10:45 AM AMBULATORY - NONE [facility] Jun 30, 2020 03:00 PM AMBULATORY - MEDICINE [facility] Jul 11, 2020 08:00 AM AMBULATORY [...] WOODARD [facility] Encounter Notes: All associated encounter notes This section contains the clinical notes associated to the Encounter. Date/Time Encounter Note(s) Provider Source Mar 02, 2020 11:23 AM HEMATOLOGY AND ONCOLOGY NONVA NOTE: JONN MCPHERSON [facility] LOCAL TITLE: NonVA Oncology STANDARD TITLE: HEMATOLOGY AND ONCOLOGY NONVA NO TE DATE OF NOTE: MAR 02, 2020@11:23 ENTRY DATE: MAR 02, 2020@11:23:28 AUTHOR: JONN MCPHERSON EXP COSIGNER: URGENCY: STATUS: COMPLETED Event/Procedure:Oncology Off ice Visit Note for adenocarcinoma of lung, stage 2, right from [facility]. Date of Service:09/28/2019 Treating Provider:Ailin Mayers APRN Documents sent to [facility] to be scanned. To view this document, open the cprs tools menu and then open the image display viewer. /bennie/ JONN MCPHERSON Health Field Training Agent Signed: 03/02/2020 11:26
--- OUTSIDE RECORDS SUMMARY | 2020-08-08 13:54 | XMS_ITS ---
:[address] [facility] Address [address] [place] [address] Care Team Providers Name Role Phone KERMIT [...] MEDICARE MEDICARE PART Sep 15, PART B [id number] [id number] YADI AARON PATIENT (WNR) (M) B 2012 [id number] 1 CHARD MEDICARE MEDICARE PART Feb 15, PART A [id number] [id number] YADI AARON PATIENT (WNR) (M) A 2008 AY68 1 CHARD Selected Encounter This section includes the information on record at [place] for the Encounter. Date/Time Encounter Type Encounter Description Reason Provider Source Feb 23, 2020 01:10 Outpatient Encounter PRIMARY CARE/MEDICINE PM IHE Encounter Template Text not used by [place] Plan of Treatment: Future Appointments (+ 6 [...] appointments. The data comes from all [place] [facility] Appointment Date/Time Appointment Type Appointment Facili ty Name Apr 14, 2020 08:00 AM AMBULATORY - NONE [facility] Apr 21, 2020 01:45 PM AMBULATORY - MEDICINE [facility] May 04, 2020 10:45 AM AMBULATORY - NONE [facility] Jun 30, 2020 03:00 PM [facility] Jul 11, 2020 08:00 AM AMBULATORY - NONE [facility] Advance Directives: All historical and current [...] Aug 30, 2015 ADVANCE DIRECTIVE SOHAN WOODARD [facility] Encounter Notes: All associated encounter notes This section contains the clinical notes associated to the Encounter. Date/Time Encounter Note(s) Provider Source Feb 23, 2020 01:10 PM NONVA NOTE: JONN MCPHERSON [facility] LOCAL TITLE: NonVA Laboratory STANDARD TITLE: NONVA NOTE DATE OF NOTE: FEB 23, 2020@13:10 ENTRY DATE: FEB 23, 2020@13:10:17 AUTHOR: JONN MCPHERSON EXP COSIGNER: URGENCY: STATUS: COMPLETED Event/Procedure:Laboratory Report from [facility]. Date of Service:10/30/2019 Treating Provider:Miko Jesus MD Documents sent to [facility] to be scanned. To view this document, open the cprs tools menu and then open the image display viewer. /bennie/ JONN MCPHERSON Health Coil Maker Signed: 02/23/2020 13:11
--- OUTSIDE RECORDS SUMMARY | 2020-08-08 13:54 | XMS_ITS | Encounter Summary ---
:1945 Author Organization Department [facility] Address [address] [place] [address] Care Team Providers Name Role Phone KERMIT [...] MEDICARE MEDICARE PART Sep 15, PART B [id number] YADI AARON PATIENT (WNR) (M) B 2012 AY68 1 CHARD MEDICARE MEDICARE PART Feb 15, PART A [id number] [id number] YADI AARON PATIENT (WNR) (M) A 2008 AY68 1 CHARD Selected Encounter This section includes the information on record at [place] for the Encounter. Date/Time Encounter Type Encounter Description Reason Provider Source Feb 29, 2020 12:29 Outpatient Encounter PRIMARY CARE/MEDICINE PM IHE Encounter Template Text not used by [place] Plan of Treatment: Future Appointments (+ 6 [...] 20 appointments. The data comes from all [place] [facility] Appointment Date/Time Appointment Type Appointment Facili ty Name Apr 14, 2020 08:00 AM [facility] Apr 21, 2020 01:45 PM AMBULATORY - MEDICINE [facility] May 04, 2020 10:45 AM AMBULATORY - NONE [facility] Jun 30, 2020 03:00 PM [facility] Jul 11, 2020 08:00 AM AMBULATORY - NONE [facility] Advance Directives: All historical and current Section Date Range: From patient's date of to the date document was created. This section includes ALL of a patient's completed or amended [place] Advance and Rescinded Directives. The entries below indicate that a directive exists for the patient, but an actual copy is not included with this document. The data comes from all [place] facilities. Date Advance Directives Provider Source Aug 30, 2015 ADVANCE DIRECTIVE SOHAN WOODARD [facility] Encounter Notes: All associated encounter notes This section contains the clinical notes associated to the Encounter. Date/Time Encounter Note(s) Provider Source Feb 29, 2020 12:29 PM HEMATOLOGY AND ONCOLOGY NONVA NOTE: JONN MCPHERSON [facility] LOCAL TITLE: NonVA Oncology STANDARD TITLE: HEMATOLOGY AND ONCOLOGY NONVA NO TE DATE OF NOTE: FEB 29, 2020@12:29 ENTRY DATE: FEB 29, 2020@12:29:43 AUTHOR: JONN MCPHERSON EXP COSIGNER: URGENCY: STATUS: COMPLETED Event/Procedure:Oncology Off ice Vistit Note for follow up of NSCLC(non-smll cell lung cancer) from [facility]. Date of Service:02/22/2020 Treating Provider:Ailin ospina APRN Documents sent to [facility] to be scanned. To view this document, open the cprs tools menu and then open the image display viewer. /bennie/ JONN MCPHERSON Health Thread Machine Operator Signed: 02/29/2020 12:31
--- OUTSIDE RECORDS SUMMARY | 2020-08-08 13:55 | XMS_ITS | Encounter Summary ---
:1945 Author Organization Department [facility] Address [address] [place] [address] Care Team Providers Name Role Phone KERMIT [...] MEDICARE MEDICARE PART Sep 15, PART B [id number] YADI AARON PATIENT (WNR) (M) B 2012 [id number] 1 CHARD MEDICARE MEDICARE PART Feb 15, PART A [id number] [phone] YADI AARON PATIENT (WNR) (M) A 2008 AY68 1 CHARD Selected Encounter This section includes the information on record at [facility] for the Encounter. Date/Time Encounter Type Encounter Description Reason Provider Source Sep 28, 2019 01:23 Outpatient Encounter COMMUNITY CARE PM CONSULT IHE [...] 20 appointments. The data comes from all [place] treatmentfacilities. Appointment Date/Time Appointment Type Appointment Facili ty Name Oct 29, 2019 11:00 AM AMBULATORY - MEDICINE MODE [facility] Nov 02, 2019 11:00 AM AMBULATORY - NONE [facility] Dec 03, 2019 01:30 PM AMBULATORY - MEDICINE MODE [facility] Jan 22, 2020 09:00 AM AMBULATORY - SURGERY MODE [facility] Advance Directives: All historical and current Section Date Range: From patient's date of to the date document was created. This section includes ALL of a patient's completed or amended [place] Advance and Rescinded Directives. The entries below indicate that a directive exists for the patient, but an actual copy is not included with this document. The data comes from all [place] facilities. Date Advance Directives Provider Source Aug 30, 2015 ADVANCE DIRECTIVE SOHAN WOODARD [facility] Radiology Reports: +/- 30 days of [...] the Encounter. The data comes from all [place] treatment facilities. Date/Time Radiology Report Provider Source Oct 13, 2019 09:[address] THORAX W/CONT: MODE [facility] CHRIS AARON [id number] -1945 M Exm Date: OCT 13, 2019@09:30 Req Phys: BALAJI KUO Pat Loc: OUTSIDE [facility] CT SCAN (Req'g Loc Img Loc : OUTSIDE [facility] CT SCAN Service : Unknown (Case [id number] COMPLETE) CT THOR AX W/CONT (CT Detailed) CPT:88540 Reason for Study: Exam imported from outsid e Clinical History: Original Data for Imported Study Patient Name: CHRIS AARON Date: 1945 Sex: M Study Date: 10/13/19 [facility] Time: 09:30:18 Study Description: CT CHEST [...] file, description: Patien t Protocol Acquisition site: [facility] Address: [facility] US Report Status: Electronically Filed Olivier hinson [...] Encounter Note(s) Provider Source Sep 28, 2019 01:23 PM NONVA CONSULT: LISBET LEWIS LOCAL TITLE: COMMUNITY CARE CONSULT RESULT NOTE IVONNE SALAZAR [facility] STANDARD TITLE: NONVA CONSULT DATE OF NOTE: SEP 28, 2019@13:23 ENTRY DATE: MAR 17, 2020@13:25:07 AUTHOR: LISBET LEWIS COSIGNER: URGENCY: STATUS: COMPLETED VistA Imaging - Scanned Document OCC 09/28/2019 OFFICE VISIT/[place] [facility] /es/ Lisbet Lewis MRT Signed: 03/17/2020 13:26
--- OUTSIDE RECORDS SUMMARY | 2020-08-08 13:55 | XMS_ITS | Encounter Summary ---
:1945 Author Organization Department [facility] Address [address] [place] [address] Care Team Providers Name Role Phone KERMIT [...] MEDICARE MEDICARE PART Sep 15, PART B [id number] [id number] YADI AARON PATIENT (WNR) (M) B 2012 [id number] 1 CHARD MEDICARE MEDICARE PART Feb 15, PART A [id number] [id number] YADI AARON PATIENT (WNR) (M) A 2008 AY68 1 CHARD Selected Encounter This section includes the information on record at [facility] for the Encounter. Date/Time Encounter Type Encounter Description Reason Provider Source Feb 22, 2020 02:44 Outpatient Encounter COMMUNITY CARE PM CONSULT IHE [...] 20 appointments. The data comes from all [place] [facility] Appointment Date/Time Appointment Type Appointment Facili ty Name Apr 14, 2020 08:00 AM [facility] Apr 21, 2020 01:45 PM [facility] May 04, 2020 10:45 AM [facility] - NONE [facility] Jun 30, 2020 03:00 PM [facility] Jul 11, 2020 08:00 AM [facility] Advance Directives: All historical and current Section Date Range: From patient's date of to the date document was created. This section includes ALL of a patient's completed or amended [place] Advance and Rescinded Directives. The entries below indicate that a directive exists for the patient, but an actual copy is not included with this document. The data comes from all [place] facilities. Date Advance Directives Provider Source Aug 30, 2015 ADVANCE DIRECTIVE SOHAN WOODARD [facility] Encounter Notes: All associated encounter notes This section contains the clinical notes associated to the Encounter. Date/Time Encounter Note(s) Provider Source Feb 22, 2020 02:44 PM NONVA CONSULT: LISBET LEWIS LOCAL TITLE: COMMUNITY CARE CONSULT RESULT NOTE IVONNE SALAZAR [facility] STANDARD TITLE: NONVA CONSULT DATE OF NOTE: FEB 22, 2020@14:44 ENTRY DATE: MAR 16, 2020@14:45:11 AUTHOR: LISBET LEWIS COSIGNER: URGENCY: STATUS: COMPLETED VistA Imaging - Scanned Document OCC 02/22/2020 OFFICE VISIT/[facility]OLOGY [place] [facility] [place] Marjorie /bennie/ Lisbet Lewis MRT Signed: 03/16/2020 14:46
--- OUTSIDE RECORDS SUMMARY | 2020-08-08 13:56 | XMS_ITS | Encounter Summary ---
:1945 Author Organization Department [facility] Address [address] [place] [id number] Care Team Providers Name Role Phone KERMIT [...] MEDICARE MEDICARE PART Sep 15, PART B [id number] YADI AARON PATIENT (WNR) (M) B 2012 [id number] 1 CHARD MEDICARE MEDICARE PART Feb 15, PART A [id number] [id number] YADI AARON PATIENT (WNR) (M) A 2008 [id number] 1 CHARD Selected Encounter This section includes the information on record at [facility] for the Encounter. Date/Time Encounter Type Encounter Description Reason Provider Source Mar 21, 2020 02:25 Outpatient Encounter COMMUNITY CARE PM CONSULT IHE [...] appointments. The data comes from all [place] [facility] Appointment Date/Time Appointment Type Appointment Facili ty Name Apr 14, 2020 08:00 AM [facility] Apr 21, 2020 01:45 PM [facility] May 04, 2020 10:45 AM AMBULATORY - NONE [facility] Jun 30, 2020 03:00 PM [facility] Jul 11, 2020 08:00 AM AMBULATORY - NONE [facility] Advance Directives: All historical and [...] Aug 30, 2015 ADVANCE DIRECTIVE SOHAN WOODARD [facility] Encounter Notes: All associated encounter notes This section contains the clinical notes associated to the Encounter. Date/Time Encounter Note(s) Provider Source Mar 21, 2020 02:25 PM NONVA CONSULT: LISBET LEWIS LOCAL TITLE: COMMUNITY CARE CONSULT RESULT NOTE IVONNE SALAZAR [facility] STANDARD TITLE: NONVA CONSULT DATE OF NOTE: MAR 21, 2020@14:25 ENTRY DATE: APR 13, 2020@14:26:38 AUTHOR: LISBET LEWIS COSIGNER: URGENCY: STATUS: COMPLETED VistA Imaging - Scanned Document OCC 03/21/2020 [place]ICE [place] [facility] [place] Marjorie /bennie/ Lisbet Lewis MRT Signed: 04/13/2020 14:27
--- OUTSIDE RECORDS SUMMARY | 2020-08-08 13:56 | XMS_ITS | Encounter Summary ---
:[address] [facility] Address [address] [place] [address] Care Team Providers Name Role Phone KERMIT [...] MEDICARE MEDICARE PART Sep 15, PART B [id number] [id number] YADI AARON PATIENT (WNR) (M) B 2012 [id number] 1 CHARD MEDICARE MEDICARE PART Feb 15, PART A [id number] [id number] YADI AARON PATIENT (WNR) (M) A 2008 [id number] 1 CHARD Selected Encounter This section includes the information on record at OR for the Encounter. Date/Time Encounter Type Encounter Description Reason Provider Source Mar 29, 2020 03:12 Outpatient Encounter PRIMARY CARE/MEDICINE PM IHE Encounter Template Text not used by [place] Plan of Treatment: Future Appointments (+ 6 [...] appointments. The data comes from all [place] [facility]. Appointment Date/Time Appointment Type Appointment Facili ty Name Apr 14, 2020 08:00 AM [facility] Apr 21, 2020 01:45 PM [facility]ICINE [facility] May 04, 2020 10:45 AM AMBULATORY - NONE [facility] Jun 30, 2020 03:00 PM [facility] Jul 11, 2020 08:00 AM AMBULATORY - NONE [facility] Advance Directives: All historical and current Section Date Range: From patient's date of to the date document was created. This section includes ALL of a patient's completed or amended [place] Advance and Rescinded Directives. The entries below [...] Encounter. Date/Time Encounter Note(s) Provider Source Mar 29, 2020 03:15 PM NONVA NOTE: EDOUARD WILD [facility] LOCAL TITLE: NonVA Note STANDARD TITLE: NONVA NOTE DATE OF NOTE: MAR 29, 2020@15:15 ENTRY DATE: MAR 29, 2020@15:15:08 AUTHOR: EDOUARD WILD EXP COSIGNER: URGENCY: STATUS: COMPLETED Date of Service: 03/21/19 1:[address]: [facility] ology / Oncology Office Visit Treating Provider: Bernabe Mayers APRN Event/Procedure: Progress Note Document sent to [facility] to be scanned. To view this document open the CPRS tools menu and then open the image display viewer. /bennie/ EDOUARD WILD Paste Up Worker Signed: 03/29/2020 15:23
--- OUTSIDE RECORDS SUMMARY | 2020-08-08 13:57 | XMS_ITS | Encounter Summary ---
:[address] [facility] Address [address] [place] [address] Care Team Providers Name Role Phone KERMIT [...] MEDICARE MEDICARE PART Sep 15, PART B [id number] YADI AARON PATIENT (WNR) (M) B 2012 AY68 1 CHARD MEDICARE MEDICARE PART Feb 15, PART A [id number] [id number] YADI AARON PATIENT (WNR) (M) A 2008 [id number] 1 CHARD Selected Encounter This section includes the information on record at [place] for the Encounter. Date/Time Encounter Type Encounter Description Reason Provider Source Apr 19, 2020 01:15 Outpatient Encounter PRIMARY CARE/MEDICINE PM IHE Encounter Template Text not used by [place] Plan of Treatment: Future Appointments (+ 6 months) and Future Tests (+/- 45 days) The Plan of Treatment section includes future care activities for the patient from all [place] treatment facilities. This section includes future appointments and future orders which are active, pending or scheduled.Future Appointments This section includes appointments that were scheduled to occur 6 months from the date of the Encounter, up to a maximum of 20 appointments. The data comes from all [place] treatmentfacilities. Appointment Date/Time Appointment Type Appointment Facili ty Name Apr 21, 2020 01:45 PM [facility] May 04, 2020 10:45 AM AMBULATORY - NONE [facility] Jun 30, 2020 03:00 PM [facility] Jul 11, 2020 08:00 AM AM[facility]ULATORY - NONE [facility] Advance Directives: All historical and current Section Date Range: From patient's date of to the date document was created. This section includes ALL of a patient's completed or amended [place] Advance and Rescinded Directives. The entries below indicate that a directive exists for the patient, but an actual copy is not included with this document. The data comes from all [place] facilities. Date Advance Directives Provider Source Aug 30, 2015 ADVANCE DIRECTIVE SOHAN WOODARD [facility] T [facility] Encounter Notes: All associated encounter notes This section contains the clinical notes associated to the Encounter. Date/Time Encounter Note(s) Provider Source Apr 19, 2020 01:15 PM NONVA NOTE: SHAMA RODRIGUES [facility] LOCAL TITLE: NonVA Note STANDARD TITLE: NONVA NOTE DATE OF NOTE: APR 19, 2020@13:15 ENTRY DATE: APR 19, 2020@13:15:07 AUTHOR: SHAMA RODRIGUES EXP COSIGNER: URGENCY: STATUS: COMPLETED Date of Service: 04/18/2020 Place: [facility] Treating Provider: Ailin Mayers Event/Procedure: Non-small cell lung cancer, rig ht- He recieved concurrent chemoradiation-start date-08/17/2019- completed - received 5 cycles of carbo/Taxol. Recieved 60Gy in 30 fractions-media stinum RT. Overall curative intent. PLAN: 1. Continiue consolidative durvalumab 1500 mg every 4 weeks x 1 year 2. TSH down though FT4 WNL so will continue to follow for now but may need to adjust thyroid replacement-follow up visit in 4 weeks with labs, appt and next infusion Document sent to [facility] to be scanned. To view this document open the [employer] tools menu and then open the image display viewer. /bennie/ SHAMA RODRIGUES geriatric nursing assistant Signed: 04/19/2020 13:22
--- OUTSIDE RECORDS SUMMARY | 2020-08-08 13:57 | XMS_ITS | Encounter Summary ---
:[address] [facility] Address [address] [place] [address] Care Team Providers Name Role Phone KERMIT [...] MEDICARE MEDICARE PART Sep 15, PART B [id number] [id number] YADI AARON PATIENT (WNR) (M) B 2012 [id number] 1 CHARD MEDICARE MEDICARE PART Feb 15, PART A [id number] [id number] YADI AARON PATIENT (WNR) (M) A 2008 AY68 1 CHARD Selected Encounter This section includes the information on record at [place] for the Encounter. Date/Time Encounter Type Encounter Description Reason Provider Source May 03, 2020 02:40 Outpatient Encounter ADMIN PAT ACTIVTIES PM (MASCHAZCT) IHE Encounter Template Text not used by [...] 20 appointments. The data comes from all [place] treatmentfacount includes [facility]. Appointment Date/Time Appointment Type Appointment Facili ty Name May 04, 2020 10:45 AM AMBULATORY - NONE [facility] Jun 30, 2020 03:00 PM AMBULATORY - MEDICINE [facility] Jul 11, 2020 08:00 AM [facility] Oct 19, 2020 10:30 AM AMBULATORY - MEDICINE [facility] Advance Directives: All [...] Aug 30, 2015 ADVANCE DIRECTIVE SOHAN WOODARD [facility] Encounter Notes: All associated encounter notes This section contains the clinical notes associated to the Encounter. Date/Time Encounter Note(s) Provider Source May 03, 2020 02:40 PM NONVA NOTE: SHAMA GALVEZ [facility] LOCAL TITLE: NonVA Medical Records STANDARD TITLE: NONVA NOTE DATE OF NOTE: MAY 03, 2020@14:40 ENTRY DATE: MAY 03, 2020@14:40:41 AUTHOR: SHAMA GALVEZ EXP COSIGNER: URGENCY: STATUS: COMPLETED Event/Procedure: Cataract surgery operative repo rt right eye Date of Service: 04/29/2020 Treating Facility: [facility] Josh Mcgee MD To view this document, open the cprs tools menu and then open the image display viewer. /bennie/ SHAMA GALVEZ TCT/[employer] Signed: 05/03/2020 14:44
--- OUTSIDE RECORDS SUMMARY | 2020-08-08 13:57 | XMS_ITS | Encounter Summary ---
:1945 Author Organization Department [facility] Address [address] [place] [address] Care Team Providers Name Role Phone KERMIT [...] MEDICARE MEDICARE PART Sep 15, PART B [id number] [id number] YADI AARON PATIENT (WNR) (M) B 2012 [id number] 1 CHARD MEDICARE MEDICARE PART Feb 15, PART A [id number] [phone] YADI AARON PATIENT (WNR) (M) A 2008 AY68 1 CHARD Selected Encounter This section includes the information on record at [place] for the Encounter. Date/Time Encounter Type Encounter Description Reason Provider Source Apr 19, 2020 09:28 Outpatient Encounter PRIMARY CARE/MEDICINE AM IHE Encounter Template Text not used by [place] Plan of Treatment: Future Appointments (+ 6 months) and Future Tests (+/- 45 days) The Plan of Treatment section includes future care activities for the patient from all [place] treatment facilities. This section includes future appointments and future orders which are active, pending or scheduled.Future Appointments This section includes appointments that were scheduled to occur 6 months from the date of the Encounter, up to a maximum of 20 appointments. The data comes from all [place] treatmentfacilities. Appointment Date/Time Appointment Type Appointment Facili ty Name Apr 21, 2020 01:45 PM [facility] May 04, 2020 10:45 AM AMBULATORY - NONE [facility] Jun 30, 2020 03:00 PM [facility] Jul 11, 2020 08:00 AM AMBULATORY - NONE [facility] Advance Directives: All historical and current Section Date Range: From patient's date of to the date document was created. This section includes ALL of a patient's completed or amended [place] Advance and Rescinded Directives. The entries below indicate that a directive exists for the patient, but an actual copy is not included with this document. The data comes from all [place] facilities. Date Advance Directives Provider Source Aug 30, 2015 ADVANCE DIRECTIVE SOHAN WOODARD [facility] Encounter Notes: All associated encounter notes This section contains the clinical notes associated to the Encounter. Date/Time Encounter Note(s) Provider Source Apr 19, 2020 09:28 AM NONVA NOTE: SHAMA RODRIGUES [facility] LOCAL TITLE: NonVA Note STANDARD TITLE: NONVA NOTE DATE OF NOTE: APR 19, 2020@09:28 ENTRY DATE: APR 19, 2020@09:28:30 AUTHOR: SHAMA RODRIGUES EXP COSIGNER: URGENCY: STATUS: COMPLETED Date of Service: 04/18/2020 [address]: [facility] Treating Provider: HECTOR BEST MD Event/Procedure:CMP, TSH, FREE T4- CALCIUM GLUCOSE BUN 22 H CREATININE 0.9 ESTIMATED GFR >=60.00 TOTAL PROTEIN 7.0 ALBUMIN 3.3 L BILIRUBIN, TOTAL 0.5 ALK PHOS 103 SODIM 141 POTASSIUM 4.2 CHLORIDE 105 CO2 28.2 ANION GAP 7.8 AST 15 ALT 18 TSH 0.68 CBC/DIFF WBC 7.46 RBC 4.75 HGB 14.2 HCT 43.0 MCV 90.5 MCH 29.9 MCHC 33.0 RDW 13.2 PLATELET COUNT 193 Document sent to [facility] to be scanned. To view this document open the CPRS tools menu and then open the image display viewer. /bennie/ SHAMA RODRIGUES nursing care attendant Signed: 04/19/2020 09:40
--- OUTSIDE RECORDS SUMMARY | 2020-08-08 13:57 | XMS_ITS | Encounter Summary ---
:[address] [facility] Address [address] [place] [address] Care Team Providers Name Role Phone KERMIT [...] MEDICARE MEDICARE PART Sep 15, PART B [id number] [id number] YADI AARON PATIENT (WNR) (M) B 2012 AY68 1 CHARD MEDICARE MEDICARE PART Feb 15, PART A [id number] [id number] YADI AARON PATIENT (WNR) (M) A 2008 AY68 1 CHARD Selected Encounter This section includes the information on record at [place] for the Encounter. Date/Time Encounter Type Encounter Description Reason Provider Source Apr 18, 2020 02:51 Outpatient Encounter COMMUNITY CARE PM CONSULT IHE [...] appointments. The data comes from all [place] treatmentfacilities. Appointment Date/Time Appointment Type Appointment Facili ty Name Apr 21, 2020 01:45 PM [facility] May 04, 2020 10:45 AM AMBULATORY - NONE [facility] Jun 30, 2020 03:00 PM AMBULATORY - MEDICINE [facility] Jul 11, 2020 08:00 AM AMBULATORY [...] Aug 30, 2015 ADVANCE DIRECTIVE SOHAN WOODARD [place] [facility] Encounter Notes: All associated encounter notes This section contains the clinical notes associated to the Encounter. Date/Time Encounter Note(s) Provider Source Apr 18, 2020 02:51 PM NONVA CONSULT: LISBET LEWIS LOCAL TITLE: COMMUNITY CARE CONSULT RESULT NOTE IVONNE SALAZAR [facility] STANDARD TITLE: NONVA CONSULT DATE OF NOTE: APR 18, 2020@14:51 ENTRY DATE: MAY 06, 2020@14:53:07 AUTHOR: LISBET LEWIS COSIGNER: URGENCY: STATUS: COMPLETED VistA Imaging - Scanned Document OCC 04/18/2020 OFFICE VISIT/HEM ONC [facility]/ Marjorie /bennie/ Lisbet Lewis MRT Signed: 05/06/2020 14:54
--- OUTSIDE RECORDS SUMMARY | 2020-08-08 13:59 | XMS_ITS | Encounter Summary ---
:1945 Author Organization Department [facility] Address [address] [place] [address] Care Team Providers Name Role Phone KERMIT [...] MEDICARE MEDICARE PART Sep 15, PART B [id number] YADI AARON PATIENT (WNR) (M) B 2012 AY68 1 CHARD MEDICARE MEDICARE PART Feb 15, PART A [id number] [id number] YADI AARON PATIENT (WNR) (M) A 2008 AY68 1 CHARD Selected Encounter This section includes the information on record at [place] for the Encounter. Date/Time Encounter Type Encounter Description Reason Provider Source May 13, 2020 10:10 Outpatient Encounter ADMIN BASSEM ANGULO AM (MAUREENCT) IHCorey Encounter Template Text not used by VA [...] 20 appointments. The data comes from all [place] [facility] Appointment Date/Time Appointment Type Appointment Facili ty Name Jun 30, 2020 03:00 PM AMBULATORY - MEDICINE [facility] Jul 11, 2020 08:00 AM AMBULATORY - NONE [facility] Oct 19, 2020 10:30 AM AMBULATORY - MEDICINE [facility] Advance Directives: All historical and current Section Date Range: From patient's date of to the date document was created. This section includes ALL of a patient's completed or amended [place] Advance and Rescinded Directives. The entries below indicate that a directive exists for the patient, but an actual copy is not included with this document. The data comes from all [place] facilities. Date Advance Directives Provider Source Aug 30, 2015 [address] WO[address]ARD [facility] Encounter Notes: All associated encounter notes This section contains the clinical notes associated to the Encounter. Date/Time Encounter Note(s) Provider Source May 13, 2020 10:10 AM NONVA NOTE: SHAMA GALVEZ [facility] LOCAL TITLE: NonVA Medical Records STANDARD TITLE: NONVA NOTE DATE OF NOTE: MAY 13, 2020@10:10 ENTRY DATE: MAY 30, 2020@10:10:22 AUTHOR: SHAMA GALVEZ EXP COSIGNER: URGENCY: STATUS: COMPLETED Event/Procedure: Cataract surgery operative repo rt Date of Service: 05/13/20 Treating Facility: [facility] Josh Mcgee MD Dictated in part: Procedure Cataract extraction using phacoem ulsification w ith intraocular lens implant left eye Implants [employer]/ [employer] [id number] To view this document, open the cprs tools menu and then open the image display viewer. The above text was dictated with isela cabral Speaking and may contain subtle irregularities. /bennie/ SHAMA GALVEZ TCT/Health Tech Signed: 05/30/2020 10:15
--- OUTSIDE RECORDS SUMMARY | 2020-08-08 13:59 | XMS_ITS | Encounter Summary ---
:[address] [facility] Address [address] [place] [id number] Care Team Providers Name Role Phone KERMIT [...] MEDICARE MEDICARE PART Sep 15, PART B [id number] YADI AARON PATIENT (WNR) (M) B 2012 [id number] 1 CHARD MEDICARE MEDICARE PART Feb 15, PART A [id number] [id number] YADI AARON PATIENT (WNR) (M) A 2008 AY68 1 CHARD Selected Encounter This section includes the information on record at [place] for the Encounter. Date/Time Encounter Type Encounter Description Reason Provider Source May 18, 2020 01:15 Outpatient Encounter PRIMARY CARE/MEDICINE PM [...] appointments. The data comes from all [place] [facility] Appointment Date/Time Appointment Type Appointment Facili ty Name Jun 30, 2020 03:00 PM AMBULATORY - MEDICINE [facility] Jul 11, 2020 08:00 AM AMBULATORY - NONE [facility] Oct 19, 2020 10:30 AM AMBULATORY - MEDICINE [facility] Advance Directives: All historical and current [...] Encounter Note(s) Provider Source May 13, 2020 07:55 AM NONVA NOTE: JONN MCPHERSON [facility] LOCAL TITLE: NonVA Medical Records STANDARD TITLE: NONVA NOTE DATE OF NOTE: MAY 13, 2020@07:55 ENTRY DATE: MAY 18, 2020@13:15:48 AUTHOR: JONN MCPHERSON EXP COSIGNER: URGENCY: STATUS: COMPLETED [facility] Department Date:05/13/2020 Admitting Provider: Josh Mcgee MD REPORT OF OPERATION OPERATIVE NOTE PROCEDURE: Cataract extraction using pha coemulsification with intraocular lens implant, left eye. PATHOLOGY: none sent /bennie/ JONN MCPHERSON [employer] Signed: 05/18/2020 13:17
--- OUTSIDE RECORDS SUMMARY | 2020-08-08 14:00 | XMS_ITS | Encounter Summary ---
:[address] [facility] Address [address] [place] [address] Care Team Providers Name Role Phone KERMIT [...] MEDICARE MEDICARE PART Sep 15, PART B [id number] YADI AARON PATIENT (WNR) (M) B 2012 [id number] 1 CHARD MEDICARE MEDICARE PART Feb 15, PART A [id number] [id number] YADI AARON PATIENT (WNR) (M) A 2008 AY68 1 CHARD Selected Encounter This section includes the information on record at [place] for the Encounter. Date/Time Encounter Type Encounter Description Reason Provider Source Jun 13, 2020 01:28 Outpatient Encounter ADMIN PAT ACTIVTIES PM (MASNONCT) [...] 20 appointments. The data comes from all [place] [facility] Appointment Date/Time Appointment Type Appointment Facili ty Name Jun 30, 2020 03:00 PM AMBULATORY - MEDICINE [facility] Jul 11, 2020 08:00 AM AMBULATORY - NONE [facility] Oct 19, 2020 10:30 AM AMBULATORY - MEDICINE [facility] Advance Directives: All historical and current Section Date Range: From patient's date of to the date document was created. This section includes ALL of a patient's completed or amended [place] Advance and Rescinded Directives. The entries below indicate that a directive exists for the patient, but an actual copy is not included with this document. The data comes from all [place] facilities. Date Advance Directives Provider Source Aug 30, 2015 ADVANCE DIRECTIVE SOHAN WOODARD [facility] Encounter Notes: All associated encounter notes This section contains the clinical notes associated to the Encounter. Date/Time Encounter Note(s) Provider Source Jun 13, 2020 01:28 PM NONVA NOTE: SHAMA GALVEZ [facility] LOCAL TITLE: NonVA Medical Records STANDARD TITLE: NONVA NOTE DATE OF NOTE: JUN 13, 2020@13:28 ENTRY DATE: JUN 16, 2020@13:29:04 AUTHOR: SHAMA GALVEZ EXP COSIGNER: URGENCY: STATUS: COMPLETED Information below was cut and copied from DANIELLA montelongo ease of viewing: Hematology/Oncology at [facility] Darius Rosales MD Non-small cell lung cancer, right; Candidiasis of esophagus Interval History (06/13/20): Mr. Aaron returns to the [facility] t abby for follow up of NSCLC. He is on consolidation durvalumab. Overa ll doing well. His cough has resolved. Denies any pain. Mild dyspnea with exertion whic h is not new. His appetite is good. No abdominal pain or diarrhea. Bowel movem ents are regular. No headaches. No fevers or chills. No rash or skin issues. He is complaining of a sore tongue today and a thick coating on his ton elva. He has no other focal complaints today. Assessment & Plan: Mr Aaron is a 74 y.o. . 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 PD-L1 was 0%. Staging evaluation did not identify evidence of distant metastases. He received concurrent chemoradiation- start tee e-- completed 09/28/19- Received 5 cycles of Carbo/Taxol. Received 60Gy in 30 fractions-mediastinum RT. Overall curative intent. Currently receiving consolidative immunotherapy with durvalumab 1500mg q4 weeks x 1 year. Mr. Aaron returns today to continue treatment. He is here today for C9 durvalumab. Overall doing very well. No evidence of clinical toxicities. His cough has improved. His lungs sound clear and he has no edema or chest pain. No evidence of clinical toxicities. Labs reviewe d and are adequate for treatment. Dr. Rosales reviewed his CT scan today w [facility] shows no change and good response to treatment. He reviewed images with t he patient. # Candidiasis of mouth- He was recently on a alivia g term course of Bactrim for his urinary issues. He is complaining of a sore tongue. He is requesting the same liquid I gave him last time. I prescribed N ystatin swish and swallow for him. It was confirmed with the cancer care coordinato r at the [place] that he has a consult in place to allow for cancer care in the community through June 2020 at which time it will need to be renewed if he w ishes to continue care in the community. (He indicates that this is preference given the travel distance to [facility]). Plan: 1. Continiue consolidative durvalumab 1500 mg ev alma rosa 4 weeks x 1 year 2. Begin Nystatin 100,000 unit/ml suspension 4 t imes a day. Let provider that prescribed the antibiotic know you are having th is problem. 3. Follow up visit in 4 weeks with labs and next infusion /bennie/ SHAMA NICHOLS/[employer] Signed: 06/16/2020 13:33
--- OUTSIDE RECORDS SUMMARY | 2020-08-08 14:00 | XMS_ITS | Encounter Summary ---
:1945 Author Organization Department [facility] Address [address] [place] [address] Care Team Providers Name Role Phone KERMIT [...] MEDICARE MEDICARE PART Sep 15, PART B [id number] [id number] YADI AARON PATIENT (WNR) (M) B 2012 AY68 1 CHARD MEDICARE MEDICARE PART Feb 15, PART A [id number] [phone] YADI AARON PATIENT (WNR) (M) A 2008 AY68 1 CHARD Selected Encounter This section includes the information on record at [place] for the Encounter. 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 Date/Time Primary/Secondary Diagnosis Name Provider Source Diagnosis Jun 30, 2020 PRIMARY Carcinoma in situ AURORA GONGORA 03:00 PM of left bronchus [facility] and lung Jun 30, 2020 SECONDARY Candidiasis, AURORA GONGORA 03:00 PM unspecified [facility] Jun 30, 2020 SECONDARY Chronic AURORA GONGORA [place] 03:00 PM obstructive [facility] pulmonary disease, unspecified Plan of Treatment: Future Appointments (+ 6 months) and Future Tests (+/- 45 days) The Plan of Treatment section includes future care activities for the patient from all [place] treatment facilities. This section includes future appointments and future orders which are active, pending or scheduled.Future Appointments This section includes appointments that were scheduled to occur 6 months from the date of the Encounter, up to a maximum of 20 appointments. The data comes from all [facility]. Appointment Date/Time Appointment Type Appointment Facili ty Name Jul 11, 2020 08:00 AM AMBULATORY - [...] Aug 30, 2015 ADVANCE DIRECTIVE SOHAN WOODARD [facility] Encounter Notes: All associated encounter notes This section contains the clinical notes associated to the Encounter. Date/Time Encounter Note(s) Provider Source Jun 30, 2020 04:13 PULMONARY TELEPHONE ENCOUNTER NOTE: RELL GONGORA [facility] LOCAL TITLE: Telephone Note/Pulmonary [facility] STANDARD TITLE: PULMONARY TELEPHONE ENCOUNTER NO TE DATE OF NOTE: JUN 30, 2020@16:13 ENTRY DATE: JUN 30, 2020@16:13:19 AUTHOR: AURORA GONGORA EXP COSIGNER: URGENCY: STATUS: [...] HPI: I spoke with CHRIS AARON regarding his COPD and S/P lung cancer S/P RUlobectomy and Chemo/XRT for re violet on June,. 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 He underwent treatm ent in [facility]. Last follow up with me occurred on 12/03/2019. A t that visit,the pt reported that he was doing well. Breathing was at baseli ne without increasing shortness of steve th, change in sputum, hemoptysis, decreased activity level, fever, chills, night sweats, rece nt exacerbation or hospitalization. 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 Current medications include omeprazole. Using as directed. Today, the patient denies worsening cough, chilel e in sputum, hemoptysis, worsening SOB, decreased activity level,chest pain, myalgias,GERD,fever, chills, unintentional weight loss, night sweats, recent exacerbation, or hosp italization. He does report that he wheezes with activity. No t currently on a GIOVANNI. Would like to try albuterol. Recent oral candidiasis Rx'd with nystatin S&S b y Connie Gambino. Got better with treatment but then ran out of med and it has reo ccurred on tongue and oral muocosa. Recent CT at [facility] Will request a disk. Had recent cataract surgery and got a big bill f rom [facility] Will alert PCP/SW. BEE STINGS, BACTRIM Active Outpatient Medications (excluding Supplie s): Active Outpatient Medications Status 1) ATORVASTATIN CALCIUM 40MG TAB TAKE ONE-HALF TABLET BY ACTIVE MOUTH EVERY DAY TO LOWER CHOLESTEROL; MAY CAUSE MYALGIA REPORT SIDE EFFECTS TO YOUR PROVI ADRI 2) CARBOXYMETHYLCELLULOSE NA 0.5% SOLN (BT) IN STILL ONE ACTIVE DROP IN BOTH EYES TWICE A DAY FOR DRYNESS 3) LEVOTHYROXINE NA (SYNTHROID) 100MCG TAB MORRO E ONE ACTIVE TABLET BY MOUTH EVERY DAY FOR THYROID (NO TE DOSE) 4) LUBRICATING TOP JELLY BACTERIOSTATIC APPLY SMALL ACTIVE AMOUNT TOPICALLY NEEDED 5) OMEPRAZOLE 20MG EC CAP TAKE ONE CAPSULE BY MOUTH ACTIVE EVERY MORNING BEFORE BREAKFAST FOR STOMAC H ACID (TAKE HALF-HOUR BEFORE A MEAL(S) Pending Outpatient Medications Status 1) ALBUTEROL 90MCG (CFC-F) 200D ORAL INHL INHA LE 2 PUFFS PENDING BY MOUTH EVERY FOUR TO SIX HOURS NEEDE D FOR BREATHING 2) NYSTATIN 131555 UNT/ML SUSP TAKE 1 TEASPOON FUL BY PENDING MOUTH FOUR TIMES A DAY FOR FUNGAL INFECTI ONS 7 Total Medications Active problems - Computerized Problem List is t he source for the followin. Carcinoma in situ of lung 2. Impingement syndrome of right shoulder regio n 3. Frozen shoulder 4. CTS - Carpal tunnel syndrome 5. Hypothyroidism 6. Chronic retention of urine (SNOMED CT 486896 000) 7. Full thickness rotator cuff tear 8. Cerebral infarction (SNOMED CT 370193226) 9. Hemorrhagic cerebral infarction (SNOMED CT 2 41246736) 10. Impaired fasting glycaemia (SNOMED CT 786153 007) 11. Galaviz's esophagus (SNOMED CT 630283532) 12. Left Inguinal Hernia 13. HLD - Hyperlipidemia (SNOMED CT 19884272) 14. SENSORINEURAL HEARING LOSS, BILATERAL 15. Graves' Disease * 16. Discitis 17. Nephrolithiasis 18. Bruit * 19. Mild chronic obstructive pulmonary disease ( SNOMED CT 398230852) 20. Asthma, miners' ROS: Neurologic-No concerns HEENT-as above Chest-as above GI-No concerns -No concerns Skin-Intact.. Musculoskeletal-No new concerns Speaks easily without audible wheeze or SOB. A/P: AGNIESZKACHRIS is a 75 YO MALEcontacted to day to discuss COPD and S/P lung cancer S/P RUlobectomy and Chemo/XRT for re currence on June,. ROS as above. Continue current medication regimen.Will addd albuterol MDI for wheezing. If he thinks it helps we can think about LABA or LAMA. Given recurrent cadidiasis, will retreat with Ny statin S&S. Stable from a pulmonary standpoint. Will obtain CT scans. SW consult to help with OSH billing issue. RTC 3 mos. Pt has my contact information and is encouraged to call with any questions or concerns. I spent > 45 minutes of this 30 minute visit i n telephone counseling, and/or coordination of care for this . Discussion pertained to the following: (x) Pt interview and assessment [x] Diagnostic test results, impressions and/or recommended management [x] Risk and benefits of treatment options [x] Instructions for treatment and/or f/u [x] Disease risk factor reduction [x] Pt and family education /bennie/ AURORA GONGORA Nurse Practitioner Signed: 06/30/2020 16:24 Receipt Acknowledged By: * AWAITING SIGNATURE * PATRIZIA WEST * AWAITING SIGNATURE * KERMIT SANTAMARIA
--- OUTSIDE RECORDS SUMMARY | 2020-08-08 14:01 | XMS_ITS | Encounter Summary ---
:1945 Author Organization Department [facility] Address [address] [place] [address] Care Team Providers Name Role Phone KERMIT [...] MEDICARE MEDICARE PART Sep 15, PART B [id number] [id number] YADI AARON PATIENT (WNR) (M) B 2012 AY68 1 CHARD MEDICARE MEDICARE PART Feb 15, PART A [id number] [id number] YADI AARON PATIENT (WNR) (M) A 2008 AY68 1 CHARD Selected Encounter This section includes the information on record [place] [facility] for the Encounter. Date/Time Encounter Type Encounter Description Reason Provider Source Jan 18, 2020 03:08 Outpatient Encounter COMMUNITY CARE PM CONSULT IHE [...] appointments. The data comes [facility] all [place] [facility] Appointment Date/Time Appointment Type Appointment Facili ty Name Jan 22, 2020 09:00 AM [facility] Apr 14, 2020 08:00 AM [facility]ONE [facility] Apr 21, 2020 01:45 PM [facility] May 04, 2020 10:45 AM AMBULATORY - NONE [facility] Jun 30, 2020 03:00 PM [facility] Jul 11, 2020 08:00 AM [facility] Advance Directives: All historical and current Section [...] ADVANCE DIRECTIVE SOHAN WOODARD [facility] Encounter Notes: All associated encounter notes This section contains the clinical notes associated to the Encounter. Date/Time Encounter Note(s) Provider Source Jan 18, 2020 03:08 PM NONVA NOTE: KEVIN LOPEZ [facility] LOCAL TITLE: COMMUNITY CARE COORDINATION PLAN STANDARD TITLE: NONVA NOTE DATE OF NOTE: JAN 18, 2020@15:08 ENTRY DATE: JUN 30, 2020@07:47:13 AUTHOR: KEVIN LOPEZ COSIGNER: URGENCY: STATUS: COMPLETED [place] self-presented to community emergency fa cility Emergency Notification Intake Date Presenting to the Facility: Jan [facility] Name: Hospital: [facility] Address: [address] [place] [address] City: [place] State: [place] Zip Code: [address] Chief complaint: Right Eye Blurred Vision Primary Diagnosis: Patient Admitted? No Community Facility Point of Contact: Name: Ana nCrypted Cloud Phone: Notes under 01-22-20 Non [facility] Medical [facility] Notification was completed on: 06-29-20 @ 11:03 Patient Discharged: 01-18-20 Notification ID # [id number] Per notification, there was no 72 hour notificat ion. The bills need to be submitted to the [facility] for consideration under [facility] 1728- Unauthorized EOC or [facility] 1725- Mill Bill Regulation. /es/ KEVIN LOPEZ Signed: 06/30/2020 07:50 Receipt Acknowledged By: * AWAITING SIGNATURE * NAIN GODINEZ * AWAITING SIGNATURE * ALEJANDRO GARZA
--- OUTSIDE RECORDS SUMMARY | 2020-08-08 14:02 | XMS_ITS | Encounter Summary ---
:1945 Author Organization Department [facility] Address [address] [place] [address] Care Team Providers Name Role Phone KERMIT [...] MEDICARE MEDICARE PART Sep 15, PART B [id number] [id number] YADI AARON PATIENT (WNR) (M) B 2012 AY68 1 CHARD MEDICARE MEDICARE PART Feb 15, PART A [id number] [id number] YADI AARON PATIENT (WNR) (M) A 2008 AY68 1 CHARD Selected Encounter This section includes the information on record at [facility] for the Encounter. Date/Time Encounter Type Encounter Description Reason Provider Source Apr 29, 2020 12:00 Outpatient Encounter COMMUNITY CARE AM CONSULT IHE [...] 20 appointments. The data comes from all [place] treatmentfacilities. Appointment Date/Time Appointment Type Appointment Facili ty Name May 04, 2020 10:45 AM AMBULATORY - NONE [facility] Jun 30, 2020 03:00 PM AMBULATORY - MEDICINE [facility] Jul 11, 2020 08:00 AM AMBULATORY - NONE [facility] Oct 19, 2020 10:30 AM AMBULATORY - MEDICINE [facility] Advance Directives: All historical and current Section Date Range: From patient's date of to the date document was created. This section includes ALL of a patient's completed or amended [place] Advance and Rescinded Directives. The entries below indicate that a directive exists for the patient, but an actual copy is not included with this document. The data comes from all [place] facilities. Date Advance Directives Provider Source Aug 30, 2015 ADVANCE DIRECTIVE SOHAN WOODARD [facility] Encounter Notes: All associated encounter notes This section contains the clinical notes associated to the Encounter. Date/Time Encounter Note(s) Provider Source Apr 29, 2020 12:00 AM NONVA CONSULT: REGGIE HARO [facility] LOCAL TITLE: COMMUNITY CARE CONSULT RESULT NOTE STANDARD TITLE: NONVA CONSULT DATE OF NOTE: APR 29, 2020 ENTRY DATE: JUL 15, 2020@11:34:14 AUTHOR: REGGIE HARO EXP COSIGNER: URGENCY: STATUS: COMPLETED Vist[facility] Imaging - Scanned Document COMMUNITY CARE - OPHTH SURGICAL DATE OF SERVICE: 04/29/20 CATARACT RIGHT LOCATION OF SERVICE: [facility] /bennie/ REGGIE HARO Signed: 07/15/2020 11:34
[2020-08-08] MEDS: Normal Saline Flush 10 ML SYR IVP (14:18)
[2020-08-08 14:35] LABS: Abs Immature Grans 0.02 10^3/uL (0.0-0.06); Absolute Basophil Count 0.04 10^3/uL (0.0-0.2); Absolute Eosinophil Count 0.25 10^3/uL (0.0-0.7); Absolute Lymphocyte Count 1.17 10^3/uL (1.2-3.4); Absolute Monocyte Count 0.74 10^3/uL (0.1-0.8); Absolute Neutrophil Count 3.89 10^3/uL (1.2-6.7); Basophils % 0.7; Eosinophils % 4.1; HGB 14.9 g/dL (13.5-17.5); Immature Grans % 0.3; Lymphocytes % 19.1; MCH 30.4 pg (27.0-33.0); MCHC 33.9 % (32.0-36.0); MCV 89.8 fL (80-95); MPV 10.8 fL (8.0-11.0); Monocytes % 12.1; Neutrophils % 63.7; Nucleated RBC 0 %; Platelet Count 175 10^3/uL (130-400); RDW 13.2 % (11.8-14.1); RDW-SD 43.3 fL; WBC 6.11 10^3/uL (4.4-10.8)
[2020-08-08 15:00] LABS: ALT 23 U/L (16-63); AST 20 U/L (15-37); Albumin 3.8 g/dL (3.4-5.0); Alkaline Phosphatase 112 U/L (46-116); Anion Gap 8.8 mmol/L (3-11); BUN 22 mg/dL (7-18); Bilirubin, Total 0.4 mg/dL (0.2-1.0); CO2 28.2 mmol/L (21.0-32.0); Chloride 108 mmol/L (98-107); FREE T4 1.26 ng/dL (0.76-1.46); Glucose 119 mg/dL (74-106); Magnesium 1.9 mg/dL (1.8-2.4); Potassium 4.1 mmol/L (3.5-5.1); Sodium 145 mmol/L (136-145); TSH 0.35 uIU/mL (0.36-3.74); Total Protein 7.5 g/dL (6.4-8.2)
== END 2020-08-15 23:59 | disposition home or self-care (01) ==
LOC: INF 13:36
PROVIDERS: PCP Nurse Practitioner Primary Care; Visit Provider Internal Medicine Medical Oncology
DX: C77.1 Secondary and unspecified malignant neoplasm of intrathoracic lymph nodes (principal); Z45.2 Encounter for adjustment and management of vascular access device; C34.91 Malignant neoplasm of unspecified part of right bronchus or lung
CPT/HCPCS: 36415; 80053; 83735; 84439; 84443; 85025

== ENCOUNTER 2020-09-05 02:21 | Outpatient (RCR) | payer OTHER, SELFPAY ==
[2020-09-05] MEDS: Normal Saline Flush 10 ML SYR IVP (12:43)
[2020-09-05 12:49] LABS: Abs Immature Grans 0.02 10^3/uL (0.0-0.06); Absolute Basophil Count 0.03 10^3/uL (0.0-0.2); Absolute Eosinophil Count 0.14 10^3/uL (0.0-0.7); Absolute Lymphocyte Count 1.12 10^3/uL (1.2-3.4); Absolute Monocyte Count 0.98 10^3/uL (0.1-0.8); Absolute Neutrophil Count 5.58 10^3/uL (1.2-6.7); Basophils % 0.4; Eosinophils % 1.8; HGB 14.1 g/dL (13.5-17.5); Immature Grans % 0.3; Lymphocytes % 14.2; MCH 30.1 pg (27.0-33.0); MCHC 33.6 % (32.0-36.0); MCV 89.7 fL (80-95); MPV 10.4 fL (8.0-11.0); Monocytes % 12.5; Neutrophils % 70.8; Nucleated RBC 0 %; Platelet Count 178 10^3/uL (130-400); RBC 4.68 10^6/uL (4.36-5.78); RDW 13.5 % (11.8-14.1); RDW-SD 44.1 fL; WBC 7.87 10^3/uL (4.4-10.8)
== END 2020-09-14 23:59 | disposition home or self-care (01) ==
LOC: INF 02:21
PROVIDERS: PCP Nurse Practitioner Primary Care; Visit Provider Internal Medicine Medical Oncology
DX: C77.1 Secondary and unspecified malignant neoplasm of intrathoracic lymph nodes (principal); Z45.2 Encounter for adjustment and management of vascular access device; C34.91 Malignant neoplasm of unspecified part of right bronchus or lung
CPT/HCPCS: 36415; 80053; 84439; 84443; 85025

== ENCOUNTER 2020-09-05 03:19 | Outpatient (CLI) | payer OTHER, SELFPAY ==
[2020-09-05 14:35] LABS: ALT 23 U/L (16-63); AST 20 U/L (15-37); Albumin 3.4 g/dL (3.4-5.0); Alkaline Phosphatase 97 U/L (46-116); Anion Gap 9.3 mmol/L (3-11); BUN 22 mg/dL (7-18); Bilirubin, Total 0.6 mg/dL (0.2-1.0); CO2 25.7 mmol/L (21.0-32.0); Calcium 8.9 mg/dL (8.5-10.1); Chloride 109 mmol/L (98-107); FREE T4 1.22 ng/dL (0.76-1.46); Glucose 130 mg/dL (74-106); Magnesium 1.9 mg/dL (1.8-2.4); Potassium 4.7 mmol/L (3.5-5.1); Sodium 144 mmol/L (136-145); TSH 0.47 uIU/mL (0.36-3.74); Total Protein 6.4 g/dL (6.4-8.2)
== END 2020-09-05 03:20 | disposition home or self-care (01) ==
LOC: LBO 03:19
PROVIDERS: PCP Nurse Practitioner Primary Care; Visit Provider Internal Medicine Medical Oncology
DX: C77.1 Secondary and unspecified malignant neoplasm of intrathoracic lymph nodes (principal); C34.91 Malignant neoplasm of unspecified part of right bronchus or lung; E03.9 Hypothyroidism, unspecified
CPT/HCPCS: 36415; 80053; 83735; 84439; 84443

== ENCOUNTER 2020-10-03 01:41 | Outpatient (CLI) | payer OTHER, SELFPAY ==
--- NOTE | 2020-10-03 | DI.CT_ITS ---
Exam(s) CT CHEST W EXAM: CT CHEST W CLINICAL HISTORY: F/U 3,C77.1,RT LUNG CA,C34.91,S/P THERAPY,METASTATIC CA,C77.1. TECHNIQUE: Multi planar reconstructions were performed. CONTRAST MATERIAL: Omnipaque 350; 70 cc COMPARISON: CT CT CHEST W from 01/27/2020 FINDINGS: CHEST: LUNGS: There has been right upper lobectomy. The size of the right para median infiltrate is decreas ed and therefore was probably related to radiation change. Still small area of infiltrate noted. Mu cus is noted on dependent wall of the right mainstem bronchus. There is now an 8 by 7 millimeter nodule contiguous with the anterior aspect of the major fissure on the right, not previously present. Some scarring in the anterior right lung base is unchanged. In the opposite left lung there are no new significant focal findings. No pleural effusion. MEDIASTINUM: There is no new hilar nor mediastinal adenopathy evident. Visualized thyroid unremarkab le. CARDIAC: Heart size is normal. There is no pericardial effusion.Caliber of the thoracic aorta is wit hin normal limits. Coronary artery calcification noted. VISUALIZED UPPER ABDOMEN:There are no significant adrenal masses. There is 3 centimetres cyst in the right kidney noted and higher up there is a smaller cyst in the right kidney measuring 11 millimeter s. Also a nonobstructive 5 millimeter calculus in the right kidney. Cyst is again noted in the post erior cortex of the left kidney measuring 1 cm OSSEOUS: No significant osseous lesions.Anterior fusion plate lower cervical spine noted.. IMPRESSION: 1. Compared to the chest CT scan of January 2020 there is again noted evidence of right upper lobect luis and the size of the right paramedian infiltrate has decreased and therefore is most probably rela elizabeth to post radiation changes. There is still a small amount of right paramedian infiltrate noted. Next number there is now an 8 x 7 millimeter nodule in the right lung contiguous with the anterior as pect of major fissure, this nodule not previously evident and therefore acquiring phos 5 close follow -up to rule out metastatic nodule or additional primary neoplasm. 2. There is no new hilar nor mediastinal adenopathy. 3. New left lung findings. RADIATION DOSE DELIVERED: 454.62mGy.cm Total DLP DATA REPOSITORY: All CT scans at this facility are submitted to the National Radiology Data Registry (NRDR) Dose Index Registry (DIR) with the [employer] (ACR). RADIATION OPTIMIZATION: All CT scans at this facility use at least one of these dose optimization te chniques: automated exposure control; mA and/or kV adjustment per patient size (includes targeted exa ms where dose is matched to clinical indication); or iterative reconstruction.
[2020-10-03] MEDS: Omnipaque 350 MG/ML 100 ML BTL IV (14:11)
[2020-10-03] MEDS: Normal Saline - Diluent 50 ML VIAL IV (14:12)
== END 2020-10-03 02:01 ==
PROVIDERS: PCP Nurse Practitioner Primary Care; Visit Provider Nurse Practitioner Adult Health
DX: C77.1 Secondary and unspecified malignant neoplasm of intrathoracic lymph nodes (principal); C34.91 Malignant neoplasm of unspecified part of right bronchus or lung; R91.8 Other nonspecific abnormal finding of lung field; R91.1 Solitary pulmonary nodule; Z90.2 Acquired absence of lung [part of]
CPT/HCPCS: 71260; J3490

== ENCOUNTER 2021-01-05 01:56 | Outpatient (CLI) | payer OTHER, MEDICARE, SELFPAY ==
--- NOTE | 2021-01-05 | DI.CT_ITS ---
Exam(s) CT CHEST W EXAM: CT CHEST W CLINICAL HISTORY: RT LUNG CA,C34.91,S/P IMMUNOTHERAPY,[id number],COMPARE TO 09/2020 CT. TECHNIQUE: Multi planar reconstructions were performed. CONTRAST MATERIAL: Omnipaque 350; 70 cc COMPARISON: CT CHEST WITH CONTRAST from 06/12/[address] CHEST W from 01/27/[address] CHEST W from 10/03/2020 FINDINGS: CHEST: LUNGS: Again noted is evidence of previous right upper lobectomy. The size of the right paramedian i nfiltrate is stable. The previously described 8 x 7 millimeter nodule contiguous with the anterior a spect of the major fissure on the right side has slightly increased in size, measuring 9 x 8 millimet ers on the present study there are no new additional nodular infiltrates in the right lung field. Mi ld increased markings in the anterior right lung base are unchanged. No pleural effusion. There are no new significant findings in the opposite-left lung. No pleural effusion. MEDIASTINUM: Right hilum appears unchanged. No new adenopathy. Left hilum also unchanged with no ne w adenopathy. There is no new subcarinal adenopathy. There is no new adenopathy in the anterior med iastinal fat.There is no significant axillary adenopathy. There is no supraclavicular adenopathy. CARDIAC: Heart size is normal. There is no pericardial effusion.Caliber of the thoracic aorta is wit hin normal limits. VISUALIZED UPPER ABDOMEN:There are no significant adrenal masses. Cyst in the liver again noted. Al so cortical cyst in the posterior aspect of both kidneys again noted. Parapelvic cysts in left kidne y again noted. OSSEOUS: Fusion plate in the lower cervical spine again noted. There is a small sclerotic non expansile lesion on lateral aspect of the left 5th rib, unchanged from prior CT scans of May 2017, January 2020, and September 2020. No other osseous findings. No lytic os seous lesions. No compression fractures.. IMPRESSION: 1. Relatively stable appearance right lung the exception that the small fissure based nodule infiltra te appears to have minimally increased in size by approximately 1 millimeter in each dimension. It p resently measures 9 x 8 millimeters. No other pulmonary findings nor pleural effusions nor new intra thoracic adenopathy. 2. Stable nonexpansile sclerotic density in the lateral aspect of the left 5th rib, unchanged from pr ior CT scans dating back to at least May 2017. There are no new osseous lesions evident. RADIATION DOSE DELIVERED: 388.84mGy.cm Total DLP DATA REPOSITORY: All CT scans at this facility are submitted to the National Radiology Data Registry (NRDR) Dose Index Registry (DIR) with the [employer] (ACR). RADIATION OPTIMIZATION: All CT scans at this facility use at least one of these dose optimization te chniques: automated exposure control; mA and/or kV adjustment per patient size (includes targeted exa ms where dose is matched to clinical indication); or iterative reconstruction.
[2021-01-05 12:23] LABS: Abs Immature Grans 0.03 10^3/uL (0.0-0.06); Absolute Basophil Count 0.06 10^3/uL (0.0-0.2); Absolute Eosinophil Count 0.24 10^3/uL (0.0-0.7); Absolute Lymphocyte Count 1.28 10^3/uL (1.2-3.4); Absolute Monocyte Count 0.87 10^3/uL (0.1-0.8); Absolute Neutrophil Count 4.21 10^3/uL (1.2-6.7); Basophils % 0.9; Eosinophils % 3.6; HCT 43.6 % (40.0-50.0); HGB 14.4 g/dL (13.5-17.5); Immature Grans % 0.4; Lymphocytes % 19.1; MCH 30.4 pg (27.0-33.0); MPV 10.2 fL (8.0-11.0); Nucleated RBC 0 %; Platelet Count 182 10^3/uL (130-400); RBC 4.74 10^6/uL (4.36-5.78); RDW 13.2 % (11.8-14.1); RDW-SD 44.8 fL; WBC 6.69 10^3/uL (4.4-10.8)
[2021-01-05 12:36] LABS: ALT 19 U/L (16-63); AST 15 U/L (15-37); Albumin 3.6 g/dL (3.4-5.0); Alkaline Phosphatase 91 U/L (46-116); Anion Gap 5.3 mmol/L (3-11); BUN 25 mg/dL (7-18); Bilirubin, Total 0.5 mg/dL (0.2-1.0); CO2 31.7 mmol/L (21.0-32.0); CREATININE 1.1 mg/dL (0.70-1.30); Chloride 105 mmol/L (98-107); Glucose 91 mg/dL (74-106); Magnesium 1.9 mg/dL (1.8-2.4); Sodium 142 mmol/L (136-145)
[2021-01-05] MEDS: Omnipaque 350 MG/ML 100 ML BTL 70 ML IJ (13:05)
[2021-01-05] MEDS: Normal Saline - Diluent 50 ML VIAL IV (13:09)
== END 2021-01-05 02:16 ==
PROVIDERS: Internal Medicine Medical Oncology; PCP Nurse Practitioner Primary Care; Visit Provider Nurse Practitioner Adult Health
DX: C34.91 Malignant neoplasm of unspecified part of right bronchus or lung (principal); C77.1 Secondary and unspecified malignant neoplasm of intrathoracic lymph nodes; R91.1 Solitary pulmonary nodule; Z90.2 Acquired absence of lung [part of]
CPT/HCPCS: 80053; 71260; 83735; 85025; J3490

== ENCOUNTER 2021-04-20 01:45 | Outpatient (CLI) | payer OTHER, SELFPAY ==
[2021-04-20 13:28] LABS: Abs Immature Grans 0.04 10^3/uL (0.0-0.06); Absolute Basophil Count 0.05 10^3/uL (0.0-0.2); Absolute Eosinophil Count 0.17 10^3/uL (0.0-0.7); Absolute Lymphocyte Count 1.31 10^3/uL (1.2-3.4); Absolute Neutrophil Count 5.08 10^3/uL (1.2-6.7); Basophils % 0.7; Eosinophils % 2.3; HCT 44.5 % (40.0-50.0); HGB 14.4 g/dL (13.5-17.5); Immature Grans % 0.5; Lymphocytes % 17.6; MCH 29.9 pg (27.0-33.0); MCHC 32.4 % (32.0-36.0); MCV 92.5 fL (80-95); MPV 10.2 fL (8.0-11.0); Monocytes % 10.7; Neutrophils % 68.2; Nucleated RBC 0 %; Platelet Count 176 10^3/uL (130-400); RBC 4.81 10^6/uL (4.36-5.78); RDW 13.5 % (11.8-14.1); RDW-SD 46.1 fL; WBC 7.45 10^3/uL (4.4-10.8)
[2021-04-20 13:48] LABS: ALT 33 U/L (16-63); AST 19 U/L (15-37); Albumin 3.7 g/dL (3.4-5.0); Alkaline Phosphatase 103 U/L (46-116); Anion Gap 9.7 mmol/L (3-11); BUN 22 mg/dL (7-18); Bilirubin, Total 0.6 mg/dL (0.2-1.0); CO2 29.3 mmol/L (21.0-32.0); Calcium 9.2 mg/dL (8.5-10.1); Chloride 106 mmol/L (98-107); Glucose 82 mg/dL (74-106); Magnesium 1.8 mg/dL (1.8-2.4); Potassium 3.7 mmol/L (3.5-5.1); Sodium 145 mmol/L (136-145); Total Protein 7.4 g/dL (6.4-8.2)
--- NOTE | 2021-04-20 14:00 | DI.CT_ITS ---
Exam(s) CT CHEST W EXAM: CT CHEST W CLINICAL HISTORY: RT LUNG CA, C34.91,S/P IMMUNOTHERAPY,COMPARE TO 10/05 AND 01/05,[id number] TECHNIQUE: CT examination of the chest was performed with intravenous infusion of 70 cc of Omnipaque 350. COMPARISON: CT CT CHEST W from 10/03/[address] CHEST W from 01/05/2021 FINDINGS: Examination is compared with prior examination of December 2020. The prior left upper lobectomy is ag ain noted. No gross interval change in appearance of right hilum with no discrete new adenopathy. N o new mediastinal adenopathy.. There is no evidence of pleural effusion. There are multiple pulmonary nodules, as noted on prior examination. A right upper lobe nodule now m easures about 16 x 7 millimeters in diameter, as compared to about 13 x 6 millimeters on the prior ex amination. A pleural-based nodule seen anteriorly on the right now measures about 6 millimeters in d iameter as compared to about 2-3 millimeters in diameter on prior examination. A perihilar left uppe r lobe nodule now measures about 7 millimeters in diameter as compared to about 5 millimeters on prio r examination. No additional new pulmonary nodule seen. A presumed left lobe hepatic cyst is again noted. No new hepatic lesion. No splenic lesion identifi ed. Pancreas appears intact. Adrenals and kidneys are unremarkable except for incidental bilateral renal cysts. No new bony lesion seen. IMPRESSION: Interval increase in size of multiple intrapulmonary nodules, presumably metastatic, in comparison wi th prior examination of January 05. No other significant change. RADIATION DOSE DELIVERED: 397.49mGy.cm Total DLP 397.49mGy.cm Total DLP CTDIvol
[2021-04-20] MEDS: Omnipaque 350 MG/ML 100 ML BTL IJ (14:13)
== END 2021-04-20 02:05 ==
PROVIDERS: Internal Medicine Medical Oncology; PCP Nurse Practitioner Primary Care; Visit Provider Nurse Practitioner Adult Health
DX: C34.91 Malignant neoplasm of unspecified part of right bronchus or lung (principal); Z90.2 Acquired absence of lung [part of]; R91.8 Other nonspecific abnormal finding of lung field; C77.1 Secondary and unspecified malignant neoplasm of intrathoracic lymph nodes
CPT/HCPCS: 80053; 71260; 83735; 85025; J3490

== ENCOUNTER 2021-08-07 11:25 | Outpatient (RCR) | payer OTHER, MEDICARE, SELFPAY ==
[2021-08-07 11:48] LABS: Abs Immature Grans 0.03 10^3/uL (0.0-0.06); Absolute Basophil Count 0.05 10^3/uL (0.0-0.2); Absolute Eosinophil Count 0.17 10^3/uL (0.0-0.7); Absolute Neutrophil Count 6.43 10^3/uL (1.2-6.7); Basophils % 0.6; Eosinophils % 1.9; HCT 45.5 % (40.0-50.0); HGB 14.7 g/dL (13.5-17.5); Immature Grans % 0.3; Lymphocytes % 15.4; MCH 29.9 pg (27.0-33.0); MCHC 32.3 % (32.0-36.0); MCV 93 fL (80-95); MPV 10.6 fL (8.0-11.0); Neutrophils % 70.8; Platelet Count 172 10^3/uL (130-400); RBC 4.92 10^6/uL (4.36-5.78); RDW 13.6 % (11.8-14.1); RDW-SD 46.3 fL; WBC 9.08 10^3/uL (4.4-10.8)
[2021-08-07 12:11] LABS: ALT 28 U/L (16-63); AST 22 U/L (15-37); Albumin 3.6 g/dL (3.4-5.0); Alkaline Phosphatase 85 U/L (46-116); Anion Gap 6.8 mmol/L (3-11); BUN 23 mg/dL (7-18); Bilirubin, Total 0.7 mg/dL (0.2-1.0); CO2 28.2 mmol/L (21.0-32.0); CREATININE 0.9 mg/dL (0.70-1.30); Calcium 8.9 mg/dL (8.5-10.1); Chloride 107 mmol/L (98-107); FREE T4 1.28 ng/dL (0.76-1.46); Glucose 103 mg/dL (74-106); Potassium 4.1 mmol/L (3.5-5.1); Sodium 142 mmol/L (136-145); TSH 0.53 uIU/mL (0.36-3.74)
== END 2021-08-15 23:59 | disposition home or self-care (01) ==
LOC: INF 11:25
PROVIDERS: PCP Nurse Practitioner Primary Care; Visit Provider Internal Medicine Medical Oncology
DX: C34.91 Malignant neoplasm of unspecified part of right bronchus or lung (principal)
CPT/HCPCS: 36415; 80053; 84439; 84443; 85025

== ENCOUNTER 2021-08-28 03:05 | Outpatient (RCR) | payer MEDICARE, SELFPAY ==
[2021-08-28 09:36] LABS: Abs Immature Grans 0.05 10^3/uL (0.0-0.06); Absolute Basophil Count 0.03 10^3/uL (0.0-0.2); Absolute Eosinophil Count 0.05 10^3/uL (0.0-0.7); Absolute Lymphocyte Count 1.15 10^3/uL (1.2-3.4); Absolute Monocyte Count 0.93 10^3/uL (0.1-0.8); Absolute Neutrophil Count 2.83 10^3/uL (1.2-6.7); Basophils % 0.6; HCT 38.9 % (40.0-50.0); Lymphocytes % 22.8; MCH 30.6 pg (27.0-33.0); MCHC 33.4 % (32.0-36.0); MCV 92 fL (80-95); MPV 9.9 fL (8.0-11.0); Monocytes % 18.5; Neutrophils % 56.1; Platelet Count 253 10^3/uL (130-400); RBC 4.25 10^6/uL (4.36-5.78); RDW 14.3 % (11.8-14.1); RDW-SD 45.8 fL; WBC 5.04 10^3/uL (4.4-10.8)
[2021-08-28 10:12] LABS: ALT 35 U/L (16-63); AST 25 U/L (15-37); Albumin 3.4 g/dL (3.4-5.0); Alkaline Phosphatase 103 U/L (46-116); Anion Gap 6.2 mmol/L (3-11); BUN 19 mg/dL (7-18); Bilirubin, Total 0.5 mg/dL (0.2-1.0); CO2 26.8 mmol/L (21.0-32.0); CREATININE 0.9 mg/dL (0.70-1.30); Calcium 9.1 mg/dL (8.5-10.1); Chloride 106 mmol/L (98-107); FREE T4 1.07 ng/dL (0.76-1.46); Glucose 103 mg/dL (74-106); Sodium 139 mmol/L (136-145); TSH 2.18 uIU/mL (0.36-3.74); Total Protein 6.6 g/dL (6.4-8.2)
== END 2021-09-14 23:59 | disposition home or self-care (01) ==
LOC: INF 03:05
PROVIDERS: PCP Nurse Practitioner Primary Care; Visit Provider Internal Medicine Medical Oncology
DX: C34.91 Malignant neoplasm of unspecified part of right bronchus or lung (principal)
CPT/HCPCS: 36415; 80053; 84439; 84443; 85025

== ENCOUNTER 2021-09-25 02:42 | Outpatient (RCR) | payer MEDICARE, SELFPAY ==
[2021-09-25 08:17] LABS: Abs Immature Grans 0.07 10^3/uL (0.0-0.06); Absolute Basophil Count 0.07 10^3/uL (0.0-0.2); Absolute Eosinophil Count 0.04 10^3/uL (0.0-0.7); Absolute Monocyte Count 1.02 10^3/uL (0.1-0.8); Absolute Neutrophil Count 4.31 10^3/uL (1.2-6.7); Basophils % 1.1; Eosinophils % 0.6; HCT 38.3 % (40.0-50.0); HGB 12.6 g/dL (13.5-17.5); Immature Grans % 1.1; Lymphocytes % 15.4; MCH 31.1 pg (27.0-33.0); MCHC 32.9 % (32.0-36.0); MCV 95 fL (80-95); Monocytes % 15.7; Neutrophils % 66.1; Platelet Count 208 10^3/uL (130-400); RBC 4.05 10^6/uL (4.36-5.78); RDW 16.5 % (11.8-14.1); RDW-SD 56.7 fL; WBC 6.51 10^3/uL (4.4-10.8)
[2021-09-25 08:45] LABS: ALT 30 U/L (16-63); AST 26 U/L (15-37); Albumin 3.4 g/dL (3.4-5.0); Alkaline Phosphatase 104 U/L (46-116); Anion Gap 7.3 mmol/L (3-11); BUN 18 mg/dL (7-18); Bilirubin, Total 0.5 mg/dL (0.2-1.0); CO2 28.7 mmol/L (21.0-32.0); Calcium 9.4 mg/dL (8.5-10.1); Chloride 106 mmol/L (98-107); FREE T4 1.22 ng/dL (0.76-1.46); Glucose 96 mg/dL (74-106); Magnesium 1.7 mg/dL (1.8-2.4); Potassium 3.6 mmol/L (3.5-5.1); Sodium 142 mmol/L (136-145); TSH 2.68 uIU/mL (0.36-3.74); Total Protein 6.8 g/dL (6.4-8.2)
== END 2021-10-15 23:59 | disposition home or self-care (01) ==
LOC: INF 02:42
PROVIDERS: PCP Nurse Practitioner Primary Care; Visit Provider Internal Medicine Medical Oncology
DX: C34.91 Malignant neoplasm of unspecified part of right bronchus or lung (principal)
CPT/HCPCS: 36415; 80053; 83735; 84439; 84443; 85025

== ENCOUNTER → 2021-11-01 01:18 | Outpatient (CLI) | payer OTHER, SELFPAY ==
[2021-11-01] MEDS: Omnipaque 350 MG/ML 100 ML BTL IJ (13:08)
[2021-11-01] MEDS: Normal Saline Flush 10 ML SYR IVP (13:09)
--- NOTE | 2021-11-01 13:15 | DI.CT_ITS ---
Exam(s) CT CHEST W EXAM: CT CHEST W CLINICAL HISTORY: RT LUNG CANCER C34.91 METS TO LYMPH NODE C77.1 TECHNIQUE: CT examination of the chest was performed with intravenous infusion of 100 cc of Omnipaqu e 350. COMPARISON: CT CT CHEST W from 04/20/2021 FINDINGS: Prior right upper lobectomy again noted. Examination is compared with prior examination of April 20, 2021, multiple pulmonary nodules were identified on the prior examination. These all appear uncha nged including the largest nodule which was a Zarina fissural 16 millimeter nodule on the right, except for a previously noted right anteriorly located pulmonary nodule which now measures 10 x 7 millimete rs in diameter as compared to about 6 x 5 millimeters in diameter on prior study period mild prominen ce of superior mediastinal lymph nodes again noted unchanged. No new adenopathy in the layla or media stinum period previously noted left lobe hepatic cysts again seen, unchanged. Previously noted bilat eral renal cysts also again seen. Spleen is unremarkable in appearance as is the pancreas.. There i s no evidence of pleural effusion. There is no evidence of pulmonary embolic disease. There is unremarkable appearance of the thoracic aorta and major branches with no evidence of aneurysm or dissection. No axillary or supraclavicular adenopathy. No abnormality seen involving the bony thorax. IMPRESSION: Examination of the chest is stable in a patient with history of right upper lobectomy for lung carcin olaf, with the exception of increased size of a pleural-based anterior right lung intrapulmonary nodul e since the prior examination of April 20.. RADIATION DOSE DELIVERED: 353.73mGy.cm Total DLP 353.73mGy.cm Total DLP !Error CTDIvol DATA REPOSITORY: All CT scans at this facility are submitted to the National Radiology Data Registry (NRDR) Dose Index Registry (DIR) with the [employer] (ACR). RADIATION OPTIMIZATION: All CT scans at this facility use at least one of these dose optimization te chniques: automated exposure control; mA and/or kV adjustment per patient size (includes targeted exa ms where dose is matched to clinical indication); or iterative reconstruction.
== END ==
PROVIDERS: PCP Nurse Practitioner Primary Care; Visit Provider Internal Medicine Medical Oncology
DX: C34.91 Malignant neoplasm of unspecified part of right bronchus or lung (principal); C77.1 Secondary and unspecified malignant neoplasm of intrathoracic lymph nodes
CPT/HCPCS: 71260; J3490

== ENCOUNTER 2021-11-06 03:22 | Outpatient (RCR) | payer OTHER, SELFPAY ==
[2021-10-16 08:31] LABS: Abs Immature Grans 0.03 10^3/uL (0.0-0.06); Absolute Basophil Count 0.02 10^3/uL (0.0-0.2); Absolute Eosinophil Count 0.06 10^3/uL (0.0-0.7); Absolute Lymphocyte Count 0.99 10^3/uL (1.2-3.4); Absolute Monocyte Count 0.88 10^3/uL (0.1-0.8); Absolute Neutrophil Count 1.87 10^3/uL (1.2-6.7); Basophils % 0.5; Eosinophils % 1.6; HCT 36.9 % (40.0-50.0); HGB 12.5 g/dL (13.5-17.5); Immature Grans % 0.8; Lymphocytes % 25.7; MCH 32.6 pg (27.0-33.0); MCHC 33.9 % (32.0-36.0); MCV 96 fL (80-95); MPV 9.9 fL (8.0-11.0); Monocytes % 22.9; Neutrophils % 48.5; Platelet Count 203 10^3/uL (130-400); RBC 3.83 10^6/uL (4.36-5.78); RDW 18.1 % (11.8-14.1); WBC 3.85 10^3/uL (4.4-10.8)
[2021-10-16 09:01] LABS: ALT 32 U/L (16-63); AST 30 U/L (15-37); Albumin 3.6 g/dL (3.4-5.0); Alkaline Phosphatase 101 U/L (46-116); Anion Gap 5.6 mmol/L (3-11); BUN 20 mg/dL (7-18); Bilirubin, Total 0.5 mg/dL (0.2-1.0); CO2 28.4 mmol/L (21.0-32.0); CREATININE 0.9 mg/dL (0.70-1.30); Chloride 105 mmol/L (98-107); FREE T4 1.22 ng/dL (0.76-1.46); Glucose 108 mg/dL (74-106); Magnesium 1.6 mg/dL (1.8-2.4); Potassium 3.4 mmol/L (3.5-5.1); Sodium 139 mmol/L (136-145); Total Protein 6.9 g/dL (6.4-8.2)
[2021-11-06 08:39] LABS: Abs Immature Grans 0.02 10^3/uL (0.0-0.06); Absolute Basophil Count 0.04 10^3/uL (0.0-0.2); Absolute Eosinophil Count 0.18 10^3/uL (0.0-0.7); Absolute Neutrophil Count 2.09 10^3/uL (1.2-6.7); Basophils % 0.9; Eosinophils % 4.2; HCT 31.7 % (40.0-50.0); HGB 10.3 g/dL (13.5-17.5); Immature Grans % 0.5; Lymphocytes % 25.4; MCH 32.6 pg (27.0-33.0); MCHC 32.5 % (32.0-36.0); MCV 100 fL (80-95); MPV 10.1 fL (8.0-11.0); Monocytes % 20.8; Neutrophils % 48.2; Platelet Count 166 10^3/uL (130-400); RBC 3.16 10^6/uL (4.36-5.78); RDW 17.8 % (11.8-14.1); RDW-SD 65.7 fL; WBC 4.33 10^3/uL (4.4-10.8)
[2021-11-06 09:04] LABS: ALT 25 U/L (16-63); AST 21 U/L (15-37); Albumin 3.3 g/dL (3.4-5.0); Alkaline Phosphatase 95 U/L (46-116); Anion Gap 6.4 mmol/L (3-11); BUN 21 mg/dL (7-18); Bilirubin, Total 0.3 mg/dL (0.2-1.0); CO2 29.6 mmol/L (21.0-32.0); Calcium 9.1 mg/dL (8.5-10.1); Chloride 107 mmol/L (98-107); FREE T4 1.18 ng/dL (0.76-1.46); Glucose 119 mg/dL (74-106); Magnesium 1.5 mg/dL (1.8-2.4); Potassium 3.9 mmol/L (3.5-5.1); Sodium 143 mmol/L (136-145); TSH 2.46 uIU/mL (0.36-3.74); Total Protein 6.9 g/dL (6.4-8.2)
== END 2021-11-15 23:59 | disposition home or self-care (01) ==
LOC: INF 03:22
PROVIDERS: PCP Nurse Practitioner Primary Care; Visit Provider Internal Medicine Medical Oncology
DX: C34.91 Malignant neoplasm of unspecified part of right bronchus or lung (principal)
CPT/HCPCS: 36415; 80053; 83735; 84439; 84443; 85025

== ENCOUNTER 2021-11-07 02:53 | Outpatient (CLI) | payer OTHER, SELFPAY ==
[2021-11-07 11:46] LABS: Source Nasal/Nares
[2021-11-07 15:41] LABS: COVID-19 PCR Negative (Negative)
== END 2021-11-07 02:54 | disposition home or self-care (01) ==
LOC: LBO 02:54
PROVIDERS: Family Medicine; PCP Nurse Practitioner Primary Care; Visit Provider Speech-Language Pathologist
DX: Z20.822 Contact with and (suspected) exposure to COVID-19 (principal)
CPT/HCPCS: 87635

== ENCOUNTER → 2021-11-08 01:50 | Outpatient (CLI) | payer OTHER, SELFPAY ==
--- NOTE | 2021-11-08 09:07 | ST.MBS_ITS ---
Date of Service Date of service: 11/08/21 Time of Service: 14:30 Modified Barium Swallow Study Findings: ? Videofluoroscopic Swallowing Evaluation (VFSE) / Modified Barium Swallow Study (MBSS) Speech Language Pathology Report HPI: Patient referred from Raj Goetz (staff Physician), Dr. Tennille Snider at the [facility] for clinical swallow evaluation and VFSE/MBSS given patient report of difficulties with swallowing, prior work with [facility] and [facility] for services closer to home/drive time. ? Pt is a 76 year old male referred for clinical swallow evaluation; patient initially reports he lost his voice about two months ago which is new since working with previous [facility]. ? PMHx: posterior subcapsular age-related cataract of left eye nuclear scerotic cataract of eye cortical cataract of left eye hyperlipidemia thyroid disease acute UTI sepsis lung mass combined form of age-related cataract, right eye s/p lobectomy of right lung (?2001) Surgical History combined form of age-related cataract, right eye s/p lobectomy of right lung (?2001) ? Social History/Home Situation: Pt lives with spouse in [place], [place]. Previous Imagin05/2021 via [facility] (see chart for full details) Predisposing dysphagia risk factors: s/p lung mass/lobectomy, acute UTI, sepsis ? Cranial nerve exam / Oral Motor significant for R sided labial weakness and xerostomia, reported new onset reduced laryngeal function as evidenced by breathy vocal quality, reduced volume. SUBJECTIVE: Patient reports he feels like he is swallowing fine, but continues to navigate thick phlegm, xerostomia. Otherwise reports lack of globus with solid trials this date despite visualized residue. (see images) IMPRESSIONS: Swallow safety is preserved; swallow efficiency is impaired. Mild-moderate glcjw-ye-taadbeg oropharyngeal dysphagia, characterized by physiologic deficits as outlined below, and resulting in flash penetration with larger volumes of thin liquids, moderate residue with more viscous consistencies and solids within both valleculae (b/l) and pyriform sinuses (L > R); suspect dysphagia presentation due to CVA sequaela, changes in respiratory function in context of current chemotherapy regimen to address lung mass/lobectomy of lung, and hx of GERD. Patient currently denies difficulties with his voice, feels it has gotten better; will reassess need for ENT consult at [facility] with [facility], otherwise agree with GI consult which appears to be scheduled at this time. Patient appears to be at low risk for potential aspiration PNA and/or pulmonary compromise and low-moderate risk for malnutrition, low-moderate risk for dehydration. Diet modification is not indicated; non-oral nutrition is not indicated. Swallow prognosis is good given age (+), active participation in outlined therapies (+), intact cognition (+), and pending patient/caregiver training in risk management as outlined, including use of trialed compensatory strategies as outlined above. Patient appears to be a good candidate for behavioral swallow rehabilitation.? Specialist referrals:?GI (patient reports he has EGD scheduled soon)? Ancillary tests: EGD in context of previously documented Galaviz's Esophagus / Monitoring for changes Diet texture recommendation:? IDDSI Level [x] 7-Regular Solids [x] 0-Thin Liquids Please see further details at?[email or web address] Diet texture modification is per patient's preference; please adjust diet textures at patient's discretion & collaboration with care team. Risk Management:? [x] Behavioral reflux precautions, including upright position during + 90 mins after meals. [x] Reduced volume/Small sips, approx 15 mL [x] Alternate solids/liquids as able [x] Multiple swallows per bolus to encourage clearance of pharyngeal stasis/residue Control risk factors for aspiration pneumonia via (a) thorough oral hygiene & (b) maintaining physical mobility as tolerated PLAN: Therapy: Recommend subsequent outpatient session with [facility] to review results of today's exam and develop treatment plan as appropriate. May consider the following: - Direct training in use of [id number] device with [facility] for RMST program Goal: TBD pending patient/caregiver interview Follow-up exam: N/A Thank you for allowing me to take part in this patient's care. Please feel free to contact me with any questions/concerns. Dorothy Baca MA [facility] Speech Language Pathologist [phone] OBJECTIVE: Videofluoroscopic Swallow Evaluation (VFSE/MBSS) was conducted in the lateral and xnlhxmdw-[id number] projections by Speech-Language Pathologist, in collaboration with Radiologist, to evaluate oropharyngeal swallow function. Anatomic view under fluoroscopy: [x] cervical implant noted otherwise WFL PO Barium Contrast Trials Oral barium water-soluble contrast was administered as follows: IDDSI Level 0 Varibar thin liquid (40% w/v) IDDSI Level 2 Varibar nectar thick/mildly thick liquid (40% w/v) IDDSI Level 3 Varibar thin honey/liquidised/moderately-thick (40% w/v) IDDSI Level 4 Varibar pudding/pureed/extremely thick (40% w/v) IDDSI Level 7 Regular Solid: 1/2 guillermina cracker coated in 3 mL Varibar pudding; 13 mm barium tablet PHYSIOLOGIC FINDINGS MBSImP Component Scores: COMPONENT Scale SCORE 1 Lip closure (0-4) 0 Resulted in no labial escape 2 Hold Position (0-3) 0 Maintained a cohesive bolus between tongue to palatal seal 3 Bolus Preparation (0-4) 1 Resulted in slow prolonged chewing/mashing with complete re-collection 4 Bolus Transport (0-4) 0 Was with brisk tongue motion 5 Oral Residue (0-4) 1 Was a trace, lining oral structures 6 Swallow Initiation (0-4) 3 Occurred when the bolus head was in the pyriform sinuses 7 Soft Palate Elevation (0-4) 0 Resulted in no bolus between soft palate and t he pharyngeal wall 8 Laryngeal Elevation (0-3) 0 Demonstrated complete superior movement of thyro id cartilage with complete approximation of arytenoids to epiglottic petiole 9 Anterior Hyoid Motion (0-2) 0 Demonstrated complete anterior movement 10 Epiglottic Movement (0-2) 0 Resulted in complete inversion 11 Laryngeal Closure (0-2) 1 Was incomplete with narrow a column of air/contra st in laryngeal vestibule 12 Pharyngeal Stripping Wave (0-2) 1 Was present, but diminished 13 Pharyngeal Contraction (0-3) 2 Resulted in unilateral Bulging 14 PES Opening (0-3) 0 Was completely distended and complete duration with no obstruction of flow 15 Tongue Base Retraction (0-4) 1 Allowed a trace column of contrast or air between tongue base and pharyngeal wall 16 Pharyngeal Residue (0-4) 2 Was a collection of residue within or on pharyngeal structures 17 Esophageal Clearance (0-4) 0 Was complete, with only a coating of contrast, if any Results: COMPONENT Scale SCORE 1 Oral Score (0-18) 4 2 Pharyngeal Score (0-29) 6 3 Esophageal Score (0-4) 0 Penetration-Aspiration Scale: COMPONENT Scale SCORE 1 Thin liquid (1-8) 2 Contrast entered the airway, remained above the vocal folds, and was ejected from the airway. 2 [place] thick (1-8) 1 Contrast did not enter the airway 3 Honey thick (1-8) 1 Contrast did not enter the airway 4 Pudding thick (1-8) 1 Contrast did not enter the airway 5 Cookie (1-8) 1 Contrast did not enter the airway CARMEN Severity: LEVEL 6 - Full PO: normal diet - Within functional limits/modified independence Trialed Compensatory Strategies & Outcome: Maneuvers? Successful/Unsuccessful(+/-)? Postures Successful/Unsuccessful(+/- ) [x] 3 second Preparatory Set? ?+ [] Chin Tuck Posture? ? [] Cough? ? [] Posterior Head tilt?? ? Reflexive? Cued? [] Throat Clear? ? [] Head Tilt to?? ? Reflexive? ? Left?C ? Cued? ? Right? ? [x] Saliva swallow? + cued saliva swallow effective in clearing residue [] Head Turn/Rotation to? ? [] Supraglottic Swallow?? ? Left? ? [] Super-supraglottic Swallow?? ? Right? ? Bolus Modifications ? Successful/Unsuccessful (+/-) [x] Delivery/Alternating Consistencies Follow with Liquid Wash Follow with Solid Bolus? ? + + [] Delivery/Via Straw? ? [x] Reduced Volume? ?+ [] Reduced Rate of Intake? ? [] Increased Viscosity? ? [] Other:?? ? Coding CPT Codes MOTION FLUOROSCOPY/SWALLOW - 53269 ([id number])
--- NOTE | 2021-11-08 15:00 | DI.RAD_ITS ---
Exam(s) RF MODIFIED SPEECH BA SWALLOW TECHNIQUE: Modified barium swallow was performed in conjunction with speech pathology. CONTRAST MATERIAL: Oral barium Oral water soluble contrast was administered. COMPARISON: No exams were available for comparison FINDINGS: Fluoroscopy was provided during modified barium swallow performed by speech therapist. Please see maynor r separate report. This patient has a chloride anterior fusion plate at C 6-7-T1 levels. Stay study revealed some penetration but no aspiration. Swallowed radiopaque pill did not exhibit holdup in the esophagus. Esophageal sweep revealed normal diameter soft is without evidence of obvious hiatal hernia. IMPRESSION: Penetration but no michel aspiration evident. See separate speech therapist report RADIATION DOSE DELIVERED: jayda Canales= mGy
[2021-11-08] MEDS: Barium Sulfate 40% W/V 240 ML BTL 60 ML PO (15:08)
[2021-11-08] MEDS: Barium Sulfate 40% W/V 1500 CPS 250 ML BTL PO (15:10)
[2021-11-08] MEDS: Barium Sulfate Oral Paste 40% W/V 230 ML TUBE PO (15:11)
[2021-11-08] MEDS: Barium Sulfate 700 MG TAB PO (15:12)
[2021-11-08] MEDS: Barium Sulfate 81% w/w for Oral Suspension 148 GM BTL 90 GM PO (15:13)
== END ==
PROVIDERS: PCP Nurse Practitioner Primary Care; Visit Provider Internal Medicine
DX: R13.10 Dysphagia, unspecified (principal)
CPT/HCPCS: 92611; 74221

== ENCOUNTER 2021-11-27 03:02 | Outpatient (RCR) | payer OTHER, SELFPAY ==
[2021-11-27 08:08] LABS: Abs Immature Grans 0.02 10^3/uL (0.0-0.06); Absolute Basophil Count 0.02 10^3/uL (0.0-0.2); Absolute Eosinophil Count 0.07 10^3/uL (0.0-0.7); Absolute Lymphocyte Count 0.88 10^3/uL (1.2-3.4); Absolute Monocyte Count 0.77 10^3/uL (0.1-0.8); Absolute Neutrophil Count 2.93 10^3/uL (1.2-6.7); Basophils % 0.4; Eosinophils % 1.5; HCT 31.6 % (40.0-50.0); HGB 10.5 g/dL (13.5-17.5); Immature Grans % 0.4; Lymphocytes % 18.8; MCH 33.7 pg (27.0-33.0); MCHC 33.2 % (32.0-36.0); MCV 101 fL (80-95); MPV 10.4 fL (8.0-11.0); Monocytes % 16.4; Neutrophils % 62.5; Platelet Count 244 10^3/uL (130-400); RBC 3.12 10^6/uL (4.36-5.78); RDW 16.8 % (11.8-14.1); RDW-SD 62.8 fL; WBC 4.69 10^3/uL (4.4-10.8)
[2021-11-27 08:39] LABS: ALT 21 U/L (16-63); AST 23 U/L (15-37); Albumin 3.4 g/dL (3.4-5.0); Alkaline Phosphatase 99 U/L (46-116); Anion Gap 8.2 mmol/L (3-11); BUN 24 mg/dL (7-18); Bilirubin, Total 0.5 mg/dL (0.2-1.0); CO2 28.8 mmol/L (21.0-32.0); CREATININE 1.1 mg/dL (0.70-1.30); Calcium 9.3 mg/dL (8.5-10.1); Chloride 107 mmol/L (98-107); Estimated GFR 69.14 (mL/min/1.73m2); FREE T4 1.31 ng/dL (0.76-1.46); Glucose 132 mg/dL (74-106); Magnesium 1.7 mg/dL (1.8-2.4); Potassium 3.7 mmol/L (3.5-5.1); Sodium 144 mmol/L (136-145); TSH 2.29 uIU/mL (0.36-3.74); Total Protein 7.1 g/dL (6.4-8.2)
== END 2021-12-15 23:59 | disposition home or self-care (01) ==
LOC: INF 03:02
PROVIDERS: PCP Nurse Practitioner Primary Care; Visit Provider Internal Medicine Medical Oncology
DX: C34.91 Malignant neoplasm of unspecified part of right bronchus or lung (principal)
CPT/HCPCS: 36415; 80053; 83735; 84439; 84443; 85025

== ENCOUNTER 2021-12-15 09:55 | Day surgery (SDC) | payer OTHER, SELFPAY ==
--- NOTE | 2021-12-14 22:38 | W.PM.HP.N ---
Assessment and Plan Assessment and plan (1) Hyperlipidemia: Status: Chronic (2) Thyroid disease: Status: Chronic (3) Lung mass: Status: Acute (4) Posterior subcapsular age-related cataract, right eye: Status: Resolved (5) S/P lobectomy of lung: Status: Acute (6) GERD (gastroesophageal reflux disease): Status: Chronic (7) Dysphagia: Status: Acute (8) Cerebral infarction: (9) Mild chronic obstructive pulmonary disease: (10) Sensorineural hearing loss (SNHL) of both ears: (11) Metastatic primary lung cancer: Status: Acute History of Present Illness Narrative: Office consult 11/12: per Dr. Cramer I was happy to meet Roc in the office today after referral for EGD based on his history of Galaviz's esophagus, as well as some recent dysphagia.? It is hard to tell exactly when his gastrointestinal symptoms started as he is a little bit unsure about distant history.? He does report that he has a history of a stroke in 2013 but says that his neurologic deficits resolved after physical therapy.? Most recently, he has developed a cough and some congestion that seems to be worse when he lays on his left side.? He was referred to a speech and swallow expert, and he underwent contrast study that demonstrated some penetration without obvious aspiration.? He says that working with the speech therapist has improved his symptoms.? His review of systems is significant for a unintentional weight loss which he estimates approximately 10 pounds over the past few months.? He tells me that he has been taking omeprazole for many years, and he denies any dysphagia, odynophagia, or dyspepsia. 1) GERD (gastroesophageal reflux disease): Given his longstanding history of gastroesophageal reflux disease and use of omeprazole, I think it is reasonable to perform an EGD.? Especially in light of his history of Galaviz's esophagus.? We talked about the risks and benefits of EGD, and the surveillance of Galaviz's esophagus.? He seems to have good understanding of the procedure.? He provided informed consent today.? We will make arrangements in the next few weeks to perform the EGD and I anticipate esophageal biopsy to help with diagnosis Informed consent is obtained for the procedural (explained in simple layman's terms that the pt. and/or family could understand) explaining risks vs benefits and alternatives to the procedure and consequences if we do not do the procedure and need/rational for the procedure. Risks include but are not limited to: bleeding, infection, perforation of esophagus, stomach, colon, small intestines, bronchus or trachea, or PTX. This would necessitate emergency surgery to repair the damage w/ possible ostomy; and other associated complications w/ the required surgery. Also complications of anesthesia including aspiration, RI/CVA/. He had a recent swallow study that he that shows some mild penetration. Patient is also anemic with hemoglobin 10.5. He is on Prilosec daily. He did have a stroke which is what has been attributed to as the cause of the dysphagia. He is working with speech therapy. He is also been diagnosed with recurrent and metastatic lung cancer. He has had a previous right upper lobe lobectomy. He is currently on his 5/6 cycle of carboplatinum, Pemetrexal and Keytruda. At this point I do not feel that screening for Galaviz's is in his best interest. I am going to increase his guaifenesin and increase his Prilosec to twice a day. He is due for chemo on Saturday. He notes he has been having weight loss but this is most likely due to chemo. He denies any pain or difficulty swallowing. He denies any heartburn or indigestion. He has not noticed any black tarry stools. His says he has been eating well. HE is anemiac-this is most likely due to chemo. Review of Systems All systems reviewed & are unremarkable except as noted in HPI and below PFSH All Active Problems (Updated 12/15/21 @ 11:18 by Magy Haley DO) Metastatic primary lung cancer (Acute) recurrent Hyperlipidemia (Chronic) Thyroid disease (Chronic) Acute UTI (Acute) Sepsis (Acute) Lung mass (Acute) S/P lobectomy of lung (Acute) Right lung. 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 CTS (carpal tunnel syndrome) Discitis Frozen shoulder Full thickness rotator cuff tear Graves disease Hypothyroidism Impaired fasting glucose Impingement syndrome of right shoulder Left inguinal hernia Mild chronic obstructive pulmonary disease pt denies Miners' asthma Nephrolithiasis Sensorineural hearing loss (SNHL) of both ears Surgical History H/O thyroidectomy Hx of bilateral cataract extraction Hx of tonsillectomy Social History Smoking/Tobacco Use Status: Former Tobacco Use Quit Date: 03/18/08 Smoking risk assessment performed?: Yes Alcohol Intake: current Alcohol Intake frequency: holidays/special occasions only Alcohol type: beer Drug use: Never Substance use type: does not use Do you feel safe at home: Yes Do you feel safe in your relationship?: Yes Meds Allergies and Home Medications Allergies Allergy/AdvReac Type Severity Reaction Status Date / Time venom-honey bee Allergy Severe Swelling/Ed Unverified 12/15/21 10:24 [bee venom (honey bee)] connie sulfamethoxazole Allergy Unknown Unverified 12/15/21 10:24 [From Bactrim] trimethoprim [From Bactrim] Allergy Unknown Unverified 12/15/21 10:24 Home Medications Medication Instructions Recorded Confirmed Type acetaminophen 325 mg tablet 650 mg PO Q4H PRN PRN Fever 10/08/13 12/15/21 History (Tylenol) atorvastatin 40 mg tablet 20 mg PO HS ##0 10/16/13 12/15/21 Rx enalapril maleate 5 mg tablet 5 mg PO DAILY #30 tabs 10/16/13 12/15/21 Rx levothyroxine 100 mcg tablet 1 tab PO DAILY 06/12/17 12/15/21 History omeprazole 20 mg tablet,delayed 20 mg PO DAILY 04/27/20 12/15/21 History release albuterol sulfate 90 mcg/actuation 2 puff inhalation Q6H PRN 11/02/21 12/15/21 History aerosol inhaler guaifenesin 600 mg tablet, 1,200 mg PO BID PRN 11/02/21 12/15/21 History extended release 12 hr Exam Narrative Exam Narrative: PHYSICAL EXAM GENERAL APPEARANCE: Alert, healthy appearance, oriented, in no acute distress HEAD, EYES, EARS, NECK, THROAT: Head is normocephalic, pupils equal, round, reactive to light and accommodation, ocular movement intact, sclera clear and no jaundice. ?Dentition intact. No sore throat.? LUNGS: normal respiration/nl chest excursion. ?Clear to auscultation B/l no R/R/W ?HEART: Regular rate and rhythm, EXTREMITY: No edema or cyanosis? no leg pain, redness, swelling.? ABDOMEN: non tender to palpation. . Normal bowel sounds
--- NOTE | 2021-12-14 22:45 | PDOC.DSDIS_ITS ---
Discharge Plan Disposition Patient Disposition: HOME Condition: Good Discharge Details Reason For Visit: colon scope Attending Provider: Magy Haley Primary Care Provider: Tennille Do Home Meds and New Rx's Prescriptions: Continued albuterol sulfate 90 mcg/actuation HFA aerosol inhaler 2 puff inhalation Q6H PRN Label Comments: Pt states he uses every day; varies how often guaifenesin 600 mg tablet extended release 12hr 1,200 mg PO BID PRN acetaminophen [Tylenol] 325 MG tablet 650 mg PO Q4H PRN PRN (Reason: Fever) enalapril maleate 5 MG tablet 5 mg PO DAILY Qty: 30 0RF atorvastatin 40 MG tablet 20 mg PO HS Qty: 0 0RF levothyroxine 100 MCG tablet 1 tab PO DAILY Changed omeprazole 20 mg Tablet,Delayed Release (Dr/Ec) 40 mg PO DAILY Qty: 30 12RF No Action omeprazole magnesium [Prilosec OTC] 20 mg tablet,delayed release (DR/EC) 40 mg PO DAILY Qty: 60 12RF Discharge Instructions Additional Instructions: [facility] Colonoscopy Post- Op Instructions Instructions for Everyone who is given Anesthesia: For your safety, please do the following for the next twenty-four (24) hours: *Do Not operate a motor vehicle (car, truck, motorcycle, etc.) *Do Not drink alcoholic beverages or use any recreational drugs for the first 24 hours or while taking pain medications. The medications in your body may have a reaction that can be dangerous. Increased prilosec to 40mg daily increased calorie intact Ensure or Boost twice a day. Can mix w/ ice cream, fruit, etc to make taste better. If problems- call the hospital at [phone]. 7. Continue all your regular medications unless directed otherwise. I understand the above instructions and have no questions. Signature of Patient or Adult Escort Name of Responsible Adult Escort Signature of Nurse Date/Time Activity:: see above Diet:: see above Discharge Orders Discharge Orders: Discharge Order (Routine); Ordered 12/14/21 Ordered By: Magy Haley DS: Diagnosis Discharge Diagnosis (1) Metastatic primary lung cancer: Status: Acute (2) Hyperlipidemia: Status: Chronic (3) Thyroid disease: Status: Chronic (4) Lung mass: Status: Acute (5) Posterior subcapsular age-related cataract, right eye: Status: Resolved (6) S/P lobectomy of lung: Status: Acute (7) GERD (gastroesophageal reflux disease): Status: Chronic (8) Dysphagia: Status: Acute (9) Cerebral infarction: (10) Mild chronic obstructive pulmonary disease: (11) Sensorineural hearing loss (SNHL) of both ears: (12) Galaviz esophagus:
--- NOTE | 2021-12-14 22:47 | ENDO_ITS ---
Endoscopy Report PRE-OP DIAGNOSIS: davenport's SURGEON: Magy Haley ANESTHESIA TYPE: General:No Airway PATHOLOGY: other COMPLICATIONS: None DISPOSITION: same day PROCEDURE DESCRIPTION: After informed consent was obtained the patient was take to the procedure room and placed in a supine position. Monitors were applied and a time out was done. The patients name, date of , procedure type, allergies to medications and metal in their body was reviewed. A bite block was placed and the patient was sedated. Once sedated and comfortable the gastroscope was advanced through the oropharynx which was grossly normal into the esophagus. The proximal and mid- esophagus were []. In the distal esophagus there was [] noted. The scope was advanced into the stomach and through the pylorus into the 3rd portion of the duodenum. The duodenum was noted to be []. Biopsies were done []. The scope was retracted back into the stomach and biopsies were done to rule out H. pylori. There were [] ulcers. The scope was retroflexed. The cardia and fundus were noted to be normal. There [] a hiatal hernia noted. The scope was retracted back into the esophagus and biopsies were done of the GE junction to rule out Davenport's. The Z line was regular. The GE junction was at [] cm. The scope was removed and the patient was woken up and taken back to [facility] in stable condition. Follow up:
[2021-12-15 10:11] VITALS: BP 148/78; PULSE 63; RESP 18; TEMP 36.4; O2SAT 97
[2021-12-15] MEDS: Lactated Ringers 1,000 ML 80 ML IV (10:39)
--- NOTE | 2021-12-15 10:42 | W.ANESPRE ---
General Info Date of Service Date Performed: 12/15/21 Height: 5 ft 8 in Weight: 55.9 kg Body Mass Index (BMI): 18.7 Surgical Procedure: Operation Date: 12/15/21 10:35 Proposed Procedure Side Surgeon p Gastroscopy Magy Haley, Meds Allergies and Home Medications Allergies Allergy/AdvReac Type Severity Reaction Status Date / Time venom-honey bee Allergy Severe Swelling/Ed Unverified 12/15/21 10:24 [bee venom (honey bee)] connie sulfamethoxazole Allergy Unknown Unverified 12/15/21 10:24 [From Bactrim] trimethoprim [From Bactrim] Allergy Unknown Unverified 12/15/21 10:24 Home Medication Medication Instructions Recorded acetaminophen 325 mg tablet 650 mg PO Q4H PRN PRN Fever 10/08/13 (Tylenol) atorvastatin 40 mg tablet 20 mg PO HS ##0 10/16/13 enalapril maleate 5 mg tablet 5 mg PO DAILY #30 tabs 10/16/13 levothyroxine 100 mcg tablet 1 tab PO DAILY 06/12/17 omeprazole 20 mg tablet,delayed 20 mg PO DAILY 04/27/20 release albuterol sulfate 90 mcg/actuation 2 puff inhalation Q6H PRN 11/02/21 aerosol inhaler guaifenesin 600 mg tablet, 1,200 mg PO BID PRN 11/02/21 extended release 12 hr Current Visit Medications: Current Medications Generic Name Dose Route Start Last Admin Trade Name Freq PRN Reason Stop Dose Admin Hyoscyamine Sulfate 0.125 mg 12/14/21 22:45 Hyoscyamine 0.125 Mg Sl/Oral/Chew SL DIRECTED PRN Ringer's Solution 1,000 mls @ 80 mls/hr 12/15/21 06:00 12/15/21 10:39 IV 12/15/21 23:59 80 mls/hr INFUSION MARÍA ELENA Administration IV Miscellaneous Supplies 1 each 12/15/21 06:00 Iv Access IV 12/15/21 23:59 DIRECTED MARÍA ELENA Ondansetron HCl 4 mg 12/14/21 22:45 Ondansetron 4 Mg/2 Ml Vial IVP Q4H PRN PRN Nausea / Vomiting Sodium Chloride 0 ml 12/15/21 06:00 Normal Saline Flush 10 Ml Syr IV 12/15/21 23:59 PRN PRN Sodium Chloride 0 ml 12/15/21 06:00 Normal Saline 10 Ml Vial IJ 12/15/21 23:59 DIRECTED PRN Sterile Water 0 ml 12/15/21 06:00 Water,Injection,Sterile 10 Ml Vial IJ 12/15/21 23:59 DIRECTED PRN PFSH Active Problems Active Problems: Problem Status Onset Code Hyperlipidemia E78.5 Thyroid disease Acute UTI N39.0 Sepsis A41.9 Lung mass R91.8 Combined form of age-related cataract, right eye H25.811 Posterior subcapsular age-related cataract, right eye H25.041 S/P lobectomy of lung Z90.2 Cortical cataract of left eye H26.9 Nuclear sclerotic cataract of left eye H25.12 Posterior subcapsular age-related cataract of left eye H25.042 GERD (gastroesophageal reflux disease) K21.9 Dysphagia R13.10 Cough R05.9 Medical History Medical History Galaviz esophagus Bruit Carcinoma in situ of lung Cerebral infarction hemorrhagic (2013)-Right sided weakness 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 CTS (carpal tunnel syndrome) Discitis Frozen shoulder Full thickness rotator cuff tear Graves disease Hypothyroidism Impaired fasting glucose Impingement syndrome of right shoulder Left inguinal hernia Mild chronic obstructive pulmonary disease pt denies Miners' asthma Nephrolithiasis Sensorineural hearing loss (SNHL) of both ears Surgical History Surgical History H/O thyroidectomy Hx of bilateral cataract extraction Hx of tonsillectomy Tobacco Smoking/Tobacco Use Status: Former Tobacco Use Alcohol Alcohol Intake: current Alcohol intake frequency: holidays/special occasions only Alcohol type: beer Substance Use Substance use: Never Substance use type: does not use Vital Signs and Lab Results Vital Signs Most Recent Vital Signs in EMR: Most Recent Vital Signs Temp Pulse Resp BP Pulse Ox 36.4 C L 63 18 148/78 H 97 12/15/21 10:11 12/15/21 10:11 12/15/21 10:11 12/15/21 10:11 12/15/21 10:11 Lab Results Blood Type / Crossmatch: No Data to Display Complete Blood Count: White Blood Count 4.69 10^3/uL (4.4-10.8) 11/27/21 07:48 Red Blood Count 3.12 10^6/uL (4.36-5.78) L 11/27/21 07:48 Hemoglobin 10.5 g/dL (13.5-17.5) L 11/27/21 07:48 Hematocrit 31.6 % (40.0-50.0) L 11/27/21 07:48 Platelet Count 244 10^3/uL (130-400) 11/27/21 07:48 Complete Metabolic Panel: Sodium Level 144 mmol/L (136-145) 11/27/21 07:48 Potassium Level 3.7 mmol/L (3.5-5.1) 11/27/21 07:48 Chloride Level 107 mmol/L (98-107) 11/27/21 07:48 Carbon Dioxide Level 28.8 mmol/L (21.0-32.0) 11/27/21 07:48 Blood Urea Nitrogen 24 mg/dL (7-18) H 11/27/21 07:48 Creatinine 1.1 mg/dL (0.70-1.30) 11/27/21 07:48 Magnesium Level 1.7 mg/dL (1.8-2.4) L 11/27/21 07:48 Calcium Level 9.3 mg/dL (8.5-10.1) 11/27/21 07:48 Albumin 3.4 g/dL (3.4-5.0) 11/27/21 07:48 Glucose Level 132 mg/dL (74-106) H 11/27/21 07:48 Liver Function Panel: Alanine Aminotransferase (ALT/SGPT) 21 U/L (16-63) 11/27/21 07:48 Aspartate Amino Transf (AST/SGOT) 23 U/L (15-37) 11/27/21 07:48 Coagulation Panel: No Data to Display Cardiac Panel: No Data to Display Arterial Blood Gas: No Data to Display Venous Blood Gas: No Data to Display Pancreas Panel: No Data to Display Thyroid Panel: Thyroid Stimulating Hormone (TSH) 2.29 uIU/mL (0.36-3.74) 11/27/21 07:48 Infectious Disease: No Data to Display Blood Cultures: No Data to Display Toxicology Panel: No Data to Display Anesthesia Assessment and Plan Anesthesia History Personal History: No History of Anesthesia Complications Family History: No Family History of Anesthesia Complications Exercise Tolerance Exercise Tolerance: Metabolic Equivalents>4 Pertinent Negatives Pertinent Negatives: No Symptoms of GERD Cardiac & Pulmonary Exam Cardiac Exam: Normal S1/S2 Heart Sounds Pulmonary Exam: Rales Present Cardiac and Pulmonary Comment:: L lower crackles Implantable Cardiac Device Does patient have a Pacemaker or an ICD?: No Airway Exam Known Difficult Airway: No Mallampati Class: 1 Mouth Opening: Normal (> 3cm) Thyromental Distance: Greater than 3 cm Neck Range of Motion: Full ROM Neck Circumference: Normal Teeth Condition: Normal Dentition ASA Classification ASA Score: ASA 3 Emergency Case?: No NPO Status NPO Status: NPO Clears >2 hours, Solids >8 hours Anesthesia Plan Resuscitation Status: Full Code Anesthesia Technique: General Anesthesia Airway Planned: Natural Airway Pain Management: Surgeon and patient request nerve block Monitors Used: Standard Monitors
[2021-12-15 10:44] VITALS: BMI 18.7
--- NOTE | 2021-12-15 11:56 | DSU.FORM ---
12/15/21 Procedure cancelled by provider, Dr.Laura Haley. MD discussed cancellation w/pt and SO (spouse, Paula). Written d/c paperwork reviewed w/pt and SO. Both expressed understanding. Both aware that MD has prescribed a change in Omperazole dosage and there is a prescription to collect from preferred pharmacy. Both aware that MD has requested pt increases calorie intake and recommends Ensure or Boost. Pt provided with herminio max and toasted [place] Muffin w/PBJ. SO provided with a herminio max. IV removed & pressure dressing applied. Pt dressed self. Pt ambulated out of DSU with SO and Tammy Langley RN. Care transferred to SO (Spouse, Mariam).
== END 2021-12-15 09:56 | disposition home or self-care (01) ==
PROVIDERS: PCP Nurse Practitioner Primary Care; Visit Provider Surgery
DX: K22.70 Barrett's esophagus without dysplasia (principal); Z53.8 Procedure and treatment not carried out for other reasons; C34.90 Malignant neoplasm of unspecified part of unspecified bronchus or lung
CPT/HCPCS: J2704

== ENCOUNTER → 2022-01-04 03:00 | Outpatient (CLI) | payer OTHER, SELFPAY ==
[2022-01-04] MEDS: Omnipaque 350 MG/ML 500 ML BTL-Imaging package IJ (10:54)
--- NOTE | 2022-01-04 11:02 | DI.CT_ITS ---
Exam(s) CT CHEST W EXAM: CT CHEST W CLINICAL HISTORY: f/u LUNG CA, C34.91; METS TO INTRATHORACIC LYMPH NODE, C77.1,[id number] TECHNIQUE: CT examination of the chest was performed with intravenous infusion of 100 cc of Omnipaqu e 350. COMPARISON: CT CT CHEST W from 11/01/2021 FINDINGS: The previously noted right upper lobectomy is again seen. Pleural based nodule and fissural nodule o f the right lung are again noted and unchanged from prior examination. 6 millimeter left-sided perih ilar nodule also again noted and unchanged. No new intrapulmonary nodule seen period no gross medias tinal or hilar adenopathy at this time although mild prominence of right hilar and superior mediastin al nodes is again noted period. There is no evidence of pleural effusion. There is no evidence of pulmonary embolic disease. There is unremarkable appearance of the thoracic aorta and major branches with no evidence of aneurysm or dissection. Tracheobronchial tree appears intact. No axillary or supraclavicular adenopathy. Visualized portions of the liver, spleen, adrenals, and kidneys are unremarkable. No abnormality seen involving the bony thorax. IMPRESSION: Stable appearance of the chest since November 01. No new intrapulmonary nodule or other evidence of new metastatic process.. RADIATION DOSE DELIVERED: 379.58mGy.cm Total DLP 379.58mGy.cm Total DLP !Error CTDIvol DATA REPOSITORY: All CT scans at this facility are submitted to the National Radiology Data Registry (NRDR) Dose Index Registry (DIR) with the [employer] (ACR). RADIATION OPTIMIZATION: All CT scans at this facility use at least one of these dose optimization te chniques: automated exposure control; mA and/or kV adjustment per patient size (includes targeted exa ms where dose is matched to clinical indication); or iterative reconstruction.
== END ==
PROVIDERS: PCP Nurse Practitioner Primary Care; Visit Provider Internal Medicine Medical Oncology
DX: C34.91 Malignant neoplasm of unspecified part of right bronchus or lung (principal)
CPT/HCPCS: 71260

== ENCOUNTER 2022-01-08 02:21 | Outpatient (RCR) | payer OTHER, SELFPAY ==
[2021-12-18 08:22] LABS: Abs Immature Grans 0.03 10^3/uL (0.0-0.06); Absolute Basophil Count 0.03 10^3/uL (0.0-0.2); Absolute Lymphocyte Count 1.12 10^3/uL (1.2-3.4); Absolute Neutrophil Count 2.76 10^3/uL (1.2-6.7); Basophils % 0.6; HCT 32.2 % (40.0-50.0); HGB 10.5 g/dL (13.5-17.5); Immature Grans % 0.6; Lymphocytes % 22.2; MCH 34.5 pg (27.0-33.0); MCHC 32.6 % (32.0-36.0); MCV 106 fL (80-95); MPV 10.4 fL (8.0-11.0); Monocytes % 19.8; Neutrophils % 54.8; Platelet Count 228 10^3/uL (130-400); RBC 3.04 10^6/uL (4.36-5.78); RDW 14.6 % (11.8-14.1); RDW-SD 57.1 fL; WBC 5.04 10^3/uL (4.4-10.8)
[2021-12-18 08:48] LABS: ALT 26 U/L (16-63); AST 28 U/L (15-37); Albumin 3.6 g/dL (3.4-5.0); Alkaline Phosphatase 94 U/L (46-116); Anion Gap 7.4 mmol/L (3-11); BUN 36 mg/dL (7-18); Bilirubin, Total 0.4 mg/dL (0.2-1.0); CO2 30.6 mmol/L (21.0-32.0); Calcium 9.5 mg/dL (8.5-10.1); Chloride 103 mmol/L (98-107); Estimated GFR 77.52 (mL/min/1.73m2); FREE T4 1.28 ng/dL (0.76-1.46); Glucose 102 mg/dL (74-106); Magnesium 1.7 mg/dL (1.8-2.4); Potassium 3.8 mmol/L (3.5-5.1); Sodium 141 mmol/L (136-145); TSH 3.19 uIU/mL (0.36-3.74); Total Protein 7.2 g/dL (6.4-8.2)
[2022-01-08 08:09] LABS: Abs Immature Grans 0.02 10^3/uL (0.0-0.06); Absolute Basophil Count 0.03 10^3/uL (0.0-0.2); Absolute Eosinophil Count 0.08 10^3/uL (0.0-0.7); Absolute Lymphocyte Count 1.06 10^3/uL (1.2-3.4); Absolute Monocyte Count 0.97 10^3/uL (0.1-0.8); Absolute Neutrophil Count 3.63 10^3/uL (1.2-6.7); Basophils % 0.5; Eosinophils % 1.4; HCT 33.6 % (40.0-50.0); HGB 11.1 g/dL (13.5-17.5); Immature Grans % 0.3; Lymphocytes % 18.3; MCH 34.5 pg (27.0-33.0); MCV 104 fL (80-95); MPV 10.5 fL (8.0-11.0); Monocytes % 16.8; Neutrophils % 62.7; Platelet Count 232 10^3/uL (130-400); RBC 3.22 10^6/uL (4.36-5.78); RDW 14.3 % (11.8-14.1); RDW-SD 54.5 fL; WBC 5.79 10^3/uL (4.4-10.8)
[2022-01-08 08:35] LABS: ALT 29 U/L (16-63); AST 30 U/L (15-37); Albumin 3.4 g/dL (3.4-5.0); Alkaline Phosphatase 94 U/L (46-116); Anion Gap 6.7 mmol/L (3-11); BUN 21 mg/dL (7-18); Bilirubin, Total 0.4 mg/dL (0.2-1.0); CO2 30.3 mmol/L (21.0-32.0); CREATININE 1.1 mg/dL (0.70-1.30); Calcium 9.4 mg/dL (8.5-10.1); Chloride 105 mmol/L (98-107); Estimated GFR 69.14 (mL/min/1.73m2); FREE T4 1.16 ng/dL (0.76-1.46); Glucose 115 mg/dL (74-106); Magnesium 1.7 mg/dL (1.8-2.4); Potassium 3.9 mmol/L (3.5-5.1); Sodium 142 mmol/L (136-145); TSH 6.19 uIU/mL (0.36-3.74)
== END 2022-01-15 23:59 | disposition home or self-care (01) ==
LOC: INF 02:21
PROVIDERS: PCP Nurse Practitioner Primary Care; Visit Provider Internal Medicine Medical Oncology
DX: C34.91 Malignant neoplasm of unspecified part of right bronchus or lung (principal)
CPT/HCPCS: 36415; 80053; 83735; 84439; 84443; 85025

== ENCOUNTER 2022-01-29 03:40 | Outpatient (RCR) | payer OTHER, SELFPAY ==
[2022-01-29 09:02] LABS: Abs Immature Grans 0.05 10^3/uL (0.0-0.06); Absolute Basophil Count 0.04 10^3/uL (0.0-0.2); Absolute Lymphocyte Count 1.07 10^3/uL (1.2-3.4); Absolute Monocyte Count 1.01 10^3/uL (0.1-0.8); Absolute Neutrophil Count 3.66 10^3/uL (1.2-6.7); Basophils % 0.7; Eosinophils % 1.7; HGB 11.5 g/dL (13.5-17.5); Immature Grans % 0.8; MCH 35.2 pg (27.0-33.0); MCHC 33.8 % (32.0-36.0); MCV 104 fL (80-95); MPV 10.4 fL (8.0-11.0); Neutrophils % 61.8; Platelet Count 263 10^3/uL (130-400); RBC 3.27 10^6/uL (4.36-5.78); RDW 13.8 % (11.8-14.1); RDW-SD 52.3 fL; WBC 5.93 10^3/uL (4.4-10.8)
[2022-01-29 09:34] LABS: ALT 30 U/L (16-63); AST 36 U/L (15-37); Albumin 3.5 g/dL (3.4-5.0); Alkaline Phosphatase 107 U/L (46-116); Anion Gap 6.9 mmol/L (3-11); BUN 23 mg/dL (7-18); Bilirubin, Total 0.4 mg/dL (0.2-1.0); CO2 30.1 mmol/L (21.0-32.0); CREATININE 1.1 mg/dL (0.70-1.30); Calcium 9.4 mg/dL (8.5-10.1); Chloride 107 mmol/L (98-107); Estimated GFR 69.14 (mL/min/1.73m2); Glucose 85 mg/dL (74-106); Magnesium 1.7 mg/dL (1.8-2.4); Potassium 3.6 mmol/L (3.5-5.1); Sodium 144 mmol/L (136-145); TSH 4.91 uIU/mL (0.36-3.74); Total Protein 7.3 g/dL (6.4-8.2)
== END 2022-02-14 23:59 | disposition home or self-care (01) ==
LOC: INF 03:40
PROVIDERS: PCP Nurse Practitioner Primary Care; Visit Provider Internal Medicine Medical Oncology
DX: C34.91 Malignant neoplasm of unspecified part of right bronchus or lung (principal)
CPT/HCPCS: 36415; 80053; 83735; 84439; 84443; 85025

== ENCOUNTER 2022-02-26 03:01 | Outpatient (RCR) | payer OTHER, SELFPAY ==
[2022-02-26 09:18] LABS: Abs Immature Grans 0.05 10^3/uL (0.0-0.06); Absolute Basophil Count 0.04 10^3/uL (0.0-0.2); Absolute Eosinophil Count 0.11 10^3/uL (0.0-0.7); Absolute Lymphocyte Count 1.26 10^3/uL (1.2-3.4); Absolute Monocyte Count 1.22 10^3/uL (0.1-0.8); Absolute Neutrophil Count 5.07 10^3/uL (1.2-6.7); Basophils % 0.5; Eosinophils % 1.4; HCT 34.7 % (40.0-50.0); HGB 11.1 g/dL (13.5-17.5); Immature Grans % 0.6; Lymphocytes % 16.3; MCH 33.5 pg (27.0-33.0); MCV 105 fL (80-95); Monocytes % 15.7; Neutrophils % 65.5; Platelet Count 200 10^3/uL (130-400); RBC 3.31 10^6/uL (4.36-5.78); RDW 13.6 % (11.8-14.1); RDW-SD 52.8 fL; WBC 7.75 10^3/uL (4.4-10.8)
[2022-02-26 09:49] LABS: ALT 24 U/L (16-63); AST 28 U/L (15-37); Albumin 3.5 g/dL (3.4-5.0); Alkaline Phosphatase 107 U/L (46-116); Anion Gap 5.7 mmol/L (3-11); BUN 26 mg/dL (7-18); Bilirubin, Total 0.4 mg/dL (0.2-1.0); CO2 30.3 mmol/L (21.0-32.0); CREATININE 1.3 mg/dL (0.70-1.30); Calcium 9.4 mg/dL (8.5-10.1); Chloride 104 mmol/L (98-107); Estimated GFR 56.58 (mL/min/1.73m2); FREE T4 1.25 ng/dL (0.76-1.46); Glucose 103 mg/dL (74-106); Magnesium 1.8 mg/dL (1.8-2.4); Potassium 3.8 mmol/L (3.5-5.1); Sodium 140 mmol/L (136-145); TSH 5.23 uIU/mL (0.36-3.74); Total Protein 7.2 g/dL (6.4-8.2)
== END 2022-03-17 23:59 | disposition home or self-care (01) ==
LOC: INF 03:01
PROVIDERS: PCP Nurse Practitioner Primary Care; Visit Provider Internal Medicine Medical Oncology
DX: C34.91 Malignant neoplasm of unspecified part of right bronchus or lung (principal)
CPT/HCPCS: 36415; 80053; 83735; 84439; 84443; 85025

== ENCOUNTER 2022-04-16 02:42 | Outpatient (RCR) | payer OTHER, SELFPAY ==
[2022-03-26 11:58] LABS: Abs Immature Grans 0.04 10^3/uL (0.0-0.06); Absolute Basophil Count 0.06 10^3/uL (0.0-0.2); Absolute Eosinophil Count 0.14 10^3/uL (0.0-0.7); Absolute Lymphocyte Count 1.14 10^3/uL (1.2-3.4); Absolute Monocyte Count 1.29 10^3/uL (0.1-0.8); Basophils % 0.8; Eosinophils % 1.9; HCT 36.1 % (40.0-50.0); HGB 11.9 g/dL (13.5-17.5); Immature Grans % 0.5; Lymphocytes % 15.3; MCH 33.9 pg (27.0-33.0); MCV 103 fL (80-95); MPV 10.5 fL (8.0-11.0); Monocytes % 17.3; Neutrophils % 64.2; Platelet Count 173 10^3/uL (130-400); RBC 3.51 10^6/uL (4.36-5.78); RDW 13.6 % (11.8-14.1); WBC 7.47 10^3/uL (4.4-10.8)
[2022-03-26 12:22] LABS: ALT 21 U/L (16-63); AST 27 U/L (15-37); Albumin 3.6 g/dL (3.4-5.0); Alkaline Phosphatase 107 U/L (46-116); Anion Gap 6.3 mmol/L (3-11); BUN 24 mg/dL (7-18); Bilirubin, Total 0.5 mg/dL (0.2-1.0); CO2 29.7 mmol/L (21.0-32.0); CREATININE 1.1 mg/dL (0.70-1.30); Calcium 9.3 mg/dL (8.5-10.1); Chloride 103 mmol/L (98-107); Estimated GFR 68.71 (mL/min/1.73m2); FREE T4 1.21 ng/dL (0.76-1.46); Glucose 120 mg/dL (74-106); Magnesium 1.8 mg/dL (1.8-2.4); Potassium 3.9 mmol/L (3.5-5.1); Sodium 139 mmol/L (136-145); TSH 2.25 uIU/mL (0.36-3.74); Total Protein 7.3 g/dL (6.4-8.2)
[2022-04-16 07:36] LABS: Abs Immature Grans 0.04 10^3/uL (0.0-0.06); Absolute Basophil Count 0.06 10^3/uL (0.0-0.2); Absolute Eosinophil Count 0.13 10^3/uL (0.0-0.7); Absolute Lymphocyte Count 0.87 10^3/uL (1.2-3.4); Absolute Monocyte Count 1.88 10^3/uL (0.1-0.8); Absolute Neutrophil Count 3.73 10^3/uL (1.2-6.7); Basophils % 0.9; Eosinophils % 1.9; HCT 33.6 % (40.0-50.0); HGB 11.1 g/dL (13.5-17.5); Immature Grans % 0.6; MCH 32.7 pg (27.0-33.0); MCV 99 fL (80-95); MPV 9.9 fL (8.0-11.0); Neutrophils % 55.6; RBC 3.39 10^6/uL (4.36-5.78); RDW 13.1 % (11.8-14.1); RDW-SD 47.1 fL; WBC 6.71 10^3/uL (4.4-10.8)
[2022-04-16 07:51] LABS: Diff Comment Agrees w/ Instrument; Platelet Count 317 10^3/uL (130-400); RBC Morphology Normal
[2022-04-16 08:00] LABS: ALT 20 U/L (16-63); AST 30 U/L (15-37); Alkaline Phosphatase 92 U/L (46-116); Anion Gap 8.6 mmol/L (3-11); BUN 18 mg/dL (7-18); Bilirubin, Total 0.6 mg/dL (0.2-1.0); CO2 29.4 mmol/L (21.0-32.0); CREATININE 1.5 mg/dL (0.70-1.30); Calcium 9.5 mg/dL (8.5-10.1); Chloride 101 mmol/L (98-107); Estimated GFR 47.36 (mL/min/1.73m2); FREE T4 1.58 ng/dL (0.76-1.46); Glucose 134 mg/dL (74-106); Magnesium 1.7 mg/dL (1.8-2.4); Potassium 3.7 mmol/L (3.5-5.1); Sodium 139 mmol/L (136-145); TSH 1.11 uIU/mL (0.36-3.74); Total Protein 7.1 g/dL (6.4-8.2)
== END 2022-04-17 23:59 | disposition home or self-care (01) ==
LOC: INF 02:42
PROVIDERS: PCP Nurse Practitioner Primary Care; Visit Provider Internal Medicine Medical Oncology
DX: C34.91 Malignant neoplasm of unspecified part of right bronchus or lung (principal)
CPT/HCPCS: 36415; 80053; 83735; 84439; 84443; 85025

== ENCOUNTER 2022-04-30 00:44 | Outpatient (RCR) | payer OTHER, SELFPAY ==
[2022-04-30 11:06] LABS: Abs Immature Grans 0.07 10^3/uL (0.0-0.06); Absolute Basophil Count 0.05 10^3/uL (0.0-0.2); Absolute Eosinophil Count 0.07 10^3/uL (0.0-0.7); Absolute Lymphocyte Count 0.95 10^3/uL (1.2-3.4); Absolute Neutrophil Count 6.25 10^3/uL (1.2-6.7); Basophils % 0.6; Eosinophils % 0.8; HCT 36.3 % (40.0-50.0); HGB 11.8 g/dL (13.5-17.5); Immature Grans % 0.8; Lymphocytes % 11.3; MCH 32.6 pg (27.0-33.0); MCHC 32.5 % (32.0-36.0); MCV 100 fL (80-95); MPV 11.2 fL (8.0-11.0); Monocytes % 11.9; Neutrophils % 74.6; Platelet Count 234 10^3/uL (130-400); RBC 3.62 10^6/uL (4.36-5.78); RDW 13.4 % (11.8-14.1); RDW-SD 49.7 fL; WBC 8.39 10^3/uL (4.4-10.8)
[2022-04-30 11:32] LABS: ALT 23 U/L (16-63); AST 27 U/L (15-37); Albumin 3.3 g/dL (3.4-5.0); Alkaline Phosphatase 110 U/L (46-116); Anion Gap 5.6 mmol/L (3-11); BUN 28 mg/dL (7-18); Bilirubin, Total 0.5 mg/dL (0.2-1.0); CO2 30.4 mmol/L (21.0-32.0); CREATININE 1.2 mg/dL (0.70-1.30); Calcium 9.7 mg/dL (8.5-10.1); Chloride 104 mmol/L (98-107); FREE T4 1.32 ng/dL (0.76-1.46); Glucose 124 mg/dL (74-106); Magnesium 1.9 mg/dL (1.8-2.4); Sodium 140 mmol/L (136-145); TSH 1.34 uIU/mL (0.36-3.74); Total Protein 7.3 g/dL (6.4-8.2)
== END 2022-05-15 23:59 | disposition home or self-care (01) ==
LOC: INF 00:44
PROVIDERS: PCP Nurse Practitioner Primary Care; Visit Provider Internal Medicine Medical Oncology
DX: C34.91 Malignant neoplasm of unspecified part of right bronchus or lung (principal); Z45.2 Encounter for adjustment and management of vascular access device
CPT/HCPCS: 36415; 80053; 83735; 84439; 84443; 85025

== ENCOUNTER 2022-06-04 03:41 | Outpatient (RCR) | payer OTHER, SELFPAY ==
[2022-06-04 10:59] LABS: Abs Immature Grans 0.04 10^3/uL (0.0-0.06); Absolute Basophil Count 0.05 10^3/uL (0.0-0.2); Absolute Eosinophil Count 0.12 10^3/uL (0.0-0.7); Absolute Lymphocyte Count 1.17 10^3/uL (1.2-3.4); Absolute Monocyte Count 0.94 10^3/uL (0.1-0.8); Absolute Neutrophil Count 4.83 10^3/uL (1.2-6.7); Basophils % 0.7; Eosinophils % 1.7; HCT 40.6 % (40.0-50.0); HGB 13.2 g/dL (13.5-17.5); Immature Grans % 0.6; Lymphocytes % 16.4; MCH 31.6 pg (27.0-33.0); MCHC 32.5 % (32.0-36.0); MCV 97 fL (80-95); MPV 10.8 fL (8.0-11.0); Monocytes % 13.1; Neutrophils % 67.5; Platelet Count 177 10^3/uL (130-400); RBC 4.18 10^6/uL (4.36-5.78); RDW-SD 46.6 fL; WBC 7.15 10^3/uL (4.4-10.8)
[2022-06-04 11:24] LABS: ALT 23 U/L (16-63); AST 20 U/L (15-37); Albumin 3.5 g/dL (3.4-5.0); Alkaline Phosphatase 104 U/L (46-116); Anion Gap 4.9 mmol/L (3-11); BUN 27 mg/dL (7-18); Bilirubin, Total 0.5 mg/dL (0.2-1.0); CO2 32.1 mmol/L (21.0-32.0); CREATININE 1.2 mg/dL (0.70-1.30); Calcium 9.9 mg/dL (8.5-10.1); Chloride 105 mmol/L (98-107); Glucose 78 mg/dL (74-106); Magnesium 1.8 mg/dL (1.8-2.4); Potassium 4.1 mmol/L (3.5-5.1); Sodium 142 mmol/L (136-145); TSH 1.61 uIU/mL (0.36-3.74); Total Protein 7.3 g/dL (6.4-8.2)
== END 2022-06-15 23:59 | disposition home or self-care (01) ==
LOC: INF 03:41
PROVIDERS: PCP Nurse Practitioner Primary Care; Visit Provider Internal Medicine Medical Oncology
DX: C34.91 Malignant neoplasm of unspecified part of right bronchus or lung (principal)
CPT/HCPCS: 36415; 80053; 83735; 84436; 84443; 85025

== ENCOUNTER 2022-08-20 02:41 | Outpatient (RCR) | payer OTHER, SELFPAY ==
[2022-08-20 14:02] LABS: Abs Immature Grans 0.07 10^3/uL (0.0-0.06); Absolute Basophil Count 0.04 10^3/uL (0.0-0.2); Absolute Eosinophil Count 0.13 10^3/uL (0.0-0.7); Absolute Lymphocyte Count 1.19 10^3/uL (1.2-3.4); Absolute Monocyte Count 0.95 10^3/uL (0.1-0.8); Basophils % 0.5; Eosinophils % 1.6; HCT 41.6 % (40.0-50.0); HGB 13.6 g/dL (13.5-17.5); Immature Grans % 0.9; Lymphocytes % 14.7; MCH 30.4 pg (27.0-33.0); MCHC 32.7 % (32.0-36.0); MCV 93 fL (80-95); MPV 10.4 fL (8.0-11.0); Monocytes % 11.8; Neutrophils % 70.5; Platelet Count 169 10^3/uL (130-400); RBC 4.48 10^6/uL (4.36-5.78); RDW 13.6 % (11.8-14.1); RDW-SD 46.3 fL; WBC 8.08 10^3/uL (4.4-10.8)
[2022-08-20 14:25] LABS: ALT 27 U/L (16-63); AST 24 U/L (15-37); Albumin 3.4 g/dL (3.4-5.0); Alkaline Phosphatase 101 U/L (46-116); Anion Gap 1.7 mmol/L (3-11); BUN 26 mg/dL (7-18); Bilirubin, Total 0.4 mg/dL (0.2-1.0); CO2 32.3 mmol/L (21.0-32.0); CREATININE 1.4 mg/dL (0.70-1.30); Calcium 9.4 mg/dL (8.5-10.1); Chloride 104 mmol/L (98-107); Estimated GFR 51.45 (mL/min/1.73m2); Glucose 102 mg/dL (74-106); Magnesium 1.7 mg/dL (1.8-2.4); Potassium 3.7 mmol/L (3.5-5.1); Sodium 138 mmol/L (136-145); Total Protein 7.3 g/dL (6.4-8.2)
== END 2022-09-14 23:59 | disposition home or self-care (01) ==
LOC: INF 02:41
PROVIDERS: PCP Nurse Practitioner Primary Care; Visit Provider Internal Medicine Medical Oncology
DX: C34.91 Malignant neoplasm of unspecified part of right bronchus or lung (principal)
CPT/HCPCS: 36415; 80053; 83735; 85025

== ENCOUNTER 2022-09-24 01:58 | Outpatient (RCR) | payer OTHER, SELFPAY ==
[2022-09-24 11:42] LABS: Abs Immature Grans 0.05 10^3/uL (0.0-0.06); Absolute Basophil Count 0.06 10^3/uL (0.0-0.2); Absolute Eosinophil Count 0.08 10^3/uL (0.0-0.7); Absolute Lymphocyte Count 1.12 10^3/uL (1.2-3.4); Absolute Neutrophil Count 4.69 10^3/uL (1.2-6.7); Basophils % 0.8; Eosinophils % 1.1; HCT 37.6 % (40.0-50.0); HGB 12.4 g/dL (13.5-17.5); Immature Grans % 0.7; Lymphocytes % 15.6; MCH 30.4 pg (27.0-33.0); MCV 92 fL (80-95); MPV 10.4 fL (8.0-11.0); Monocytes % 16.7; Neutrophils % 65.1; Platelet Count 156 10^3/uL (130-400); RBC 4.08 10^6/uL (4.36-5.78); RDW 15.4 % (11.8-14.1); RDW-SD 51.8 fL
[2022-09-24 12:07] LABS: ALT 17 U/L (16-63); AST 24 U/L (15-37); Albumin 3.2 g/dL (3.4-5.0); Alkaline Phosphatase 106 U/L (46-116); Anion Gap 6.3 mmol/L (3-11); BUN 25 mg/dL (7-18); Bilirubin, Total 0.7 mg/dL (0.2-1.0); CO2 29.7 mmol/L (21.0-32.0); CREATININE 1.3 mg/dL (0.70-1.30); Chloride 104 mmol/L (98-107); Estimated GFR 56.23 (mL/min/1.73m2); FREE T4 1.24 ng/dL (0.76-1.46); Glucose 131 mg/dL (74-106); Magnesium 1.8 mg/dL (1.8-2.4); Sodium 140 mmol/L (136-145); TSH 0.99 uIU/mL (0.36-3.74); Total Protein 6.8 g/dL (6.4-8.2)
== END 2022-10-15 23:59 | disposition home or self-care (01) ==
LOC: INF 01:58
PROVIDERS: PCP Nurse Practitioner Primary Care; Visit Provider Internal Medicine Medical Oncology
DX: C34.91 Malignant neoplasm of unspecified part of right bronchus or lung (principal); C77.1 Secondary and unspecified malignant neoplasm of intrathoracic lymph nodes; Z79.899 Other long term (current) drug therapy
CPT/HCPCS: 36415; 80053; 83735; 84439; 84443; 85025

== ENCOUNTER 2022-11-05 04:19 | Outpatient (RCR) | payer OTHER, SELFPAY ==
[2022-10-17 08:13] LABS: Abs Immature Grans 0.03 10^3/uL (0.0-0.06); Absolute Basophil Count 0.06 10^3/uL (0.0-0.2); Absolute Eosinophil Count 0.16 10^3/uL (0.0-0.7); Absolute Lymphocyte Count 1.21 10^3/uL (1.2-3.4); Absolute Monocyte Count 1.08 10^3/uL (0.1-0.8); Absolute Neutrophil Count 3.65 10^3/uL (1.2-6.7); Eosinophils % 2.6; HCT 35.6 % (40.0-50.0); Immature Grans % 0.5; Lymphocytes % 19.5; MCH 31.7 pg (27.0-33.0); MCHC 33.7 % (32.0-36.0); MCV 94 fL (80-95); MPV 10.8 fL (8.0-11.0); Monocytes % 17.4; Platelet Count 259 10^3/uL (130-400); RBC 3.79 10^6/uL (4.36-5.78); RDW 16.9 % (11.8-14.1); RDW-SD 57.7 fL; WBC 6.19 10^3/uL (4.4-10.8)
[2022-10-17 08:40] LABS: ALT 24 U/L (16-63); AST 29 U/L (15-37); Albumin 3.3 g/dL (3.4-5.0); Alkaline Phosphatase 107 U/L (46-116); BUN 22 mg/dL (7-18); Bilirubin, Total 0.8 mg/dL (0.2-1.0); CREATININE 1.3 mg/dL (0.70-1.30); Calcium 9.3 mg/dL (8.5-10.1); Chloride 105 mmol/L (98-107); Estimated GFR 56.23 (mL/min/1.73m2); FREE T4 1.26 ng/dL (0.76-1.46); Glucose 107 mg/dL (74-106); Magnesium 1.9 mg/dL (1.8-2.4); Sodium 141 mmol/L (136-145); Total Protein 7.1 g/dL (6.4-8.2)
[2022-11-05 11:03] LABS: Abs Immature Grans 0.06 10^3/uL (0.0-0.06); Absolute Basophil Count 0.05 10^3/uL (0.0-0.2); Absolute Eosinophil Count 0.17 10^3/uL (0.0-0.7); Absolute Lymphocyte Count 1.53 10^3/uL (1.2-3.4); Absolute Monocyte Count 1.06 10^3/uL (0.1-0.8); Absolute Neutrophil Count 4.26 10^3/uL (1.2-6.7); Basophils % 0.7; Eosinophils % 2.4; HCT 38.4 % (40.0-50.0); HGB 12.3 g/dL (13.5-17.5); Immature Grans % 0.8; Lymphocytes % 21.5; MCH 30.6 pg (27.0-33.0); MCV 96 fL (80-95); MPV 10.4 fL (8.0-11.0); Monocytes % 14.9; Neutrophils % 59.7; Platelet Count 142 10^3/uL (130-400); RBC 4.02 10^6/uL (4.36-5.78); RDW 17.2 % (11.8-14.1); RDW-SD 61.1 fL; WBC 7.13 10^3/uL (4.4-10.8)
[2022-11-05 11:23] LABS: ALT 19 U/L (16-63); AST 23 U/L (15-37); Albumin 3.5 g/dL (3.4-5.0); Alkaline Phosphatase 109 U/L (46-116); Anion Gap 5.4 mmol/L (3-11); BUN 28 mg/dL (7-18); Bilirubin, Total 0.7 mg/dL (0.2-1.0); CO2 29.6 mmol/L (21.0-32.0); CREATININE 1.2 mg/dL (0.70-1.30); Calcium 9.6 mg/dL (8.5-10.1); Chloride 105 mmol/L (98-107); FREE T4 1.17 ng/dL (0.76-1.46); Glucose 96 mg/dL (74-106); Magnesium 1.8 mg/dL (1.8-2.4); Potassium 4.2 mmol/L (3.5-5.1); Sodium 140 mmol/L (136-145); Total Protein 7.3 g/dL (6.4-8.2)
== END 2022-11-15 23:59 | disposition home or self-care (01) ==
LOC: INF 04:19
PROVIDERS: PCP Nurse Practitioner Primary Care; Visit Provider Internal Medicine Medical Oncology
DX: C34.91 Malignant neoplasm of unspecified part of right bronchus or lung (principal)
CPT/HCPCS: 36415; 80053; 83735; 84439; 84443; 85025

== ENCOUNTER → 2022-11-23 00:41 | Outpatient (CLI) | payer OTHER, SELFPAY ==
--- NOTE | 2022-11-23 | DI.MRI_ITS ---
Exam(s) MR BRAIN WO/W EXAM: MR BRAIN WO/W CLINICAL HISTORY: LUNG CANCER C34.90 NEW BALANCE ISSUES TECHNIQUE: Multiplanar multisequence MRI of the brain was performed. CONTRAST MATERIAL: IV Contrast: 11 mL of Dotarem contrast administered. COMPARISON: No exams were available for comparison FINDINGS: VENTRICLES AND EXTRA AXIAL SPACES: Normal in size and morphology for the patient's age. HEMORRHAGE: None. CEREBRAL PARENCHYMA: No focus of restricted diffusion to suggest acute infarct. No space-occupying le joseph identified. There are areas of hyperintense signal seen in the white matter on the FLAIR and T2 weighted images most consistent with small vessel ischemic disease. There is an old left basal gangl iar lacunar infarct. Gradient images show evidence of remote/chronic hemorrhage associated with the left basal gangliar infarct. There is a small area of encephalomalacia involving the right cerebellu m. MIDLINE SHIFT: None. BRAINSTEM/CEREBELLUM: Normal. CALVARIUM: Normal. ENHANCEMENT: No suspicious enhancement identified. VISUALIZED PARANASAL SINUSES/MASTOIDS: Mucous retention cysts or polyps are seen in the maxillary sin uses bilaterally. HUGHES OF QUIROZ: Normal flow void. PITUITARY GLAND: Unremarkable. OTHER FINDINGS: IMPRESSION: 1. No evidence of an acute infarct, intracranial mass or enhancing lesion to suggest metastatic disea se. 2. Age-related cerebral atrophy and small vessel ischemic disease. Old left basal gangliar lacunar i nfarct and old right cerebellar infarct. DATA REPOSITORY:
[2022-11-23] MEDS: Gadoterate meglumine 20 ML SYRINGE 11 ML IVP (13:29)
[2022-11-23] MEDS: Normal Saline Flush 10 ML SYR IVP (13:29)
== END ==
PROVIDERS: PCP Nurse Practitioner Primary Care; Visit Provider Nurse Practitioner Family
DX: I67.89 Other cerebrovascular disease
CPT/HCPCS: 70553

== ENCOUNTER 2022-11-26 01:42 | Outpatient (RCR) | payer OTHER, SELFPAY ==
[2022-11-26 10:59] LABS: Abs Immature Grans 0.05 10^3/uL (0.0-0.06); Absolute Basophil Count 0.05 10^3/uL (0.0-0.2); Absolute Eosinophil Count 0.19 10^3/uL (0.0-0.7); Absolute Lymphocyte Count 1.27 10^3/uL (1.2-3.4); Absolute Monocyte Count 0.95 10^3/uL (0.1-0.8); Absolute Neutrophil Count 3.16 10^3/uL (1.2-6.7); Basophils % 0.9; Eosinophils % 3.4; HCT 34.8 % (40.0-50.0); HGB 11.5 g/dL (13.5-17.5); Immature Grans % 0.9; Lymphocytes % 22.4; MCH 31.3 pg (27.0-33.0); MCV 95 fL (80-95); MPV 11.1 fL (8.0-11.0); Monocytes % 16.8; Neutrophils % 55.6; Platelet Count 209 10^3/uL (130-400); RBC 3.67 10^6/uL (4.36-5.78); RDW 16.5 % (11.8-14.1); RDW-SD 56.4 fL; WBC 5.67 10^3/uL (4.4-10.8)
[2022-11-26 11:23] LABS: ALT 26 U/L (16-63); AST 27 U/L (15-37); Albumin 3.3 g/dL (3.4-5.0); Alkaline Phosphatase 95 U/L (46-116); Anion Gap 6.9 mmol/L (3-11); BUN 24 mg/dL (7-18); Bilirubin, Total 0.5 mg/dL (0.2-1.0); CO2 28.1 mmol/L (21.0-32.0); CREATININE 1.2 mg/dL (0.70-1.30); Calcium 9.5 mg/dL (8.5-10.1); Chloride 103 mmol/L (98-107); Glucose 81 mg/dL (74-106); Magnesium 1.8 mg/dL (1.8-2.4); Potassium 3.8 mmol/L (3.5-5.1); Sodium 138 mmol/L (136-145); TSH 6.28 uIU/mL (0.36-3.74); Total Protein 7.2 g/dL (6.4-8.2)
[2022-11-26 11:33] LABS: T4 8.7 ug/dL (4.7-13.3)
== END 2022-12-15 23:59 | disposition home or self-care (01) ==
LOC: INF 01:42
PROVIDERS: PCP Nurse Practitioner Primary Care; Visit Provider Internal Medicine Medical Oncology
DX: C77.1 Secondary and unspecified malignant neoplasm of intrathoracic lymph nodes (principal); Z79.899 Other long term (current) drug therapy
CPT/HCPCS: 36415; 80053; 83735; 84436; 84443; 85025

== ENCOUNTER 2023-01-07 03:21 | Outpatient (RCR) | payer OTHER, SELFPAY ==
[2022-12-17 12:41] LABS: Abs Immature Grans 0.14 10^3/uL (0.0-0.06); HCT 32.1 % (40.0-50.0); HGB 10.5 g/dL (13.5-17.5); MCH 31.5 pg (27.0-33.0); MCHC 32.7 % (32.0-36.0); MCV 96 fL (80-95); MPV 11.7 fL (8.0-11.0); RBC 3.33 10^6/uL (4.36-5.78); RDW 17.4 % (11.8-14.1); RDW-SD 59.5 fL; WBC 6.78 10^3/uL (4.4-10.8)
[2022-12-17 13:04] LABS: Platelet Count 226 10^3/uL (130-400)
[2022-12-17 13:08] LABS: Absolute Lymphocyte Count 1.42 10^3/uL (1.2-3.4); Absolute Neutrophil Count 3.93 10^3/uL (1.2-6.7); Bands % 2
[2022-12-17 13:09] LABS: Absolute Eosinophil Count 0.34 10^3/uL (0.0-0.7); Absolute Monocyte Count 1.08 10^3/uL (0.1-0.8)
[2022-12-17 13:10] LABS: Diff Comment Manual Differential; RBC Morphology Normal
[2022-12-17 13:17] LABS: ALT 24 U/L (16-63); AST 27 U/L (15-37); Albumin 3.3 g/dL (3.4-5.0); Alkaline Phosphatase 95 U/L (46-116); Anion Gap 7.1 mmol/L (3-11); BUN 23 mg/dL (7-18); Bilirubin, Total 0.5 mg/dL (0.2-1.0); CO2 28.9 mmol/L (21.0-32.0); CREATININE 1.2 mg/dL (0.70-1.30); Calcium 9.6 mg/dL (8.5-10.1); Chloride 106 mmol/L (98-107); FREE T4 1.26 ng/dL (0.76-1.46); Glucose 97 mg/dL (74-106); Magnesium 1.9 mg/dL (1.8-2.4); Sodium 142 mmol/L (136-145); TSH 3.57 uIU/mL (0.36-3.74); Total Protein 7.3 g/dL (6.4-8.2)
[2023-01-07 12:16] LABS: HCT 35.9 % (40.0-50.0); HGB 11.4 g/dL (13.5-17.5); MCHC 31.8 % (32.0-36.0); MCV 95 fL (80-95); Platelet Count 119 10^3/uL (130-400); RDW 18.6 % (11.8-14.1); RDW-SD 64.3 fL; WBC 10.54 10^3/uL (4.4-10.8)
[2023-01-07 12:37] LABS: ALT 19 U/L (16-63); AST 22 U/L (15-37); Albumin 3.5 g/dL (3.4-5.0); Alkaline Phosphatase 105 U/L (46-116); Anion Gap 4.8 mmol/L (3-11); BUN 28 mg/dL (7-18); Bilirubin, Total 0.7 mg/dL (0.2-1.0); CO2 31.2 mmol/L (21.0-32.0); CREATININE 1.4 mg/dL (0.70-1.30); Calcium 9.7 mg/dL (8.5-10.1); Chloride 102 mmol/L (98-107); Estimated GFR 51.45 (mL/min/1.73m2); FREE T4 1.21 ng/dL (0.76-1.46); Glucose 118 mg/dL (74-106); Magnesium 1.9 mg/dL (1.8-2.4); Potassium 3.8 mmol/L (3.5-5.1); Sodium 138 mmol/L (136-145); Total Protein 7.7 g/dL (6.4-8.2)
[2023-01-07 12:47] LABS: Absolute Lymphocyte Count 1.05 10^3/uL (1.2-3.4); Absolute Monocyte Count 1.05 10^3/uL (0.1-0.8); Absolute Neutrophil Count 8.33 10^3/uL (1.2-6.7); Atypical Lymphocytes % 2; Bands % 2
[2023-01-07 12:48] LABS: Diff Comment Manual Differential; Myelocytes % 1; RBC Morphology Normal
== END 2023-01-15 23:59 | disposition home or self-care (01) ==
LOC: INF 03:21
PROVIDERS: PCP Nurse Practitioner Primary Care; Visit Provider Internal Medicine Medical Oncology
DX: C34.91 Malignant neoplasm of unspecified part of right bronchus or lung (principal); C77.1 Secondary and unspecified malignant neoplasm of intrathoracic lymph nodes; Z79.899 Other long term (current) drug therapy
CPT/HCPCS: 36415; 80053; 83735; 84439; 84443; 85025

== ENCOUNTER 2023-02-01 12:35 | Emergency (ER) | payer OTHER, SELFPAY ==
[2023-02-01 12:39] VITALS: BP 150/65; PULSE 72; RESP 22; TEMP 37.1; O2SAT 96
--- NOTE | 2023-02-01 13:00 | DI.CT_ITS ---
Exam(s) CT CHEST WO EXAM: CT CHEST WO CLINICAL HISTORY: fall, R rib fractures?. TECHNIQUE: Multi planar reconstructions were performed. CONTRAST MATERIAL: None COMPARISON: CT CT CHEST W from 01/04/2022 FINDINGS: CHEST: LUNGS: Nodes evidence of right upper lobectomy. There are multiple new bilateral concerning noncalcified nodules in both lung floyd which are highly suspicious for metastatic disease. The largest of these is in the left lung/left lower lobe and nohemi sures 1.8 x 1.3 cm. The largest nodule in the right lung measures 1.0 x 0.7 cm. Right hilar adenopathy again noted. The re are no pleural effusions. MEDIASTINUM: Stable right mediastinal nodes. No obvious axillary adenopathy CARDIAC: Heart size is normal. There is no pericardial effusion.Caliber of the thoracic aorta is wit hin normal limits. VISUALIZED UPPER ABDOMEN:Nonobstructive calculus in the partially visualized right kidney noted measu ring 4 millimeters. Also benign kidney cysts noted. No adrenal masses. OSSEOUS: There is a subtle nondisplaced fracture of the right 7th rib. Does not appear pathologic. No significant osseous lesions.No compression fractures evident. No other rib fractures. No sternal fracture.. IMPRESSION: 1. There is a subtle nondisplaced fracture of the anterolateral aspect of the right 7th rib. Does no t appear pathologic 2. Multiple metastatic lung nodules are now evident which are new since the prior CT scan of December 2021. 3. No pleural effusions. Called by myself to ER physician. RADIATION DOSE DELIVERED: Total DLP DATA REPOSITORY: All CT scans at this facility are submitted to the National Radiology Data Registry (NRDR) Dose Index Registry (DIR) with the [employer] (ACR). RADIATION OPTIMIZATION: All CT scans at this facility use at least one of these dose optimization te chniques: automated exposure control; mA and/or kV adjustment per patient size (includes targeted exa ms where dose is matched to clinical indication); or iterative reconstruction.
--- NOTE | 2023-02-01 13:08 | ED.GENADUL_ITS ---
Discharge Plan Disposition Patient Disposition: Home Condition: Stable Discharge Details Clinical Impression: Fracture of rib of right side Primary Care Provider: Tennille Do ED Provider: Anuj Schneider Home Meds and New Rx's Prescriptions: Continued omeprazole magnesium [Prilosec OTC] 20 mg tablet,delayed release (DR/EC) 40 mg PO DAILY Qty: 60 12RF albuterol sulfate 90 mcg/actuation HFA aerosol inhaler 2 puff inhalation Q6H PRN Patient Comments: Pt states he uses every day; varies how often guaifenesin 600 mg tablet extended release 12hr 1,200 mg PO BID PRN acetaminophen [Tylenol] 325 MG tablet 650 mg PO Q4H PRN PRN (Reason: Fever) enalapril maleate 5 MG tablet 5 mg PO DAILY Qty: 30 0RF atorvastatin 40 MG tablet 20 mg PO HS Qty: 0 0RF levothyroxine 100 MCG tablet 1 tab PO DAILY omeprazole 20 mg Tablet,Delayed Release (Dr/Ec) 40 mg PO DAILY Qty: 30 12RF Discharge Instructions Instructions: How to Use an Incentive Spirometer (ED), Rib Fracture (ED) Additional Instructions: You were seen in the emergency department for your fall 4 days ago with right- sided rib pain, there is a small minor rib fracture, we have provided you with an incentive spirometer to use to prevent pneumonia. Please take 1000 mg of Tylenol every 6 hours for pain and use a bulky pillow to provide gentle compression on your right ribs. It may be more comfortable to sleep in a recliner chair. Please return for any developing fever cough or shortness of breath. He had a history of a right upper lung lobectomy, you need to follow-up with your primary care provider and oncologist as there are some new nodules in your lungs that may be metastatic disease from resurgence of lung cancer. Referrals: Tennille Do [Primary Care Provider] - Medical Decision Making This dictation utilizes [id number] dictation software and may contain unedited grammatical errors. 77 y/o M presents to ED today with a chief complaint of fall 4 days ago with R rib pain. Onset and characteristics include worsening pain with coughing, denies pain with deep inspiration, no fever or developing productive cough. Patient has relevant history of R upper lobectomy. Family and social history: smoking history. Pertinent exam findings / vital signs include no crepitus to the right chest, no bruising to right upper quadrant abdomen, no respiratory distress, right upper lung field absent, no diminished or rhonchorous right lower lung floyd. Differential / pathologies of concern include Rib Fracture, Pulmonary Contusion, PTX, PNA. Diagnostic studies of: -CT Chest wo Contrast - minor fracture acute, no PNA, no PTX. -incidental mets to lungs Interventions of: -incentive spirometer for PNA prevention. ED Course: Counseled the patient on his rib fracture and how to best accommodate his pain at home with a large bulky dressing, therapeutic dosing of Tylenol as well as incentive spirometer to prevent pneumonia, I also counseled the patient to contact his primary care provider and oncologist about the findings on his CAT scan of likely metastatic lesions to the lungs.. Findings not consistent with hypoxemic respiratory failure, PNA, PTX, trauma criteria. Disposition of Fracture of Rib on Right Side. Assessment/Plan: [ ]. Patient verbalized understanding of the plan and return to ED criteria and engaged in shared decision making. Medical Records Medical records reviewed: Yes I reviewed the patient's medical records. Imaging Data Radiologic Study: Imaging: CT Scan Radiologist's impression: Exam(s) CT CHEST WO EXAM: CT CHEST WO CLINICAL HISTORY: fall, R rib fractures?. TECHNIQUE: Multi planar reconstructions were performed. CONTRAST MATERIAL: None COMPARISON: CT CT CHEST W from 01/04/2022 FINDINGS: CHEST: LUNGS: Nodes evidence of right upper lobectomy. There are multiple new bilateral concerning noncalcified nodules in both lung floyd which are highly suspicious for metastatic disease. The largest of these is in the left lung/left lower lobe and measures 1.8 x 1.3 cm. The largest nodule in the right lung measures 1.0 x 0.7 cm. Right hilar adenopathy again noted. There are no pleural effusions. MEDIASTINUM: Stable right mediastinal nodes. No obvious axillary adenopathy CARDIAC: Heart size is normal. There is no pericardial effusion.Caliber of the thoracic aorta is within normal limits. VISUALIZED UPPER ABDOMEN:Nonobstructive calculus in the partially visualized right kidney noted measuring 4 millimeters. Also benign kidney cysts noted. No adrenal masses. OSSEOUS: There is a subtle nondisplaced fracture of the right 7th rib. Does not appear pathologic. No significant osseous lesions.No compression fractures evident. No other rib fractures. No sternal fracture.. IMPRESSION: 1. There is a subtle nondisplaced fracture of the anterolateral aspect of the right 7th rib. Does not appear pathologic 2. Multiple metastatic lung nodules are now evident which are new since the prior CT scan of December 2021. 3. No pleural effusions. Called by myself to ER physician. HPI General Date/Time Provider Initiated Documentation: 02/01/23 13:01 . HPI Narrative: 77 year-old male presents to ED today by POV/ambulating with his with a chief complaint of R sided rib pain with onset 4 days ago from a mechanical fall. Quality described as pain with coughing, denies radiation to pain with deep inspiration, productive cough, hemoptysis, dizziness, fever, abdominal pain, bruising to chest wall. Severity is described as 6/10. Palliating factors include nothing specific attempted, doesn't take NSAIDs. Provoking factors include nothing specific. Events leading up to the incident/Associated Symptoms: Patient has history of R upper lobectomy. Patient not anticoagulated. Related Data Home Medications Medication Instructions Recorded Confirmed acetaminophen 325 mg tablet 650 mg PO Q4H PRN PRN Fever 10/08/13 02/01/23 (Tylenol) atorvastatin 40 mg tablet 20 mg (1/2 x 40 mg) PO HS ##0 10/16/13 02/01/23 enalapril maleate 5 mg tablet 5 mg PO DAILY #30 tabs 10/16/13 02/01/23 levothyroxine 100 mcg tablet 1 tab PO DAILY 06/12/17 02/01/23 albuterol sulfate 90 mcg/actuation 2 puff inhalation Q6H PRN 11/02/21 02/01/23 aerosol inhaler guaifenesin 600 mg tablet, 1,200 mg PO BID PRN 11/02/21 02/01/23 extended release 12 hr omeprazole 20 mg tablet,delayed 40 mg (2 x 20 mg) PO DAILY #30 tabs 12/15/21 02/01/23 release omeprazole magnesium 20 mg 40 mg (2 x 20 mg) PO DAILY #60 tabs 12/15/21 02/01/23 tablet,delayed release (Prilosec OTC) Previous Rx's Medication Instructions Recorded atorvastatin 40 mg tablet 20 mg (1/2 x 40 mg) PO HS ##0 10/16/13 enalapril maleate 5 mg tablet 5 mg PO DAILY #30 tabs 10/16/13 omeprazole 20 mg tablet,delayed 40 mg (2 x 20 mg) PO DAILY #30 tabs 12/15/21 release omeprazole magnesium 20 mg 40 mg (2 x 20 mg) PO DAILY #60 tabs 12/15/21 tablet,delayed release (Prilosec OTC) Allergies Allergy/AdvReac Type Severity Reaction Status Date / Time venom-honey bee Allergy Severe Swelling/Ed Unverified 02/01/23 12:43 [bee venom (honey bee)] connie sulfamethoxazole Allergy Unknown Unverified 02/01/23 12:43 [From Bactrim] trimethoprim [From Bactrim] Allergy Unknown Unverified 02/01/23 12:43 General Stated Complaint: Chest/Rib THOR: 3 Review of Systems All systems reviewed & are unremarkable except as noted in HPI and below PFSH All Active Problems (Updated 02/01/23 @ 14:30 by LUCIEN Mcghee) Fracture of rib of right side (Acute) Metastatic primary lung cancer (Acute) recurrent Hyperlipidemia (Chronic) Thyroid disease (Chronic) Acute UTI (Acute) Sepsis (Acute) Lung mass (Acute) S/P lobectomy of lung (Acute) Right lung. 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 CTS (carpal tunnel syndrome) Discitis Frozen shoulder Full thickness rotator cuff tear Graves disease Hypothyroidism Impaired fasting glucose Impingement syndrome of right shoulder Left inguinal hernia Mild chronic obstructive pulmonary disease pt denies Miners' asthma Nephrolithiasis Sensorineural hearing loss (SNHL) of both ears Surgical History H/O thyroidectomy Hx of bilateral cataract extraction Hx of tonsillectomy Social History Smoking/Tobacco Use Status: Former Tobacco Use Quit Date: 03/18/08 Smoking risk assessment performed?: Yes Alcohol Intake: current Alcohol Intake frequency: holidays/special occasions only Alcohol type: beer Drug use: Never Substance use type: does not use Do you feel safe at home: Yes Do you feel safe in your relationship?: Yes Exam Narrative Exam Narrative: GENERAL APPEARANCE: Well-nourished, non-toxic, awake and alert, atraumatic, no acute distress. SKIN: Warm, pink, dry, intact, without rashes/lesions/ulcerations. HEAD: Normocephalic, atraumatic, normal hair distribution for gender/age. EYES: Pupils PERRLA, EOMs intact without nystagmus, normal conjunctiva, no exudates on lids/lashes. ENT: Nares patent, no circumoral cyanosis, no facial swelling NECK: Supple, trachea midline, painless cervical ROM. LUNGS/CHEST: Lungs CTA bilaterally-absent in right upper lung floyd, no focally diminished or absent right lower lung floyd, no wheezing or rhonchi, non- labored respirations, normal A/P diameter, symmetrical expansion, no chest wall deformity, no crepitus to right rib palpation, no flail segment or paradoxical motion HEART (CV/PV): Regular rate and rhythm without murmur, no peripheral edema, no JVD. ABDOMEN: Soft, non-distended, no guarding, no right upper quadrant tenderness or ecchymosis. MSK: Normal ROM, no swelling/deformity to bilateral UEs or LEs, moving all extremities without weakness, no cyanosis, spine midline without tenderness, normal curvature. NEURO: Mental Status AAOx4 - alert to person, place, time, events No facial droop, no forehead involvement. Motor: No focal weakness - strength 5/5 in bilateral UEs and LEs, proximal and distal, symmetric. Sensory: sensation intact to light touch globally. Gait normal: patient ambulated without ataxia into ED room. PSYCH: euthymic, cooperative, pleasant, appropriate speech Course Vital Signs Vital signs: Vital Signs Temperature 37.1 C 02/01/23 12:39 Pulse 72 02/01/23 12:39 Respiratory Rate 22 02/01/23 12:39 Blood Pressure 150/65 H 02/01/23 12:39 Pulse Oximetry 96 02/01/23 12:39 Temperature 37.1 C 02/01/23 12:39 Temperature Source Skin 02/01/23 12:39 Pulse 72 02/01/23 12:39 Respiratory Rate 22 02/01/23 12:39 Blood Pressure 150/65 H 02/01/23 12:39 Blood Pressure Position Sitting 02/01/23 12:39 Pulse Oximetry 96 02/01/23 12:39 Oxygen Delivery Method Room Air 02/01/23 12:39 Oxygen Flow Rate 0 02/01/23 12:39 Pain Level 10 02/01/23 12:39
== END 2023-02-01 15:01 | disposition home or self-care (01) ==
PROVIDERS: Emergency Provider Physician Assistant; PCP Nurse Practitioner Primary Care
DX: S22.31XA Fracture of one rib, right side, initial encounter for closed fracture (principal); W19.XXXA Unspecified fall, initial encounter
CPT/HCPCS: 71250; 99284; 99283

== ENCOUNTER 2023-03-05 08:36 | Emergency (ER) | payer OTHER, SELFPAY ==
[2023-03-05 08:41] VITALS: BP 128/63; PULSE 82; RESP 18; TEMP 37.1; O2SAT 95
--- NOTE | 2023-03-05 09:00 | DI.RAD_ITS ---
Exam(s) XR SHOULDER RT COMPLETE 2+V EXAM: XR SHOULDER RT COMPLETE 2+V CLINICAL HISTORY: anterior/superior right shoulder pain and tenderne. TECHNIQUE: 2D digital imaging was performed. COMPARISON: No exams were available for comparison FINDINGS: Four views. No evidence fracture or dislocation. There is a small calcific density in the soft tissues immediate ly adjacent to the greater tuberosity on the lateral aspect of the humerus consistent with probable r otator cuff tendinitis. The subacromial space is mildly diminished. Some degenerative change noted at the AC joint and mild degenerative changes in the glenohumeral joint. Bone density normal. No os seous lesions. IMPRESSION: Subtle calcification adjacent to the greater tuberosity most probably consistent with calcific rotato r cuff tendinitis. Incidentally noted is a collateral word fusion plate in the lower cervical spine. DATA REPOSITORY: RADIATION DOSE DELIVERED:
--- NOTE | 2023-03-05 09:13 | ED.GENADUL_ITS ---
Discharge Plan Disposition Patient Disposition: Home Condition: Good Discharge Details Clinical Impression: Calcific tendinitis Primary Care Provider: Tennille Do ED Provider: María Larkin Home Meds and New Rx's Prescriptions: No Action omeprazole magnesium [Prilosec OTC] 20 mg tablet,delayed release (DR/EC) 40 mg PO DAILY Qty: 60 12RF albuterol sulfate 90 mcg/actuation HFA aerosol inhaler 2 puff inhalation Q6H PRN Patient Comments: Pt states he uses every day; varies how often guaifenesin 600 mg tablet extended release 12hr 1,200 mg PO BID PRN acetaminophen [Tylenol] 325 MG tablet 650 mg PO Q4H PRN PRN (Reason: Fever) enalapril maleate 5 MG tablet 5 mg PO DAILY Qty: 30 0RF atorvastatin 40 MG tablet 20 mg PO HS Qty: 0 0RF levothyroxine 100 MCG tablet 1 tab PO DAILY omeprazole 20 mg Tablet,Delayed Release (Dr/Ec) 40 mg PO DAILY Qty: 30 12RF Discharge Instructions Instructions: Tendinitis (ED) Additional Instructions: Tylenol and ibuprofen over the counter at home; follow the directions on the bottle. Call your primary care doctor today to schedule an appointment to follow up on your visit here. Return to the emergency department for new or worsening symptoms. Referrals: Tennille Do [Primary Care Provider] - Medical Decision Making 77yo M with metastatic lung cancer, HLD, GERD, hypothyroid, COPD, presenting for right shoulder pain x 3 days. History from patient and at bedside. Persistent despite home tylenol and hot packs. Atraumatic. Systemically well. Vital signs reassuring. On exam he has focal reproducible tenderness to his anterior/superior right humeral head. No abdominal tenderness. Not concerning for gallbladder pathology, aortic dissection, pneumothorax; would not pursue further with labs or CT imaging. Given tylenol and toradol for symptoms. Right shoulder XR independently reviewed, no displaced fracture or dislocation on my view, radiology read below with likely calcific rotator cuff tendinitis. On reassessment patient remains well appearing with reassuring vital signs, pain adequately controlled. Advised symptomatic treatment at home, PCP followup. Discharged home; discharge instructions and return precautions were reviewed with patient and who verbalized understanding. All questions were answered and they are in full agreement with the plan. Imaging Data Radiologic Study: Imaging: X-Ray Radiologist's impression: IMPRESSION: Subtle calcification adjacent to the greater tuberosity most probably consistent with calcific rotator cuff tendinitis. HPI General Mode of arrival: ambulatory . Date/Time Provider Initiated Documentation: 03/05/23 08:55 . Limitations to Documentation: no limitations . Information obtained by: patient and family . HPI Narrative: 77yo M with metastatic lung cancer, HLD, GERD, hypothyroid, COPD, presenting for right shoulder pain x 3 days. Persistent despite home tylenol and hot packs. Does not recall any trauma or injury to the area, no recent falls. Pain is moderate and worse with movement. He is otherwise in his usual state of health with no fevers, chills, rash, nasuea, vomiting, abdominal pain, chest pain, shortness of breath, numbness, weakness, or other concerns. Related Data Home Medications Medication Instructions Recorded Confirmed acetaminophen 325 mg tablet 650 mg PO Q4H PRN PRN Fever 10/08/13 03/05/23 (Tylenol) atorvastatin 40 mg tablet 20 mg (1/2 x 40 mg) PO HS ##0 10/16/13 03/05/23 enalapril maleate 5 mg tablet 5 mg PO DAILY #30 tabs 10/16/13 03/05/23 levothyroxine 100 mcg tablet 1 tab PO DAILY 06/12/17 03/05/23 albuterol sulfate 90 mcg/actuation 2 puff inhalation Q6H PRN 11/02/21 03/05/23 aerosol inhaler guaifenesin 600 mg tablet, 1,200 mg PO BID PRN 11/02/21 03/05/23 extended release 12 hr omeprazole 20 mg tablet,delayed 40 mg (2 x 20 mg) PO DAILY #30 tabs 12/15/21 03/05/23 release omeprazole magnesium 20 mg 40 mg (2 x 20 mg) PO DAILY #60 tabs 12/15/21 03/05/23 tablet,delayed release (Prilosec OTC) Previous Rx's Medication Instructions Recorded atorvastatin 40 mg tablet 20 mg (1/2 x 40 mg) PO HS ##0 10/16/13 enalapril maleate 5 mg tablet 5 mg PO DAILY #30 tabs 10/16/13 omeprazole 20 mg tablet,delayed 40 mg (2 x 20 mg) PO DAILY #30 tabs 12/15/21 release omeprazole magnesium 20 mg 40 mg (2 x 20 mg) PO DAILY #60 tabs 12/15/21 tablet,delayed release (Prilosec OTC) Allergies Allergy/AdvReac Type Severity Reaction Status Date / Time venom-honey bee Allergy Severe Swelling/Ed Unverified 03/05/23 08:55 [bee venom (honey bee)] connie sulfamethoxazole Allergy Unknown Unverified 03/05/23 08:55 [From Bactrim] trimethoprim [From Bactrim] Allergy Unknown Unverified 03/05/23 08:55 General Stated Complaint: Orthopedic THOR: 4 Review of Systems Narrative: see HPI PFSH All Active Problems (Updated 03/05/23 @ 10:25 by María Larkin MD) Calcific tendinitis (Acute) Metastatic primary lung cancer (Acute) recurrent Hyperlipidemia (Chronic) Thyroid disease (Chronic) Acute UTI (Acute) Sepsis (Acute) Lung mass (Acute) S/P lobectomy of lung (Acute) Right lung. 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 CTS (carpal tunnel syndrome) Discitis Frozen shoulder Full thickness rotator cuff tear Graves disease Hypothyroidism Impaired fasting glucose Impingement syndrome of right shoulder Left inguinal hernia Mild chronic obstructive pulmonary disease pt denies Miners' asthma Nephrolithiasis Sensorineural hearing loss (SNHL) of both ears Surgical History H/O thyroidectomy Hx of bilateral cataract extraction Hx of tonsillectomy Social History Smoking/Tobacco Use Status: Former Tobacco Use Quit Date: 03/18/08 Smoking risk assessment performed?: Yes Alcohol Intake: current Alcohol Intake frequency: holidays/special occasions only Alcohol type: beer Drug use: Never Substance use type: does not use Do you feel safe at home: Yes Do you feel safe in your relationship?: Yes Exam Narrative Exam Narrative: General: Alert, well appearing, well nourished, in no acute distress. Head: Normocephalic, atraumatic Neck: Trachea midline, ?Neck supple. Cardiac: ?RRR, no murmurs appreciated Resp: No respiratory distress. CTAB. Abd: ?Soft, non-distended, nontender Extremities: ?No peripheral edema. Anterior/superior right shoulder TTP. Neurologic: GCS 15. ? Moves all extremities freely against gravity Course Vital Signs Vital signs: Vital Signs Temperature 37.1 C 03/05/23 08:41 Pulse 82 03/05/23 08:41 Respiratory Rate 18 03/05/23 08:41 Blood Pressure 128/63 03/05/23 08:41 Pulse Oximetry 95 03/05/23 08:41 Temperature 37.1 C 03/05/23 08:41 Temperature Source Temporal Artery Scan 03/05/23 08:41 Pulse 82 03/05/23 08:41 Respiratory Rate 18 03/05/23 08:41 Respiratory Effort Normal, Non-Labored 03/05/23 08:53 Blood Pressure 128/63 03/05/23 08:41 Blood Pressure Position Sitting 03/05/23 08:41 Pulse Oximetry 95 03/05/23 08:41 Oxygen Delivery Method Room Air 03/05/23 08:41 Oxygen Flow Rate 0 03/05/23 08:41
[2023-03-05] MEDS: Ketorolac 15 MG/ML VIAL IM (10:02)
[2023-03-05] MEDS: Acetaminophen 325 MG TAB 650 MG PO (10:02)
== END 2023-03-05 10:32 | disposition home or self-care (01) ==
PROVIDERS: Emergency Provider Student in an Organized Health Care Education/Training Program; PCP Nurse Practitioner Primary Care
DX: M75.31 Calcific tendinitis of right shoulder (principal); C34.90 Malignant neoplasm of unspecified part of unspecified bronchus or lung; C79.89 Secondary malignant neoplasm of other specified sites; E05.00 Thyrotoxicosis with diffuse goiter without thyrotoxic crisis or storm; J44.9 Chronic obstructive pulmonary disease, unspecified; Z86.73 Personal history of transient ischemic attack (TIA), and cerebral infarction without residual deficits
CPT/HCPCS: 96372; 99283; 73030; J1885

== ENCOUNTER 2023-04-10 11:00 | Outpatient (RCR) | payer OTHER, SELFPAY ==
[2023-04-01 13:37] LABS: Abs Immature Grans 0.26 10^3/uL (0.0-0.06); HCT 31.1 % (40.0-50.0); HGB 9.9 g/dL (13.5-17.5); MCH 26.8 pg (27.0-33.0); MCHC 31.8 % (32.0-36.0); MCV 84 fL (80-95); RDW 24.9 % (11.8-14.1); RDW-SD 73.4 fL; WBC 8.61 10^3/uL (4.4-10.8)
[2023-04-01 14:01] LABS: ALT 13 U/L (16-63); AST 16 U/L (15-37); Albumin 3.3 g/dL (3.4-5.0); Alkaline Phosphatase 87 U/L (46-116); Anion Gap 5.9 mmol/L (3-11); BUN 29 mg/dL (7-18); Bilirubin, Total 0.8 mg/dL (0.2-1.0); CO2 30.1 mmol/L (21.0-32.0); CREATININE 1.2 mg/dL (0.70-1.30); Calcium 9.3 mg/dL (8.5-10.1); Chloride 104 mmol/L (98-107); Estimated GFR 61.52 (mL/min/1.73m2); FREE T4 1.37 ng/dL (0.76-1.46); Glucose 131 mg/dL (74-106); Magnesium 1.8 mg/dL (1.8-2.4); Potassium 3.9 mmol/L (3.5-5.1); Sodium 140 mmol/L (136-145); TSH 0.34 uIU/mL (0.36-3.74); Total Protein 7.1 g/dL (6.4-8.2)
[2023-04-01 14:04] LABS: Bands % 3; Platelet Count 80 10^3/uL (130-400)
[2023-04-01 14:05] LABS: Absolute Eosinophil Count 0.43 10^3/uL (0.0-0.7); Absolute Lymphocyte Count 0.95 10^3/uL (1.2-3.4); Absolute Monocyte Count 0.86 10^3/uL (0.1-0.8); Anisocytosis 3+; Diff Comment Manual Differential; Myelocytes % 2
[2023-04-01 14:06] LABS: Poikilocytes 3+
[2023-04-10 11:37] LABS: HGB 10.5 g/dL (13.5-17.5); MCH 26.6 pg (27.0-33.0); MCHC 31.8 % (32.0-36.0); MCV 84 fL (80-95); RBC 3.94 10^6/uL (4.36-5.78); RDW 25.7 % (11.8-14.1); RDW-SD 75.7 fL; Reticulocyte 1.9 % (0.5-2.4); WBC 8.41 10^3/uL (4.4-10.8)
[2023-04-10 11:44] LABS: INR 1.1 (0.9-1.1); PTT Activated 24.1 sec (23.6-32.8); Prothrombin Time 10.6 sec (9.1-11.1)
[2023-04-10 11:53] LABS: Absolute Eosinophil Count 0.42 10^3/uL (0.0-0.7); Absolute Lymphocyte Count 1.35 10^3/uL (1.2-3.4); Absolute Monocyte Count 0.67 10^3/uL (0.1-0.8); Absolute Neutrophil Count 5.97 10^3/uL (1.2-6.7); Atypical Lymphocytes % 2; Bands % 4; Platelet Count 82 10^3/uL (130-400)
[2023-04-10 11:54] LABS: Anisocytosis 2+; Diff Comment Manual Differential; Schistocytes 2+
[2023-04-10 12:14] LABS: Ferritin 388 ng/mL (26-388); Folate > 20.0 ng/mL (8.6-20.0); Vitamin B12 921 pg/mL (193-986)
[2023-04-10 12:25] LABS: LDH 174 U/L (85-227)
[2023-04-10 12:32] LABS: Iron 70 ug/dL (65-175); Total Iron Binding Capacity 189 ug/dL (250-450); Transferrin Sat 37 % (20-55)
== END 2023-04-17 23:59 | disposition home or self-care (01) ==
LOC: INF 11:00
PROVIDERS: PCP Nurse Practitioner Primary Care; Visit Provider Internal Medicine Medical Oncology
DX: C34.91 Malignant neoplasm of unspecified part of right bronchus or lung (principal); Z79.899 Other long term (current) drug therapy
CPT/HCPCS: 36415; 80053; 82607; 82728; 82746; 83540; 83550; 83615; 83735; 84439; 84443; 85025; 85045; 85610; 85730

== ENCOUNTER 2023-04-22 13:04 | Emergency (ER) | payer OTHER, SELFPAY ==
[2023-04-22 13:09] VITALS: BP 156/53; PULSE 62; RESP 17; TEMP 36.4
[2023-04-22 14:03] LABS: Bilirubin Negative (Negative); Blood Trace-intact (Negative); Clarity Cloudy (Clear); Glucose Negative (Negative); Ketones Negative (Negative); Leukocyte Esterase Large (Negative); Nitrite Negative (Negative); Urobilinogen 0.2 mg/dL (Up to 0.2)
[2023-04-22 14:11] LABS: Bacteria Moderate HPF (Negative); C & S Indicated? Yes; Casts Negative LPF (Negative); Crystals Negative HPF (Negative); Epithelial Cells Rare HPF (Negative); Mucus Negative (Negative); RBC 0-2 HPF (0-2); WBC >50 HPF (0-5)
--- NOTE | 2023-04-22 14:13 | ED.GENADUL_ITS ---
HPI General Mode of arrival: ambulatory . Date/Time Provider Initiated Documentation: 04/22/23 13:10 . Limitations to Documentation: no limitations . Information obtained by: patient, family and RN notes reviewed . History of Present Illness 78 year old M presents to the emergency department with the chief complaint of Pain with urination and occasional hematuria, described as moderate and similar to prior episodes, Patient started experiencing this week(s) (1) and it has been constant. No relieving factors improve symptom(s), No exacerbating factors reported . Patient notes no other symptoms.. Patient did receive the following treatments prior to arrival, none Related Data Home Medications Medication Instructions Recorded Confirmed acetaminophen 325 mg tablet 650 mg PO Q4H PRN PRN Fever 10/08/13 04/22/23 (Tylenol) atorvastatin 40 mg tablet 20 mg (1/2 x 40 mg) PO HS ##0 10/16/13 04/22/23 enalapril maleate 5 mg tablet 5 mg PO DAILY #30 tabs 10/16/13 04/22/23 levothyroxine 100 mcg tablet 1 tab PO DAILY 06/12/17 04/22/23 albuterol sulfate 90 mcg/actuation 2 puff inhalation Q6H PRN 11/02/21 04/22/23 aerosol inhaler guaifenesin 600 mg tablet, 1,200 mg PO BID PRN 11/02/21 04/22/23 extended release 12 hr omeprazole 20 mg tablet,delayed 40 mg (2 x 20 mg) PO DAILY #30 tabs 12/15/21 04/22/23 release cefpodoxime 200 mg tablet 200 mg PO BID #14 tabs 04/22/23 Previous Rx's Medication Instructions Recorded atorvastatin 40 mg tablet 20 mg (1/2 x 40 mg) PO HS ##0 10/16/13 enalapril maleate 5 mg tablet 5 mg PO DAILY #30 tabs 10/16/13 omeprazole 20 mg tablet,delayed 40 mg (2 x 20 mg) PO DAILY #30 tabs 12/15/21 release cefpodoxime 200 mg tablet 200 mg PO BID #14 tabs 04/22/23 Allergies Allergy/AdvReac Type Severity Reaction Status Date / Time venom-honey bee Allergy Severe Swelling/Ed Unverified 03/05/23 08:55 [bee venom (honey bee)] connie sulfamethoxazole Allergy Unknown Unverified 03/05/23 08:55 [From Bactrim] trimethoprim [From Bactrim] Allergy Unknown Unverified 03/05/23 08:55 General Stated Complaint: Urinary THOR: 3 Review of Systems Constitutional Constitutional: Denies chills, Denies fever(s) and Denies weakness Gastrointestinal Gastrointestinal: Denies abdominal pain, Denies nausea and Denies vomiting Genitourinary Genitourinary: Reports as per HPI, Reports hematuria, Reports dysuria and Reports other (Change in urine color) Neurologic Neurologic: Denies confusion and Denies weakness Psychiatric Psychiatric: Denies confusion Exam Const General: cooperative and no acute distress Orientation: alert, awake and oriented x3 Resp Effort & Inspection: normal respiratory effort and able to speak in complete sentences Auscultation: clear to auscultation bilaterally Cardio Rate: regular rate Rhythm: regular rhythm Heart Sounds: S1 normal and S2 normal GI Palpation: nontender Back/Spine/Pelvis Back: no CVA tenderness Neuro General: patient alert, patient awake and patient oriented x3 Extrem General: capillary refill normal Course Vital Signs Vital signs: Vital Signs Temperature 36.4 C 04/22/23 13:09 Pulse 62 04/22/23 13:09 Respiratory Rate 17 04/22/23 13:09 Blood Pressure 156/53 H 04/22/23 13:09 Temperature 36.4 C 04/22/23 13:09 Pulse 62 04/22/23 13:09 Respiratory Rate 17 04/22/23 13:09 Blood Pressure 156/53 H 04/22/23 13:09 Lab/Test Results Lab/Test Results: 04/22/23 13:54 Urine - Reflex from Ua Urine Culture - Pending Laboratory Tests Range/Units 04/22/23 13:54 Urine Color (Yellow) Yellow Urine Clarity (Clear) Cloudy Urine pH (5-8) 7.0 Ur Specific Alligator (1.005-1.025) 1.020 Urine Protein (Negative) mg/dL Trace H Urine Ketones (Negative) mg/dL Negative Urine Blood (Negative) Trace-intact H Urine Nitrite (Negative) Negative Urine Bilirubin (Negative) Negative Urine Urobilinogen (Up to 0.2) mg/dL 0.2 Ur Leukocyte Esterase (Negative) Large H Urine RBC (0-2) HPF 0-2 Urine WBC (0-5) HPF >50 H Ur Epithelial Cells (Negative) HPF Rare Urine Crystals (Negative) HPF Negative Urine Bacteria (Negative) HPF Moderate Urine Casts (Negative) LPF Negative Urine Mucus (Negative) Negative Ur Culture Indicated? Yes Urine Glucose (Negative) mg/dL Negative Medical Decision Making Pt here for Dysuria. Symptoms for 7 days. denies fever, abd pain, nausea, diarrhea, flank pain or genital symptoms. Exam shows no CVA tenderness, no supra-pubic tenderness, otherwise neg exam and pt is non toxic in apperance. ddx to include acute cyctitis/UTI, urethritis, Doubt Pyelonephritis or Infected kidney stone. Patient does have history of BPH with daily catheterization for urine voiding. Will order urinalysis UA shows finding to suggest UTI. PT prescribed cefpodoxime given review of previous culture shows some antibiotic resistance to other cephalosporins along with atypical urine cultures. Follow up and return precautions discussed. After discussion of diagnosis and plan of care patient and significant other has no further needs, questions, or concerns and states clear understanding to return to the emergency department for any worsening symptoms. This documentation was generated using [employer] dictation system, please disregard any oddities of phrase or misspellings. Quality:SDOH Health Related Social Needs: No Data to Display PFSH All Active Problems (Updated 04/22/23 @ 14:18 by Viet Fisher NP) Metastatic primary lung cancer (Acute) recurrent Hyperlipidemia (Chronic) Thyroid disease (Chronic) Acute UTI (Acute) Sepsis (Acute) Lung mass (Acute) S/P lobectomy of lung (Acute) Right lung. 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 weakness Full thickness rotator cuff tear 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 Hypothyroidism CTS (carpal tunnel syndrome) Frozen shoulder Impingement syndrome of right shoulder Carcinoma in situ of lung Surgical History Hx of bilateral cataract extraction Hx of tonsillectomy H/O thyroidectomy Social History Smoking/Tobacco Use Status: Former Tobacco Use Quit Date: 03/18/08 Smoking risk assessment performed?: Yes Alcohol Intake: current Alcohol Intake frequency: holidays/special occasions only Alcohol type: beer Drug use: Never Substance use type: does not use Housing: house Do you feel safe at home: Yes Do you feel safe in your relationship?: Yes Discharge Plan Disposition Patient Disposition: Home Discharge Details Clinical Impression: Acute UTI Primary Care Provider: Tennille Do ED Provider: Viet Fisher Home Meds and New Rx's Prescriptions: New cefpodoxime 200 mg tablet 200 mg PO BID Qty: 14 0RF Rx Instructions: must administer with a meal/food Continued albuterol sulfate 90 mcg/actuation HFA aerosol inhaler 2 puff inhalation Q6H PRN Patient Comments: Pt states he uses every day; varies how often guaifenesin 600 mg tablet extended release 12hr 1,200 mg PO BID PRN acetaminophen [Tylenol] 325 MG tablet 650 mg PO Q4H PRN PRN (Reason: Fever) enalapril maleate 5 MG tablet 5 mg PO DAILY Qty: 30 0RF atorvastatin 40 MG tablet 20 mg PO HS Qty: 0 0RF levothyroxine 100 MCG tablet 1 tab PO DAILY Held omeprazole 20 mg Tablet,Delayed Release (Dr/Ec) 40 mg PO DAILY Qty: 30 12RF Hold Instructions: If possible hold this medication while on antibiotic as it may decrease the effectiveness of the antibiotic. Discharge Instructions Instructions: Urinary Tract Infection in Men (ED) Additional Instructions: Please closely monitor your symptoms and return immediately to the emergency department for any new or significant worsening. Please take your antibiotic as prescribed and follow-up with your primary care provider preferably later this week for reassessment and to ensure that you are improving. Referrals: Tennille Do [Primary Care Provider] - 3 days (For recheck of symptoms) Discharge Data Discharge Date/Time-TO BE ENTERED AT DEPARTURE: 04/22/23 14:36
[2023-04-22] MEDS: Cefpodoxime 200 MG TAB PO (14:32)
[2023-04-22 14:35] VITALS: PULSE 65; RESP 14; O2SAT 94
== END 2023-04-22 14:36 | disposition home or self-care (01) ==
PROVIDERS: Emergency Provider Nurse Practitioner Family; PCP Nurse Practitioner Primary Care
DX: N39.0 Urinary tract infection, site not specified (principal); Z87.891 Personal history of nicotine dependence
CPT/HCPCS: 87077; 99283; 81003; 81015; 87086; 87186

== ENCOUNTER 2023-04-24 11:33 | Emergency (ER) | payer OTHER, SELFPAY ==
[2023-04-24 11:37] VITALS: BP 117/52; PULSE 75; RESP 18; TEMP 37.1; O2SAT 98
[2023-04-24 12:35] VITALS: RESP 18
[2023-04-24] MEDS: ACETAMINOPHEN 1,000 MG/100 ML BTL 400 MG IVPB (12:38)
[2023-04-24 12:40] LABS: HCT 29.5 % (40.0-50.0); HGB 9.7 g/dL (13.5-17.5); MCHC 32.9 % (32.0-36.0); MCV 82 fL (80-95); Nucleated RBC 0.2 % (0.0-0.3); RBC 3.59 10^6/uL (4.36-5.78); RDW 25.2 % (11.8-14.1); RDW-SD 71.7 fL; WBC 12.21 10^3/uL (4.4-10.8)
[2023-04-24 12:55] LABS: ALT 21 U/L (16-63); AST 23 U/L (15-37); Albumin 3.1 g/dL (3.4-5.0); Alkaline Phosphatase 87 U/L (46-116); Anion Gap 7.1 mmol/L (3-11); BUN 27 mg/dL (7-18); C-Reactive Protein 5.51 mg/dL (<or=0.5); CO2 29.9 mmol/L (21.0-32.0); CREATININE 1.1 mg/dL (0.70-1.30); Calcium 9.4 mg/dL (8.5-10.1); Chloride 102 mmol/L (98-107); Estimated GFR 68.29 (mL/min/1.73m2); Glucose 116 mg/dL (74-106); Potassium 4.4 mmol/L (3.5-5.1); Sodium 139 mmol/L (136-145); Total Protein 7.2 g/dL (6.4-8.2)
[2023-04-24 13:07] LABS: Absolute Neutrophil Count 7.69 10^3/uL (1.2-6.7); Bands % 5
[2023-04-24 13:08] LABS: Absolute Lymphocyte Count 1.71 10^3/uL (1.2-3.4); Absolute Monocyte Count 2.44 10^3/uL (0.1-0.8); Anisocytosis 2+; Atypical Lymphocytes % 3; Diff Comment Manual Differential; Metamyelocytes % 3
[2023-04-24 13:09] LABS: Poikilocytes 2+
[2023-04-24] MEDS: Omnipaque 350 MG/ML 100 ML BTL IJ (13:09)
[2023-04-24] MEDS: Normal Saline - Diluent 50 ML VIAL IJ (13:10)
--- NOTE | 2023-04-24 13:20 | DI.CT_ITS ---
Exam(s) CT BRAIN NECK CTA EXAM: CT BRAIN NECK CTA CLINICAL HISTORY: headache, right lateral neck pain, difficulty swal. TECHNIQUE: Imaging Protocol: Axial CT angiography was performed with multi-slice acquisition and mu lti-planar and/or 3D reconstructions. CONTRAST MATERIAL: Intravenous: Omnipaque 350 Contrast volume:structured data in ml COMPARISON: CT CT CHEST/ABD/PEL W from 06/07/[address] CHEST WO from 02/01/2023 FINDINGS: CTA Neck W: Incidental: There is a partially included right hilar mass and there are multiple metastatic appearin g nodules in the partially visualized lung floyd. Largest in the field of view of this study is a 1 .3 cm spiculated lung nodule in the left upper lobe which was evident on the 02/01/2023 study. Lower most images of this contrast infused CT angio study of the carotid arteries reveals cutoff of the di stal right main pulmonary artery. This may be postsurgical or possibly pulmonary embolus. Also note d is an anterior fusion plate in the lower cervical spine. Aortic arch anatomy: The aortic arch anatomy is conventional and there is no significant stenosis at the origin of the great vessels off of the aortic arch. No intimal flap evident. Anterior circulation: Both common carotid arteries ascend with normal luminal diameters. No evidence of significant atherosclerotic stenosis at the carotid bifurcations and proximal internal carotid arteries and both internal carotid arteries are patent in the upper neck and skull base. Posterior circulation: Both vertebral arteries originate in conventional fashion off of the subclavian arteries and there is no obvious stenosis at the origin of the vertebral arteries. Both vertebral arteries exhibit normal luminal diameters within the foramen transversarium. Both vertebral arteries contribute to the formation of the basilar artery at the skull base. CTA Brain W: Anterior circulation: Both internal carotid arteries are patent in the skull base-carotid canals as well as within the cave rnous sinuses. The supraclinoid aspects of the ICAs are patent. Both A1 segments are patent as are the anterior cer ebral arteries and there is no evidence of aneurysm at the level of the anterior communicating artery . Both middle cerebral arteries are patent with no evidence of significant stenosis nor intraluminal th rombus. There also no aneurysms of these vessels. Posterior circulation: The basilar artery ascends in the midline. Distally it gives off patent bilateral superior cerebella r arteries. Above this level the basilar artery terminates as patent bilateral posterior cerebral arteries. There is no evidence of aneurysm at the tip of the basilar artery nor elsewhere in the [id number] is. CT BRAIN: There is no evidence of intracranial hemorrhage, mass effect, or shift of midline structures. There are no extra-axial fluid collections. Ventricles are not enlarged or shifted. There are no ring enh ancing lesions in the brain and no abnormal meningeal enhancement. With no there are density ventricular white matter and ex vacuo dilatation consistent with prior infa rct at this level.. There is also a nonacute appearing lacunar infarct in the left basal ganglia. IMPRESSION: 1. Patent carotid arteries in the neck. No hemodynamically significant stenosis. 2. Patent vertebral arteries. 3. Patent intracranial arteries. 4. No evidence of ring enhancing metastatic lesions in the brain, given the findings in the chest. 5. Evidence of previous infarct in the left basal ganglia left periventricular white matter region, n onacute in appearance. Discussed with ER provider. RADIATION DOSE DELIVERED: 2,009.81mGy.cm Total DLP DATA REPOSITORY: All CT scans at this facility are submitted to the National Radiology Data Registry (NRDR) Dose Index Registry (DIR) with the [employer] (ACR). RADIATION OPTIMIZATION: All CT scans at this facility use at least one of these dose optimization te chniques: automated exposure control; mA and/or kV adjustment per patient size (includes targeted exa ms where dose is matched to clinical indication); or iterative reconstruction.
[2023-04-24] MEDS: Orphenadrine 60 MG/2 ML VIAL 30 MG IVP (14:26)
--- NOTE | 2023-04-24 14:53 | ED.GENADUL_ITS ---
HPI General Date/Time Provider Initiated Documentation: 04/24/23 11:41 . HPI Narrative: This 78-year-old male with history of metastatic lung cancer and lymphoma presents with neck pain which started yesterday, pain exacerbated with swallowing. Denies any fever or chills. Denies any known traumatic injuries. Last chemotherapy was approximately a week prior to arrival, denies any headache. Denies chest pain or new shortness of breath. Prior history of stroke affecting right side, denies any exacerbation of the symptoms. Denies any weakness or paresthesias. Denies any changes in speech. Pain is exacerbated with movement of head. Related Data Home Medications Medication Instructions Recorded Confirmed acetaminophen 325 mg tablet 650 mg PO Q4H PRN PRN Fever 10/08/13 04/22/23 (Tylenol) atorvastatin 40 mg tablet 20 mg (1/2 x 40 mg) PO HS ##0 10/16/13 04/22/23 enalapril maleate 5 mg tablet 5 mg PO DAILY #30 tabs 10/16/13 04/22/23 levothyroxine 100 mcg tablet 1 tab PO DAILY 06/12/17 04/22/23 albuterol sulfate 90 mcg/actuation 2 puff inhalation Q6H PRN 11/02/21 04/22/23 aerosol inhaler guaifenesin 600 mg tablet, 1,200 mg PO BID PRN 11/02/21 04/22/23 extended release 12 hr omeprazole 20 mg tablet,delayed 40 mg (2 x 20 mg) PO DAILY #30 tabs 12/15/21 04/22/23 release cefpodoxime 200 mg tablet 200 mg PO BID #14 tabs 04/22/23 diazepam 2 mg tablet (Valium) 2 mg PO BID PRN #5 tabs 04/24/23 Previous Rx's Medication Instructions Recorded atorvastatin 40 mg tablet 20 mg (1/2 x 40 mg) PO HS ##0 10/16/13 enalapril maleate 5 mg tablet 5 mg PO DAILY #30 tabs 10/16/13 omeprazole 20 mg tablet,delayed 40 mg (2 x 20 mg) PO DAILY #30 tabs 12/15/21 release cefpodoxime 200 mg tablet 200 mg PO BID #14 tabs 04/22/23 diazepam 2 mg tablet (Valium) 2 mg PO BID PRN #5 tabs 04/24/23 Allergies Allergy/AdvReac Type Severity Reaction Status Date / Time venom-honey bee Allergy Severe Swelling/Ed Unverified 03/05/23 08:55 [bee venom (honey bee)] connie sulfamethoxazole Allergy Unknown Unverified 03/05/23 08:55 [From Bactrim] trimethoprim [From Bactrim] Allergy Unknown Unverified 03/05/23 08:55 General Stated Complaint: GenMedical THOR: 3 Course Vital Signs Vital signs: Vital Signs Temperature 37.1 C 04/24/23 11:37 Pulse 75 04/24/23 11:37 Respiratory Rate 18 04/24/23 11:37 Blood Pressure 117/52 L 04/24/23 11:37 Pulse Oximetry 98 04/24/23 11:37 Temperature 37.1 C 04/24/23 11:37 Temperature Source Skin 04/24/23 11:37 Pulse 75 04/24/23 11:37 Respiratory Rate 18 04/24/23 12:35 Respiratory Effort Normal 04/24/23 12:35 Respiratory Depth Normal 04/24/23 12:35 Respiratory Pattern Normal 04/24/23 12:35 Blood Pressure 117/52 L 04/24/23 11:37 Blood Pressure Position Sitting 04/24/23 11:37 Pulse Oximetry 98 04/24/23 11:37 Oxygen Delivery Method Room Air 04/24/23 11:37 Oxygen Flow Rate 0 04/24/23 11:37 Pain Level 8 04/24/23 11:37 Comment took ibuprofen this morning 04/24/23 11:37 Lab/Test Results Lab/Test Results: Laboratory Tests Range/Units 04/24/23 12:30 WBC (4.4-10.8) 10^3/uL 12.21 H RBC (4.36-5.78) 10^6/uL 3.59 L Hgb (13.5-17.5) g/dL 9.7 L Hct (40.0-50.0) % 29.5 L MCV (80-95) fL 82 MCH (27.0-33.0) pg 27.0 MCHC (32.0-36.0) % 32.9 RDW (11.8-14.1) % 25.2 H Plt Count (130-400) 10^3/uL MPV (8.0-11.0) fL Immature Gran % 0.0 Neutrophils % 58.0 Band Neutrophils % 5 Lymphocytes % 11.0 Atypical Lymphs % 3 Monocytes % 20.0 Eosinophils % 0.0 Basophils % 0.0 Metamyelocytes % 3 Nucleated RBC % (0.0-0.3) % 0.2 Absolute Neutrophils (1.2-6.7) 10^3/uL 7.69 H Absolute Lymphocytes (1.2-3.4) 10^3/uL 1.71 Absolute Monocytes (0.1-0.8) 10^3/uL 2.44 H Absolute Eosinophils (0.0-0.7) 10^3/uL 0.00 Absolute Basophils (0.0-0.2) 10^3/uL 0.00 RBC Morphology See Below Poikilocytosis 2+ Anisocytosis 2+ Sodium (136-145) mmol/L 139 Potassium (3.5-5.1) mmol/L 4.4 Chloride (98-107) mmol/L 102 Carbon Dioxide (21.0-32.0) mmol/L 29.9 Anion Gap (3-11) mmol/L 7.1 BUN (7-18) mg/dL 27 H Creatinine (0.70-1.30) mg/dL 1.1 Est GFR (CKD-EPI 2020) (mL/min/1.73m2) 68.29 Glucose (74-106) mg/dL 116 H Calcium (8.5-10.1) mg/dL 9.4 Total Bilirubin (0.2-1.0) mg/dL 1.0 AST (15-37) U/L 23 ALT (16-63) U/L 21 Alkaline Phosphatase (46-116) U/L 87 C-Reactive Protein (<or=0.5) mg/dL 5.51 H Total Protein (6.4-8.2) g/dL 7.2 Albumin (3.4-5.0) g/dL 3.1 L Medical Decision Making This 78-year-old male presents with report of neck pain which started yesterday, pain exacerbated with movement of neck and swallowing. Mother denies pain in his actual throat. States also raising his right hand causes pain in his right neck. Denies history of similar symptoms in the past Patient has reproducible tenderness over the SCM and paraspinal region, he has no meningismus clinically, he is alert and oriented and good strength and sensation distally There is no erythema overlying skin, CTA head and neck was ordered for further evaluation, no acute abnormality visualized, likely metastatic disease from patient's lung cancer visualized, unlikely contributing to today's presentation, no meningismus CRP mildly mildly elevated likely secondary to chemotherapy and cancer history, nonspecific Anemia baseline for patient Mild leukocytosis, patient encouraged to follow-up with primary care physician Feeling improvement after Tylenol and orphenadrine, will give small dose of Valium for home, risk of addiction and weakness associated, reviewed with patient and his Discharged home in stable condition with stable vitals Return precautions reviewed patient expressed understanding Quality:SDOH Health Related Social Needs: No Data to Display PFSH All Active Problems (Updated 04/24/23 @ 14:45 by LUCIEN Santos) Acute neck pain (Acute) Metastatic primary lung cancer (Acute) recurrent Hyperlipidemia (Chronic) Thyroid disease (Chronic) Acute UTI (Acute) Sepsis (Acute) Lung mass (Acute) S/P lobectomy of lung (Acute) Right lung. 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 weakness Full thickness rotator cuff tear 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 Hypothyroidism CTS (carpal tunnel syndrome) Frozen shoulder Impingement syndrome of right shoulder Carcinoma in situ of lung Surgical History Hx of bilateral cataract extraction Hx of tonsillectomy H/O thyroidectomy Social History Smoking/Tobacco Use Status: Former Tobacco Use Quit Date: 03/18/08 Smoking risk assessment performed?: Yes Alcohol Intake: current Alcohol Intake frequency: holidays/special occasions only Alcohol type: beer Drug use: Never Substance use type: does not use Housing: house Do you feel safe at home: Yes Do you feel safe in your relationship?: Yes Discharge Plan Disposition Patient Disposition: Home Discharge Details Clinical Impression: Acute neck pain Primary Care Provider: Tennille Do ED Provider: Isaura Montes Home Meds and New Rx's Prescriptions: New diazepam [Valium] 2 mg tablet 2 mg PO BID PRNQty: 5 0RF Rx Instructions: take 1/2- 1 tab twice daily as needed for pain Continued albuterol sulfate 90 mcg/actuation HFA aerosol inhaler 2 puff inhalation Q6H PRN Patient Comments: Pt states he uses every day; varies how often guaifenesin 600 mg tablet extended release 12hr 1,200 mg PO BID PRN acetaminophen [Tylenol] 325 MG tablet 650 mg PO Q4H PRN PRN (Reason: Fever) enalapril maleate 5 MG tablet 5 mg PO DAILY Qty: 30 0RF atorvastatin 40 MG tablet 20 mg PO HS Qty: 0 0RF levothyroxine 100 MCG tablet 1 tab PO DAILY omeprazole 20 mg Tablet,Delayed Release (Dr/Ec) 40 mg PO DAILY Qty: 30 12RF Hold Instructions: If possible hold this medication while on antibiotic as it may decrease the effectiveness of the antibiotic. cefpodoxime 200 mg tablet 200 mg PO BID Qty: 14 0RF Rx Instructions: must administer with a meal/food Discharge Instructions Instructions: Neck Pain (ED) Additional Instructions: Take the Valium sparingly, you may take 1 to 2 mg or one half tab to 1 full tab twice daily as needed for pain, you may purchase diclofenac gel [id number] and apply topically and use warm compresses over the affected area Please follow-up with your doctor in 24 to 48 hours for reassessment Please return earlier should you have new or worsening complaints you may take Tylenol 650 mg every 4-6 hours, do not exceed 3 g of Tylenol daily Referrals: Tennille Do [Primary Care Provider] -
--- NOTE | 2023-04-25 09:38 | W.ED.FU ---
Date of service: 04/25/23 Time of Service: 09:38 Follow Up Plan: pt growing Klebsiella resistant to cefpodoxime, called pt and he is feeling well, no fevers though still has some burning with urination, will send in macrobid based on culture sensitivities, advised to f/u with pcp and return precautions given
== END 2023-04-24 14:56 | disposition home or self-care (01) ==
PROVIDERS: Emergency Provider Physician Assistant; PCP Nurse Practitioner Primary Care
DX: C34.90 Malignant neoplasm of unspecified part of unspecified bronchus or lung (principal); M54.2 Cervicalgia; Z92.21 Personal history of antineoplastic chemotherapy
CPT/HCPCS: 70496; 70498; 80053; 96365; 96366; 96375; 99285; J2360; 85025; 86140; 99283; J0131; J3490

== ENCOUNTER 2023-04-29 02:34 | Outpatient (RCR) | payer OTHER, SELFPAY ==
[2023-04-18 11:38] LABS: HCT 29.6 % (40.0-50.0); HGB 9.5 g/dL (13.5-17.5); MCH 26.6 pg (27.0-33.0); MCHC 32.1 % (32.0-36.0); MCV 83 fL (80-95); RBC 3.57 10^6/uL (4.36-5.78); RDW 25.2 % (11.8-14.1); RDW-SD 73.2 fL; WBC 2.65 10^3/uL (4.4-10.8)
[2023-04-18 11:52] LABS: ALT 20 U/L (16-63); AST 16 U/L (15-37); Albumin 3.2 g/dL (3.4-5.0); Alkaline Phosphatase 93 U/L (46-116); Anion Gap 9.1 mmol/L (3-11); BUN 29 mg/dL (7-18); Bilirubin, Total 0.7 mg/dL (0.2-1.0); CO2 28.9 mmol/L (21.0-32.0); CREATININE 1.2 mg/dL (0.70-1.30); Calcium 9.3 mg/dL (8.5-10.1); Chloride 102 mmol/L (98-107); Estimated GFR 61.52 (mL/min/1.73m2); Glucose 132 mg/dL (74-106); Magnesium 1.7 mg/dL (1.8-2.4); Potassium 3.7 mmol/L (3.5-5.1); Sodium 140 mmol/L (136-145); Total Protein 6.9 g/dL (6.4-8.2)
[2023-04-18 12:00] LABS: Platelet Count 75 10^3/uL (130-400)
[2023-04-18 12:01] LABS: Absolute Basophil Count 0.03 10^3/uL (0.0-0.2); Absolute Eosinophil Count 0.05 10^3/uL (0.0-0.7); Absolute Lymphocyte Count 1.38 10^3/uL (1.2-3.4); Absolute Monocyte Count 0.29 10^3/uL (0.1-0.8); Absolute Neutrophil Count 0.87 10^3/uL (1.2-6.7); Anisocytosis 2+; Atypical Lymphocytes % 8; Bands % 2; Diff Comment Manual Differential
[2023-04-18 12:02] LABS: Poikilocytes 2+
[2023-04-29 10:07] LABS: Abs Immature Grans 0.43 10^3/uL (0.0-0.06); HCT 31.3 % (40.0-50.0); HGB 9.8 g/dL (13.5-17.5); MCHC 31.3 % (32.0-36.0); MCV 83 fL (80-95); Platelet Count 111 10^3/uL (130-400); RBC 3.77 10^6/uL (4.36-5.78); RDW 25.2 % (11.8-14.1); RDW-SD 72.6 fL; WBC 8.53 10^3/uL (4.4-10.8)
[2023-04-29 10:45] LABS: ALT 31 U/L (16-63); AST 24 U/L (15-37); Albumin 2.9 g/dL (3.4-5.0); Alkaline Phosphatase 86 U/L (46-116); Anion Gap 9.4 mmol/L (3-11); BUN 27 mg/dL (7-18); Bilirubin, Total 0.6 mg/dL (0.2-1.0); CO2 27.6 mmol/L (21.0-32.0); CREATININE 1.2 mg/dL (0.70-1.30); Calcium 9.4 mg/dL (8.5-10.1); Chloride 103 mmol/L (98-107); Estimated GFR 61.52 (mL/min/1.73m2); FREE T4 1.28 ng/dL (0.76-1.46); Glucose 124 mg/dL (74-106); Potassium 3.7 mmol/L (3.5-5.1); Sodium 140 mmol/L (136-145); Total Protein 7.3 g/dL (6.4-8.2)
[2023-04-29 11:14] LABS: Absolute Eosinophil Count 0.17 10^3/uL (0.0-0.7); Absolute Lymphocyte Count 0.85 10^3/uL (1.2-3.4); Absolute Monocyte Count 1.36 10^3/uL (0.1-0.8); Absolute Neutrophil Count 4.95 10^3/uL (1.2-6.7); Bands % 5
[2023-04-29 11:15] LABS: Metamyelocytes % 7; Myelocytes % 3
[2023-04-29 11:16] LABS: Diff Comment Manual Differential
[2023-04-29 11:17] LABS: Anisocytosis 1+; Poikilocytes 2+
== END 2023-05-16 23:59 | disposition home or self-care (01) ==
LOC: INF 02:34
PROVIDERS: PCP Nurse Practitioner Primary Care; Visit Provider Internal Medicine Medical Oncology
DX: Z79.899 Other long term (current) drug therapy; C77.1 Secondary and unspecified malignant neoplasm of intrathoracic lymph nodes; C34.90 Malignant neoplasm of unspecified part of unspecified bronchus or lung
CPT/HCPCS: 36415; 80053; 83735; 84439; 84443; 85025

== ENCOUNTER → 2023-05-29 03:02 | Outpatient (CLI) | payer OTHER, SELFPAY ==
--- NOTE | 2023-05-29 | DI.RAD_ITS ---
Exam(s) RF MODIFIED SPEECH BA SWALLOW TECHNIQUE: Modified barium swallow was performed in conjunction with speech pathology. CONTRAST MATERIAL: Oral barium contrast was administered. COMPARISON: No exams were available for comparison FINDINGS: Note that this is not a dedicated esophagram, distal esophagus not evaluated. The examination was performed with thin and thick barium, barium paste and barium placed on a cracker . Speech pathology report to follow. There was aspiration during thin liquids. The patient did not since the aspiration. The patient had a weak cough and was unable to expel the aspirated liquid. IMPRESSION: Aspiration occurred with thin liquids during the examination. RADIATION DOSE DELIVERED: jayda Canales=11.3 mGy
[2023-05-29] MEDS: Barium Sulfate 81% w/w for Oral Suspension 148 GM BTL 70 GM PO (15:13)
[2023-05-29] MEDS: Barium Sulfate 40% W/V 1500 CPS 250 ML BTL PO (15:14)
[2023-05-29] MEDS: Barium Sulfate Oral Paste 40% W/V 230 ML TUBE 12 ML PO (15:15)
[2023-05-29] MEDS: Barium Sulfate 40% W/V 240 ML BTL 70 ML PO (15:15)
--- NOTE | 2023-05-29 17:23 | ST.MBS_ITS ---
Date of Service Date of service: 05/29/23 Time of Service: 17:23 Modified Barium Swallow Study Findings: Video fluoroscopic Swallowing Evaluation (VFSE) / Modified Barium Swallow Study (MBSS) Speech Language Pathology Report Patient referred for VFSE/MBSS from Kelly Arroyo given dysphagia and weight loss causing palliative chemo treatments to be held. HPI & Patient report of function: Roc is a 78 y/o M with a history of CVA, GERD with Galaviz's esophagus, hypothyroidism, and stave IV [id number] lung cancer, s/p upper right lobectomy in 2018 with subsequent aneesh recurrence. He completed concurrent chemoradiation treatment in 2019 but now with local and distant recurrence in July 2021. He began palliative chemo in July 2021 and his maintenance treatment h as been adjusted with dose reductions and intermittent treatment schedule based on patient preference. Most recent PET scan from 03/2023 was consistent with disease progression, and then began a weekly docetaxel regimen. However, he has only recieved 1 dose and treatment was recently held due to worsening dysphagia, weight loss, and overall frailty. At this time he reports significantly reduced PO itnake. MBSS in 2021 indicated mild-moderate acute on chronic oropharyngeal dysphagia with flash penetration with larger volumes of thin liquids and moderate pharyngeal residue with viscous and solid consistencies. Patient seen recently by this clinician through [facility] and reported at that time frequent coughing with thin liquids as well as difficulty with pharyngeal stasis, esophageal stasis, and occasional regurgitation. IMPRESSIONS: Swallow safety is impaired; swallow efficiency is impaired. Moderate [id number] pharyngeal and likely esophageal dysphagia. Characterized primarily by reduced hyoid excursion and absent epiglottic inversion resulting in significant pharyngeal residue for solid>puree>liquid bolus. Also noting mild reduced laryngeal elevation and occasional premature spillage of thin liquids into pyriforms, leading to deep penetration and aspiration (more severe with large volume/fast rate) into airway. Throat clear was effective to clear residue from glottis, but subglottic aspiration was difficult for patient to clear with cough. Patient is not consistently sensate to deep penetration but does present at times with reflexive throat clear. Of note, post-surgical changes from prior ACDF do not appear to significantly impact UES function, but could contribute to sensory deficits. Suspect dysphagia presentation is due global weakness, chronic GERD/LPR? affecting eppiglottic inversion, glottal insufficiency, and exacerbated by poor breath support. Management: although no aspiration occurred with mildly thick liquids, performance was similar based on small bolus size for thin vs mildly thick liquids. Patient is likely to tolerate thin liquids well with strategies in place as below (most importantly, small sip size with throat clears). For pharyngeal residue of solid consistencies, a L head turn was effective to improve clearance on secondary swallow. Patient's performance also improved with regular solid over puree, therefore suspect he will do better with more cohesive boluses (vs puree which has a tendency to spread apart and stick in the pharynx). Patient appears to be at moderate risk for potential aspiration PNA and/or pulmonary compromise especially given weak cough pressure, and high risk for malnutrition, moderate risk for dehydration given current swallow function and overall frailty. Diet modification is indicated; non-oral nutrition is not indicated. Patient appears to be a good candidate for behavioral swallow rehabilitation if in line with goals of care. RECOMMENDATIONS: Diet Texture Recommendation:? IDDSI LEVEL SOLIDS 6-Soft & Bite-Sized Solids vs 5-Minced & Moist Solids LIQUIDS 0-Thin Liquids Please see further details at?[email or web address] MEDICATIONS Crushed, as able with 4-Puree Diet texture modification is per patient's preference; please adjust diet textures at patient's discretion & collaboration with care team. Do not alter medications (e.g., cut)? without advice from your MD or pharmacist. Risk Management Strategies:? Behavioral reflux precautions, including upright position during + 90 mins after meals. Small bites, approx [id number] Very small sips, approx 5mL / teaspoon Encourage avoidance of straws Alternate solids/liquids as able Multiple swallows per bolus to encourage clearance of pharyngeal stasis/residue L head turn for secondary swallows PRN Control risk factors for aspiration pneumonia via (a) thorough oral hygiene & (b) maintaining physical mobility as tolerated PLAN: Therapy: Recommend subsequent outpatient session with [employer] to review results of today's exam and develop treatment plan as appropriate. Goals: Defer to treating clinician Follow-up exam: N/A ---- OBJECTIVE Videofluoroscopic Swallow Evaluation (VFSE/MBSS) was conducted in the lateral projection by Speech-Language Pathologist, in collaboration with Radiologist, to evaluate oropharyngeal swallow function. Anatomic view under fluoroscopy: Hardware c/w ACDF PO Barium Contrast Trials Oral barium water-soluble contrast was administered as follows: IDDSI Level 0 Varibar thin liquid (40% w/v) IDDSI Level 2 Varibar nectar thick/mildly thick liquid (40% w/v) IDDSI Level 4 Varibar pudding/pureed/extremely thick (40% w/v) IDDSI Level 7 Regular Solid: 1/2 guillermina cracker coated in 3 mL Varibar pudding MBSImP Component Scores: COMPONENT Scale SCORE 1 Lip closure (0-4) 0 Resulted in no labial escape 2 Hold Position (0-3) 0 Maintained a cohesive bolus between tongue to palatal seal 3 Bolus Preparation (0-4) 1 Resulted in slow prolonged chewing/mashing with complete re-collection 4 Bolus Transport (0-4) 1 Demonstrated delayed initiation of tongue motion 5 Oral Residue (0-4) 1 Was a trace, lining oral structures 6 Swallow Initiation (0-4) 2 Occurred as bolus head at posterior laryngeal surface of epiglottis 7 Soft Palate Elevation (0-4) 0 Resulted in no bolus between soft palate and the pharyngeal wall 8 Laryngeal Elevation (0-3) 1 Was decreased with partial superior movement of thyroid cartilage/partial approximation of arytenoids to epiglottic petiole 9 Anterior Hyoid Motion (0-2) 1 Demonstrated partial anterior movement 10 Epiglottic Movement (0-2) 2 Resulted in no inversion 11 Laryngeal Closure (0-2) 1 Was incomplete with narrow column of air/contrast in laryngeal vestibule 12 Pharyngeal Stripping Wave (0-2) 0 Was present and complete 13 Pharyngeal Contraction (0-3) NA 14 PES Opening (0-3) 1 Demonstrated partial distension/ partial duration, with partial obstruction of flow 15 Tongue Base Retraction (0-4) 1 Allowed a trace column of contrast or air between tongue base and pharyngeal wall 16 Pharyngeal Residue (0-4) 2 Was a collection of residue within or on pharyngeal structures 17 Esophageal Clearance (0-4) NA Results: COMPONENT Scale SCORE 1 Oral Score (0-18) 4 2 Pharyngeal Score (0-29) 8 3 Esophageal Score (0-4) 0 Penetration-Aspiration Scale: COMPONENT Scale SCORE 1 Thin liquid (1-8) 7 Contrast entered the airway, passed below the vocal folds, and was not ejected from the trachea despite effort. 2 [place] thick (1-8) 5 Contrast entered the airway, contacted the vocal folds, and was not ejected from the airway. 3 Honey thick (1-8) NA 4 Pudding thick (1-8) 1 Contrast did not enter the airway 5 Cookie (1-8) 1 Contrast did not enter the airway Trialed Compensatory Strategies & Outcome: Maneuvers Successful(+) Unsuccessful(-) Postures Successful(+) Unsuccessful(-) 3 second Preparatory Set? ?+ Chin Tuck Posture? ? Cough? ? Posterior Head tilt? Reflexive? Cued? ?- ? ? Throat Clear? ? Head Tilt to? Reflexive? ?+ ? Left? Cued? ?+ ? Right? ? Saliva swallow? + (paired wth head turn? Head Turn/ Rotate to? ? Supraglottic Swallow? Left? ? Super- supraglottic Swallow? Right? ?+ Bolus Modifications Successful (+) Unsuccessful (-) Delivery/Alternating Consistencies ? Follow with Liquid Wash ? Follow with Solid Bolus? Delivery/Via Straw? ? Reduced Volume? ?+ Reduced Rate of Intake? ?+ Increased Viscosity? ?+/- Other:??Increased cohesiveness ?+ Thank you for allowing us to take part in this patient's care. Please feel free to contact the [facility] Speech Language Pathology Department with any questions/concerns.
== END ==
PROVIDERS: PCP Nurse Practitioner Primary Care; Visit Provider Speech-Language Pathologist
DX: R13.13 Dysphagia, pharyngeal phase (principal)
CPT/HCPCS: 92526; 74221

== ENCOUNTER 2023-07-30 07:58 | Emergency (ER) | payer OTHER, SELFPAY ==
--- NOTE | 2023-07-30 08:00 | DI.RAD_ITS ---
Exam(s) XR HIP RT COMPLETE AP PELVIS EXAM: XR HIP RT COMPLETE AP PELVIS CLINICAL HISTORY: Right hip pain. TECHNIQUE: 2D digital imaging was performed. COMPARISON: No exams were available for comparison FINDINGS: Two views. No evidence of pelvic nor hip fracture. No significant hip joint space narrowing. No osseous lesion s. Bone density IMPRESSION: No acute osseous findings. DATA REPOSITORY: RADIATION DOSE DELIVERED:
[2023-07-30 08:04] VITALS: BP 158/92; PULSE 82; RESP 16; TEMP 37.3; O2SAT 95
--- NOTE | 2023-07-30 08:10 | ED.GENADUL_ITS ---
Discharge Plan Disposition Patient Disposition: Home Condition: Stable Discharge Details Clinical Impression: Acute pain of right hip Primary Care Provider: Tennille Do ED Provider: Megan Trevizo Home Meds and New Rx's Prescriptions: Continued albuterol sulfate 90 mcg/actuation HFA aerosol inhaler 2 puff inhalation Q6H PRN Patient Comments: Pt states he uses every day; varies how often guaifenesin 600 mg tablet extended release 12hr 1,200 mg PO BID PRN lorazepam 1 mg tablet 1 mg PO .q4h PRN (Reason: anxiety) Qty: 7 3RF Rx Instructions: hospice benzonatate 200 mg capsule 200 mg PO TID PRN (Reason: cough) Qty: 45 0RF Rx Instructions: hospice dronabinol [Marinol] 5 mg capsule 5 mg PO BID Qty: 30 0RF Rx Instructions: administer before lunch and evening meal/dinner scopolamine base 1 mg over 3 days patch 3 day 1 patch transdermal Q3D Qty: 5 0RF Patient Comments: on right ear Rx Instructions: hospice hydrocodone-homatropine 5-1.5 mg/5 mL syrup 5 ml PO Q6H MDD 20 ml PRN (Reason: cough) Qty: 473 0RF Rx Instructions: hospice morphine concentrate 100 mg/5 mL (20 mg/mL) solution See Rx Instructions PO Q1H PRN MDD 120 mg Qty: 30 0RF Rx Instructions: 0.25-1.0 ml po q 1 hr prn orally every 1 hour, as needed; HOSPICE acetaminophen [Tylenol] 325 MG tablet 650 mg PO Q4H PRN PRN (Reason: Fever) levothyroxine 100 MCG tablet 1 tab PO DAILY omeprazole 20 mg Tablet,Delayed Release (Dr/Ec) 40 mg PO DAILY Qty: 30 12RF Hold Instructions: If possible hold this medication while on antibiotic as it may decrease the effectiveness of the antibiotic. diazepam [Valium] 2 mg tablet 2 mg PO BID PRNQty: 5 0RF Rx Instructions: take 1/2- 1 tab twice daily as needed for pain Discharge Instructions Instructions: Hip Pain (ED) Additional Instructions: Continue to take your previously prescribed medications as directed. You may alternate ice and heat. The lidocaine patch can be replaced in 24 hours. You may also get these [id number]. Follow up with primary care provider in 3-5 days. Return to ED sooner if any worsening or concerns. X-rays today show no acute abnormality. Referrals: Tennille Do [Primary Care Provider] - 5 days Discharge Data Discharge Date/Time-TO BE ENTERED AT DEPARTURE: 07/30/23 09:26 HPI General Mode of arrival: ambulatory (Uses cane) . Date/Time Provider Initiated Documentation: 07/30/23 08:07 . Limitations to Documentation: no limitations . Information obtained by: patient, family, RN notes reviewed and old records reviewed . HPI Narrative: 78-year-old male with a chief complaint of right hip pain which began on Saturday. Denies any known injury. Has taken his normal pain medications this morning which include Tylenol value morphine and hydrocodone. He reports that it comes and goes. No pain elicited on palpation. No obvious deformity noted denies any radiation of pain down his leg. Does have a history of lung cancer and lobectomy, COPD, Graves' disease, hearing loss hypothyroidism. Patient is on hospice. Alert and oriented no other associated symptoms or complaints at this time. Related Data Home Medications Medication Instructions Recorded Confirmed acetaminophen 325 mg tablet 650 mg PO Q4H PRN PRN Fever 10/08/13 07/30/23 (Tylenol) levothyroxine 100 mcg tablet 1 tab PO DAILY 06/12/17 07/30/23 albuterol sulfate 90 mcg/actuation 2 puff inhalation Q6H PRN 11/02/21 07/30/23 aerosol inhaler guaifenesin 600 mg tablet, 1,200 mg PO BID PRN 11/02/21 07/30/23 extended release 12 hr omeprazole 20 mg tablet,delayed 40 mg (2 x 20 mg) PO DAILY #30 tabs 12/15/21 07/30/23 release diazepam 2 mg tablet (Valium) 2 mg PO BID PRN #5 tabs 04/24/23 07/30/23 lorazepam 1 mg tablet 1 mg PO .q4h PRN anxiety #7 tabs 06/13/23 07/30/23 benzonatate 200 mg capsule 200 mg PO TID PRN cough #45 caps 06/19/23 07/30/23 dronabinol 5 mg capsule (Marinol) 5 mg PO BID #30 caps 06/19/23 07/30/23 scopolamine base 1 mg over 3 days 1 patch transdermal Q3D #5 ea 04/24/24 05/14/24 transdermal patch hydrocodone-homatropine 5 mg-1.5 5 ml PO Q6H PRN cough #473 mL 07/15/23 07/30/23 mg/5 mL oral syrup morphine concentrate 100 mg/5 mL See Rx Instructions PO Q1H PRN #30 07/15/23 07/30/23 (20 mg/mL) oral solution mL Previous Rx's Medication Instructions Recorded omeprazole 20 mg tablet,delayed 40 mg (2 x 20 mg) PO DAILY #30 tabs 12/15/21 release diazepam 2 mg tablet (Valium) 2 mg PO BID PRN #5 tabs 04/24/23 lorazepam 1 mg tablet 1 mg PO .q4h PRN anxiety #7 tabs 06/13/23 benzonatate 200 mg capsule 200 mg PO TID PRN cough #45 caps 06/19/23 dronabinol 5 mg capsule (Marinol) 5 mg PO BID #30 caps 06/19/23 scopolamine base 1 mg over 3 days 1 patch transdermal Q3D #5 ea 07/10/23 transdermal patch hydrocodone-homatropine 5 mg-1.5 5 ml PO Q6H PRN cough #473 mL 07/15/23 mg/5 mL oral syrup morphine concentrate 100 mg/5 mL See Rx Instructions PO Q1H PRN #30 07/15/23 (20 mg/mL) oral solution mL Allergies Allergy/AdvReac Type Severity Reaction Status Date / Time venom-honey bee Allergy Severe Swelling/Ed Unverified 03/05/23 08:55 [bee venom (honey bee)] connie sulfamethoxazole Allergy Unknown Nausea Unverified 07/30/23 08:02 [From Bactrim] trimethoprim [From Bactrim] Allergy Unknown Diarrhea Unverified 07/30/23 08:02 General Stated Complaint: Orthopedic THOR: 4 Review of Systems All systems reviewed & are unremarkable except as noted in HPI and below Musculoskeletal Musculoskeletal: Reports as per HPI and Reports arthralgias Exam Narrative Exam Narrative: Constitutional: Alert and oriented x3. Appears stated age. Thin body habitus. Head: Normocephalic, no trauma. Musculoskeletal: Stiff gait, uses a cane, moves all 4 extremities without difficulty. Complaining of right hip pain, no pain elicited with palpation obvious deformity crepitus or step-off. Skin: No suspicious rashes or lesions. Capillary refill less than 2 sec. Course Vital Signs Vital signs: Vital Signs Temperature 37.3 C 07/30/23 08:04 Pulse 82 07/30/23 08:04 Respiratory Rate 16 07/30/23 08:04 Blood Pressure 158/92 H 07/30/23 08:04 Pulse Oximetry 95 07/30/23 08:04 Temperature 37.3 C 07/30/23 08:04 Temperature Source Temporal Artery Scan 07/30/23 08:04 Pulse 82 07/30/23 08:04 Respiratory Rate 16 07/30/23 08:04 Respiratory Effort Normal, Non-Labored 07/30/23 08:06 Blood Pressure 158/92 H 07/30/23 08:04 Blood Pressure Position Sitting 07/30/23 08:04 Pulse Oximetry 95 07/30/23 08:04 Oxygen Delivery Method Room Air 07/30/23 08:04 Oxygen Flow Rate 0 07/30/23 08:04 Pain Level 10 07/30/23 08:04 Medical Decision Making 78-year-old male with a chief complaint of right hip pain which began on Saturday. Denies any known injury. Has taken his normal pain medications this morning which include Tylenol value morphine and hydrocodone. He reports that it comes and goes. No pain elicited on palpation. No obvious deformity noted denies any radiation of pain down his leg. Does have a history of lung cancer and lobectomy, COPD, Graves' disease, hearing loss hypothyroidism. Patient is on hospice. Alert and oriented no other associated symptoms or complaints at this time. X-ray right hip and AP pelvis ordered. X-ray within normal limits, no obvious bony abnormality, I did discuss this with patient and he denies any nausea vomiting diarrhea constipation, fever chills problems urinating or any other associated symptoms. I did discuss with him that we can do a workup and look further into this pain however he just wants his pain addressed. Lidocaine patch, Toradol and Norflex IM ordered. Patient discharged into the care of his family. Patient ambulatory upon discharge from department. This text was generated using [employer] MDation system, please disregard any oddities of phrase or misspellings. Medical Records Medical records reviewed: Yes I reviewed the patient's medical records. Imaging Data Radiologic Study: Imaging: X-Ray Radiologist's impression: EXAM: XR HIP RT COMPLETE AP PELVIS CLINICAL HISTORY: Right hip pain. TECHNIQUE: 2D digital imaging was performed. COMPARISON: No exams were available for comparison FINDINGS: Two views. No evidence of pelvic nor hip fracture. No significant hip joint space narrowing. No osseous lesions. Bone density IMPRESSION: No acute osseous findings. Quality:SDOH Health Related Social Needs: No Data to Display PFSH All Active Problems (Updated 07/30/23 @ 09:08 by Megan Trevizo NP) Acute pain of right hip (Acute) Metastatic primary lung cancer (Acute) recurrent Hyperlipidemia (Chronic) Thyroid disease (Chronic) Acute UTI (Acute) Sepsis (Acute) Lung mass (Acute) S/P lobectomy of lung (Acute) Right lung. 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 weakness Full thickness rotator cuff tear 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 Hypothyroidism CTS (carpal tunnel syndrome) Frozen shoulder Impingement syndrome of right shoulder Carcinoma in situ of lung Surgical History Hx of bilateral cataract extraction Hx of tonsillectomy H/O thyroidectomy Social History Smoking/Tobacco Use Status: Former Tobacco Use Quit Date: 03/18/08 Smoking risk assessment performed?: Yes Alcohol Intake: current Alcohol Intake frequency: holidays/special occasions only Alcohol type: beer Drug use: Never Substance use type: does not use Housing: house Do you feel safe at home: Yes Do you feel safe in your relationship?: Yes
[2023-07-30] MEDS: Ketorolac 30 MG/ML VIAL IM (09:04)
[2023-07-30] MEDS: Lidocaine 5% Patch 1 PATCH TP (09:04)
[2023-07-30] MEDS: Orphenadrine 60 MG/2 ML VIAL 30 MG IM (09:05)
== END 2023-07-30 09:26 | disposition home or self-care (01) ==
PROVIDERS: Emergency Provider Registered Nurse Emergency; PCP Nurse Practitioner Primary Care
DX: M25.551 Pain in right hip (principal); J44.9 Chronic obstructive pulmonary disease, unspecified; E05.00 Thyrotoxicosis with diffuse goiter without thyrotoxic crisis or storm; Z85.118 Personal history of other malignant neoplasm of bronchus and lung; Z90.49 Acquired absence of other specified parts of digestive tract
CPT/HCPCS: 96372; 99283; 99284; J2360; 73502; J1885

== ENCOUNTER 2023-08-23 05:46 | Emergency (ER) | payer OTHER, SELFPAY ==
--- NOTE | 2023-08-23 05:45 | DI.RAD_ITS ---
Exam(s) XR ELBOW LT COMPLETE XR FOREARM LT EXAM: XR FOREARM LT and XR elbow LT complete CLINICAL HISTORY: fall, cancer, pain in distal ulna. TECHNIQUE: 2D digital imaging was performed of the left elbow and forearm. Five views were obtained . AP, oblique and lateral views were obtained. COMPARISON: CR XR ELBOW LT COMPLETE from 08/23/2023 FINDINGS: BONES: No acute fracture is present. No bony destructive lesion is seen. Visualized portion of elbow and wrist joints are unremarkable. The elbow is intact and unremarkable. No joint effusion is seen. SOFT TISSUE: Vascular calcifications are seen. IMPRESSION: No acute abnormality. DATA REPOSITORY: RADIATION DOSE DELIVERED:
[2023-08-23 05:51] VITALS: BP 115/66; PULSE 93; RESP 20; TEMP 37.1; O2SAT 94
[2023-08-23] MEDS: oxyCODONE 5 MG TAB PO (05:57)
[2023-08-23] MEDS: Acetaminophen 500 MG TAB 1000 MG PO (05:57)
--- NOTE | 2023-08-23 06:08 | ED.GENADUL_ITS ---
Discharge Plan Discharge Details Chief Complaint: Orthopedic Clinical Impression: Injury of left wrist Primary Care Provider: Tennille Do ED Provider: Anuj Alvarado Home Meds and New Rx's Prescriptions: No Action albuterol sulfate 90 mcg/actuation HFA aerosol inhaler 2 puff inhalation Q6H PRN Patient Comments: Pt states he uses every day; varies how often guaifenesin 600 mg tablet extended release 12hr 1,200 mg PO BID PRN Hold Instructions: Changed by Provider lorazepam 1 mg tablet 1 mg PO .q4h PRN (Reason: anxiety) Qty: 7 3RF Hold Instructions: Prescription Finished Rx Instructions: hospice dronabinol [Marinol] 5 mg capsule 5 mg PO BID Qty: 30 0RF Hold Instructions: Changed by Provider Rx Instructions: administer before lunch and evening meal/dinner morphine concentrate 100 mg/5 mL (20 mg/mL) solution See Rx Instructions PO Q1H PRN MDD 120 mg Qty: 30 0RF Rx Instructions: 0.25-1.0 ml po q 1 hr prn orally every 1 hour, as needed; HOSPICE hydrocodone-homatropine 5-1.5 mg/5 mL syrup 5 ml PO Q6H MDD 20 ml PRN (Reason: cough) Qty: 473 0RF Rx Instructions: hospice scopolamine base 1 mg over 3 days patch 3 day 1 patch transdermal Q3D Qty: 5 0RF Patient Comments: on right ear Rx Instructions: hospice acetaminophen [Tylenol] 325 MG tablet 650 mg PO Q4H PRN PRN (Reason: Fever) Hold Instructions: Changed by Provider levothyroxine 100 MCG tablet 1 tab PO DAILY Patient Comments: 0.88 mg aspirin [Adult Aspirin Regimen] 81 mg tablet,delayed release (DR/EC) 81 mg PO DAILY atorvastatin 40 mg tablet 40 mg PO DAILY tamsulosin 0.4 mg capsule 0.4 mg PO DAILY omeprazole 20 mg Tablet,Delayed Release (Dr/Ec) 40 mg PO DAILY Qty: 30 12RF Hold Instructions: Changed by Provider HPI General Date/Time Provider Initiated Documentation: 08/23/23 05:52 . HPI Narrative: This is a 78-year-old male with a past medical history of prior stroke, GERD, Galaviz's esophagus, COPD, hypothyroidism, stage IV non-small cell lung cancer status post right upper lobectomy in 2018 with aneesh recurrence, completed chemo/radiation therapy in 2019 with eventual recurrence in 2021, subsequent chemotherapy, and then again recurrence in March 2023 who is currently now on hospice with the goal of not being admitted or coming to the emergency department who presents today for evaluation of left wrist pain. Patient was at home with his , he got up during the night and felt weak and fell forward. He hit his left wrist. He did not hit his head, he denies any loss of consciousness. He denies any other complaints whatsoever. Unfortunately they were not able to get a hold of the hospice staff prior to transport. Related Data Home Medications Medication Instructions Recorded Confirmed acetaminophen 325 mg tablet 650 mg PO Q4H PRN PRN Fever 10/08/13 08/23/23 (Tylenol) levothyroxine 100 mcg tablet 1 tab PO DAILY 06/12/17 08/23/23 albuterol sulfate 90 mcg/actuation 2 puff inhalation Q6H PRN 11/02/21 08/23/23 aerosol inhaler guaifenesin 600 mg tablet, 1,200 mg PO BID PRN 11/02/21 08/23/23 extended release 12 hr omeprazole 20 mg tablet,delayed 40 mg (2 x 20 mg) PO DAILY #30 tabs 12/15/21 0 08/23/23 release lorazepam 1 mg tablet 1 mg PO .q4h PRN anxiety #7 tabs 06/13/23 08/23/23 dronabinol 5 mg capsule (Marinol) 5 mg PO BID #30 caps 06/19/23 08/23/23 morphine concentrate 100 mg/5 mL See Rx Instructions PO Q1H PRN #30 07/15/23 08/23/23 (20 mg/mL) oral solution mL hydrocodone-homatropine 5 mg-1.5 5 ml PO Q6H PRN cough #473 mL 08/06/23 08/23/23 mg/5 mL oral syrup scopolamine base 1 mg over 3 days 1 patch transdermal Q3D #5 ea 08/06/23 08/23/23 transdermal patch aspirin 81 mg tablet,delayed 81 mg PO DAILY 08/23/23 08/23/23 release (Adult Aspirin Regimen) atorvastatin 40 mg tablet 40 mg PO DAILY 08/23/23 08/23/23 tamsulosin 0.4 mg capsule 0.4 mg PO DAILY 08/23/23 08/23/23 Previous Rx's Medication Instructions Recorded omeprazole 20 mg tablet,delayed 40 mg (2 x 20 mg) PO DAILY #30 tabs 12/15/21 release lorazepam 1 mg tablet 1 mg PO .q4h PRN anxiety #7 tabs 06/13/23 dronabinol 5 mg capsule (Marinol) 5 mg PO BID #30 caps 06/19/23 morphine concentrate 100 mg/5 mL See Rx Instructions PO Q1H PRN #30 07/15/23 (20 mg/mL) oral solution mL hydrocodone-homatropine 5 mg-1.5 5 ml PO Q6H PRN cough #473 mL 08/06/23 mg/5 mL oral syrup scopolamine base 1 mg over 3 days 1 patch transdermal Q3D #5 ea 08/06/23 transdermal patch Allergies Allergy/AdvReac Type Severity Reaction Status Date / Time venom-honey bee Allergy Severe Swelling/Ed Unverified 08/23/23 05:57 [bee venom (honey bee)] connie sulfamethoxazole Allergy Unknown Nausea Unverified 08/23/23 05:57 [From Bactrim] trimethoprim [From Bactrim] Allergy Unknown Diarrhea Unverified 08/23/23 05:57 General Stated Complaint: Orthopedic THOR: 4 Review of Systems All systems reviewed & are unremarkable except as noted in HPI and below Exam Narrative Exam Narrative: 1.Const: Well-nourished, Well-developed, appearing stated age 2.Eyes: PERRL, no conjunctival injection, and symmetrical lids. 3.ENT: Atraumatic external nose and ears. Moist MM. Neck: Symmetric, trachea midline, No thyromegaly. 4.CVS: +S1/S2, No murmurs or gallops. Peripheral pulses 2+ and equal in all extremities. Brisk capillary refill in all extremities. 5.RESP: Unlabored respiratory effort. Clear to auscultation bilaterally. No wheezes rales or rhonchi 6.GI: Soft, Nontender/Nondistended, No hepatosplenomegaly. No guarding or rebound. 7.MSK: Extremities w/o deformity. No cyanosis or clubbing, Normal movement of all extremities. Patient demonstrates mild redness and tenderness at the distal aspect of the ulna on the left hand. He is right-hand dominant. Mild tenderness tracking proximally towards the elbow. Patient demonstrates good flexion and extension of the elbow, as well as good flexion and extension of the wrist. However there is tenderness with these movements. No gross deformity. Neurovascular exam demonstrates normal sensation, brisk capillary refill. 8.Skin: Warm, Dry. No rashes or lesions. 9.Neuro: law researcher II-XII grossly intact. Sensation grossly intact, no focal neurologic deficits. 10.Psych: (AAO) x3. Appropriate mood and affect Course Vital Signs Vital signs: Vital Signs Temperature 37.1 C 08/23/23 05:51 Pulse 93 H 08/23/23 05:51 Respiratory Rate 20 08/23/23 05:51 Blood Pressure 115/66 08/23/23 05:51 Pulse Oximetry 94 08/23/23 05:51 Temperature 37.1 C 08/23/23 05:51 Temperature Source Temporal Artery Scan 08/23/23 05:51 Pulse 93 H 08/23/23 05:51 Respiratory Rate 20 08/23/23 05:51 Respiratory Effort Labored 08/23/23 05:53 Blood Pressure 115/66 08/23/23 05:51 Blood Pressure Position Supine 08/23/23 05:51 Pulse Oximetry 94 08/23/23 05:51 Oxygen Delivery Method Room Air 08/23/23 05:51 Oxygen Flow Rate 0 08/23/23 05:51 Pain Level 10 08/23/23 05:53 Medical Decision Making This is a 78-year-old male with a past medical history of prior stroke, GERD, Galaviz's esophagus, COPD, hypothyroidism, stage IV non-small cell lung cancer status post right upper lobectomy in 2017 with aneesh recurrence, completed chemo/radiation therapy in 2019 with eventual recurrence in 2021, subsequent chemotherapy, and then again recurrence in March 2023 who is currently now on hospice with the goal of not being admitted or coming to the emergency department who presents today for evaluation of left wrist pain. Patient was at home with his , he got up during the night and felt weak and fell forward. He hit his left wrist. He did not hit his head, he denies any loss of consciousness. He denies any other complaints whatsoever. Unfortunately they were not able to get a hold of the hospice staff prior to transport. Patient demonstrates mild redness and tenderness at the distal aspect of the ulna on the left hand. He is right-hand dominant. Mild tenderness tracking proximally towards the elbow. Patient demonstrates good flexion and extension of the elbow, as well as good flexion and extension of the wrist. However there is tenderness with these movements. No gross deformity. Neurovascular exam demonstrates normal sensation, brisk capillary refill. Concern for potential mild distal fracture for the ulna. More likely sprain. No other signs of trauma. The patient's hospice nurse Mireya did contact us after the patient arrived. She did inform us that the goals were to stay out of the hospital if at all possible. Patient does not want excessive workup, but does want us to evaluate for fracture of the wrist/arm. We will get x-rays of this area, give 1 g of Tylenol and 5 mg of oxycodone, monitor closely and reassess. Patient will be signed out to my colleague to follow-up on imaging. Quality:SDOH Health Related Social Needs: No Data to Display PFSH All Active Problems (Updated 08/23/23 @ 07:03 by Anuj Alvarado DO) Injury of left wrist (Acute) Acute pain of right hip (Acute) Metastatic primary lung cancer (Acute) recurrent Hyperlipidemia (Chronic) Thyroid disease (Chronic) Acute UTI (Acute) Sepsis (Acute) Lung mass (Acute) S/P lobectomy of lung (Acute) Right lung. 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 weakness Full thickness rotator cuff tear 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 Hypothyroidism CTS (carpal tunnel syndrome) Frozen shoulder Impingement syndrome of right shoulder Carcinoma in situ of lung Surgical History Hx of bilateral cataract extraction Hx of tonsillectomy H/O thyroidectomy Social History Smoking/Tobacco Use Status: Former Tobacco Use Quit Date: 03/18/08 Smoking risk assessment performed?: Yes Alcohol Intake: current Alcohol Intake frequency: holidays/special occasions only Alcohol type: beer Drug use: Never Substance use type: does not use Housing: house Do you feel safe at home: Yes Do you feel safe in your relationship?: Yes
[2023-08-23] MEDS: Lidocaine 5% Patch 1 PATCH TP (07:42)
--- NOTE | 2023-08-23 09:00 | ED.PROG_ITS ---
Date of service: 08/23/23 Time of Service: 09:06 Medical Decision Making Care signed out by Dr. Alvarado, please see his documentation regarding initial ED presentation and course. Plan at signout was to follow-up on x-rays of the left elbow and wrist. X-ray of the elbow and forearm interpreted by radiology: No acute abnormality. Patient declined Velcro wrist splint. Benja wrap was provided for support. Plan for discharge with outpatient follow-up. Quality:[facility] Health Related Social Needs: No Data to Display Sign Out Sign Out Data: Sign Out Comment: Metastatic lung cancer, hospice patient, prefers minimal workup. Fell with wrist pain. Follow-up on images for fracture. Patient has been given 1 g of Tylenol and 5 mg of oxycodone for pain. can pick the patient up. Hospice is actively involved. Last updated by Anuj Alvarado DO at 08/23/23 07:20 Discharge Plan Disposition Patient Disposition: Home Condition: Stable Discharge Details Clinical Impression: Fall, Left wrist sprain Primary Care Provider: Tennille Do ED Provider: Ramsey Smith Home Meds and New Rx's Prescriptions: Continued albuterol sulfate 90 mcg/actuation HFA aerosol inhaler 2 puff inhalation Q6H PRN Patient Comments: Pt states he uses every day; varies how often lorazepam 1 mg tablet 1 mg PO .q4h PRN (Reason: anxiety) Qty: 7 3RF Hold Instructions: Prescription Finished Rx Instructions: hospice morphine concentrate 100 mg/5 mL (20 mg/mL) solution See Rx Instructions PO Q1H PRN MDD 120 mg Qty: 30 0RF Rx Instructions: 0.25-1.0 ml po q 1 hr prn orally every 1 hour, as needed; HOSPICE hydrocodone-homatropine 5-1.5 mg/5 mL syrup 5 ml PO Q6H MDD 20 ml PRN (Reason: cough) Qty: 473 0RF Rx Instructions: hospice scopolamine base 1 mg over 3 days patch 3 day 1 patch transdermal Q3D Qty: 5 0RF Patient Comments: on right ear Rx Instructions: hospice levothyroxine 100 MCG tablet 1 tab PO DAILY Patient Comments: 0.88 mg aspirin [Adult Aspirin Regimen] 81 mg tablet,delayed release (DR/EC) 81 mg PO DAILY atorvastatin 40 mg tablet 40 mg PO DAILY tamsulosin 0.4 mg capsule 0.4 mg PO DAILY Discontinued guaifenesin 600 mg tablet extended release 12hr 1,200 mg PO BID PRN Hold Instructions: Changed by Provider dronabinol [Marinol] 5 mg capsule 5 mg PO BID Qty: 30 0RF Hold Instructions: Changed by Provider Rx Instructions: administer before lunch and evening meal/dinner acetaminophen [Tylenol] 325 MG tablet 650 mg PO Q4H PRN PRN (Reason: Fever) Hold Instructions: Changed by Provider omeprazole 20 mg Tablet,Delayed Release (Dr/Ec) 40 mg PO DAILY Qty: 30 12RF Hold Instructions: Changed by Provider Discharge Instructions Instructions: Fall Prevention for Older Adults (ED), Wrist Sprain (ED) Additional Instructions: Use Benja wrap for compression and support. Please contact your primary care physician to arrange follow-up. Return to the ER immediately for any worsening or new concerning symptoms. Referrals: Tennille Do [Primary Care Provider] -
[2023-08-23 09:12] VITALS: BP 115/66; PULSE 90; RESP 18; TEMP 37.1; O2SAT 94
== END 2023-08-23 09:14 | disposition home or self-care (01) ==
PROVIDERS: Emergency Provider Student in an Organized Health Care Education/Training Program; PCP Nurse Practitioner Primary Care
DX: S63.502A Unspecified sprain of left wrist, initial encounter (principal); R53.1 Weakness; C34.90 Malignant neoplasm of unspecified part of unspecified bronchus or lung; W19.XXXA Unspecified fall, initial encounter
CPT/HCPCS: 00123; 99284; 73080; 73090; 99283